=== PATIENT | female | born 1970 | race Caucasian/White ===

== ENCOUNTER → 2018-05-02 00:30 | Outpatient (CLI) | payer OTHER, SELFPAY ==
--- NOTE | 2018-05-02 | DI.RAD.S_ITS ---
PROCEDURE: XR CHEST 2V INDICATIONS: COUGH TECHNIQUE: 2 views of the chest were acquired. COMPARISON: [facility], CHEST 2 VIEW, 12/25/2017, 0:49. [facility], CHEST 2 VIEW, 12/11/2017, 12:39. [facility], CHEST 2 VIEW, 03/24/2014, 1:40. FINDINGS: Surgical changes and devices: None. Lungs and pleura: No pleural effusions or pneumothorax. Lungs are clear. Mediastinum: Mediastinal contours are normal. Heart size is normal. Bones and chest wall: No suspicious bony abnormalities. Soft tissues appear unremarkable. IMPRESSION: No source of cough identified. Dictated by: Robbi Billings M.D. on 05/02/2018 at 8:54 Approved by: Robbi Billings M.D. on 05/02/2018 at 8:54
== END ==
PROVIDERS: Family Provider Internal Medicine; PCP Internal Medicine; Visit Provider Student in an Organized Health Care Education/Training Program
DX: R05 Cough (principal)
CPT/HCPCS: 71046

== ENCOUNTER → 2018-06-11 23:03 | Outpatient (CLI) | payer OTHER, SELFPAY ==
[2018-06-12 03:26] LABS: Hemoglobin A1C% w Est Avg Glu 8.2 % (4.0-6.0)
== END ==
PROVIDERS: Family Provider Internal Medicine; PCP Internal Medicine; Visit Provider Internal Medicine
DX: E11.21 Type 2 diabetes mellitus with diabetic nephropathy (principal)
CPT/HCPCS: 36415; 83036

== ENCOUNTER 2018-06-20 11:48 | Emergency (ER) | payer OTHER, SELFPAY ==
[2018-06-20 12:28] VITALS: BP 163/100; PULSE 78; RESP 16; TEMP 36.3; O2SAT 100
--- NOTE | 2018-06-20 12:34 | DI.RAD.S_ITS ---
PROCEDURE: XR FOOT RT MIN 3V INDICATIONS: injured right foot kayaking TECHNIQUE: 3 views of the foot were acquired. COMPARISON: None. FINDINGS: Bones: No foot bone fractures or dislocations. No suspicious bony lesions. On AP view, there is bony irregularity over the distal fibula, possibly old fracture. Soft tissues: No tibiotalar joint effusion. Achilles tendon appears normal. IMPRESSION: No acute fracture or malalignment. Dictated by: Jon Yoo M.D. on 06/20/2018 at 12:52 Approved by: Jon Yoo M.D. on 06/20/2018 at 12:55
--- NOTE | 2018-06-20 13:20 | ED_ITS ---
HPI - Extremity Injury (Lower) General Chief Complaint: Extremity Injury, Lower Stated Complaint: KAYAK ACCIDENT, LT LEG AND FOOT INJURY Time Seen by Provider: 06/20/18 13:16 Source: patient Mode of arrival: ambulatory Limitations: no limitations History of Present Illness HPI Narrative: 47-year-old female here for evaluation of right ankle injury. Patient states that it occurred yesterday while she was tie aching. She states that she tipped over the [facility] acting at some point during that have blue torres she injured her right ankle. Has had pain on the top of her foot since then. Related Data Home Medications Medication Instructions Recorded Confirmed metformin [Glucophage] 500 mg PO BID #0 05/19/13 Previous Rx's Medication Instructions Recorded diazepam [Valium] 10 mg PO TIDP PRN #10 tab 04/23/17 hydrocodone-acetaminophen [Register] 1 - 2 tab PO Q6HP PRN #15 tab 04/23/17 tramadol 1 - 2 tab PO Q6HP PRN #10 tab 05/16/17 Allergies Allergy/AdvReac Type Severity Reaction Status Date / Time hydrocodone Allergy Unknown ITCHING/VOM Unverified 03/05/18 11:51 ITING Review of Systems Musculoskeletal Comments: Right ankle pain Integumentary/Breasts Comments: Cuts and scrapes to the top of the foot from the diet consistent Neurologic Comments: Some tingling to the top of the foot [facility] Surgical History Status post laparoscopic cholecystectomy Status post laparoscopic supracervical hysterectomy Family History Brother Mental health disorder Grandfather Stroke Mother Diabetes mellitus Heart disease Kidney disease Sister Mental health disorder Social History Smoking Status: Current every day smoker Comment: Reviewed patient's past medical surgical and family history Exam Initial Vital Signs Initial Vital Signs: Vital Signs Temperature 97.4 F L 06/20/18 12:28 Pulse Rate 78 06/20/18 12:28 Respiratory Rate 16 06/20/18 12:28 Blood Pressure 163/100 H 06/20/18 12:28 Pulse Oximetry 100 06/20/18 12:28 HENCO Head: normal to inspection, normocephalic and atraumatic Skin Other: Multiple linear superficial abrasions to the dorsum of the right foot and on other parts of the right lower extremity. No surrounding erythema no bleeding Neuro Other: Sensation intact to light touch right lower extremity Extrem Other: No proximal fibular tenderness on the right Does have tenderness to palpation along the lateral malleolus and the dorsum of the foot on the right Course Orders Ordered: ED Orders 06/20/18 12:34 XR foot RT min 3V Stat Vital Signs - 8 hr 06/20/18 12:28 Temperature 97.4 F L Pulse Rate 78 Respiratory Rate 16 Blood Pressure 163/100 H Pulse Oximetry 100 MDM - Extremity Injury (Lower) Imaging Data X-ray right ankle: Radiologist's impression: PROCEDURE: XR FOOT RT MIN 3V INDICATIONS: injured right foot kayaking TECHNIQUE: 3 views of the foot were acquired. COMPARISON: None. FINDINGS: Bones: No foot bone fractures or dislocations. No suspicious bony lesions. On AP view, there is bony irregularity over the distal fibula, possibly old fracture. Soft tissues: No tibiotalar joint effusion. Achilles tendon appears normal. IMPRESSION: No acute fracture or malalignment. Dictated by: Jon Yoo M.D. on 06/20/2018 at 12:52 Approved by: Jon Yoo M.D. on 06/20/2018 at 12:5 MDM Narrative Medical decision making narrative: No fractures noted on the x-ray. Patient is neurovascularly intact. Will hold on further workup for now. Patient given return precautions. She expressed understanding and agreement with plan. Discharge Plan Departure Patient Disposition: Home, Self-Care Clinical Impression: Ankle sprain and strain Discharge Date/Time: 06/20/18 13:25 Interventions: ED Discharge Assessment Last Done: 06/20/18 13:43 Instructions: How To Perform RICE (Rest, Ice, Compress, Elevate) Activity Restrictions/Additional Instructions: Keep your foot elevated. Come to work on time. You can ice it here at work. Return to the ER for any new or worsening symptoms. Prescriptions: No Action metformin [Glucophage] 500 MG tablet 500 mg PO BID Qty: 0 RF: 0 hydrocodone-acetaminophen [Register] 5 MG/325 MG tablet 1 - 2 tab PO Q6HP PRNQty: 15 RF: 0 diazepam [Valium] 10 MG tablet 10 mg PO TIDP PRNQty: 10 RF: 0 tramadol 50 MG tablet 1 - 2 tab PO Q6HP PRNQty: 10 RF: 0
== END 2018-06-20 13:25 | disposition home or self-care (01) ==
PROVIDERS: Emergency Provider Emergency Medicine; Family Provider Physician Assistant; PCP Physician Assistant
DX: S93.401A Sprain of unspecified ligament of right ankle, initial encounter (principal); Y93.16 Activity, rowing, canoeing, kayaking, rafting and tubing
CPT/HCPCS: 73630; 99282; 99283

== ENCOUNTER → 2018-08-15 10:54 | Outpatient (CLI) | payer OTHER, SELFPAY | PROVIDERS: Family Provider Physician Assistant; PCP Physician Assistant | DX: Z23 Encounter for immunization (principal) | CPT/HCPCS: 90471; 90686 ==

== ENCOUNTER → 2018-10-23 12:48 | Outpatient (CLI) | payer OTHER, SELFPAY ==
--- NOTE | 2018-10-23 | DI.MG.S_ITS ---
BILATERAL DIGITAL DIAGNOSTIC MAMMOGRAM 3D/2D: 10/23/2018 CLINICAL: Baseline exam. Bilateral Breast pain. No prior exams were available for comparison. There are scattered fibroglandular elements in both breasts. No significant masses, calcifications, or other findings are seen in either breast. IMPRESSION: NEGATIVE There is no abnormality seen in either breast to correspond with the pain, however, clinical followup is recommended. There is no mammographic evidence of malignancy. A 1 year screening mammogram is recommended. This exam was interpreted at Station ID: [id number]. NOTE: For mammograms, a report in lay terms will be sent to the patient. Approximately 15% of breast malignancies will not be visualized mammographically. In the management of a palpable breast mass, a negative mammogram must not discourage biopsy of a clinically suspicious lesion. Electronically Signed By: Robert osorio/payton:10/23/2018 13:29:56 letter sent: Clinical Evaluation ACR BI-RADS Category 1: Negative [id number]
== END ==
PROVIDERS: Family Provider Physician Assistant; PCP Physician Assistant; Visit Provider Physician Assistant
DX: R92.2 Inconclusive mammogram (principal); N64.4 Mastodynia
CPT/HCPCS: 77066; G0279

== ENCOUNTER → 2018-10-24 12:04 | Outpatient (CLI) | payer OTHER, SELFPAY ==
--- NOTE | 2018-10-24 | DI.CT.S_ITS ---
PROCEDURE: CT SINUS SCREEN WO CON INDICATIONS: SINUSITIS TECHNIQUE: Noncontrast 3.0 mm axial images acquired from the frontal sinuses to the mid-sella, with coronal and sagittal reformats. For radiation dose reduction, the following was used: automated exposure control, adjustment of mA and/or kV according to patient size. COMPARISON: Located Within [facility], CT, HEAD WITH AND WITHOUT CONTRAST, 04/22/2012, 16:56. FINDINGS: Image quality: Excellent. Maxillary Sinuses: No bony remodeling or destruction. Sinuses are clear except for a small inferior right maxillary sinus mucus retention cyst. Ethmoid Air Cells: No bony remodeling or destruction. Sinuses are clear. Sphenoid Sinuses: No bony remodeling or destruction. Sinuses are clear. Frontal Sinuses: No bony remodeling or destruction. Sinuses are clear. Ostiomeatal Complexes: Ostiomeatal complexes are patent. No Zonia cells. Miscellaneous: Visualized intra-orbital contents are normal. No agapito bullosa or paradoxical turbinate curvature. No nasal septal deviation. Partially visualized cranial defect related to craniotomy left frontoparietal region. IMPRESSION: No active sinusitis found. Small mucous retention cyst incidentally noted at the inferior aspect of the right maxillary sinus. Partially visualized craniotomy defect noted on the left, at the frontoparietal junction and better visualized on the scanogram which included the entire calvarium for this patient. This has not appreciably changed from the comparison head CT dated 04/22/12. Dictated by: Robbi Billings M.D. on 10/24/2018 at 12:38 Approved by: Robbi Billings M.D. on 10/24/2018 at 12:41
== END ==
PROVIDERS: Family Provider Physician Assistant; PCP Physician Assistant; Visit Provider Otolaryngology
DX: J32.9 Chronic sinusitis, unspecified (principal); J34.1 Cyst and mucocele of nose and nasal sinus
CPT/HCPCS: 70486

== ENCOUNTER 2018-12-03 14:52 | Emergency (ER) | payer OTHER, SELFPAY ==
--- NOTE | 2018-12-03 14:59 | DI.RAD.S_ITS ---
PROCEDURE: XR SHOULDER RT MIN 2V INDICATIONS: fall down stairs, rt shoulder/rt upper arm pain TECHNIQUE: 3 views of the shoulder were acquired. COMPARISON: None. FINDINGS: Bones: No fractures or dislocations. No suspicious bony lesions. Visualized ribs appear intact. Mild bilateral acromioclavicular joint osteoarthritis is seen. Soft tissues: No suspicious soft tissue calcifications. IMPRESSION: No gross acute right shoulder fracture or dislocation. Mild acromioclavicular joint osteoarthritis. Dictated by: Donaldo Andujar M.D. on 12/03/2018 at 15:45 Approved by: Donaldo Andujar M.D. on 12/03/2018 at 15:46
[2018-12-03 15:20] VITALS: BP 160/106; PULSE 93; RESP 20; TEMP 36.4; O2SAT 98
--- NOTE | 2018-12-03 15:40 | ED.UPPEXIN ---
HPI - Extremity Injury (Upper) <HEENA Faith - Last Filed: 12/03/18 22:10> General Chief Complaint: Extremity Injury, Upper Stated Complaint: RT SHOULDER, UPPER ARM INJURY Time Seen by Provider: 12/03/18 15:10 Source: patient Mode of arrival: ambulatory Limitations: no limitations History of Present Illness HPI narrative: 48-year-old female with history of diabetes and everyday smoker here for complaint of pain into her right upper arm and shoulder after fall this morning. She states that she stumbled down approximately 4 steps landing on her right shoulder. She denies any head injury. No neck injury. She is ambulatory into the emergency room. She denies any abdominal pain. She reports increased pain with motion of the right shoulder and upper arm. Related Data Home Medications Medication Instructions Recorded Confirmed esomeprazole magnesium 20 mg 20 mg PO DAILY 11/07/18 12/03/18 capsule,delayed release gabapentin 600 mg tablet 2,400 mg PO BID 11/07/18 12/03/18 gemfibrozil 600 mg tablet 600 mg PO BID 11/07/18 12/03/18 lisinopril 10 mg tablet 10 mg PO DAILY 11/07/18 12/03/18 metformin ER 750 mg 750 mg PO DAILY 11/07/18 12/03/18 tablet,extended release 24 hr fluconazole [Diflucan] 1 tab PO PRN PRN 12/03/18 12/03/18 insulin glargine [Basaglar KwikPen 20 units SUBCUT BID 12/03/18 12/03/18 U-100 Insulin] tramadol 1 - 2 tab PO Q6HP PRN 12/03/18 12/03/18 Previous Rx's Medication Instructions Recorded oxycodone-acetaminophen [Percocet] 1 tab PO Q4-6H PRN #10 tab 12/03/18 Allergies Allergy/AdvReac Type Severity Reaction Status Date / Time hydrocodone Allergy Unknown ITCHING/VOM Unverified 11/07/18 11:45 ITING Review of Systems <HEENA Faith - Last Filed: 12/03/18 22:10> Constitutional Denies chills, Denies fever(s), Denies lethargy and Denies weakness Eyes Denies change in vision, Denies eye discharge, Denies irritation and Denies loss of vision ENT Ears, Nose, Mouth, and Throat: Denies change in voice, Denies neck pain and Denies sore throat Cardiovascular Denies chest pain, Denies irregular heart rhythm, Denies lightheadedness, Denies palpitations, Denies dyspnea, Denies dyspnea on exertion and Denies orthopnea Respiratory Denies cough, Denies dyspnea, Denies dyspnea on exertion and Denies wheezing Gastrointestinal Gastrointestinal: Denies abdominal pain, Denies change in bowel habits, Denies diarrhea, Denies nausea and Denies vomiting Genitourinary Denies hematuria, Denies flank pain, Denies urinary incontinence and Denies urinary urgency Musculoskeletal Denies neck pain Comments: Right shoulder pain Integumentary/Breasts Denies pruritus, Denies erythema, Denies rash and Denies wounds Neurologic Denies confusion, Denies loss of vision and Denies weakness Psychiatric Denies anxiety, Denies confusion, Denies depression, Denies homicidal ideation and Denies suicidal ideation Endocrine Denies palpitations Hematologic/Lymphatic Denies easy bruising Allergic/Immunologic Denies wheezing Exam <HEENA Faith - Last Filed: 12/03/18 22:10> Initial Vital Signs Initial Vital Signs: Vital Signs Temperature 97.6 F 12/03/18 15:20 Pulse Rate 93 H 12/03/18 15:20 Respiratory Rate 20 12/03/18 15:20 Blood Pressure 160/106 H 12/03/18 15:20 Pulse Oximetry 98 12/03/18 15:20 Const General: cooperative and well developed Nutritional Appearance: well nourished Orientation: alert, awake, oriented x3 and not confused HENMT Nose: nasal discharge Mouth: oral mucosae normal and moist mucous membranes Eyes Conjunctivae: conjunctivae normal Sclera: sclerae normal Pupils: PERRL EOM: EOM intact bilaterally Resp Effort & Inspection: normal respiratory effort, able to speak in complete sentences, no respiratory distress and no use of accessory muscles Auscultation: clear to auscultation bilaterally, no rales, no rhonchi and no wheezes Cardio Rate: regular rate Rhythm: regular rhythm Heart Sounds: no click, no gallops, no murmurs and no rubs Pulses: normal peripheral pulses GI Inspection: normal to inspection Skin General: no rashes or lesions noted, No jaundice and No petechiae Neuro General: alert, oriented x3, gait normal and no focal motor deficits Speech: speech normal Extrem Right lower extremity: normal to inspection Left lower extremity: normal to inspection Other: Right shoulder with no signs of trauma. No ecchymosis. No deformities. No open lesions. Distal sensation is intact. Distal range of motion is intact. Distal pulses are intact. <Batsheva Donald DO - Last Filed: 12/04/18 19:45> Initial Vital Signs Initial Vital Signs: Vital Signs Temperature 97.6 F 12/03/18 15:20 Pulse Rate 93 H 12/03/18 15:20 Respiratory Rate 20 12/03/18 15:20 Blood Pressure 160/106 H 12/03/18 15:20 Pulse Oximetry 98 12/03/18 15:20 Course <HEENA Faith - Last Filed: 12/03/18 22:10> Orders Ordered: Discontinued Medications Ketorolac Tromethamine (Toradol) 60 mg IM NOW ONE Stop: 12/03/18 15:43 Last Admin: 12/03/18 16:01 Dose: 60 mg Tramadol HCl (Ultram) 50 mg PO NOW ONE Stop: 12/03/18 15:43 Last Admin: 12/03/18 16:01 Dose: 50 mg Vital Signs - 8 hr 12/03/18 15:20 12/03/18 17:00 Temperature 97.6 F Pulse Rate 93 H 75 Respiratory Rate 20 20 Blood Pressure 155/97 H Blood Pressure [Left Arm] 160/106 H Pulse Oximetry 98 97 <Batsheva Donald DO - Last Filed: 12/04/18 19:45> Orders Ordered: Discontinued Medications Ketorolac Tromethamine (Toradol) 60 mg IM NOW ONE Stop: 12/03/18 15:43 Last Admin: 12/03/18 16:01 Dose: 60 mg Tramadol HCl (Ultram) 50 mg PO NOW ONE Stop: 12/03/18 15:43 Last Admin: 12/03/18 16:01 Dose: 50 mg Vital Signs - 8 hr 12/03/18 15:20 12/03/18 17:00 Temperature 97.6 F Pulse Rate 93 H 75 Respiratory Rate 20 20 Blood Pressure 155/97 H Blood Pressure [Left Arm] 160/106 H Pulse Oximetry 98 97 MDM - Extremity Injury (Upper) <HEENA Faith - Last Filed: 12/03/18 22:10> Imaging Data R shoulder: Radiologist's impression: [address] [id number] XRay Report Signed Patient: Candis Vallecillo MR#: [id number] : 1970 Acct:[id number] Age/Sex: 48 / F Date of Service: 12/03/18 Loc: ED Accession Number: [id number] Procedure: XR shoulder RT min 2V Ordering Provider: Jero Lehman PROCEDURE: XR SHOULDER RT MIN 2V INDICATIONS: fall down stairs, rt shoulder/rt upper arm pain TECHNIQUE: 3 views of the shoulder were acquired. COMPARISON: None. FINDINGS: Bones: No fractures or dislocations. No suspicious bony lesions. Visualized ribs appear intact. Mild bilateral acromioclavicular joint osteoarthritis is seen. Soft tissues: No suspicious soft tissue calcifications. IMPRESSION: No gross acute right shoulder fracture or dislocation. Mild acromioclavicular joint osteoarthritis. Dictated by: Dnoaldo Andujar M.D. on 12/03/2018 at 15:45 Approved by: Donaldo Andujar M.D. on 12/03/2018 at 15:46 [facility] Narrative Medical decision making narrative: X-ray of the right shoulder was obtained was negative for any acute fractures of findings. Signs and symptoms presents as contusion to the right upper extremity. Patient request pain medication she is prescribed small amount of Percocet. She states she is allergic to [place] however she can tolerate Percocet. Follow up with primary care providerfor re-evaluation next week. For any worsening symptoms return to the emergency room Discharge Plan Departure Patient Disposition: Home Clinical Impression: Contusion of right shoulder Discharge Date/Time: 12/03/18 17:00 Interventions: ED Discharge Assessment Last Done: 12/03/18 17:00 Instructions: DI for Contusion Activity Restrictions/Additional Instructions: X-ray the right shoulder was obtained was negative for any acute fractures or dislocations. Signs and symptoms presents as contusion to the right upper extremity/shoulder area. Rest area. Use currently prescribed pain management regimen as needed for discomfort. May use Percocet as needed for discomfort do not use at the same time with your tramadol. The for any worsening symptoms return to the emergency room. Prescriptions: New oxycodone-acetaminophen [Percocet] 5-325 mg tablet 1 tab PO Q4-6H PRN (Reason: pain) Qty: 10 RF: 0 No Action metformin 750 mg tablet extended release 24 hr 750 mg PO DAILY RF: 0 gabapentin 600 mg tablet 2,400 mg PO BID RF: 0 lisinopril 10 mg tablet 10 mg PO DAILY RF: 0 esomeprazole magnesium [Nexium] 20 mg capsule,delayed release(DR/EC) 20 mg PO DAILY RF: 0 gemfibrozil 600 mg tablet 600 mg PO BID RF: 0 insulin glargine [Basaglar KwikPen U-100 Insulin] 100 unit/mL (3 mL) insulin pen 20 units subcut BID RF: 0 tramadol 50 MG tablet 1 - 2 tab PO Q6HP PRN (Reason: pain) RF: 0 fluconazole [Diflucan] 150 mg tablet 1 tab PO PRN PRN (Reason: unknown) RF: 0 Referrals: Rafaela Napoles PA-C [Primary Care Provider] - <Batsheva Donald DO - Last Filed: 12/04/18 19:45> Cosign ED Attending Cosignature Attestation: I was immediately available in the department for consultation. This documentation has been reviewed and I agree with assessment and plan. Supervised by Batsheva Donald DO
[2018-12-03] MEDS: KETOROLAC 60 MG/2 ML VIAL IM (16:01)
[2018-12-03] MEDS: TRAMADOL 50 MG TABLET PO (16:01)
[2018-12-03 17:00] VITALS: BP 155/97; PULSE 75; RESP 20; O2SAT 97
--- NOTE | 2018-12-03 18:12 | PC.NURSE ---
pt appears to have right swollen ankle from fall, abrasion to right ankle, and right knee. Provider aware. No new orders at this time.
== END 2018-12-03 17:00 | disposition home or self-care (01) ==
PROVIDERS: Emergency Provider Nurse Practitioner Family; Family Provider Physician Assistant; PCP Physician Assistant
DX: S40.011A Contusion of right shoulder, initial encounter (principal); W10.8XXA Fall (on) (from) other stairs and steps, initial encounter
CPT/HCPCS: 73030; 96372; 99282; 99283; J1885

== ENCOUNTER → 2018-12-10 15:48 | Outpatient (CLI) | payer OTHER, SELFPAY ==
--- NOTE | 2018-12-10 | DI.RAD.S_ITS ---
PROCEDURE: XR THORACIC SPINE 2V INDICATIONS: FALL TECHNIQUE: 3 views of the thoracic spine were acquired. COMPARISON: None. FINDINGS: Bones: No fractures or dislocations. No suspicious bony lesions. Diffuse endplate spurring and sclerosis. There is mild diffuse midthoracic spine disc space narrowing. Soft tissues: No paravertebral stripe thickening. IMPRESSION: No fracture. Chronic degenerative changes as above. Dictated by: Sekou Cruz M.D. on 12/10/2018 at 16:54 Approved by: Sekou Cruz M.D. on 12/10/2018 at 16:55
--- NOTE | 2018-12-10 | DI.RAD.S_ITS ---
PROCEDURE: XR LUMBAR SPINE 2-3V INDICATIONS: FALL TECHNIQUE: 3 views of the lumbar spine were acquired. COMPARISON: [facility], , L-SPINE 2-3 VIEWS, 05/16/2017, 3:36. FINDINGS: Bones: No fracture or focal destruction. There is anatomic alignment. Severe narrowing of L5-S1 disc space although this is probably unchanged. Diffuse facet arthropathy. Mild narrowing of the remaining lumbar disc spaces. Trace retrolisthesis of L2 on L3, as before. Soft tissues: Overlying bowel gas pattern is normal. No suspicious soft tissue calcifications. IMPRESSION: Overall, no interval change since 05/16/17. Severe L5-S1 disc degeneration as before. Dictated by: Sekou Cruz M.D. on 12/10/2018 at 16:55 Approved by: Sekou Cruz M.D. on 12/10/2018 at 16:56
== END ==
PROVIDERS: Family Provider Physician Assistant; PCP Physician Assistant; Visit Provider Student in an Organized Health Care Education/Training Program
DX: M47.814 Spondylosis without myelopathy or radiculopathy, thoracic region (principal); M51.37 Other intervertebral disc degeneration, lumbosacral region; M54.5 Low back pain
CPT/HCPCS: 72070; 72100

== ENCOUNTER → 2018-12-18 09:29 | Outpatient (CLI) | payer OTHER, SELFPAY ==
--- NOTE | 2018-12-18 | DI.MRI.S_ITS ---
PROCEDURE: MR SHOULDER RT WO CON INDICATIONS: FALL AND PAIN IN R SHOULDER TECHNIQUE: Noncontrast oblique coronal T2 fast spin echo with fat saturation, oblique sagittal T1 spin echo and T2 fast spin echo with fat saturation, axial T1 spin echo and T2 fast spin echo with fat saturation through the shoulder. COMPARISON: None. FINDINGS: Image quality: Diagnostic. Rotator cuff: Prominent thickening, edema, and extensive irregularity of the distal supraspinatus and infraspinatus tendons is present. There is a least a high grade bursal surface partial thickness tear evident involving the anterior distal supraspinatus tendon. A small full-thickness tear may be present. Moderate to high-grade irregular partial thickness tearing is also present involving the infraspinatus tendon. Mild thickening and increased signal involving the subscapularis tendon is present. The teres minor tendon is atrophic, including its corresponding muscle, which is felt to be related to a chronic process. No additional areas of significant muscle atrophy are present. However, there is edema identified involving the supraspinatus and infraspinatus muscles with edema extending along the infraspinatus myotendinous junction. Bones and bursae: There is no acute fracture, dislocation, or suspicious osseous lesion identified involving the osseous structures of the shoulder. Mild focal marrow edema involving the greater tuberosity of the humeral head is incidentally noted, which could potentially represent a bone contusion. There is a small glenohumeral joint effusion. Mild degenerative changes of the glenohumeral joint are present. Moderate degenerative changes of the acromioclavicular joint are present. There is a large amount of fluid contained within the subacromial subdeltoid bursa. Capsule and soft tissues: Evaluation of the glenoid labrum and the glenohumeral ligaments is difficult without intra-articular contrast. However, there is heterogeneity identified along the superior labrum, suggesting a small superior labral tear that extends from the 11 o'clock position (anterosuperior) disease to the 3 o'clock position (posterior). A ganglion cyst is identified along the superior aspect of the glenoid, which tracks posteriorly, probably originating from the superior labrum. This cyst measures at least 3.5 x 1.3 x 1.6 cm (image 12, series 8). This cyst does not extend into the spinoglenoid notch. The long head of biceps tendon is normally positioned within the bicipital groove. However, there is thickening and increased signal involving the intra-articular portion of this tendon. No acute injuries are suspected involving the glenohumeral ligaments. There is edema identified involving the anterolateral margin of the deltoid muscle. IMPRESSION: 1. Moderate to high-grade partial-thickness tearing of the supraspinatus and infraspinatus tendons with corresponding severe tendinopathy. An interstitial/delaminating partial-thickness component of the infraspinatus tendon is suspected. A small full-thickness tear of the distal supraspinatus tendon near the rotator interval is difficult to exclude. 2. Moderate subscapularis tendinopathy without significant tearing. 3. Small superior labral tear (SLAP tear) probably extends into the biceps anchor. 4. Moderate tendinopathy involving the intra-articular portion of the biceps tendon. 5. Possible contusion of the greater tuberosity of the humeral head. No fractures. 6. Deltoid muscle strain. 7. Mild to moderate degenerative changes of the glenohumeral and acromioclavicular joints. 8. Moderate fluid within the subacromial subdeltoid bursa is likely reactive. Please correlate clinically to exclude bursitis. Dictated by: Roverto Langley M.D. on 12/18/2018 at 9:18 Approved by: Roverto Langley M.D. on 12/18/2018 at 9:26
== END ==
PROVIDERS: Family Provider Physician Assistant; PCP Physician Assistant; Visit Provider Student in an Organized Health Care Education/Training Program
DX: M25.511 Pain in right shoulder (principal); S46.011A Strain of muscle(s) and tendon(s) of the rotator cuff of right shoulder, initial encounter; S43.491A Other sprain of right shoulder joint, initial encounter; S46.811A Strain of other muscles, fascia and tendons at shoulder and upper arm level, right arm, initial encounter; M19.011 Primary osteoarthritis, right shoulder; W19.XXXA Unspecified fall, initial encounter
CPT/HCPCS: 73221

== ENCOUNTER → 2019-07-19 06:46 | Outpatient (CLI) | payer OTHER, SELFPAY ==
[2019-07-19 06:59] LABS: Add Manual Diff / Slide Review NO; Basophils Absolute Auto 100 /uL (0-100); Basophils Percent Auto 0.9 % (0-2); Eosinophils Absolute Auto 300 /uL (0-450); Hematocrit 43.4 % (36-46); Hemoglobin 15.3 g/dL (12.0-16.0); Lymphocytes Absolute Auto 1700 /uL (1100-4500); Lymphocytes Percent Auto 27.7 % (25-40); Mean Corpuscular HGB Conc 35.3 % (30-36); Mean Corpuscular Hemoglobin 30.2 PG (26-34); Mean Corpuscular Volume 85.4 fL (80-100); Monocytes Absolute Auto 400 /uL (0-900); Monocytes Percent Auto 6.4 % (3-14); Neutrophils Absolute Auto 3700 /uL (1500-7000); Platelet Count 195 X10^3/uL (150-400); Red Blood Cell Count 5.08 X10^6/uL (4.0-5.2); Red Cell Distribution Width 12.6 % (11.6-14.8); White Blood Cell Count 6.2 X10^3/uL (4.5-11.0)
[2019-07-19 07:11] LABS: Alanine Aminotransferase 26 IU/L (9-52); Albumin 3.9 g/dL (3.5-5.0); Albumin Globulin Ratio 1.1 (1.0-2.8); Alkaline Phosphatase 61 U/L (38-126); Aspartate Aminotransferase 20 IU/L (14-36); BUN Creatinine Ratio 28.8 (6-22); Bilirubin Total 0.5 mg/dL (0.2-1.3); Blood Urea Nitrogen 23 mg/dL (7-17); Calcium 9.4 mg/dL (8.4-10.2); Carbon Dioxide 27 mmol/L (22-32); Chloride 102 mmol/L (98-107); Cholesterol 166 mg/dL (140-199); Estimated Glomerular Filt Rate > 60.0 mL/min (>60); Globulin 3.4 g/dL (1.7-4.1); Glucose 305 mg/dL (70-100); HDL Cholesterol 36 mg/dL (40-60); HEMOLYSIS < 15 (0-50); Potassium 4.3 mmol/L (3.4-5.1); Sodium 137 mmol/L (137-145); Total Protein 7.3 g/dL (6.3-8.2); Triglycerides 466 mg/dL (35-150)
[2019-07-19 07:12] LABS: Hemoglobin A1C% w Est Avg Glu 9.1 % (4.0-6.0)
[2019-07-19 07:55] LABS: TSH w/ Reflex to FT4 3.33 uIU/mL (0.47-4.68)
== END ==
PROVIDERS: Family Provider Family Medicine; Visit Provider Nurse Practitioner Family
DX: E11.42 Type 2 diabetes mellitus with diabetic polyneuropathy (principal); Z13.6 Encounter for screening for cardiovascular disorders; F41.9 Anxiety disorder, unspecified
CPT/HCPCS: 80053; 80061; 83036; 84443; 85025

== ENCOUNTER → 2019-07-20 13:52 | Outpatient (CLI) | payer OTHER, SELFPAY | PROVIDERS: Family Provider Family Medicine; Visit Provider Surgery | DX: L02.91 Cutaneous abscess, unspecified (principal) | CPT/HCPCS: 87070; 87077; 87186; 87205 ==

== ENCOUNTER 2019-07-28 08:06 | Day surgery (SDC) | payer OTHER, SELFPAY ==
[2019-07-21 10:40] VITALS: BMI 32.5
[2019-07-28] VITALS (10 sets, daily range): BP systolic 108–171; BP diastolic 66–106; PULSE 77–96; RESP 11–20; TEMP 36.2–36.4; O2SAT 91–97; BMI 32.3
--- NOTE | 2019-07-28 | PATH_ITS ---
[facility] Accession Number: [id number] . 01 Material submitted: . PART A: thigh - LEFT THIGH SOFT TISSUE MASS PART B: groin - RIGHT GROIN SOFT TISSUE MASS . 01 Clinical history: . LOCALIZED SWELLING, MASS AND LUMP, UNSPECIFIED LOW . 01 Diagnosis: A. Skin, Left Thigh Soft Tissue Mass, Excision: Skin with dermal abscess and associated chronic inflammation, consistent with ruptured epidermal inclusion cyst. . B. Skin, Right Groin Soft Tissue Mass, Excision: Skin with dermal scarring, evidence of old hemorrhage, and mild active inflammation, consistent with ruptured cyst; see comment. . COMMENT: B. Differential diagnosis includes, in the proper clinical setting, hidradenitis suppurativa. Clinical correlation is necessary. MRV/07/30/2019 . 01 Electronically signed: . Taina Reyes MD, Pathologist NPI- [id number] . 01 Gross description: . (A) Received in formalin, labeled left thigh soft tissue mass, is an unoriented piece of andrew-brown smooth shiny skin with underlying tissue (4.0 x 2.4 x 1.4 cm). The underlying tissue is fibrofatty and cystic. The cavity (1.2 x 0.7 x 0.5 cm) contains clear colorless fluid and perforates through the skin 0.5 cm from the peripheral resection margin. The resection margin is inked blue. Disc Recordist serial sections are submitted in cassettes A1-A2. (B) Received in formalin, labeled right groin soft tissue mass, is an unoriented piece of andrew-posada skin with underlying tissue (1.2 x 0.8 x 0.4 cm) containing a linear perforation (length-0.6 cm). The underlying tissue is firm and cystic containing andrew-white solid paste-like material. The resection margin is inked blue. Trisected and entirely submitted in cassette B1. ([id number]) /MRV . 01 Pathologist provided ICD-10: L72.0 . 01 CPT . 475091, [id number] Performed at: 01 [facility] [address] [place] [address] [address] [facility], [place], [place] [id number] MD Robert Ricardo MD Phone: [phone]
--- NOTE | 2019-07-28 08:34 | PM.PREOP ---
Pre-operative Note Interval Note History & Physical reviewed/Exam performed by Physician: Yes Changes to H&P: No
[2019-07-28] MEDS: LACTATED RINGERS 1,000 ML 100 ML IV (08:48)
[2019-07-28] MEDS: INSULIN REGULAR 100 UNIT/ML 3 ML VIAL 10 UNIT SUBCUT (09:05)
[2019-07-28] MEDS: CEFAZOLIN 2 GM/100 ML FROZ.PIGGY IV (09:20)
--- NOTE | 2019-07-28 09:38 | SUR.OPER ---
Supine on padded OR bed, head on pillow, arms secured on padded arm boards at <90 degrees abduction, legs uncrossed, safety belt at thigh, tape over blanket over lower legs.
--- NOTE | 2019-07-28 10:08 | PM.OP.1 ---
Operative Date/Time/Diagnoses Date of procedure: 07/28/19 Time of procedure: 10:08 Pre-op diagnosis: L thigh soft tissue mass <3 cm R groin sinus tract Post-op diagnosis: same Procedure & Clinicians Procedure: Excision left thigh soft tissue mass Excision right groin abscess Same procedure as scheduled: Yes Indications: 48-year-old female with a symptomatic slowly enlarging left thigh soft tissue mass. In addition she has a right groin abscess which is persistently draining. Following discussion of the risks benefits alternatives to surgical intervention she elected to proceed. Surgeon: Willian Murillo Click Yes if Unassisted: Yes Anesthesia Type: General Operative Notes Findings: Sinus tract right groin Soft tissue mass left thigh superficial Specimen(s): other (left thigh soft tissue mass. R groin soft tissue mass) Estimated Blood Loss (mL): 5 Procedure in detail: Patient was brought to the operating room placed supine on the table. Bilateral lower extremity compression devices were applied. She was intubated with a LMA. She was then prepped and draped in usual sterile fashion. Time-out was performed to ensure the correct patient procedure necessary equipment within the operating room. I began with the left thigh soft tissue mass which lay inferior to the inguinal ligament. A elliptical incision was made around the mass after infiltration of skin with 0.25% bupivacaine. The subcutaneous tissues were divided using electrocautery. The mass was elevated and removed from the underlying subcutaneous tissue in its entirety. Mass passed off the field labeled as left thigh soft tissue mass. The wound was irrigated with saline and hemostasis was ensured. The wound was reapproximated with 3 0 Vicryl suture followed by skin closure with 4 O Monocryl and Dermabond. Next moved to the right groin draining sinus. 0.25%% bupivacaine was infiltrated into the skin. A small elliptical incision was made around the abscess in its entirety and it was then excised off the subcutaneous tissues using electrocautery. Hemostasis was achieved and the wound was reapproximated with 4 0 Monocryl followed by application Dermabond. This mass was also passed off the table labeled specimen right groin soft tissue mass. Patient tolerated procedure well. Sponge instrument count at the end of the operation was correct. The emerged from anesthesia where extubated and transferred to the postoperative care unit in stable condition. Post-operative Condition: stable Disposition: same day surgery
[2019-07-28] MEDS: BUPIVACAINE 0.25% (PF) VIAL 30 ML INJ (10:09)
[2019-07-28] MEDS: fentaNYL 100 MCG/2 ML INJ 50 MCG IV ×2 (10:21→10:33)
--- NOTE | 2019-07-28 11:05 | SUR.PHASEI ---
Pt wanting pain med prior to d/c, none onm chart, Dr. Bae called, will order, pt tolerated applesauce. Stable pacu stay to opd under the care of PARTH Henson.
[2019-07-28] MEDS: OXYCODONE IR 5 MG TABLET PO (11:12)
--- NOTE | 2019-07-28 11:16 | SUR.PHASEII ---
Pt c/o itching but stated would take Benadryl at home
--- NOTE | 2019-07-28 12:16 | SUR.PREOP ---
Late note: The consent is for Candis Billy, but patient verifies this is her and that the signature is hers. Says that she is in the middle of a name change and now going by Elis for surname.
== END 2019-07-28 11:44 | disposition home or self-care (01) ==
PROVIDERS: Family Provider Family Medicine; Visit Provider Surgery
PROC: (CPT 27337; principal; 2019-07-28 09:15)
PROC: (CPT 27337; 2019-07-28 09:15)
DX: L72.0 Epidermal cyst (principal); L02.214 Cutaneous abscess of groin; E11.9 Type 2 diabetes mellitus without complications; Z79.4 Long term (current) use of insulin
CPT/HCPCS: 27337; 10060; J0690; J2250; J2405; J2704; J3010

== ENCOUNTER → 2019-08-20 13:02 | Outpatient (CLI) | payer OTHER, SELFPAY | PROVIDERS: PCP Family Medicine | DX: Z23 Encounter for immunization (principal) | CPT/HCPCS: 90471; 90686 ==

== ENCOUNTER 2019-09-26 01:43 | Emergency (ER) | payer OTHER, SELFPAY ==
--- NOTE | 2019-09-26 01:48 | ED.GENADULT ---
HPI - General Adult General Chief complaint: Back Pain/Injury Stated complaint: back pain Time Seen by Provider: 09/26/19 01:46 Source: patient Mode of arrival: Ambulatory Limitations: no limitations History of Present Illness HPI narrative: History of low back pain with left-sided sciatic here for same. Patient stated the symptoms worsened after she fell down some stairs approximately 1 week ago. She has been ambulatory since then. No urinary or bowel symptoms. Related Data Home Medications Medication Instructions Recorded Confirmed fluconazole 1 tab PO PRN PRN 12/03/18 09/10/19 tramadol 1 - 2 tab PO Q6HP PRN 12/03/18 09/10/19 omeprazole 10 mg PO DAILY 07/28/19 09/10/19 Previous Rx's Medication Instructions Recorded acetaminophen [Tylenol] 650 mg PO Q6H PRN #60 cap 07/28/19 atorvastatin 20 mg tablet 20 mg PO BEDTIME #90 tab 08/03/19 escitalopram oxalate 10 mg tablet 10 mg PO DAILY #60 tab 08/03/19 gabapentin 600 mg tablet See Rx Instructions PO BID #180 tab 08/03/19 glyburide 5 mg tablet 5 mg PO DAILY #90 tab 08/03/19 lisinopril 10 mg tablet 10 mg PO DAILY #90 tab 08/03/19 metformin 750 mg tablet,extended 750 mg PO DAILY #90 tab 08/03/19 release 24 hr Allergies Allergy/AdvReac Type Severity Reaction Status Date / Time hydrocodone Allergy Unknown ITCHING/VOM Verified 09/10/19 11:50 ITING/RASH Review of Systems Constitutional Constitutional: Denies fever(s) Genitourinary Genitourinary: Denies dysuria Musculoskeletal Musculoskeletal: Reports back pain and Denies arthralgias Integumentary/Breasts Skin/Breast: Denies rash Neurologic Neurologic: Reports radicular pain and Reports paresthesias Patient History Medical History Congenital absence of one kidney (Acute) Diabetes mellitus (Chronic ~2005) Fatty liver (Acute) HLD (hyperlipidemia) (Acute) HTN (hypertension) (Acute) Osteosarcoma (Resolved) Seizure (Acute ~1990) Tuberculosis (Acute ~1993) Vision disorder (Chronic) Surgical History (Updated 08/03/19 @ 19:47 by Magda Xie) Anesthesia (Resolved) Bone tumor (benign) (Resolved ~1990) History of carpal tunnel release (Resolved) Neoplasm of femur (Resolved) Status post laparoscopic cholecystectomy (~2016) Status post laparoscopic supracervical hysterectomy (~2010) Family History (Updated 08/03/19 @ 19:50 by Magda Xie) Brother Mental health disorder Mother Diabetes mellitus Heart disease Kidney disease Hyperlipidemia Hypertension Sister Mental health disorder Diabetes mellitus Grandfather Hypertension Stroke Grandmother Diabetes mellitus Hypertension Social History household members: spouse Smoking Status: Current every day smoker Tobacco: How many years used: 29 quit status: considering quitting second hand exposure: Yes (socially) alcohol intake: current substance use type: does not use alcohol intake frequency: holidays/special occasions only Substance Use Type: does not use Exam Const General: cooperative and comfortable Resp Effort & Inspection: normal respiratory effort Cardio Rate: regular rate Back/Spine/Pelvis Thoracic/Lumbar Spine: lumbar spinal tenderness Neuro General: alert and awake Cognition: normal cognition Speech: speech normal Gait: normal gait Psych Appearance: grossly normal and well kempt Course Orders Ordered: ED Orders 09/26/19 01:52 XR lumbar spine 2-3V Stat Discontinued Medications Ketorolac Tromethamine (Toradol) 30 mg IM NOW ONE Stop: 09/26/19 01:47 Medical Decision Making Imaging Data lumbar x- rays: Attestation: I personally reviewed and interpreted this imaging study as follows: My impression: No fractures or dislocations MDM Narrative Medical decision making narrative: Patient is neurovascularly intact. No red flag symptoms concerning for cauda equina. X-ray show no fractures. This is ordered because she did fall down the stairs earlier this week because symptoms hurt. Is given a Toradol shot. Given return precautions and follow-up instructions. She expressed understanding and agreement with plan. Discharge Plan Departure Patient Disposition: Home Clinical Impression: Low back pain Qualifiers: Chronicity: acute Back pain laterality: left Sciatica presence: with sciatica Sciatica laterality: sciatica of left side Qualified Code(s): M54.42 - Lumbago with sciatica, left side Instructions: DI for Low Back Pain Activity Restrictions/Additional Instructions: Take all your medications as directed. Prescriptions: No Action escitalopram oxalate [Lexapro] 10 mg tablet 10 mg PO DAILY Qty: 60 RF: 0 gabapentin 600 mg tablet See Rx Instructions PO BID Qty: 180 RF: 2 glyburide 5 mg tablet 5 mg PO DAILY Qty: 90 RF: 1 lisinopril 10 mg tablet 10 mg PO DAILY Qty: 90 RF: 0 metformin 750 mg tablet extended release 24 hr 750 mg PO DAILY Qty: 90 RF: 0 atorvastatin 20 mg tablet 20 mg PO BEDTIME Qty: 90 RF: 0 tramadol 50 MG tablet 1 - 2 tab PO Q6HP PRN (Reason: pain) RF: 0 fluconazole 150 mg tablet 1 tab PO PRN PRN (Reason: unknown) RF: 0 acetaminophen [Tylenol] 325 mg capsule 650 mg PO Q6H PRN (Reason: pain) Qty: 60 RF: 0 omeprazole 10 mg PO DAILY RF: 0 Referrals: Tracy Cespedes DO [Primary Care Provider] -
[2019-09-26 01:50] VITALS: BP 135/88; PULSE 92; RESP 16; TEMP 36.3; O2SAT 97; BMI 30.4
--- NOTE | 2019-09-26 01:52 | DI.RAD.S_ITS ---
PROCEDURE: XR LUMBAR SPINE 2-3V INDICATIONS: fall with lower back pain TECHNIQUE: 3 views of the lumbar spine were acquired. COMPARISON: [facility], CR, XR LUMBAR SPINE 2-3V, 12/10/2018, 15:56. FINDINGS: Bones: There are 5 lumbar-type vertebral bodies. The lowest intervertebral disk space is designated as L5-S1. The vertebral body heights are well-maintained without evidence to suggest an acute compression fracture. The bone mineralization is within normal limits. Moderate multilevel degenerative changes of the lumbar spine are similar to the previous examination and demonstrate areas of disc height loss, endplate sclerosis, disc osteophyte complexes, and facet arthropathy. These findings are more prominent involving the lower lumbar levels. Overall, the degree of degenerative changes are similar to the prior exam. Soft tissues: The soft tissues of the imaged abdomen and pelvis are within normal limits. IMPRESSION: Moderate degenerative changes of the lumbar spine without acute fracture evident. Note: The preliminary ED physician interpretation and the final report are concordant. Dictated by: Roverto Langley M.D. on 09/26/2019 at 6:45 Approved by: Roverto Langley M.D. on 09/26/2019 at 6:47
[2019-09-26] MEDS: predniSONE 20 MG PREPACK 1 BOTTLE MISC (02:16)
[2019-09-26] MEDS: KETOROLAC 60 MG/2 ML VIAL 30 MG IM (02:17)
== END 2019-09-26 02:22 | disposition home or self-care (01) ==
PROVIDERS: Emergency Provider Emergency Medicine; PCP Family Medicine
DX: M54.42 Lumbago with sciatica, left side (principal)
CPT/HCPCS: 72100; 96372; 99282; 99283; J1885

== ENCOUNTER 2019-10-04 16:00 | Emergency (ER) | payer OTHER, SELFPAY ==
[2019-10-04 16:14] VITALS: BP 178/98; PULSE 87; TEMP 36.1; O2SAT 99; BMI 31.3
--- NOTE | 2019-10-04 17:00 | ED.LOWEXIN ---
HPI - Extremity Injury (Lower) General Chief Complaint: Extremity Injury, Lower Stated Complaint: back and left leg pain Time Seen by Provider: 10/04/19 16:54 Source: patient Mode of arrival: Family Vehicle Limitations: no limitations History of Present Illness HPI Narrative: The patient is a 49-year-old female with history of diabetes presenting with left-sided back pain. She initially injured her back in November of 2018 a few weeks ago she fell down some stairs and since then she fell again when she was at work. Today her pain is quite bad radiating from her buttock down her left leg. She feels like her left leg is numb on tingling. She denies any loss of urine or stool no fevers or chills. She was seen evaluated here on 09/26/2019 where she was given prednisone which she said seemed to help however ibuprofen is not helping now. Related Data Home Medications Medication Instructions Recorded Confirmed fluconazole 1 tab PO PRN PRN 12/03/18 09/10/19 tramadol 1 - 2 tab PO Q6HP PRN 12/03/18 09/10/19 omeprazole 10 mg PO DAILY 07/28/19 09/10/19 Previous Rx's Medication Instructions Recorded acetaminophen [Tylenol] 650 mg PO Q6H PRN #60 cap 07/28/19 atorvastatin 20 mg tablet 20 mg PO BEDTIME #90 tab 08/03/19 escitalopram oxalate 10 mg tablet 10 mg PO DAILY #60 tab 08/03/19 gabapentin 600 mg tablet See Rx Instructions PO BID #180 tab 08/03/19 glyburide 5 mg tablet 5 mg PO DAILY #90 tab 08/03/19 lisinopril 10 mg tablet 10 mg PO DAILY #90 tab 08/03/19 metformin 750 mg tablet,extended 750 mg PO DAILY #90 tab 08/03/19 release 24 hr diazepam [Valium] 5 mg PO Q12HR PRN #10 tab 10/04/19 oxycodone-acetaminophen [Percocet] 1 tab PO Q4-6H PRN #10 tab 10/04/19 prednisone 20 mg PO DAILY #3 tab 10/04/19 Allergies Allergy/AdvReac Type Severity Reaction Status Date / Time hydrocodone Allergy Unknown ITCHING/VOM Verified 10/04/19 16:20 ITING/RASH Review of Systems Review of Systems Narrative: GENERAL: Denies chills,fever HEENT: Denies throat pain RESPIRATORY: Denies dyspnea, cough, wheezing CARDIOVASCULAR: Denies chest pain, palpitations GASTROINTESTINAL: Denies nausea, vomiting MUSCULOSKELETAL: See HPI SKIN: No rash, no laceration, no pruritus NEUROLOGIC: Denies weakness, dizziness, headache, numbness 8 point review of systems is negative except for those stated above and HPI Patient History Medical History Congenital absence of one kidney (Acute) Diabetes mellitus (Chronic ~2005) Fatty liver (Acute) HLD (hyperlipidemia) (Acute) HTN (hypertension) (Acute) Osteosarcoma (Resolved) Seizure (Acute ~1990) Tuberculosis (Acute ~1993) Vision disorder (Chronic) Surgical History Anesthesia (Resolved) Bone tumor (benign) (Resolved ~1990) History of carpal tunnel release (Resolved) Neoplasm of femur (Resolved) Status post laparoscopic cholecystectomy (~2016) Status post laparoscopic supracervical hysterectomy (~2010) Family History Brother Mental health disorder Mother Diabetes mellitus Heart disease Kidney disease Hyperlipidemia Hypertension Sister Mental health disorder Diabetes mellitus Grandfather Hypertension Stroke Grandmother Diabetes mellitus Hypertension Social History household members: spouse Smoking Status: Current every day smoker Tobacco: How many years used: 29 quit status: considering quitting second hand exposure: Yes (socially) alcohol intake: current substance use type: does not use alcohol intake frequency: holidays/special occasions only Substance Use Type: does not use Exam Initial Vital Signs Initial Vital Signs: Vital Signs Temperature 96.9 F L 10/04/19 16:14 Pulse Rate 87 10/04/19 16:14 Blood Pressure 178/98 H 10/04/19 16:14 Pulse Oximetry 99 10/04/19 16:14 GENERAL: On a gurney on all fours, trying to get comfortable CARDIOVASCULAR: peripheral pulses in tact, cap refill <2 sec RESPIRATORY: No respiratory distress, speaks in full sentences without difficulty BACK: No vertebral tenderness no step-offs left buttock pain is a decreased sensation in left leg no weakness EXTREMITIES: Normal range of motion, no clubbing or edema. Neurovascularly intact NEUROLOGICAL: Cranial nerves II through XII grossly intact. Normal gait and speech. SKIN: Warm, dry, no petechiae, no rashes or lesions. Course Orders Ordered: Hydromorphone HCl (Dilaudid) 1 mg SUBCUT Q4H PRN PRN Reason: Pain, Severe (7-10) Last Admin: 10/04/19 18:06 Dose: 1 mg Documented by: SABINA Discontinued Medications Diazepam (Valium) 5 mg PO NOW ONE Stop: 10/04/19 19:03 Ketorolac Tromethamine (Toradol) 30 mg IM NOW ONE Stop: 10/04/19 19:03 Vital Signs Vital signs: Vital Signs - 8 hr 10/04/19 16:14 Temperature 96.9 F L Pulse Rate 87 Blood Pressure 178/98 H Pulse Oximetry 99 MDM - Extremity Injury (Lower) MDM Narrative Medical decision making narrative: Patient has had no relief with Dilaudid. She is requesting Toradol and muscle relaxer. Discharge Plan Departure Patient Disposition: Home Clinical Impression: Back pain Qualifiers: Back pain location: low back pain Chronicity: acute Back pain laterality: left Sciatica presence: with sciatica Sciatica laterality: sciatica of left side Qualified Code(s): M54.42 - Lumbago with sciatica, left side Instructions: DI for Low Back Pain Activity Restrictions/Additional Instructions: *You have been diagnosed with acute on chronic back pain with sciatica left side *What to do: *Continue to take medications as directed Percocet 1-2 tablets every 6 hours if needed for severe pain Valium 5 mg 12 hours if needed for muscle spasm Prednisone 20 mg once a day for 3 days *Follow up with your primary care provider in 2-3 days *Return to ER if you should have Increasing pain loss of urine, weakness in legs or any new, worsening or concerning symptoms Prescriptions: New oxycodone-acetaminophen [Percocet] 5-325 mg tablet 1 tab PO Q4-6H PRN (Reason: pain) Qty: 10 RF: 0 diazepam [Valium] 5 mg tablet 5 mg PO Q12HR PRN (Reason: muscle spasm) Qty: 10 RF: 0 prednisone 20 mg tablet 20 mg PO DAILY Qty: 3 RF: 0 No Action escitalopram oxalate [Lexapro] 10 mg tablet 10 mg PO DAILY Qty: 60 RF: 0 gabapentin 600 mg tablet See Rx Instructions PO BID Qty: 180 RF: 2 glyburide 5 mg tablet 5 mg PO DAILY Qty: 90 RF: 1 lisinopril 10 mg tablet 10 mg PO DAILY Qty: 90 RF: 0 metformin 750 mg tablet extended release 24 hr 750 mg PO DAILY Qty: 90 RF: 0 atorvastatin 20 mg tablet 20 mg PO BEDTIME Qty: 90 RF: 0 tramadol 50 MG tablet 1 - 2 tab PO Q6HP PRN (Reason: pain) RF: 0 fluconazole 150 mg tablet 1 tab PO PRN PRN (Reason: unknown) RF: 0 acetaminophen [Tylenol] 325 mg capsule 650 mg PO Q6H PRN (Reason: pain) Qty: 60 RF: 0 omeprazole 10 mg PO DAILY RF: 0 Referrals: Tracy Cespedes DO [Primary Care Provider] -
[2019-10-04] MEDS: HYDROMORPHONE 2 MG INJ 1 MG SUBCUT (18:06)
[2019-10-04] MEDS: KETOROLAC 60 MG/2 ML VIAL 30 MG IM (19:17)
[2019-10-04] MEDS: diazePAM 5 MG TABLET PO (19:17)
[2019-10-04 19:30] VITALS: BP 165/90; PULSE 95; RESP 16; O2SAT 97
[2019-10-04] MEDS: OXYCODONE/APAP 5/325 PREPACK 1 BOTTLE MISC (19:48)
== END 2019-10-04 19:58 | disposition home or self-care (01) ==
PROVIDERS: Emergency Provider Emergency Medicine; PCP Family Medicine
DX: M54.42 Lumbago with sciatica, left side (principal)
CPT/HCPCS: 96372; 99282; 99283; J1170; J1885

== ENCOUNTER → 2019-12-02 15:47 | Outpatient (CLI) | payer OTHER, SELFPAY ==
--- NOTE | 2019-12-02 | DI.MRI.S_ITS ---
PROCEDURE: MR LUMBAR SPINE WO CON INDICATIONS: radiculopathy, lumbar region TECHNIQUE: Noncontrast sagittal T1 spin echo and T2 fast echo, sagittal STIR, axial T1 and T2 fast spin echo through the lumbar spine. In cases with scoliosis, additional coronal T2 fast spin echo may be performed. COMPARISON: [facility], CR, XR LUMBAR SPINE 2-3V, 12/10/2018, 15:56. [facility], CR, XR LUMBAR SPINE 2-3V, 09/26/2019, 1:49. [facility], CT, ABDOMEN/PELVIS WITH CONTRAST, 03/22/2015, 5:42. FINDINGS: Image quality: Excellent. Alignment and Curvature: There is mild retrolisthesis at the L5-S1 level. Bone Marrow: Marrow is of normal overall signal. No acute vertebral body compression fractures. Spinal Cord: Conus medullaris terminates at the T12-L1 level. Visualized cord demonstrates normal signal and size. Paraspinous Soft Tissues: No paravertebral masses. The left kidney is highly atrophic, as on series 6 image 9. T12-L1: Normal appearance. L1-L2: Normal appearance. L2-L3: No significant abnormality is seen. L3-L4: The disc height and disc signal are relatively well-preserved. Mild generalized disc bulge is seen. Mild facet joint hypertrophy is seen. No significant neural foraminal or central canal narrowing can be seen. L4-L5: The disc height is well-preserved. Loss of disc signal is seen at this level. Moderate disc bulge is seen, with a central disc extrusion. There is mild inferior migration of the disc material. Moderate facet joint hypertrophy is seen. Phho-on-qnxmbcfy bilateral neural foraminal narrowing is seen. Moderate central canal narrowing is seen, with mass effect upon the regional nerve roots, particularly upon the transiting bilateral L5 nerve roots. L5-S1: Moderate loss of disc height is seen. Loss of disc signal is seen. Moderate to prominent disc bulge is seen. There is a superimposed central/left disc extrusion, with superior migration of the disc material, as on series 4 image 33 and on series 2 image 10. Moderate facet joint hypertrophy is seen. There is moderate to severe bilateral neural foraminal narrowing seen. There is a degree of compression seen upon the exiting nerve roots. Moderate central canal narrowing is seen. Mass effect is seen upon the regional nerve roots from the left-sided disc extrusion, with the most prominent mass effect seen upon the transiting left S1 nerve root. IMPRESSION: Disc extrusions are seen at the L4-L5 and L5-S1 levels, with associated mass effect upon the regional nerve roots. At L5-S1, there is moderate to severe bilateral neural foraminal narrowing, with associated compression upon the exiting nerve roots. Incidental note is made of: Highly atrophic left kidney, as previously demonstrated. Dictated by: Cristobal Abdullahi M.D. on 12/02/2019 at 15:52 Approved by: Cristobal Abdullahi M.D. on 12/02/2019 at 15:57
== END ==
PROVIDERS: Family Provider Family Medicine; PCP Family Medicine; Visit Provider Physical Medicine & Rehabilitation
DX: M51.16 Intervertebral disc disorders with radiculopathy, lumbar region (principal); M51.17 Intervertebral disc disorders with radiculopathy, lumbosacral region; M48.07 Spinal stenosis, lumbosacral region; N26.1 Atrophy of kidney (terminal)
CPT/HCPCS: 72148

== ENCOUNTER → 2020-02-26 14:09 | Outpatient (CLI) | payer OTHER, MEDICAID, SELFPAY ==
[2020-02-26 14:56] LABS: Appearance Urine UA SL CLOUDY; Bilirubin Urine UA NEGATIVE (NEGATIVE); Color Urine UA ORANGE; Glucose Urine UA 2+ g/dL (Negative); Ketones Urine UA TRACE (NEGATIVE); Leukocyte Esterase Urine UA TRACE (NEGATIVE); Nitrite Urine UA POSITIVE (Negative); Occult Blood Urine UA 1+ (Negative); Protein Urine UA 3+ (Negative); Specific Gravity Urine UA 1.015 (1.000-1.035)
[2020-02-26 14:58] LABS: pH Urine UA 6.5 (4.5-8.0)
[2020-02-26 15:16] LABS: Amorphous Sediment Urine 1+; Bacteria Urine Moderate (10-30); Mucus Urine 1+ (Negative); RBC Urine 1-5/HPF (0-5/HPF); Squamous Epithelial Cell Urine 1-5 /HPF (0-5/HPF); WBC Urine 30-100/HPF (0-5/HPF)
[2020-02-26 15:17] LABS: Culture Indicated Urine Specimen Cultured
== END ==
PROVIDERS: Family Provider Family Medicine; PCP Nurse Practitioner Family; Referring Provider Nurse Practitioner Family; Visit Provider Nurse Practitioner Family
DX: R30.0 Dysuria (principal)
CPT/HCPCS: 81001; 87077; 87086; 87186

== ENCOUNTER → 2020-04-27 12:25 | Outpatient (CLI) | payer OTHER, MEDICAID, SELFPAY ==
[2020-04-27 15:34] LABS: Bacteria Urine None Seen
[2020-04-27 15:52] LABS: Bilirubin Urine UA NEGATIVE (NEGATIVE); Color Urine UA YELLOW; Glucose Urine UA 1+ g/dL (Negative); Ketones Urine UA NEGATIVE (NEGATIVE); Leukocyte Esterase Urine UA NEGATIVE (NEGATIVE); Nitrite Urine UA NEGATIVE (Negative); Occult Blood Urine UA 1+ (Negative); Protein Urine UA 3+ (Negative); Specific Gravity Urine UA 1.015 (1.000-1.035); Urobilinogen Urine UA 0.2 E.U./dL (0.2)
[2020-04-27 15:54] LABS: Appearance Urine UA CLOUDY; RBC Urine 0-1/HPF (0-5/HPF); Squamous Epithelial Cell Urine 1-5 /HPF (0-5/HPF); Transitional Epi Cells Urine 1-5/HPF (0-5/HPF); WBC Urine 30-100/HPF (0-5/HPF); pH Urine UA 6.5 (4.5-8.0)
[2020-04-27 15:55] LABS: Culture Indicated Urine Specimen Cultured
== END ==
PROVIDERS: Family Provider Family Medicine; PCP Nurse Practitioner Family; Visit Provider Nurse Practitioner Family
DX: R30.0 Dysuria (principal)
CPT/HCPCS: 81001; 87086

== ENCOUNTER → 2020-04-27 12:32 | Outpatient (CLI) | payer OTHER, MEDICAID, SELFPAY ==
[2020-04-27 16:11] LABS: Alanine Aminotransferase 35 IU/L (<35); Albumin 4.1 g/dL (3.5-5.0); Alkaline Phosphatase 76 U/L (38-126); Aspartate Aminotransferase 40 IU/L (14-36); BUN Creatinine Ratio 21.1 (6-22); Bilirubin Total 0.5 mg/dL (0.2-1.3); Blood Urea Nitrogen 16 mg/dL (7-17); Calcium 9.3 mg/dL (8.4-10.2); Carbon Dioxide 21 mmol/L (22-32); Chloride 105 mmol/L (98-107); Estimated Glomerular Filt Rate > 60.0 mL/min (>60); Globulin 4.1 g/dL (1.7-4.1); Glucose 276 mg/dL (70-100); HEMOLYSIS < 15 (0-50); Potassium 4.3 mmol/L (3.4-5.1); Sodium 135 mmol/L (137-145); Total Protein 8.2 g/dL (6.3-8.2)
== END ==
PROVIDERS: Family Provider Family Medicine; PCP Nurse Practitioner Family; Referring Provider Nurse Practitioner Family; Visit Provider Nurse Practitioner Family
DX: E11.9 Type 2 diabetes mellitus without complications (principal); R30.0 Dysuria
CPT/HCPCS: 36415; 80053; 81001; 83036; 87077; 87086; 87186

== ENCOUNTER → 2020-05-11 13:50 | Outpatient (CLI) | payer OTHER, SELFPAY ==
[2020-05-11 15:06] LABS: Add Manual Diff / Slide Review NO; Basophils Absolute Auto 0 /uL (0-100); Basophils Percent Auto 0.7 % (0-2); Eosinophils Absolute Auto 200 /uL (0-450); Eosinophils Percent Auto 3.6 % (2-4); Hematocrit 42.6 % (36-46); Hemoglobin 15.2 g/dL (12.0-16.0); Lymphocytes Absolute Auto 1700 /uL (1100-4500); Lymphocytes Percent Auto 24.4 % (25-40); Mean Corpuscular HGB Conc 35.7 % (30-36); Mean Corpuscular Hemoglobin 30.6 PG (26-34); Mean Corpuscular Volume 85.5 fL (80-100); Monocytes Absolute Auto 300 /uL (0-900); Monocytes Percent Auto 4.9 % (3-14); Neutrophils Absolute Auto 4600 /uL (1500-7000); Neutrophils Percent Auto 66.4 % (50-75); Platelet Count 217 X10^3/uL (150-400); Red Blood Cell Count 4.98 X10^6/uL (4.0-5.2); Red Cell Distribution Width 13.7 % (11.6-14.8); White Blood Cell Count 6.9 X10^3/uL (4.5-11.0)
[2020-05-11 15:42] LABS: BUN Creatinine Ratio 19.6 (6-22); Blood Urea Nitrogen 18 mg/dL (7-17); Calcium 9.5 mg/dL (8.4-10.2); Carbon Dioxide 21 mmol/L (22-32); Chloride 107 mmol/L (98-107); Estimated Glomerular Filt Rate > 60.0 mL/min (>60); Glucose 185 mg/dL (70-100); HEMOLYSIS < 15 (0-50); Potassium 4.7 mmol/L (3.4-5.1); Sodium 136 mmol/L (137-145)
== END ==
PROVIDERS: Family Provider Family Medicine; PCP Nurse Practitioner Family; Referring Provider Orthopaedic Surgery; Visit Provider Orthopaedic Surgery
DX: Z01.818 Encounter for other preprocedural examination (principal); Z01.812 Encounter for preprocedural laboratory examination
CPT/HCPCS: 36415; 80048; 85025; 93005

== ENCOUNTER → 2020-05-21 14:07 | Outpatient (CLI) | payer OTHER, SELFPAY ==
[2020-05-22 10:22] LABS: COVID19 Sendout Not Detected (Not Detect)
== END ==
PROVIDERS: Family Provider Family Medicine; PCP Nurse Practitioner Family; Visit Provider Physician Assistant
DX: Z11.59 Encounter for screening for other viral diseases (principal)
CPT/HCPCS: 87635

== ENCOUNTER 2020-05-24 06:20 | Day surgery (SDC) | payer OTHER, SELFPAY ==
[2020-05-19 09:41] VITALS: BMI 32.9
[2020-05-24] VITALS (8 sets, daily range): BP systolic 124–187; BP diastolic 77–103; PULSE 90–107; RESP 12–32; TEMP 36.1–36.4; O2SAT 89–99; BMI 33.9
[2020-05-24] MEDS: SCOPOLAMINE 1 PATCH TOP (07:02)
[2020-05-24] MEDS: ACETAMINOPHEN 325 MG TABLET 975 MG PO (07:02)
[2020-05-24] MEDS: LACTATED RINGERS 1,000 ML 42 ML IV ×2 (07:02→08:47)
[2020-05-24] MEDS: GABAPENTIN 300 MG CAPSULE PO (07:02)
--- NOTE | 2020-05-24 07:24 | PM.PREOP ---
Pre-operative Note COVID-19 COVID-19 status: Negative Result date/Date tested (Pos, Neg/Pending): 05/21/20 Interval Note History & Physical reviewed/Exam performed by Physician: Yes Changes to H&P: No
[2020-05-24] MEDS: CEFAZOLIN 2 GM/100 ML FROZ.PIGGY IV (07:49)
--- NOTE | 2020-05-24 08:00 | DI.RAD.S_ITS ---
PROCEDURE: XR LUMBAR SPINE 2-3V INDICATIONS: LAMINECTOMY TECHNIQUE: 2 views of the lumbar spine were acquired. COMPARISON: [facility], , XR LUMBAR SPINE 2-3V, 09/26/2019, 1:49. FINDINGS: Spot fluoroscopic intraoperative images demonstrating surgical instrument with the tip projecting at the L5-S1 level Dictated by: Sekou Cruz M.D. on 05/25/2020 at 15:52 Approved by: Sekou Cruz M.D. on 05/25/2020 at 15:52
[2020-05-24] MEDS: SODIUM CHLORIDE 0.9% 1,000 ML, GENTAMICIN 80 MG IRR (08:18)
[2020-05-24] MEDS: THROMBIN (RECOMBINANT) 5,000 UNIT VIAL 5000 UNIT TOP (08:19)
[2020-05-24] MEDS: BUPIVACAINE 0.25% (PF) 8 ML, fentaNYL 100 MCG INJ (08:20)
--- NOTE | 2020-05-24 08:22 | SUR.OPER ---
Prone on spine table, head in foam head support, padded chest and pelvic supports, gel pad at knees, lower legs supported by pillows; nipples, genitalia and toes free of pressure, arms secured on foam padded arm boards at <90 degrees abduction. Tape over blanket at thigh secured to table.
--- NOTE | 2020-05-24 09:57 | PM.OP.1 ---
Operative Date/Time/Diagnoses Date of procedure: 05/24/20 Time of procedure: 09:57 Pre-op diagnosis: Lumbar disc herniation with radiculopathy Post-op diagnosis: same Procedure & Clinicians Procedure: L4-5 left diskectomy L5-S1 left diskectomy Use of microscope Placement of epidural catheter Same procedure as scheduled: Yes Indications: [age] year old female with intractable pain from lumbar disc herniations. They had failed conservative management and requested operative intervention. Risks and benefits of surgery were discussed and appropriate consents were obtained. Surgeon: Rajesh Coats Standards Analyst: Sena Maloney Anesthesia Type: General Operative Notes Findings: None Closure Type: primary Specimen(s): none sent Estimated Blood Loss (mL): 20 Procedure in detail: Patient was brought to the operating room and intubated on the table. A time-out was performed. There were rolled over the well-padded prone position on the [place] table. The back was prepped and draped in standard sterile fashion. Preoperative antibiotics were given. Using fluoroscopy, a 3 cm incision was made to the well-marked left of the midline at the L5-S1 level. We used Bovie to come down to and split the fascia. We then used the [employer] Ma[employer] dilators with fluoroscopy and then opened our retractors. The soft tissue was cleared off with Bovie, a marker was placed, an x-ray was taken to confirm positioning. We then brought in the microscope. A combination of high-speed bur and Kerrison were used to perform a left-sided hemilaminotomy and hemifacetectomy. The disc was densely adherent to the dura and nerve roots and took a large amount of careful dissection with a ball probe and [place] to finally free it up or we could mobilize it and expose the disc. This was cleared with bipolar. There was a large extruded section on top of posterior bony osteophytes. A scalpel used to perform an annulotomy and a pituitary was used to perform the diskectomy. The posterior osteophytes were still there at the end but the spinal canal was greatly decompressed. The ball probe was swept underneath the dura along the disc to make sure there were no further loose fragments. This was also placed into the disc and moved around to make sure there were no further loose fragments. The wound was irrigated. We then moved our retractor up to the L4-5 level. Soft tissue was cleared off with Bovie. Position was confirmed as we could see our previous laminotomy at the L5-S1 level. We performed a left-sided hemilaminotomy and himifacetectomy. Again the dura was densely adherent to the disc herniation and we spent a large amount of time carefully freeing this up until we could find a mobilize it medially to the midline and expose the disc. This was cleared with bipolar. An annulotomy was performed. We used a pituitary to remove several large pieces. We swept around the ball probe and measured the were no further loose fragments and we could easily manipulate the dura and the nerve root back and forth without any pressure. The canal was greatly decompressed. Once everything was adequately decompressed, the wound was copiously irrigated. An epidural catheter was filled with 100 mcg of fentanyl and 8 mL of 0.25% Marcaine. The dura was carefully depressed under the laminotomy site and the catheter was advanced 6 cm cephalad. The retractor was removed and the fascia was closed. The epidural catheter was then injected without resistance and removed. Vancomycin powder was placed in the wound. Superficial and skin were closed. Sterile dressing was placed. The patient was then rolled over, transferred to the stretcher, and brought to recovery room without complications. Complications: none Post-operative Condition: stable Disposition: PACU Plan for aftercare: Outpatient. Limited activity for 2 weeks and then may start physical therapy after her 1st postoperative visit.
[2020-05-24] MEDS: OXYCODONE IR 5 MG TABLET PO (10:36)
--- NOTE | 2020-05-24 10:39 | SUR.PHASEI ---
Patient c/o numbness to the top of her feet and legs. strong movement to samanta feet. Dr. Coats notified. No new orders.
[2020-05-24] MEDS: diphenhydrAMINE 25 MG TABLET PO (11:11)
== END 2020-05-24 11:30 | disposition home or self-care (01) ==
PROVIDERS: Family Provider Family Medicine; PCP Nurse Practitioner Family; Referring Provider Orthopaedic Surgery; Visit Provider Orthopaedic Surgery
PROC: (CPT 63030; principal; 2020-05-24 07:45)
DX: M51.16 Intervertebral disc disorders with radiculopathy, lumbar region (principal); S39.012D Strain of muscle, fascia and tendon of lower back, subsequent encounter; E66.9 Obesity, unspecified; I10 Essential (primary) hypertension; E11.9 Type 2 diabetes mellitus without complications; Z79.84 Long term (current) use of oral hypoglycemic drugs; Z68.33 Body mass index [BMI] 33.0-33.9, adult
CPT/HCPCS: 63030; 63035; 72100; 76000; J0330; J0690; J2250; J2405; J2704; J3010

== ENCOUNTER → 2020-09-28 12:12 | Outpatient (CLI) | payer OTHER, SELFPAY ==
--- NOTE | 2020-09-28 12:14 | DI.MRI.S_ITS ---
PROCEDURE: MR LUMBAR SPINE WO/W CON INDICATIONS: LOW BACK PAIN TECHNIQUE: Noncontrast sagittal T1 spin echo and T2 fast spin echo, sagittal STIR, axial T1 and T2 fast spin echo through the lumbar spine. In cases with scoliosis, additional coronal T2 fast spin echo may be performed. After the administration of contrast, sagittal and axial T1 spin echo with fat saturation through the lumbar spine. COMPARISON: [facility], MR, MR LUMBAR SPINE WO CON, 12/02/2019, 16:00. [facility], MR, MR LUMBAR SPINE WITHOUT CONTRAST, 01/23/2019, 15:04. [facility], CR, XR LUMBAR SPINE 2-3V, 09/26/2019, 1:49. [facility], CR, XR LUMBAR SPINE WITH OLBIQUES PLUS FLEXION EXTENSION, 10/16/2019, 11:15. FINDINGS: Image quality: Excellent. Alignment and curvature: There is mild retrolisthesis seen at L5-S1. Marrow: Marrow is of normal overall signal. No acute vertebral body compression fractures. No suspicious marrow enhancement. Spinal cord: Conus medullaris terminates at the T12-L1 level. Visualized spinal cord demonstrates normal signal, without suspicious enhancement. Paraspinous soft tissues: No paravertebral masses or abnormal enhancement. And a trophic left kidney can be seen, as on series 6, image 6. Postoperative changes are seen posteriorly, with an expected amount soft tissue edema and enhancement. No focal fluid collections are seen to suggest abscess. T12-L1: Unremarkable. L1-L2: The disc height and disk signal are well-preserved. Mild disc bulge is seen, with a central/right disc protrusion. No significant neural foraminal or central canal narrowing can be seen. Mild central canal narrowing is seen. When comparison is made with the prior examination, these findings are similar. L2-L3: Normal appearance. L3-L4: The disc height and disc signal are relatively well preserved. Mild generalized disc bulge is seen. Moderate facet joint hypertrophy is seen. Associated hypertrophy of the ligamentum flavum can be seen. No significant neural foraminal or central canal narrowing can be seen. Stable from the prior study. L4-L5: The disc height is well-preserved. Loss of disc signal is seen at this level. Mild to moderate disc bulge is seen, with a mild central disc protrusion. Interval left hemilaminectomy change can be seen. Moderate facet joint hypertrophy is seen. Mild to moderate bilateral neural foraminal narrowing can be seen. There is mild central canal narrowing, which is clearly improved compared to the preoperative MRI. L5-S1: Interval left hemilaminectomy change can be seen at this level. Moderate loss of disc height is seen. Loss of disc signal is seen. Moderate generalized disc bulge is seen. There is a left-sided disc extrusion, with superior migration of the disc material. The amount of extruded disc material is overall greater in volume than on the preoperative MRI. Mass effect can be seen upon the regional nerve roots, although most prominently upon the left S1 nerve root. There is moderate to severe bilateral neural foraminal narrowing seen. There is a degree of compression seen upon the exiting nerve roots. At least moderate central canal narrowing is seen. IMPRESSION: Interval postoperative change at L4-5 and L5-S1, with left-sided hemilaminectomy. At L5-S1, the amount of extruded disc material has overall increased, which is worrisome for recurrent disc herniation. The L4-5 level is improved compared to the preoperative MRI. Incidental note is made of: Atrophic left kidney Dictated by: Cristobal Abdullahi M.D. on 09/28/2020 at 13:01 Approved by: Cristobal Abdullahi M.D. on 09/28/2020 at 13:08
== END ==
PROVIDERS: Family Provider Family Medicine; PCP Family Medicine; Referring Provider Orthopaedic Surgery; Visit Provider Orthopaedic Surgery
DX: M51.27 Other intervertebral disc displacement, lumbosacral region (principal); M51.26 Other intervertebral disc displacement, lumbar region; N26.1 Atrophy of kidney (terminal)
CPT/HCPCS: 72158

== ENCOUNTER → 2020-10-05 16:49 | Outpatient (CLI) | payer OTHER, MEDICAID, SELFPAY ==
--- NOTE | 2020-10-05 16:50 | DI.MG.S_ITS ---
BILATERAL DIGITAL SCREENING MAMMOGRAM 3D/2D WITH CAD: 10/05/2020 CLINICAL: Routine screening. Comparison is made to exam dated: 10/23/2018 [facility]. There are scattered fibroglandular elements in both breasts. Current study was also evaluated with a Computer Aided Detection (CAD) system. No significant masses, calcifications, or other findings are seen in either breast. There has been no significant interval change. IMPRESSION: NEGATIVE There is no mammographic evidence of malignancy. A 1 year screening mammogram is recommended. This exam was interpreted at Station ID: [id number]. NOTE: For mammograms, a report in lay terms will be sent to the patient. Approximately 15% of breast malignancies will not be visualized mammographically. In the management of a palpable breast mass, a negative mammogram must not discourage biopsy of a clinically suspicious lesion. Electronically Signed By: Antonio javed/payton:10/06/2020 07:40:42 letter sent: Normal Exam ACR BI-RADS Category 1: Negative [id number]
== END ==
PROVIDERS: Family Provider Family Medicine; PCP Family Medicine; Referring Provider Family Medicine; Visit Provider Family Medicine
DX: Z12.31 Encounter for screening mammogram for malignant neoplasm of breast (principal)
CPT/HCPCS: 77063; 77067

== ENCOUNTER → 2020-10-11 14:13 | Outpatient (CLI) | payer OTHER, MEDICAID, SELFPAY ==
--- NOTE | 2020-10-11 14:41 | DI.CT.S_ITS ---
PROCEDURE: CT ABDOMEN PELVIS W CON INDICATIONS: LLQ abd pain TECHNIQUE: After the administration of oral and intravenous contrast, 5 mm thick sections acquired from the diaphragms to the symphysis. 5 mm thick coronal and sagittal reformats were performed. For radiation dose reduction, the following was used: automated exposure control, adjustment of mA and/or kV according to patient size. COMPARISON: [facility], CT, ABDOMEN/PELVIS WITH CONTRAST, 03/22/2015, 5:42. FINDINGS: Image quality: Excellent. ABDOMEN: Lung bases: Lung bases are clear. Heart size is normal. Hypertrophy of the right kidney. Solid organs: Liver is normal in size and enhancement. Gallbladder has been previously resected . Biliary system is non-dilated. Pancreas enhances normally. Spleen is normal in size and enhancement. No adrenal nodules. Kidneys are asymmetric in size and enhancement, without hydronephrosis. The left kidney is diminutive, minute, likely congenital in origin. There is compensatory Peritoneum and bowel: Stomach, small bowel, and colon loops are normal in caliber and wall thickness. No free fluid or air. Nodes and vessels: No retroperitoneal or mesenteric adenopathy. Aorta and inferior vena cava are normal in caliber. Miscellaneous: No ventral hernias. PELVIS: Genitourinary: Bladder wall thickness is normal. Miscellaneous: No inguinal hernias or adenopathy. There is no sign of appendicitis or diverticulitis Bones: No suspicious bony lesions. No vertebral body compression fractures. . IMPRESSION: Diminutive left kidney, chronic in appearance, without evidence of active inflammation or obstruction. 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 A source of left lower quadrant pain is not found. Dictated by: Robbi Billings M.D. on 10/11/2020 at 17:01 Approved by: Robbi Billings M.D. on 10/11/2020 at 17:02
[2020-10-11 16:03] LABS: BUN Creatinine Ratio 24.7 (6-22); Blood Urea Nitrogen 20 mg/dL (7-17); Calcium 11.4 mg/dL (8.4-10.2); Carbon Dioxide 25 mmol/L (22-32); Chloride 102 mmol/L (98-107); Estimated Glomerular Filt Rate > 60.0 mL/min (>60); Glucose 89 mg/dL (70-100); HEMOLYSIS < 15 (0-50); Potassium 4.3 mmol/L (3.4-5.1); Sodium 133 mmol/L (137-145)
== END ==
PROVIDERS: Family Provider Family Medicine; PCP Family Medicine; Referring Provider Family Medicine; Visit Provider Family Medicine
DX: R10.32 Left lower quadrant pain (principal); Z01.812 Encounter for preprocedural laboratory examination
CPT/HCPCS: 36415; 74177; 80048; Q9967

== ENCOUNTER → 2020-12-17 14:20 | Outpatient (CLI) | payer OTHER, SELFPAY ==
[2020-12-17 15:03] LABS: COVID19 -Nasal RAPID Negative (Negative)
== END ==
PROVIDERS: Family Provider Family Medicine; PCP Family Medicine; Visit Provider Physician Assistant
DX: Z20.822 Contact with and (suspected) exposure to COVID-19 (principal)
CPT/HCPCS: 87635

== ENCOUNTER → 2020-12-17 14:23 | Outpatient (CLI) | payer OTHER, SELFPAY ==
[2020-12-17 15:01] LABS: Add Manual Diff / Slide Review NO; Basophils Absolute Auto 0 /uL (0-100); Basophils Percent Auto 0.8 % (0-2); Eosinophils Absolute Auto 300 /uL (0-450); Eosinophils Percent Auto 4.7 % (2-4); Hematocrit 41.1 % (36-46); Hemoglobin 14.1 g/dL (12.0-16.0); Lymphocytes Absolute Auto 1700 /uL (1100-4500); Lymphocytes Percent Auto 29.3 % (25-40); Mean Corpuscular HGB Conc 34.3 % (30-36); Mean Corpuscular Hemoglobin 30.1 PG (26-34); Mean Corpuscular Volume 87.8 fL (80-100); Monocytes Absolute Auto 400 /uL (0-900); Monocytes Percent Auto 7.1 % (3-14); Neutrophils Absolute Auto 3400 /uL (1500-7000); Neutrophils Percent Auto 58.1 % (50-75); Platelet Count 196 X10^3/uL (150-400); Red Blood Cell Count 4.68 X10^6/uL (4.0-5.2); Red Cell Distribution Width 12.5 % (11.6-14.8); White Blood Cell Count 5.9 X10^3/uL (4.5-11.0)
[2020-12-17 15:15] LABS: Hemoglobin A1C% w Est Avg Glu 8.3 % (4.0-6.0)
[2020-12-17 15:26] LABS: Alanine Aminotransferase 27 IU/L (<35); Albumin Globulin Ratio 1.2 (1.0-2.8); Alkaline Phosphatase 61 U/L (38-126); Aspartate Aminotransferase 33 IU/L (14-36); Bilirubin Total 0.5 mg/dL (0.2-1.3); Blood Urea Nitrogen 20 mg/dL (7-17); Calcium 9.8 mg/dL (8.4-10.2); Carbon Dioxide 24 mmol/L (22-32); Chloride 106 mmol/L (98-107); Estimated Glomerular Filt Rate > 60.0 mL/min (>60); Globulin 3.3 g/dL (1.7-4.1); Glucose 220 mg/dL (70-100); HEMOLYSIS < 15 (0-50); Potassium 4.7 mmol/L (3.4-5.1); Sodium 137 mmol/L (137-145); Total Protein 7.3 g/dL (6.3-8.2)
[2020-12-17 19:27] LABS: Creatinine Urine Random 93.2 mg/dL; Microalbumi Creatinin Ratio Ur 12081.5 ug/mg CR (<30)
== END ==
PROVIDERS: Family Provider Family Medicine; PCP Family Medicine; Referring Provider Orthopaedic Surgery; Visit Provider Orthopaedic Surgery
DX: Z01.812 Encounter for preprocedural laboratory examination (principal); E11.42 Type 2 diabetes mellitus with diabetic polyneuropathy; E11.65 Type 2 diabetes mellitus with hyperglycemia; Z20.822 Contact with and (suspected) exposure to COVID-19
CPT/HCPCS: 36415; 80053; 82043; 82570; 83036; 85025; 87635

== ENCOUNTER 2020-12-21 11:50 | Observation (INO) | payer OTHER, SELFPAY ==
[2020-12-20] VITALS (19 sets, daily range): BP systolic 102–161; BP diastolic 58–95; PULSE 69–102; RESP 12–20; TEMP 35.9–37.1; O2SAT 91–100; BMI 32.9
[2020-12-20] MEDS: LACTATED RINGERS 1,000 ML 42 ML IV ×2 (07:16→08:34)
--- NOTE | 2020-12-20 07:22 | PM.PREOP ---
Pre-operative Note COVID-19 COVID-19 status: Negative Result date/Date tested (Pos, Neg/Pending): 12/17/20 Interval Note History & Physical reviewed/Exam performed by Physician: Yes Changes to H&P: No
[2020-12-20] MEDS: CEFAZOLIN 2 GM/100 ML FROZ.PIGGY IV ×3 (08:05→23:35)
[2020-12-20] MEDS: THROMBIN (RECOMBINANT) 5,000 UNIT VIAL 5000 UNIT TOP (08:36)
[2020-12-20] MEDS: VANCOMYCIN 1,000 MG VIAL 1000 MG TOP (08:37)
[2020-12-20] MEDS: SODIUM CHLORIDE 0.9% 1,000 ML, GENTAMICIN 80 MG IRR (08:37)
[2020-12-20] MEDS: BUPIVACAINE LIPOSOME 266 MG/20 ML VIAL INJ (08:38)
--- NOTE | 2020-12-20 10:59 | PM.OP.1 ---
Operative Date/Time/Diagnoses Date of procedure: 12/20/20 Time of procedure: 10:59 Pre-op diagnosis: Recurrent lumbar disc herniation with radiculopathy History of lumbar diskectomy Post-op diagnosis: same Procedure & Clinicians Procedure: Revision left-sided laminotomy and diskectomy L5-S1 L5-S1 TLIF (posterior/posterior interbody fusion) with cage Iliac crest bone graft aspirate L5, S1 screws Use of microscope Same procedure as scheduled: Yes Indications: [age] year old female with intractable pain from recurrent lumbar disc herniation. They had failed conservative management and requested operative intervention. Risks and benefits of surgery were discussed and appropriate consents were obtained. Surgeon: Rajesh Caots Vision Teacher: Peyton Vegas Anesthesia Type: General Operative Notes Findings: None Closure Type: primary Specimen(s): none sent Prosthetic devices, grafts, tissues, transplants, or devices: NuVasive MAS Reline screws Globus Rise cage Applied: catheter Estimated Blood Loss (mL): 50 Procedure in detail: The patient was brought to the operating room and intubated on the table. A time-out was performed. They were then rolled over to the well-padded [place] table in the prone position. Preoperative antibiotics were given. The back was prepped and draped in the standard sterile fashion. Using fluoroscopy, a 4 cm longitudinal incision was made to the well marked left of the midline, excising her previous scar. We used Bovie to come down to and split the lumbodorsal fascia. Using fluoroscopy and monitoring, we then percutaneously placed Jamshidi needles down the pedicles of L5 and S1 on the left side. These were changed out to guidewires and then we tapped and then placed the Nu[employer] MAS Reline screw shanks. We then opened up the retractors and used Bovie to clear up the posterolateral gutter as well as medially along the lamina and exposed her previous laminotomy with great care to preserve over the scar tissue over the dura. A bur was used to decorticate the transverse process of L5 and the sacral ala We brought in the microscope. Using a combination of bur and Kerrison rongeurs, a revision left-sided laminotomy was performed. We used a curette to dissect away the scar tissue from her previous laminotomy away from the remaining bone. We used Kerrisons, burs, and osteotomes to revise the laminotomy. We also performed a facetectomy at this level. Once we were down to the spinal canal we could see a very large disc herniation which corresponded with her MRI. However, we had difficulty finding the neural foramen. As we traced out the disc herniation we realized that the disc had almost completely calcified in this region. We carefully dissected the dura and exiting S1 nerve root off the disc herniation with care to clear way around the scar. An annulotomy was performed and remove large amounts of scar tissue. We then had to remove the calcified annulus out laterally. Once we began working around this we were able to free up and find our neural foramen as well as our exiting L5 nerve root. At the end everything was freed up. This was separate and distinct from a TLIF approach as we had to work through scar tissue and completely free up the L5 and S1 nerve roots. We then began the TLIF prep. We carefully cleaned up the remainder of the foramen until we could easily retract the exiting root as well as clearing medially below the dura and expose the disc space. We performed a diskectomy using a combination of paddles, jorge, pituitaries, and curettes. We distracted the disc using a paddle and locked the retractor in an open position. We then filled the disc space with Osteocel bone graft. We then placed the globus rise cage under fluoroscopy and then filled this in with more bone graft. The distraction on the retractor was released to compress down. This completed the posterior interbody fusion portion of the TLIF at L5-S1. We then placed the screw heads, yajaira, and locked down the set screws. The wound was copiously irrigated. A small stab incision was made over the PSIS. We used a Jamshidi needle to aspirate several mL of bone marrow from the pelvis. This was mixed with the remaining Osteocel and combined with all of the locally harvested bone graft and placed in the posterolateral gutter for the posterior fusion of the TLIF at L5-S1. We then went to the opposite side. Again using fluoroscopy, a 3 cm incision was made and Bovie was used to come down to split the fascia. Using neural monitoring and fluoroscopy, Jamshidi needles were advanced down the pedicles of L5 and S1 on the right side. These were switched over guidewires, tapped, and screws placed. We then placed a yajaira and locked the set screws on this side. The wound was irrigated. The fascia was closed. Vancomycin powder was placed in the wounds. The superficial and skin were closed. A sterile dressing was placed. The patient was then rolled over extubated and brought to recovery room without complications. t Complications: none Post-operative Condition: stable Disposition: PACU Plan for aftercare: Inpatient. Up with PT.
--- NOTE | 2020-12-20 12:18 | PC.NURSE ---
Day shift: Pt not on AC unit at this time (1220).
--- NOTE | 2020-12-20 13:06 | PC.NURSE ---
Day shift: Pt on unit from PACU at approx 1305. She is A&Ox3. Reports back pain 07/04. Denies any nausea or chest pain. Refused foot SCD's at thist jayashree. Oriented to room and call light. Agrees to not get OOB w/o help from staff. VS WNL. RA 94%. Will medicate for pain per JAN. Bed alarm is on.
--- NOTE | 2020-12-20 13:11 | PC.NURSE ---
Day shift: Log rolled Pt to left side and her back dressing is CDI. Thompson patent and draining to gravity.
[2020-12-20] MEDS: LACTATED RINGERS 1,000 ML 125 ML IV (13:21)
[2020-12-20] MEDS: HYDROMORPHONE 0.5 MG INJ IV ×3 (13:25→23:48)
--- NOTE | 2020-12-20 14:09 | OT.IPNOTE ---
Per nurse pt not ready to be seen as just got up to the floor earlier, to check on pt tomorrow for OT eval.
[2020-12-20] MEDS: METFORMIN HCL 500 MG TABLET 1000 MG PO (16:56)
[2020-12-20] MEDS: OXYCODONE IR 10 MG TABLET PO (16:56)
--- NOTE | 2020-12-20 17:04 | PT.IIE ---
Current Diagnoses Type 2 diabetes mellitus with diabetic polyneuropathy (12/20/20) Surgery Performed Operation Date: 12/20/20 07:45 Actual Procedures p L5S1 revision left discectomy & instrumented fusion (TLIF) w/ bone graft - Rajesh Coats MD Surgical History (Last Updated 12/13/20 @ 13:58 by Elana Jimenez, RN) Anesthesia Bone tumor (benign) (~1990) History of carpal tunnel release History of lumbar discectomy Neoplasm of femur S/P laminectomy Status post laparoscopic cholecystectomy (~2016) Status post laparoscopic supracervical hysterectomy (~2010) Medical History (Last Updated 12/13/20 @ 14:36 by Elana Jimenez, RN) Congenital absence of one kidney Constipation due to slow transit Diabetes mellitus (~2005) Diabetic retinopathy associated with type 2 diabetes mellitus Dysuria Eosinophilic, granuloma bone Fatty liver HLD (hyperlipidemia) Hot flashes HTN (hypertension) Left lower quadrant abdominal pain Lumbar disc herniation with radiculopathy Obesity Osteosarcoma Pruritus Seizure (~1990) Strain of lumbar region Tuberculosis (~1993) Urinary tract infection Vaginal dryness Vision disorder Well woman exam with routine gynecological exam Physical Therapy Inpatient Evaluation/Re-Eval M1 PT/OT-IP Prior Functional Status Start: 12/20/20 16:13 Freq: NEEDED Status: Active Protocol: Document 12/20/20 16:44 AW (Rec: 12/20/20 17:04 AW [id number]) Medical Review Prior Functional Status Medical History Reviewed Yes Communication Pt is an effective verbal communicator. Mobility and Gait Pt is independent with all mobility tasks at baseline. She denies any meaningful limit. Activities of Daily Living and IADL's Independent with all I/ADL's. Prior Functional Level (Other details) Pt had L4-5 left discectomy . She had PT after surgery and was doing well but fell in August and reinjured herself. Pt denies any other falls in the past one year. Social History Household Members none Living Arrangements House Number of Floors (Floors) One Floor Number of Stairs To Enter/Railing? level entrance Home Environment High Toilet,Tub/Shower Home Equipment Grab Bars Near Toilet,Grab Bars In Shower Employment Status Unemployed Additional Social History Comment Pt lives alone in [place] but has arranged for friends Mary and Batsheva to stay with her at least one night at discharge and to check in on her frequently thereafter. Her niece and nephew will also check in as needed. M2 PT-IP Current Condition Start: 12/20/20 16:13 Freq: NEEDED Status: Active Protocol: Document 12/20/20 16:44 AW (Rec: 12/20/20 17:04 AW [id number]) Physical Therapy Current Condition Current Condition Evaluation Date 12/20/20 Treatment Diagnosis L5-s discectomy and TLIF; difficulty in walking Onset Date 12/20/20 Precautions Lumbar Precautions Log Roll,No Twisting,Limit Bending,Lifting Restriction of 10 lbs,Gait Belt above Incisional Area M3 PT-IP Subjective Start: 12/20/20 16:13 Freq: NEEDED Status: Active Protocol: Document 12/20/20 16:44 AW (Rec: 12/20/20 17:04 AW [id number]) Subjective Physical Therapy Visit Type Type Initial Evaluation Visit Start Time 16:21 Visit Stop Time 16:44 Total Visit Minutes 23 Physical Therapy Visit Comments Patient Comments Pt is willing to participate with PT Patient Goals Return home REJI Therapy Pain Assessment Pain When Pain Assessed During Mobility Pain Present Pain Present Pain Reported Location back Intensity 3 Scale Used Numeric (0 - 10) Pain Management Techniques Re-positioning,Timing of Activity with Medications M4 PT-IP Mobility and Gait Start: 12/20/20 16:13 Freq: NEEDED Status: Active Protocol: Document 12/20/20 16:44 AW (Rec: 12/20/20 17:04 AW [id number]) PT-Bed Mobility Assessment Rolling Type of Rolling Log Rolling,Roll to Left Level of Assist Standby Assistance Supine to Sit Supine to Sit Standby Assistance,Bedrails Sit to Supine Sit to Supine Standby Assistance Scooting Scooting to Edge of Bed Standby Assistance Scooting Up and Down in Bed Standby Assistance PT-Transfer Assessment Sit to and From Stand Sit to and from Stand Standby Assistance,Use of Upper Extremities Equipment Transfer Assistive Device None,Gait Belt Orthotic/Prosthetic Devices or Brace: No Transfers Transfer Destination Bed,Toilet Transfer Technique Stand Step Pivot Transfer Ability Level of Assist Standby Assistance Comments Mobility Comments Pt was reclined in the bed as PT arrived. After education/ reminders on lumbar precautions and log roll, pt completed LR to her left side and SL to sit SBA. She stood from the bed in lowest position SBA and pushed the IV pole into the bathroom. She transferred to and from the toilet with use of grab bars SBA and completed all toileting independently. She ambulated to the sink with IV pole support and washed her hands, reaching outside her LAURA for soap and towels with good balance. She donned her face mask and ambulated 220 feet around the [facility]. At first she pushed the IV pole but then ambulated the remaining 150 feet with no AD SBA. On return to the room, she completed reverse log roll to supine and repositioned herself in the bed SBA. Pt was left with call light and all needs in reach. Gait Assessment Gait Gait Assistance Required: Standby Assistance Distance (Feet) 220 Able to Maintain Weight Bearing Status Yes During Gait Assistive Devices Assistive Device None,Gait Belt Orthotic/Prosthetic Devices or Brace: No Gait Deviations General Gait Pattern Antalgic,Decreased Feet Clearance,Flexed Trunk Factors Limiting Gait Function Factors Limiting Gait Function Decreased Sensation,Decreased Strength,Limited Range of Motion,Pain,Poor Balance Comments Gait Comments See mobility comments for details. Stair Climbing Assessment Comments Stair Climbing Comments Not assessed. No stairs at home. PT-Balance Assessment Sitting Balance and Reactions Static Sitting Balance Ability Good Dynamic Sitting Balance Ability Good Standing Balance and Reactions Static Standing Balance Ability Good Dynamic Standing Balance Ability Good Device Used IV pole; no AD M5 PT-IP Objective Assessments Start: 12/20/20 16:13 Freq: NEEDED Status: Active Protocol: Document 12/20/20 16:44 AW (Rec: 12/20/20 17:04 AW [id number]) Orientation Orientation/Cognition Level of Alertness Alert Orientation Name,Age,Birthday,Month,Date, Year,Day of Week,Place, Situation Language Function Ability No Deficits Noted Safety Awareness Understands Safety Issues Memory Description No Deficits Noted Gross Range of Motion Lower Extremity ROM Assessment Within Functional Limits Strength Lower Extremity Strength Assessment Bilaterally Impaired Hip 4-/5 Knee 4+/5 Ankle 4/5 Sensation Assessment Sensation Gross Sensation Right LE Impaired,Left LE Impaired Light Touch Impaired Comments Sensation Comments Pt reports improved LLE symptoms compared with prior to surgery. Diabetic neuropathy affects sensation in bilateral feet at baseline. Muscle Tone Muscle Tone WNL Yes M6 PT-IP Treatment Start: 12/20/20 16:13 Freq: NEEDED Status: Active Protocol: Document 12/20/20 16:44 AW (Rec: 12/20/20 17:04 AW [id number]) Physical Therapy Treatment Education Education Provided Precautions,Weight Bearing Status,Post-Op Packet,Safety Other Treatments Other Treatment Performed Provided education on role of PT, plan of care, and post-op precautions. M7 PT-IP Assessment and Plan Start: 12/20/20 16:13 Freq: NEEDED Status: Active Protocol: Document 12/20/20 16:44 AW (Rec: 12/20/20 17:04 AW [id number]) PT Summary Assessment and Plan Potential Rehabilitation Potential Excellent Status of Condition at Evaluation Stable Summary Impairments Pain,ROM,Strength,Balance, Sensation,Bed Mobility, Transfers,Gait Assessment Summary Candis is a 50 yo woman seen for PT evaluation on POD0 following revision lumbar discectomy and TLIF. She is independent in all regards at baseline. On evaluation, she required SBA for all mobilities and expressed good pain control. Pt lives alone but will have friends and family stay with her at least one night and then check on her frequently following that time. Pt will be safe to discharge home with assist once medically cleared. Goals Bed Mobility Goal Independent Transfer Goal Independent Gait Goal Independent Gait Distance 300 Frequency of Treatment Frequency Of Treatment Twice a Day Treatment Plan Physical Therapy Treatment Plan Bed Mobility Training,Transfer Training,Gait Training, Therapeutic Exercise,Balance Retraining,Post Op Education, Discharge Planning,Hot or Cold Pack,Neuromuscular Re-ed Other Recommendations and Next Treatment review bed mobility and Focus practice without bed rail; progress gait distance and quality Recommendations To Nursing Amount of Assist Needed Standby Assistance Discharge Recommendations PT Discharge Recommendations Home with Assistance Transportation Needs at Discharge Private Vehicle
[2020-12-20] MEDS: NICOTINE 14 PATCH 14 MG TOP (18:30)
[2020-12-20] MEDS: GABAPENTIN 600 MG TABLET 1800 MG PO (21:13)
[2020-12-20] MEDS: CELECOXIB 200 MG CAPSULE PO (21:13)
[2020-12-20] MEDS: PANTOPRAZOLE 20 MG TABLET PO (21:13)
[2020-12-20] MEDS: ATORVASTATIN 20 MG TABLET PO (21:13)
[2020-12-20] MEDS: VENLAFAXINE 37.5 MG TABLET 75 MG PO (21:13)
[2020-12-20] MEDS: INSULIN GLARGINE 100 UNIT/ML 3ML PEN 20 UNIT SUBCUT (21:14)
[2020-12-20] MEDS: HYDROMORPHONE 2 MG TABLET 4 MG PO (21:21)
--- NOTE | 2020-12-20 23:59 | PC.NURSE ---
Addendum entered by Linda Borrego R.N. 12/21/20 04:40: Complaining of heartburn so medicated with Maalox. Also having 6-7/10 back pain so medicated with Dilaudid. Original Note: Patient is alert and oriented. Breath sounds CTA with RA sat of 98%. HRR. Denies nausea. BT present and already had BM since surgery. Indwelling catheter is patent; urine is light, clear, yellow. Able to move herself in bed w/assistance to place pillows. Reports she has been up walking in turner/room with SBA. Dressing to back 50% saturated with serosanguinous drainage but no leakage. Complains of 8/10 sharp back pain so medicated with IV Dilaudid, repositioned onto left side and ice applied. Chronic numbness in bilateral feet and left LE but states it has improved with the surgery. Foot SCD's applied. Fall risk score is moderate but patient calls appropriately so bed alarm is not activated.
[2020-12-21] MEDS: hydrOXYzine pamoate 25 MG CAPSULE PO ×2 (01:25→06:21)
[2020-12-21] MEDS: HYDROMORPHONE 2 MG TABLET 4 MG PO ×4 (01:25→14:03)
[2020-12-21] MEDS: MAG HYDROX/ALUM/SIMETH 30 ML UDC PO (04:37)
[2020-12-21 05:55] VITALS: BP 154/84; PULSE 99; RESP 16; TEMP 36.3; O2SAT 95
[2020-12-21 06:32] LABS: Hemoglobin 12.4 g/dL (12.0-16.0)
--- NOTE | 2020-12-21 07:17 | P.PN_ITS ---
Subjective Subjective Date Patient Seen: 12/21/20 Time Patient Seen: 07:18 Interval history: She is doing okay. Pain is about 8/10 when she is moving around. Leg feels much better. Exam Vital Signs (past 8 hours): - 12/20/20 23:52 12/21/20 05:55 Temperature 98.8 F 97.3 F L Pulse Rate 97 H 99 H Respiratory Rate 16 16 Blood Pressure 136/66 154/84 H Pulse Oximetry 98 95 Oxygen Delivery Method Room Air Oxygen Flow Rate 0 Const Orientation: alert and oriented x3 Back/Spine/Pelvis Other: Moderate drainage. 5/5 motor both lower extremities. Objective Labs Result Diagrams: 12/21/20 05:54 Labs: Laboratory Results - last 24 hr 12/21/20 05:54 Hgb 12.4 Hct 37.0 PFSH Medical History (Updated 12/13/20 @ 14:36 by Elana Jimenez RN) Congenital absence of one kidney Constipation due to slow transit Diabetes mellitus (~2005) Diabetic retinopathy associated with type 2 diabetes mellitus Dysuria Eosinophilic, granuloma bone Fatty liver HLD (hyperlipidemia) Hot flashes HTN (hypertension) Left lower quadrant abdominal pain Lumbar disc herniation with radiculopathy Obesity Osteosarcoma Pruritus Seizure (~1990) Strain of lumbar region Tuberculosis (~1993) Urinary tract infection Vaginal dryness Vision disorder Well woman exam with routine gynecological exam Surgical History (Updated 12/13/20 @ 13:58 by Elana Jimenez RN) Anesthesia Bone tumor (benign) (~1990) History of carpal tunnel release History of lumbar discectomy Neoplasm of femur S/P laminectomy Status post laparoscopic cholecystectomy (~2016) Status post laparoscopic supracervical hysterectomy (~2010) Family History Brother Mental health disorder Mother Diabetes mellitus Heart disease Kidney disease Hyperlipidemia Hypertension Sister Mental health disorder Diabetes mellitus Grandfather Hypertension Stroke Grandmother Diabetes mellitus Hypertension Father Heart disease Social History household members: none Smoking Status: Current every day smoker Tobacco: How many years used: 29 quit status: considering quitting second hand exposure: Yes (socially) alcohol intake: former substance use type: does not use Assessment & Plan Post-op Postoperative Procedures: Procedures Operation Date: 12/20/20 07:45 Actual Procedures Side Surgeon p L5S1 revision left discectomy & instrumented fusion (TLIF) w/ bone graft Oleksandr Coats MD Postoperative course is expected so far. Continue to mobilize with physical therapy. Continue to work on glucose control, but she has been doing well since surgery. Anticipate discharge home tomorrow.
[2020-12-21 07:20] VITALS: BP 147/84; PULSE 99; RESP 16; TEMP 37.1; O2SAT 93
[2020-12-21] MEDS: INSULIN ASPART 100 UNIT/ML INSULN PEN SUBCUT ×2 (08:06→12:12)
[2020-12-21] MEDS: INSULIN GLARGINE 100 UNIT/ML 3ML PEN 20 UNIT SUBCUT (08:06)
[2020-12-21] MEDS: METFORMIN HCL 500 MG TABLET 1000 MG PO (08:10)
[2020-12-21] MEDS: CELECOXIB 200 MG CAPSULE PO (08:10)
[2020-12-21] MEDS: glyBURIDE 5 MG TABLET PO (08:11)
[2020-12-21] MEDS: NICOTINE 14 PATCH 14 MG TOP (08:11)
[2020-12-21] MEDS: GABAPENTIN 600 MG TABLET 1800 MG PO (08:11)
[2020-12-21 08:12] VITALS: BP 147/86; PULSE 102
[2020-12-21] MEDS: lisinopriL 20 MG TABLET 40 MG PO (08:12)
[2020-12-21] MEDS: VENLAFAXINE 37.5 MG TABLET 75 MG PO (08:13)
[2020-12-21] MEDS: SODIUM CHLORIDE 0.9% FLUSH 10 ML IV (08:51)
--- NOTE | 2020-12-21 10:38 | PT.IPTN ---
Current Diagnoses Type 2 diabetes mellitus with diabetic polyneuropathy (12/20/20) Surgery Performed Operation Date: 12/20/20 07:45 Actual Procedures p L5S1 revision left discectomy & instrumented fusion (TLIF) w/ bone graft - Rajesh Coats MD Physical Therapy Treatment Note M2 PT-IP Current Condition Start: 12/20/20 16:13 Freq: NEEDED Status: Active Protocol: Document 12/20/20 16:44 AW (Rec: 12/20/20 17:04 AW [id number]) Physical Therapy Current Condition Current Condition Evaluation Date 12/20/20 Treatment Diagnosis L5-s discectomy and TLIF; difficulty in walking Onset Date 12/20/20 Precautions Lumbar Precautions Log Roll,No Twisting,Limit Bending,Lifting Restriction of 10 lbs,Gait Belt above Incisional Area M3 PT-IP Subjective Start: 12/20/20 16:13 Freq: NEEDED Status: Active Protocol: Document 12/21/20 10:26 HH (Rec: 12/21/20 10:38 [id number]) Subjective Physical Therapy Visit Type Type Treatment Note Visit Start Time 09:40 Visit Stop Time 09:55 Total Visit Minutes 15 Number of ZINC PLATE CUTTER Visits 0 Physical Therapy Visit Comments Patient Comments Pt is willing to participate with PT Patient Goals Return home REJI Therapy Pain Assessment Pain When Pain Assessed During Mobility Pain Present Pain Present Pain Reported Location back Intensity 10 Scale Used Numeric (0 - 10) Pain Management Techniques Re-positioning,Timing of Activity with Medications M4 PT-IP Mobility and Gait Start: 12/20/20 16:13 Freq: NEEDED Status: Active Protocol: Document 12/21/20 10:26 HH (Rec: 12/21/20 10:38 [id number]) PT-Bed Mobility Assessment Rolling Type of Rolling Log Rolling,Bilateral Level of Assist Standby Assistance Sit to Supine Sit to Supine Standby Assistance Scooting Scooting to Edge of Bed Standby Assistance Scooting Up and Down in Bed Standby Assistance PT-Transfer Assessment Sit to and From Stand Sit to and from Stand Standby Assistance,Use of Upper Extremities Equipment Transfer Assistive Device None,Gait Belt Orthotic/Prosthetic Devices or Brace: No Transfers Transfer Destination Bed Transfer Technique Stand Step Pivot Transfer Ability Level of Assist Standby Assistance Comments Mobility Comments pt was sitting at EOB after went to bathroom with [employer] DEVELOPER assistance upon PT arrival. She c/o pain 10/10 but no facial grimacing noted. Pt agreed to mobilize with PT and she was able to recall postop precautions. She stood up by pushing off from bed and FWW SBA. She then amb from her room to hallway and completed the entire AC unit with FWW SBA slowly. No other deviation noted. Pt was also well aware of her trunk movements during turns. She then returned to her room and c/o fatigue and increased pain. She sat down at EOB on L side and able to back to SL then to supine with use of bedrail. She log rolled twice to both sides for repositioning. Call luight placed within reach and bed alarm activated. handed pt off to PHP [employer] DEVELOPER. Gait Assessment Gait Gait Assistance Required: Standby Assistance Distance (Feet) 450 Able to Maintain Weight Bearing Status Yes During Gait Assistive Devices Assistive Device None,Gait Belt Orthotic/Prosthetic Devices or Brace: No Gait Deviations General Gait Pattern Antalgic,Decreased Feet Clearance,Flexed Trunk Factors Limiting Gait Function Factors Limiting Gait Function Decreased Sensation,Decreased Strength,Limited Range of Motion,Pain,Poor Balance Comments Gait Comments See mobility comments for details. Stair Climbing Assessment Comments Stair Climbing Comments Not assessed. No stairs at home. PT-Balance Assessment Sitting Balance and Reactions Static Sitting Balance Ability Good Dynamic Sitting Balance Ability Good Standing Balance and Reactions Static Standing Balance Ability Good Dynamic Standing Balance Ability Good Device Used FWW M5 PT-IP Objective Assessments Start: 12/20/20 16:13 Freq: NEEDED Status: Active Protocol: Document 12/20/20 16:44 AW (Rec: 12/20/20 17:04 AW [id number]) Orientation Orientation/Cognition Level of Alertness Alert Orientation Name,Age,Birthday,Month,Date, Year,Day of Week,Place, Situation Language Function Ability No Deficits Noted Safety Awareness Understands Safety Issues Memory Description No Deficits Noted Gross Range of Motion Lower Extremity ROM Assessment Within Functional Limits Strength Lower Extremity Strength Assessment Bilaterally Impaired Hip 4-/5 Knee 4+/5 Ankle 4/5 Sensation Assessment Sensation Gross Sensation Right LE Impaired,Left LE Impaired Light Touch Impaired Comments Sensation Comments Pt reports improved LLE symptoms compared with prior to surgery. Diabetic neuropathy affects sensation in bilateral feet at baseline. Muscle Tone Muscle Tone WNL Yes M6 PT-IP Treatment Start: 12/20/20 16:13 Freq: NEEDED Status: Active Protocol: Document 12/20/20 16:44 AW (Rec: 12/20/20 17:04 AW [id number]) Physical Therapy Treatment Education Education Provided Precautions,Weight Bearing Status,Post-Op Packet,Safety Other Treatments Other Treatment Performed Provided education on role of PT, plan of care, and post-op precautions. M7 PT-IP Assessment and Plan Start: 12/20/20 16:13 Freq: NEEDED Status: Active Protocol: Document 12/21/20 10:26 HH (Rec: 12/21/20 10:38 [id number]) PT Summary Assessment and Plan Potential Rehabilitation Potential Excellent Status of Condition at Evaluation Stable Summary Impairments Pain,ROM,Strength,Balance, Sensation,Bed Mobility, Transfers,Gait Progress Towards Goals Safe For Discharge Assessment Summary pt cont to improve with her mobility and she was able to amb the entire AC unit and showed good understanding of post op precautions. Marcequinjacob, pt still has 10/10 pain at this point but she is safe to d/c home with friends' assistance once her pain is stabilized. Goals Bed Mobility Goal Independent Transfer Goal Independent Gait Goal Independent Gait Distance 300 Frequency of Treatment Frequency Of Treatment Twice a Day Treatment Plan Physical Therapy Treatment Plan Bed Mobility Training,Transfer Training,Gait Training, Therapeutic Exercise,Balance Retraining,Post Op Education, Discharge Planning,Hot or Cold Pack,Neuromuscular Re-ed Other Recommendations and Next Treatment review bed mobility and Focus practice without bed rail; progress gait distance and quality Recommendations To Nursing Amount of Assist Needed Standby Assistance Discharge Recommendations PT Discharge Recommendations Home with Assistance Transportation Needs at Discharge Private Vehicle
--- NOTE | 2020-12-21 10:52 | CM.IDA ---
Initial DCP Assessment Note Pt is a 50 yo female, resident of [place], now POD#1 from p L5S1 revision left discectomy & instrumented fusion (TLIF) w/ bone graft w/ Dr Coats PCP: Massimo Grant Payer: L+I Reviewed chart, pt discussed in multidisciplinary rounds this morning. Therapy has cleared pt for return home w/friend to assist and pt has planned for home, DC anticipated tomorrow. Met w/patient to introduce role, patient does not anticipate any needs from this [employer]ER. No needs expected from DC planning team although will remain available in case this changes before DC. ARNALDO Ying Discharge Planning/Care Management CM Discharge Assessment Start: 12/21/20 10:48 Freq: Status: Active Protocol: Document 12/21/20 10:48 DEAN (Rec: 12/21/20 10:52 DEAN [id number]) Discharge Planning Assessment Assigned Transmission Line Engineer ARNALDO Rangel DPOA/Assigned Designee Name katie Munoz Contact Information [phone] Advance Directives? No History Provided By Patient,Medical Record Prior Living Arrangements House Household Members none Type of transporation used prior to Drives own vehicle admit Independent with ADL's Yes Is patient alert and oriented? Yes Barriers to Discharge No Discharge Plan Home Transportation Arrangement Friend Referrals Initiated None needed Additional Comment at this time
[2020-12-21 12:00] VITALS: BP 129/67; PULSE 103; RESP 18; TEMP 36.7; O2SAT 99
--- NOTE | 2020-12-21 13:00 | PT.IPTN ---
Current Diagnoses Type 2 diabetes mellitus with diabetic polyneuropathy (12/21/20) Surgery Performed Operation Date: 12/20/20 07:45 Actual Procedures p L5S1 revision left discectomy & instrumented fusion (TLIF) w/ bone graft - Rajesh Coats MD Physical Therapy Treatment Note M2 PT-IP Current Condition Start: 12/20/20 16:13 Freq: NEEDED Status: Active Protocol: Document 12/20/20 16:44 AW (Rec: 12/20/20 17:04 AW [id number]) Physical Therapy Current Condition Current Condition Evaluation Date 12/20/20 Treatment Diagnosis L5-s discectomy and TLIF; difficulty in walking Onset Date 12/20/20 Precautions Lumbar Precautions Log Roll,No Twisting,Limit Bending,Lifting Restriction of 10 lbs,Gait Belt above Incisional Area M3 PT-IP Subjective Start: 12/20/20 16:13 Freq: NEEDED Status: Active Protocol: Document 12/21/20 13:00 AB (Rec: 12/21/20 14:40 AB [id number]) Subjective Physical Therapy Visit Type Type Treatment Note Visit Start Time 13:00 Visit Stop Time 13:28 Total Visit Minutes 28 Number of CLIENT TECHNICAL PROFESSIONAL Visits 0 Physical Therapy Visit Comments Patient Comments pt is agreeable to do PT Therapy Pain Assessment Pain When Pain Assessed At Rest Pain Present Pain Present Pain Reported Location back Scale Used pain scale not stated M4 PT-IP Mobility and Gait Start: 12/20/20 16:13 Freq: NEEDED Status: Active Protocol: Document 12/21/20 13:00 AB (Rec: 12/21/20 14:40 AB [id number]) PT-Transfer Assessment Sit to and From Stand Sit to and from Stand Standby Assistance Equipment Transfer Assistive Device Gait Belt,Front Wheeled Walker Orthotic/Prosthetic Devices or Brace: No Gait Assessment Gait Gait Assistance Required: Standby Assistance Distance (Feet) 300 Able to Maintain Weight Bearing Status Yes During Gait Assistive Devices Assistive Device Gait Belt,Front Wheeled Walker Orthotic/Prosthetic Devices or Brace: No Gait Deviations General Gait Pattern Antalgic,Decreased Stride Length,Decreased Feet Clearance Factors Limiting Gait Function Factors Limiting Gait Function Decreased Activity Tolerance, Decreased Strength,Difficulty Following Directions,Limited Range of Motion,Pain,Poor Balance,Poor Safety Awareness Comments Gait Comments completed ambulation using FWW >300 ft SBA. presents with dragging gait but without LOB. dispensed FWW for home use and pt signed document. M5 PT-IP Objective Assessments Start: 12/20/20 16:13 Freq: NEEDED Status: Active Protocol: Document 12/20/20 16:44 AW (Rec: 12/20/20 17:04 AW [id number]) Orientation Orientation/Cognition Level of Alertness Alert Orientation Name,Age,Birthday,Month,Date, Year,Day of Week,Place, Situation Language Function Ability No Deficits Noted Safety Awareness Understands Safety Issues Memory Description No Deficits Noted Gross Range of Motion Lower Extremity ROM Assessment Within Functional Limits Strength Lower Extremity Strength Assessment Bilaterally Impaired Hip 4-/5 Knee 4+/5 Ankle 4/5 Sensation Assessment Sensation Gross Sensation Right LE Impaired,Left LE Impaired Light Touch Impaired Comments Sensation Comments Pt reports improved LLE symptoms compared with prior to surgery. Diabetic neuropathy affects sensation in bilateral feet at baseline. Muscle Tone Muscle Tone WNL Yes M6 PT-IP Treatment Start: 12/20/20 16:13 Freq: NEEDED Status: Active Protocol: Document 12/21/20 13:00 AB (Rec: 12/21/20 14:40 AB [id number]) Physical Therapy Treatment Education Education Provided Precautions,Safety M7 PT-IP Assessment and Plan Start: 12/20/20 16:13 Freq: NEEDED Status: Active Protocol: Document 12/21/20 13:00 AB (Rec: 12/21/20 14:40 AB [id number]) PT Summary Assessment and Plan Potential Rehabilitation Potential Good Summary Impairments Pain,ROM,Strength,Balance, Coordination,Bed Mobility, Transfers,Gait,Activity Tolerance Progress Towards Goals Progressing Toward Goals Assessment Summary pt requiring SBA for mobility and plans to go home with friends to assist her as needed. FWW dispensed to pt and signed document. pt may go home when stable. Goals Bed Mobility Goal Independent Transfer Goal Independent Gait Goal Independent Gait Distance 300 Days to Meet Goals 3 Frequency of Treatment Frequency Of Treatment Twice a Day Treatment Plan Physical Therapy Treatment Plan Bed Mobility Training,Transfer Training,Gait Training, Therapeutic Exercise,Balance Retraining,Post Op Education, Discharge Planning,Hot or Cold Pack,Neuromuscular Re-ed Recommendations To Nursing Amount of Assist Needed Standby Assistance Discharge Recommendations PT Discharge Recommendations Home with Assistance Transportation Needs at Discharge Private Vehicle
--- NOTE | 2020-12-21 13:07 | OT.IP.EVAL ---
Current Diagnoses Type 2 diabetes mellitus with diabetic polyneuropathy (12/20/20) Surgery Performed Operation Date: 12/20/20 07:45 Actual Procedures p L5S1 revision left discectomy & instrumented fusion (TLIF) w/ bone graft - Rajesh Coats MD Past Medical History (Last Updated 12/13/20 @ 14:36 by Elana Jimenez, RN) Congenital absence of one kidney Constipation due to slow transit Diabetes mellitus (~2005) Diabetic retinopathy associated with type 2 diabetes mellitus Dysuria Eosinophilic, granuloma bone Fatty liver HLD (hyperlipidemia) Hot flashes HTN (hypertension) Left lower quadrant abdominal pain Lumbar disc herniation with radiculopathy Obesity Osteosarcoma Pruritus Seizure (~1990) Strain of lumbar region Tuberculosis (~1993) Urinary tract infection Vaginal dryness Vision disorder Well woman exam with routine gynecological exam Surgical History (Last Updated 12/13/20 @ 13:58 by Elana Jimenez, RN) Anesthesia Bone tumor (benign) (~1990) History of carpal tunnel release History of lumbar discectomy Neoplasm of femur S/P laminectomy Status post laparoscopic cholecystectomy (~2016) Status post laparoscopic supracervical hysterectomy (~2010) Occupational Therapy Inpatient Evaluation/Re-Eval M1 PT/OT-IP Prior Functional Status Start: 12/21/20 13:32 Freq: NEEDED Status: Active Protocol: Document 12/21/20 09:18 [facility] (Rec: 12/21/20 13:49 [facility] [id number]) Medical Review Prior Functional Status Medical History Reviewed Yes Communication Pt is an effective verbal communicator. Mobility and Gait Pt is independent with all mobility tasks at baseline. She denies any meaningful limit. Activities of Daily Living and IADL's Independent with all I/ADL's. Prior Functional Level (Other details) Pt had L4-5 left discectomy . She had PT after surgery and was doing well but fell in August and re-injured herself. Pt denies any other falls in the past one year. Social History Household Members none Living Arrangements House Number of Floors (Floors) One Floor Number of Stairs To Enter/Railing? level entrance Home Environment High Toilet,Tub/Shower Home Equipment Grab Bars Near Toilet,Grab Bars In Shower Employment Status Unemployed Additional Social History Comment Pt lives alone in [place] but has arranged for friends Mary and Batsheva to stay with her at least one night at discharge and to check in on her frequently thereafter. Her niece and nephew will also check in as needed. M2 OT-IP Current Condition Start: 12/21/20 13:32 Freq: Status: Active Protocol: Document 12/21/20 09:18 [facility] (Rec: 12/21/20 13:49 [facility] [id number]) Occupational Therapy Current Condition Current Condition Evaluation Date 12/21/20 Treatment Diagnosis S/P L5-S1 revision TLIF Diagnosis Onset Date 12/20/20 Post Operative Precautions Lumbar Precautions Log Roll,No Twisting,Limit Bending,Lifting Restriction of 10 lbs,Gait Belt above Incisional Area M3 OT- IP Subjective and Pain Start: 12/21/20 13:32 Freq: Status: Active Protocol: Document 12/21/20 09:18 [facility] (Rec: 12/21/20 13:49 [facility] [id number]) OT- Subjective Occupational Therapy Visit Type Type Initial Evaluation Visit Start Time 09:18 Visit Stop Time 13:07 Total Visit Minutes 47 Notes Pt seen for split treatment as pt wanting to shower after lunch. Occupational Therapy Visit Comments Patient Comments Pt agreeable to do OT eval , but wanting to shower after lunch. Patient/Caregiver Goals TO go home. OT Pain Assessment Pain When Pain Assessed At Rest Pain Present Pain Present Pain Reported Location back Intensity 5 Scale Used Numeric (0 - 10) M4 OT- IP ADL's Start: 12/21/20 13:32 Freq: Status: Active Protocol: Document 12/21/20 09:18 [facility] (Rec: 12/21/20 13:49 [facility] [id number]) OT [id number] General Evaluation Self-Feeding Ability Independent OT ADL-Grooming General Evaluation Grooming Ability Standby Assistance Areas Needing Assistance Retrieving/Set-up of Grooming Items OT ADL-Oral Care Comments Oral Care Comments Educated to spit into a cup versus hinge at her hips to lean to spit into a cup to best follow her back precautions. OT ADL-Dressing General Eval Upper Body Dressing Ability Independent Lower Body Dressing Ability Standby Assistance Comments OT Dressing Comments Pt able to use parking garage manager to assist for brief and just able to slide her feet into her slippers. Educated pt to be sure that her slipper fit well . Pt states she is mostly barefooted at home. OT ADL-Toileting Comments OT Toileting Comments NOt performed, educated may be easier to stand to wipe. OT ADL-Bathing Bathing Type Bathing Type Shower General Evaluation Bathing Ability Moderate Assistance Areas Needing Assistance Wash/Dry Back,Wash/Dry Lower Extremities Devices Bathing Equipment Hand Held Shower Sprayer, Shower Chair with Arms,Grab Bars Comments OT Bathing Comments Pt states has a large high tub that she can sit down on the edge of the tub versus step over to in order to get in the tub. Pt states to have friends assist her. Pt states has a long handle brush at home. Suggested use of long thin towel to assist to pericare needs to wash between her legs . M5 OT- IP IADL's Start: 12/21/20 13:32 Freq: Status: Active Protocol: Document 12/21/20 09:18 [facility] (Rec: 12/21/20 13:49 [facility] [id number]) OT-Instrumental Activities of Daily Living Home Safety Awareness Awareness of Need for Assistance at Home Good Awareness Ability to Problem Solve Emergency Able to Problem Solve Situations Medication Management Medication Management No Deficits Identified Money Management Money Management No Deficits Identified Meal Preparation Meal Preparation Caregiver Provides Assist Sales Representative Cash Registers Sales Representative Cash Registers Caregiver Provides Assist M6 OT- IP Functional Cognition Start: 12/21/20 13:32 Freq: Status: Active Protocol: Document 12/21/20 09:18 [facility] (Rec: 12/21/20 13:49 [facility] [id number]) Cognitive Factors Limiting Selfcare Function Cognitive Ability Level of Alertness Alert Patient Orientation Name,Age,Birthday,Month,Date, Year,Day of Week,Place, Situation Attention Span Ability Capable of Focused Attention, Capable of Sustained Attention Ability to Follow Commands Able to Follow One Step Commands Safety Awareness Decreased Ability to Apply Precautions Cognitive Comments Cognitive Assessment Comments Pt having trouble to incorporate the precaution of no twisting during ADl needs. OT- Vision and Hearing OT- Hearing Assessment OT- Hearing Assessment WFL OT- Vision Assessment Visual Acuity Glasses All The Time M7 OT- IP Mobility and Balance Start: 12/21/20 13:32 Freq: Status: Active Protocol: Document 12/21/20 09:18 [facility] (Rec: 12/21/20 13:49 [facility] [id number]) OT-Transfer Assessment Sit to and From Stand Sit to and from Stand Contact Guard Assistance Transfers Transfer Ability Standby Assistance,Contact Guard Assistance Technique Transfer Destination Bed,Chair,Shower Stall Transfer Technique Stand Step Pivot Devices Transfer Assistive Devices Gait Belt,Front Wheeled Walker Comments Mobility Comments CGA for balance while stepping over the threshold with FWW. Pt needing heavy use of the arms to assist to come to stand. OT- Balance Assessment Sitting Balance and Reactions Static Sitting Balance Ability Normal Dynamic Sitting Balance Ability Normal Standing Balance and Reactions Static Standing Balance Ability Fair M8 OT- IP Objective Assessments Start: 12/21/20 13:32 Freq: Status: Active Protocol: Document 12/21/20 09:18 [facility] (Rec: 12/21/20 13:49 [facility] [id number]) OT Strength Comments Strength Comments WFl for ADL needs. OT-Muscle Tone Assessment Muscle Tone WNL Yes M9 OT- IP Assessment and Plan Start: 12/21/20 13:32 Freq: Status: Active Protocol: Document 12/21/20 09:18 [facility] (Rec: 12/21/20 13:49 [facility] [id number]) OT Summary Assessment and Plan Potential Rehabilitation Potential Good Analytic Complexity at Evaluation Low Summary OT Impairments Pain,Balance,Functional Cognition,Functional Mobility, Dressing,Toileting,Bathing Progress Towards Goals Progressing Toward Goals Assessment Summary Pt low complexity and doing well and able to shower today. Pt still needing vc to not twist during ADl needs. Pt to go home with friends to assist with her needs. Pt would benefit from a FWW , shower chair, and parking garage manager Goals Dressing Goal Independent Toileting Goal Independent Bathing Goal Standby Assistance Toilet Transfer Goal Independent Shower Transfer Goal Independent Patient/Caregiver Education Goal Demonstrate Post-Op Precautions Days to Meet Goals 4 Frequency of Treatment Frequency Of Treatment Once a Day Treatment Plan OT Treatment Plan ADL Training,Functional Cognition Training,Functional Mobility,Patient/Family Education,Discharge Planning Other Treatment Recommendations and Next LB dressing Treatment Focus Discharge Recommendations OT Discharge Recommendations Home with Assistance,Home Health Home Equipment Needs FWW, shower chair, parking garage manager Transportation Needs at Discharge Private Vehicle
--- NOTE | 2020-12-21 14:41 | PC.NURSE ---
Pt's IV was removed, intact, tolerated well. Pt dressed with assistance. All belongings packed into personal bags. Extra dressing supplies sent with pt. Pt education given, discussed- medication safety, post-op precautions, s/s of infection, reasons to seek medical attention. Pt left via w/c by COUTURIERE to friend's POV.
== END 2020-12-21 14:45 | disposition home or self-care (01) ==
LOC: OR 14:18 → AC 14:18
PROVIDERS: Admitting Provider Orthopaedic Surgery; Family Provider Family Medicine; PCP Family Medicine; Referring Provider Orthopaedic Surgery; Visit Provider Orthopaedic Surgery
PROC: (CPT 22633; principal; 2020-12-20 07:45)
DX: M51.16 Intervertebral disc disorders with radiculopathy, lumbar region (principal); Z98.890 Other specified postprocedural states; E11.42 Type 2 diabetes mellitus with diabetic polyneuropathy; W01.0XXA Fall on same level from slipping, tripping and stumbling without subsequent striking against object, initial encounter; Y93.E9 Activity, other interior property and clothing maintenance; K21.9 Gastro-esophageal reflux disease without esophagitis; F41.9 Anxiety disorder, unspecified; I10 Essential (primary) hypertension; E66.9 Obesity, unspecified; Z79.4 Long term (current) use of insulin; M51.86 Other intervertebral disc disorders, lumbar region
CPT/HCPCS: 22633; 63042; 22853; 22840; 20939; 36415; 82962; 85014; 85018; 97116; 97161; 97165; 97530; 97535; C1776; G0378; C9290; J0330; J0690; J1170; J2250; J2405; J2704; J3010

== ENCOUNTER → 2021-02-03 11:52 | Outpatient (CLI) | payer OTHER, MEDICAID, SELFPAY ==
[2020-12-20 15:55] VITALS: BMI 32.9
== END ==
PROVIDERS: Family Provider Family Medicine; PCP Family Medicine; Visit Provider Obstetrics & Gynecology
DX: N39.0 Urinary tract infection, site not specified (principal); R30.0 Dysuria; N76.4 Abscess of vulva
CPT/HCPCS: 87070; 87075; 87077; 87086; 87186; 87205

== ENCOUNTER → 2021-06-07 10:15 | Outpatient (CLI) | payer OTHER, MEDICAID, SELFPAY ==
[2020-12-20 15:55] VITALS: BMI 32.9
[2021-06-07 10:58] LABS: Add Manual Diff / Slide Review NO; Basophils Absolute Auto 0 /uL (0-100); Basophils Percent Auto 0.6 % (0-2); Eosinophils Absolute Auto 200 /uL (0-450); Eosinophils Percent Auto 4.3 % (2-4); Hematocrit 40.6 % (36-46); Hemoglobin 13.9 g/dL (12.0-16.0); Lymphocytes Absolute Auto 2100 /uL (1100-4500); Lymphocytes Percent Auto 36.6 % (25-40); Mean Corpuscular HGB Conc 34.3 % (30-36); Mean Corpuscular Hemoglobin 29.3 PG (26-34); Mean Corpuscular Volume 85.3 fL (80-100); Monocytes Absolute Auto 400 /uL (0-900); Monocytes Percent Auto 7.4 % (3-14); Neutrophils Absolute Auto 2900 /uL (1500-7000); Neutrophils Percent Auto 51.1 % (50-75); Platelet Count 165 X10^3/uL (150-400); Red Blood Cell Count 4.75 X10^6/uL (4.0-5.2); Red Cell Distribution Width 13.6 % (11.6-14.8); White Blood Cell Count 5.7 X10^3/uL (4.5-11.0)
[2021-06-07 11:21] LABS: Alanine Aminotransferase 18 IU/L (<35); Albumin 3.8 g/dL (3.5-5.0); Albumin Globulin Ratio 1.1 (1.0-2.8); Alkaline Phosphatase 54 U/L (38-126); Aspartate Aminotransferase 28 IU/L (14-36); BUN Creatinine Ratio 23.9 (6-22); Bilirubin Total 0.4 mg/dL (0.2-1.3); Blood Urea Nitrogen 27 mg/dL (7-17); Calcium 9.3 mg/dL (8.4-10.2); Carbon Dioxide 21 mmol/L (22-32); Chloride 113 mmol/L (98-107); Cholesterol 105 mg/dL (140-199); Estimated Glomerular Filt Rate 51.4 mL/min (>60); Globulin 3.5 g/dL (1.7-4.1); Glucose 92 mg/dL (70-100); HDL Cholesterol 34 mg/dL (40-60); Hemoglobin A1C% w Est Avg Glu 6.8 % (4.0-6.0); LDL Cholesterol Calculated 15 mg/dL (<100); Sodium 140 mmol/L (137-145); Total Protein 7.3 g/dL (6.3-8.2); Triglycerides 278 mg/dL (35-150)
[2021-06-07 11:43] LABS: Potassium 5.6 mmol/L (3.4-5.1)
[2021-06-07 11:44] LABS: HEMOLYSIS 54 (0-50)
== END ==
PROVIDERS: Family Provider Family Medicine; PCP Family Medicine; Referring Provider Family Medicine; Visit Provider Family Medicine
DX: E11.40 Type 2 diabetes mellitus with diabetic neuropathy, unspecified (principal); E11.42 Type 2 diabetes mellitus with diabetic polyneuropathy
CPT/HCPCS: 36415; 80053; 80061; 83036; 85025

== ENCOUNTER → 2021-06-09 15:31 | Outpatient (CLI) | payer OTHER, MEDICAID, SELFPAY ==
[2020-12-20 15:55] VITALS: BMI 32.9
--- NOTE | 2021-06-09 15:32 | DI.RAD.S_ITS ---
PROCEDURE: XR HIP W PEL IF DONE LT 2V INDICATIONS: left hip pain TECHNIQUE: AP pelvis with lateral view(s) of the left hip(s). COMPARISON: None. FINDINGS: Bones: AP view of the pelvis demonstrates postoperative changes of right hip fixation. The lumbar spine demonstrates postoperative changes of discectomy and pedicular screw and yajaira fixation at L5-S1. The pelvic ring is intact. The sacroiliac joints and symphysis pubis are normal. Soft tissues: The visualized bowel gas pattern is normal. No suspicious soft tissue calcifications. IMPRESSION: 1. No acute abnormality. 2. Postoperative changes in the lower lumbar spine and right hip. Dictated by: Roger South M.D. on 06/09/2021 at 17:01 Approved by: Roger South M.D. on 06/09/2021 at 17:05
--- NOTE | 2021-06-09 15:32 | DI.MRI.S_ITS ---
PROCEDURE: MR HEAD/BRAIN WO/W CON INDICATIONS: Epilepsy protocol TECHNIQUE: Noncontrast axial T1 spin echo, axial T2 fast spin echo, sagittal and axial FLAIR, coronal T2 fast spin echo, axial gradient echo, axial diffusion and ADC through the brain. After the administration of contrast, axial and coronal 3D VIBE or T1 spin echo with fat saturation through the brain. COMPARISON: [facility], CT, CT HEAD WITHOUT CONTRAST, 05/04/2021, 15:12. FINDINGS: Remote left temporoparietal craniotomy changes. Very minimal adjacent encephalomalacia. No abnormal extra-axial fluid collection. There are a few tiny FLAIR/signal abnormalities in the frontal lobe white matter, likely early chronic microvascular ischemic changes or potentially sequela of chronic migraine headache disorder. Otherwise normal brain parenchymal signal intensity. No abnormal brain parenchymal susceptibility. No restricted diffusion. The major intracranial vascular flow-related signal voids are maintained. Midline structures are normal in configuration. There is no evidence of mesial temporal sclerosis or other hippocampal abnormality. No findings of andrew matter heterotopia or other neural migration abnormality. No gross orbital abnormality. Right maxillary sinus mucous retention cyst. Remaining paranasal sinuses and mastoid air cells are predominantly clear. IMPRESSION: Remote left temporoparietal craniotomy changes. No acute finding. No signal or structural abnormality to explain seizure activity. Dictated by: Lg Ibrahim M.D. on 06/09/2021 at 16:26 Approved by: Lg Ibrahim M.D. on 06/09/2021 at 16:31
== END ==
PROVIDERS: Family Provider Family Medicine; PCP Family Medicine; Referring Provider Family Medicine; Visit Provider Family Medicine
DX: G40.909 Epilepsy, unspecified, not intractable, without status epilepticus (principal); M25.552 Pain in left hip; Z98.890 Other specified postprocedural states
CPT/HCPCS: 70553; 73502

== ENCOUNTER 2021-08-04 15:25 | Emergency (ER) | payer OTHER, MEDICAID, SELFPAY ==
[2020-12-20 15:55] VITALS: BMI 32.9
[2021-08-04 15:39] VITALS: BP 135/80; PULSE 96; RESP 16; TEMP 37; O2SAT 95; BMI 30.5
--- NOTE | 2021-08-04 15:40 | DI.RAD.S_ITS ---
PROCEDURE: XR RIBS LT MIN 3V W CXR1V INDICATIONS: fall . TECHNIQUE: 2 views of the left ribs were acquired, along with a single view chest. COMPARISON: None. FINDINGS: Surgical changes and devices: None. Bones and chest wall: No fractures or dislocations. No suspicious bony lesions. Overlying soft tissues appear unremarkable. Lungs and pleura: No pleural effusions or pneumothorax. Lungs appear clear. Mediastinum: Mediastinal contours appear normal. Heart size is normal. IMPRESSION: No gross displaced left rib fracture is seen. No acute cardiopulmonary pathology. Dictated by: Donaldo Adnujar M.D. on 08/04/2021 at 16:05 Approved by: Donaldo Andujar M.D. on 08/04/2021 at 16:06
--- NOTE | 2021-08-04 15:56 | ED.FALL ---
HPI - Fall General Chief Complaint: Fall Stated Complaint: FALL LEFT RIB PAIN Time Seen by Provider: 08/04/21 15:52 Source: patient Mode of arrival: Ambulatory History of Present Illness HPI Narrative: 50-year-old female who is here for evaluation of left-sided rib pain. Earlier this week she had a mechanical fall. She has had back issues in the past and it has had numbness and tingling weakness in her left leg. This causes her to lose her balance occasionally and this is what happened earlier this week. She tried to catch herself however she fell over injuring her left ribs. Has pain with palpation and also deep breathing and coughing. No other injuries from the event. Related Data Home Medications Medication Instructions Recorded Confirmed insulin glargine 100 unit/mL (3 20 unit SUBCUT BID 12/13/20 06/20/21 mL) subcutaneous pen (Lantus Solostar U-100 Insulin) glucometer Trumetrix 1 unit DAILY 12/20/20 06/20/21 test strips 1 strip TOPICAL ACHS 12/20/20 06/20/21 Previous Rx's Medication Instructions Recorded glyburide 5 mg tablet 5 mg PO DAILY #30 tab 06/21/20 celecoxib 200 mg capsule (Celebrex) 200 mg PO BID #60 cap 12/21/20 diclofenac sodium 1 % topical gel 2 g TOPICAL QID #100 g 03/14/21 omeprazole 20 mg capsule,delayed 20 mg PO DAILY #90 cap 03/14/21 release pregabalin 150 mg capsule 150 mg PO TID 90 Days #270 cap 03/28/21 hydrocortisone 2.5 % topical cream 1 applic TOPICAL BID PRN #28 g 06/20/21 atorvastatin 20 mg tablet 20 mg PO BEDTIME #30 tab 06/27/21 lisinopril 40 mg tablet 40 mg PO DAILY #90 tab 06/27/21 levetiracetam 250 mg tablet 250 mg PO BID #180 tab 06/29/21 (Keppra) tramadol 50 mg tablet 50 mg PO TID PRN #60 tab 07/08/21 metformin 500 mg tablet 500 mg PO BID #60 tab 07/28/21 venlafaxine 75 mg tablet See Rx Instructions PO .COMPLEX 07/28/21 #90 tab oxycodone-acetaminophen 5 mg-325 1 tab PO Q6H PRN #7 tab 08/04/21 mg tablet (Percocet) Allergies Allergy/AdvReac Type Severity Reaction Status Date / Time hydrocodone Allergy Intermediate ITCHING/VOM Verified 08/04/21 15:39 ITING/RASH suture Allergy Vicryl Verified 08/04/21 15:39 Review of Systems Constitutional Constitutional: Denies fever(s) Cardiovascular Cardiovascular: Reports system reviewed and no additional complaints, except as documented Respiratory Respiratory: Reports cough and Reports pain with cough Gastrointestinal Gastrointestinal: Reports system reviewed and no additional complaints, except as documented Musculoskeletal Comments: Left-sided rib pain Integumentary/Breasts Skin/Breast: Reports system reviewed and no additional complaints, except as documented Neurologic Neurologic: Reports system reviewed and no additional complaints, except as documented Hematologic/Lymphatic On Anticoagulants: No Patient History Medical History Acute neck pain Cervical somatic dysfunction Congenital absence of one kidney Constipation due to slow transit Diabetes mellitus (~2005) Diabetic retinopathy associated with type 2 diabetes mellitus Diarrhea due to drug Dysuria Eosinophilic, granuloma bone Fatty liver HLD (hyperlipidemia) Hot flashes HTN (hypertension) Hypoglycemia Left hip pain Left lower quadrant abdominal pain Lumbar disc herniation with radiculopathy Obesity Osteosarcoma Pruritus Rash and nonspecific skin eruption Seizure (~1990) Strain of lumbar region Subconjunctival hemorrhage of left eye Tuberculosis (~1993) Urinary tract infection Vaginal dryness Vision disorder Well woman exam with routine gynecological exam Surgical History Anesthesia Bone tumor (benign) (~1990) History of carpal tunnel release History of lumbar discectomy Neoplasm of femur S/P laminectomy Status post laparoscopic cholecystectomy (~2016) Status post laparoscopic supracervical hysterectomy (~2010) Family History Brother Mental health disorder Mother Diabetes mellitus Heart disease Kidney disease Hyperlipidemia Hypertension Sister Mental health disorder Diabetes mellitus Grandfather Hypertension Stroke Grandmother Diabetes mellitus Hypertension Father Heart disease Social History household members: none Smoking Status: Current every day smoker Tobacco: How many years used: 29 quit status: considering quitting second hand exposure: Yes (socially) alcohol intake: former substance use type: does not use Smoking Status: Current every day smoker alcohol intake frequency: other Substance Use Type: does not use Exam Initial Vital Signs Initial Vital Signs: Vital Signs Temperature 98.6 F 08/04/21 15:39 Pulse Rate 96 H 08/04/21 15:39 Respiratory Rate 16 08/04/21 15:39 Blood Pressure 135/80 08/04/21 15:39 Pulse Oximetry 95 08/04/21 15:39 Const General: cooperative and healthy appearing HENWV Head: normal to inspection and normocephalic Eyes General: appearance normal, both eyes and all related structures Chest Other: Left-sided lower rib discomfort Resp Effort & Inspection: normal respiratory effort Auscultation: clear to auscultation bilaterally Skin General: no rashes or lesions noted Neuro General: patient alert and patient awake Extrem General: normal to inspection Course Orders Ordered: ED Orders 08/04/21 15:40 XR ribs LT min 3V w CXR1V Stat Vital Signs Vital signs: Vital Signs - 8 hr 08/04/21 15:39 08/04/21 16:44 Temperature 98.6 F Pulse Rate 96 H 90 Respiratory Rate 16 20 Blood Pressure 135/80 107/76 Pulse Oximetry 95 97 MDM - Fall Imaging Data Rib x-ray: Radiologist's Impression: [address] [address] XRay Report Signed Patient: Candis Billy MR#: [id number] : 1970 Acct:[id number] Age/Sex: 50 / F Date of Service: 08/04/21 Loc: ED Accession Number: [id number] ?? Procedure: XR ribs LT min 3V w CXR1V Ordering Provider: Killian Pace D.O. PROCEDURE:? XR RIBS LT MIN 3V W CXR1V ? INDICATIONS:? fall . ? TECHNIQUE:? 2 views of the left ribs were acquired, along with a single view chest.? ? COMPARISON:? None. ? FINDINGS:? ? Surgical changes and devices:? None.? ? Bones and chest wall:? No fractures or dislocations.? No suspicious bony lesions.? Overlying soft tissues appear unremarkable.? ? Lungs and pleura:? No pleural effusions or pneumothorax.? Lungs appear clear.? ? Mediastinum:? Mediastinal contours appear normal.? Heart size is normal.? ? IMPRESSION:? No gross displaced left rib fracture is seen.? No acute cardiopulmonary pathology. ? ? Dictated by: Donaldo Andujar M.D. on 08/04/2021 at 16:05 ? ? Approved by: Donaldo Andujar M.D. on 08/04/2021 at 16:06? [facility] Narrative Medical decision making narrative: This did appear to be a mechanical fall. There were no fractures noted on the x-ray. She is not in any respiratory distress. I did discuss the x-ray findings with her. Will sent home with symptom control. She was given return precautions and follow-up instructions. She expressed understanding and agreement. Discharge Plan Departure Patient Disposition: Home Clinical Impression: Contusion of rib on left side Instructions: DI for Rib Contusion Activity Restrictions/Additional Instructions: There were no fractures noted on the x-rays. Use the pain medication as needed. Contact your primary doctor for follow-up. Return to the emergency department for any new or worsening symptoms Prescriptions: New oxycodone-acetaminophen [Percocet] 5-325 mg tablet 1 tab PO Q6H PRN (Reason: pain) Qty: 7 RF: 0 No Action atorvastatin 20 mg tablet 20 mg PO BEDTIME Qty: 30 RF: 5 lisinopril 40 mg tablet 40 mg PO DAILY Qty: 90 RF: 1 levetiracetam [Keppra] 250 mg tablet 250 mg PO BID Qty: 180 RF: 0 tramadol 50 mg tablet 50 mg PO TID PRN (Reason: Pain) Qty: 60 RF: 0 venlafaxine 75 mg tablet See Rx Instructions PO .COMPLEX Qty: 90 RF: 0 metformin 500 mg tablet 500 mg PO BID Qty: 60 RF: 5 omeprazole 20 mg capsule,delayed release(DR/EC) 20 mg PO DAILY Qty: 90 RF: 0 diclofenac sodium 1 % gel 2 g topical QID Qty: 100 RF: 0 pregabalin 150 mg capsule 150 mg PO TID 90 Days Qty: 270 RF: 3 hydrocortisone 2.5 % cream 1 applic topical BID PRN (Reason: rash) Qty: 28 RF: 3 glyburide 5 mg tablet 5 mg PO DAILY Qty: 30 RF: 5 Lantus Solostar U-100 Insulin 100 unit/mL (3 mL) insulin pen 20 unit SUBCUT BID RF: 0 glucometer Trumetrix bottle 1 unit DAILY RF: 0 test strips 1 strip topical ACHS RF: 0 celecoxib [Celebrex] 200 mg Capsule 200 mg PO BID Qty: 60 RF: 0 Referrals: Massimo Hong DO [Primary Care Provider] -
[2021-08-04 16:44] VITALS: BP 107/76; PULSE 90; RESP 20; O2SAT 97
== END 2021-08-04 16:35 | disposition home or self-care (01) ==
PROVIDERS: Emergency Provider Emergency Medicine; Family Provider Family Medicine; PCP Family Medicine
DX: S20.212A Contusion of left front wall of thorax, initial encounter (principal); W19.XXXA Unspecified fall, initial encounter
CPT/HCPCS: 71101; 99283

== ENCOUNTER → 2021-08-23 16:59 | Outpatient (CLI) | payer OTHER, MEDICAID, SELFPAY ==
[2020-12-20 15:55] VITALS: BMI 32.9
== END ==
PROVIDERS: Family Provider Family Medicine; PCP Family Medicine; Visit Provider Physician Assistant
DX: H66.90 Otitis media, unspecified, unspecified ear (principal)
CPT/HCPCS: 87070; 87075; 87205

== ENCOUNTER 2021-09-23 14:56 | Emergency (ER) | payer OTHER, MEDICAID, SELFPAY ==
[2020-12-20 15:55] VITALS: BMI 32.9
[2021-09-23 15:00] VITALS: BP 185/109; PULSE 97; RESP 14; TEMP 36.3; O2SAT 97; BMI 31.3
--- NOTE | 2021-09-23 15:37 | ED.SKABFB ---
HPI - Skin/Abscess/Foreign Bdy <Antonio Estrada PA-C - Last Filed: 09/23/21 15:45> General Chief complaint: Skin/Abscess/Foreign Body Stated complaint: Abcess in Rt Ear Time Seen by Provider: 09/23/21 15:03 Source: patient Mode of arrival: Ambulatory Limitations: no limitations History of Present Illness HPI narrative: Candis presents today for chief complaint of right ear abscess near where she had a piercing approximately 2 months ago. She reports that she was seen for swelling and pain in her ear 1 month ago and was prescribed a 5 day course of Keflex. This seemed to slightly decrease her symptoms but has not significantly helped. She reports that it is still painful but does not seem to be getting any worse. She denies any fever, headache, double vision, difficulty hearing, dizziness or any other acute concerns or complaints. She is an insulin-dependent diabetic and reports that her sugars are relatively well controlled. Related Data Home Medications Medication Instructions Recorded Confirmed insulin glargine 100 unit/mL (3 20 unit SUBCUT BID 12/13/20 09/01/21 mL) subcutaneous pen (Lantus Solostar U-100 Insulin) glucometer Trumetrix 1 unit DAILY 12/20/20 09/01/21 test strips 1 strip TOPICAL ACHS 12/20/20 09/01/21 levetiracetam 250 mg tablet 750 mg PO BID tab 09/01/21 (Keppra) Previous Rx's Medication Instructions Recorded glyburide 5 mg tablet 5 mg PO DAILY #30 tab 06/21/20 celecoxib 200 mg capsule (Celebrex) 200 mg PO BID #60 cap 12/21/20 omeprazole 20 mg capsule,delayed 20 mg PO DAILY #90 cap 03/14/21 release pregabalin 150 mg capsule 150 mg PO TID 90 Days #270 cap 03/28/21 hydrocortisone 2.5 % topical cream 1 applic TOPICAL BID PRN #28 g 06/20/21 atorvastatin 20 mg tablet 20 mg PO BEDTIME #30 tab 06/27/21 lisinopril 40 mg tablet 40 mg PO DAILY #90 tab 06/27/21 tramadol 50 mg tablet 50 mg PO TID PRN #60 tab 07/08/21 venlafaxine 75 mg tablet See Rx Instructions .ROUTE 08/29/21 .COMPLEX #90 tab insulin aspart U-100 100 unit/mL 10 unit SUBCUT TID #15 ml 09/01/21 (3 mL) subcutaneous pen (Novolog Flexpen U-100 Insulin aspart) oxycodone-acetaminophen 5 mg-325 1 tab PO .qhs PRN #30 tab 09/01/21 mg tablet (Percocet) propranolol 10 mg tablet 10 mg PO BID #60 tab 09/01/21 ciprofloxacin HCl 500 mg tablet 500 mg PO BID 10 Days #20 tab 09/23/21 ciprofloxacin HCl 500 mg tablet 500 mg PO BID 10 Days #20 tab 09/23/21 Allergies Allergy/AdvReac Type Severity Reaction Status Date / Time hydrocodone Allergy Intermediate ITCHING/VOM Verified 09/23/21 15:06 ITING/RASH suture Allergy Vicryl Verified 09/23/21 15:06 Review of Systems <Antonio Estrada PA-C - Last Filed: 09/23/21 15:45> Review of Systems Narrative: As per HPI Patient History <Antonio Estrada PA-C - Last Filed: 09/23/21 15:45> Medical History (Updated 09/23/21 @ 15:22 by Antonio Estrada PA-C) Acute neck pain Cervical somatic dysfunction Congenital absence of one kidney Constipation due to slow transit Diabetes mellitus (~2005) Diabetic nephropathy associated with type 2 diabetes mellitus Diabetic retinopathy associated with type 2 diabetes mellitus Diarrhea due to drug Dysuria Eosinophilic, granuloma bone Fatty liver HLD (hyperlipidemia) Hot flashes HTN (hypertension) Hypoglycemia Left hip pain Left lower quadrant abdominal pain Lumbar disc herniation with radiculopathy Obesity Osteosarcoma Pruritus Rash and nonspecific skin eruption Seizure (~1990) Strain of lumbar region Subconjunctival hemorrhage of left eye Tuberculosis (~1993) Urinary tract infection Vaginal dryness Vision disorder Well woman exam with routine gynecological exam Surgical History Anesthesia Bone tumor (benign) (~1990) History of carpal tunnel release History of lumbar discectomy Neoplasm of femur S/P laminectomy Status post laparoscopic cholecystectomy (~2016) Status post laparoscopic supracervical hysterectomy (~2010) Family History Brother Mental health disorder Mother Diabetes mellitus Heart disease Kidney disease Hyperlipidemia Hypertension Sister Mental health disorder Diabetes mellitus Grandfather Hypertension Stroke Grandmother Diabetes mellitus Hypertension Father Heart disease Social History household members: none Smoking Status: Current every day smoker Tobacco: How many years used: 29 quit status: considering quitting second hand exposure: Yes (socially) alcohol intake: former substance use type: does not use Smoking Status: Current every day smoker alcohol intake frequency: other Substance Use Type: does not use Exam <Antonio Estrada PA-C - Last Filed: 09/23/21 15:45> Narrative Exam Narrative: Const General: cooperative, healthy appearing, comfortable and no acute distress Nutritional Appearance: Elevated BMI Orientation: alert and oriented x3 HENMT Head: normal to inspection and normocephalic Ears: hearing grossly normal bilaterally, erythema, swelling and tenderness to the inferior antihelix of right ear, no fluctuance appreciated, TM's normal bilaterally, EAC's normal, mastoids normal and no periauricular adenopathy Nose: external nose normal, nares normal and no nasal discharge Face and sinus: normal facial exam, sinuses nontender and face symmetric Eyes periorbital findings normal, eyelids normal, conjunctivae normal Neck: normal visual inspection, full ROM, no lymphadenopathy, no meningeal signs and supple Resp normal respiratory effort, able to speak in complete sentences, not labored and no respiratory distress, clear to auscultation bilaterally, no crackles, no rales and no wheezes Cardio regular rate regular rhythm Heart Sounds: no gallops, no murmurs and no rubs Extrem normal to inspection, no pedal edema and no calf tenderness Neuro Alert and Oriented x3, normal gait, moves all extremities. Initial Vital Signs Initial Vital Signs: Vital Signs Temperature 97.3 F L 09/23/21 15:00 Pulse Rate 97 H 09/23/21 15:00 Respiratory Rate 14 09/23/21 15:00 Blood Pressure 185/109 H 09/23/21 15:00 Pulse Oximetry 97 09/23/21 15:00 <Enrike Schmidt MD - Last Filed: 09/23/21 18:00> Initial Vital Signs Initial Vital Signs: Vital Signs Temperature 97.3 F L 09/23/21 15:00 Pulse Rate 97 H 09/23/21 15:00 Respiratory Rate 14 09/23/21 15:00 Blood Pressure 185/109 H 09/23/21 15:00 Pulse Oximetry 97 09/23/21 15:00 Course <Antonio Estrada PA-C - Last Filed: 09/23/21 15:45> Vital Signs Vital signs: Vital Signs - 8 hr 09/23/21 15:00 Temperature 97.3 F L Pulse Rate 97 H Respiratory Rate 14 Blood Pressure 185/109 H Pulse Oximetry 97 <Enrike Schmidt MD - Last Filed: 09/23/21 18:00> Vital Signs Vital signs: Vital Signs - 8 hr 09/23/21 15:00 Temperature 97.3 F L Pulse Rate 97 H Respiratory Rate 14 Blood Pressure 185/109 H Pulse Oximetry 97 MDM - Skin/Abscess/Foreign Bdy <Antonio Estrada PA-C - Last Filed: 09/23/21 15:45> MDM Narrative Medical decision making narrative: Differential diagnosis includes mastoiditis, osteomyelitis, otitis externa, cellulitis, abscess. No obvious area of fluctuance appreciated. EAC and mastoids are normal. Evaluation is consistent with perichondritis. We will treat with appropriate antibiotics to cover for Pseudomonas at this time and have her follow up with PCP or return here if symptoms fail to improve as expected. ER return precautions were discussed with the patient. Patient verbalizes understanding and agrees to plan and has no further concerns at this time. Thank you A [id number] system was used with the dictation of this note. Please disregard any spelling or grammatical errors. Discharge Plan Departure Patient Disposition: Home Clinical Impression: Perichondritis of right ear Instructions: DI for Wound Infection Activity Restrictions/Additional Instructions: It was very nice to meet you this afternoon. Please take the antibiotics that I prescribed to treat your skin infection. If you develop fever, worsening headache, double vision, increased swelling or have any additional concerns or complaints please return immediately for re-evaluation. Otherwise, follow up with PCP as needed. Thank you Antonio Estrada PA-C Prescriptions: New ciprofloxacin HCl 500 mg tablet 500 mg PO BID 10 Days Qty: 20 RF: 0 ciprofloxacin HCl 500 mg tablet 500 mg PO BID 10 Days Qty: 20 RF: 0 No Action atorvastatin 20 mg tablet 20 mg PO BEDTIME Qty: 30 RF: 5 lisinopril 40 mg tablet 40 mg PO DAILY Qty: 90 RF: 1 tramadol 50 mg tablet 50 mg PO TID PRN (Reason: Pain) Qty: 60 RF: 0 venlafaxine 75 mg tablet See Rx Instructions .ROUTE .COMPLEX Qty: 90 RF: 0 omeprazole 20 mg capsule,delayed release(DR/EC) 20 mg PO DAILY Qty: 90 RF: 0 pregabalin 150 mg capsule 150 mg PO TID 90 Days Qty: 270 RF: 3 hydrocortisone 2.5 % cream 1 applic topical BID PRN (Reason: rash) Qty: 28 RF: 3 levetiracetam [Keppra] 250 mg tablet 750 mg PO BID RF: 0 insulin aspart U-100 [Novolog Flexpen U-100 Insulin] 100 unit/mL (3 mL) insulin pen 10 unit SUBCUT TID Qty: 15 RF: 11 propranolol 10 mg tablet 10 mg PO BID Qty: 60 RF: 0 oxycodone-acetaminophen [Percocet] 5-325 mg tablet 1 tab PO .qhs PRN (Reason: pain) Qty: 30 RF: 0 glyburide 5 mg tablet 5 mg PO DAILY Qty: 30 RF: 5 Lantus Solostar U-100 Insulin 100 unit/mL (3 mL) insulin pen 20 unit SUBCUT BID RF: 0 glucometer Trumetrix bottle 1 unit DAILY RF: 0 test strips 1 strip topical ACHS RF: 0 celecoxib [Celebrex] 200 mg Capsule 200 mg PO BID Qty: 60 RF: 0 Referrals: Massimo Hong DO [Primary Care Provider] -
== END 2021-09-23 15:42 | disposition home or self-care (01) ==
PROVIDERS: Emergency Provider Physician Assistant; Family Provider Family Medicine; PCP Family Medicine
DX: H61.001 Unspecified perichondritis of right external ear (principal)
CPT/HCPCS: 99281

== ENCOUNTER 2021-10-03 15:50 | Emergency (ER) | payer OTHER, MEDICAID, SELFPAY ==
[2020-12-20 15:55] VITALS: BMI 32.9
[2021-10-03 16:00] VITALS: BP 187/104; PULSE 82; RESP 22; TEMP 36.9; O2SAT 100
[2021-10-03 16:39] LABS: Appearance Urine UA CLEAR; Bilirubin Urine UA NEGATIVE (NEGATIVE); Color Urine UA YELLOW; Glucose Urine UA NEGATIVE (Negative); Ketones Urine UA NEGATIVE (NEGATIVE); Leukocyte Esterase Urine UA TRACE (NEGATIVE); Nitrite Urine UA NEGATIVE (Negative); Occult Blood Urine UA 2+ (Negative); Protein Urine UA 3+ (Negative); Specific Gravity Urine UA 1.025 (1.000-1.035); Urobilinogen Urine UA 0.2 E.U./dL (0.2)
[2021-10-03 16:40] LABS: pH Urine UA 5.5 (4.5-8.0)
[2021-10-03 16:48] LABS: RBC Urine 1-5/HPF (0-5/HPF); Squamous Epithelial Cell Urine 1-5 /HPF (0-5/HPF); WBC Urine 30-100/HPF (0-5/HPF)
[2021-10-03 16:49] LABS: Bacteria Urine Many (>30); Culture Indicated Urine Specimen Cultured
--- NOTE | 2021-10-03 17:34 | DI.CT.S_ITS ---
PROCEDURE: CT ABDOMEN PELVIS W CON INDICATIONS: R flank pain TECHNIQUE: After the administration of IV contrast, axial sections were acquired from the lung bases to the pubic symphysis. Coronal and sagittal reformats were performed. For radiation dose reduction, the following was used: automated exposure control, adjustment of mA and/or kV according to patient size. COMPARISON: [facility], CT, CT ABDOMEN PELVIS W CON, 10/11/2020, 16:18. FINDINGS: Image quality: Excellent. Lung bases: There is mild dependent atelectasis. Heart: No significant findings. ABDOMEN: Liver: Unremarkable. Gallbladder: Surgically absent. Biliary ducts: Unremarkable. Pancreas: Unremarkable. Spleen: The spleen is enlarged, measuring up to 16 cm. Adrenal Glands: There is mild nodular thickening of the right adrenal gland which appears unchanged from the prior study. Kidneys and Ureters: There is a small atrophic left kidney and an enlarged right kidney. No hydronephrosis. Stomach and Bowel: There is mild segmental wall thickening and enhancement within the distal small bowel likely representing an enteritis. No associated abnormal bowel dilatation to suggest obstruction. Colon demonstrates normal caliber and wall thickness. The appendix is normal in appearance. There is mild colonic diverticulosis without acute diverticulitis. Peritoneum: No abnormal intraperitoneal fluid. No free air. Ventral Wall: No hernia. Abdominal Nodes: No retroperitoneal or mesenteric adenopathy by size criteria. Vessels: Aorta and inferior vena cava are normal in size. PELVIS: Pelvic Organs: Unremarkable. Bladder: Unremarkable. Pelvic Nodes: No enlarged lymph nodes. Miscellaneous: No inguinal hernias are seen. Bones: There are postsurgical changes in the right hip status post prior fixation of a hip fracture. Postsurgical changes are also demonstrated within the lower lumbar spine status post posterior fixation and fusion at L5-S1 with an intervertebral spacer. IMPRESSION: 1. No evidence of appendicitis. 2. Mild short segment bowel wall thickening and enhancement in the distal small bowel consistent with a mild enteritis, likely infectious or inflammatory in etiology. No evidence of bowel obstruction. 3. Small atrophic left kidney with associated hypertrophy of the right kidney again noted. No hydronephrosis. Dictated by: Robert Camargo M.D. on 10/03/2021 at 20:51 Approved by: Robert Camargo M.D. on 10/03/2021 at 20:54
--- NOTE | 2021-10-03 17:48 | ED_ITS ---
HPI - Female Genitourinary <Scott Peterson PA-C - Last Filed: 10/03/21 21:13> General Chief complaint: Urogenital-Female Stated complaint: rt sided back pain, urinary issues Time Seen by Provider: 10/03/21 17:05 Source: patient Mode of arrival: Ambulatory History of Present Illness HPI Narrative: 51-year-old female with past medical history frequent UTIs, solitary kidney presents with right-sided flank pain that radiates to the right groin. Patient denies fever, chills, chest pain, shortness of breath, cough, vomiting, abdominal pain, lightheadedness, dizziness, syncope. Patient endorses dysuria, nausea, cloudy urine Patient states she gets frequent UTIs, at least once a month. Patient was born with solitary right kidney. Related Data Home Medications Medication Instructions Recorded Confirmed insulin glargine 100 unit/mL (3 20 unit SUBCUT BID 12/13/20 09/01/21 mL) subcutaneous pen (Lantus Solostar U-100 Insulin) glucometer Trumetrix 1 unit DAILY 12/20/20 09/01/21 test strips 1 strip TOPICAL ACHS 12/20/20 09/01/21 levetiracetam 250 mg tablet 750 mg PO BID tab 09/01/21 (Keppra) Previous Rx's Medication Instructions Recorded glyburide 5 mg tablet 5 mg PO DAILY #30 tab 06/21/20 celecoxib 200 mg capsule (Celebrex) 200 mg PO BID #60 cap 12/21/20 omeprazole 20 mg capsule,delayed 20 mg PO DAILY #90 cap 03/14/21 release pregabalin 150 mg capsule 150 mg PO TID 90 Days #270 cap 03/28/21 hydrocortisone 2.5 % topical cream 1 applic TOPICAL BID PRN #28 g 06/20/21 atorvastatin 20 mg tablet 20 mg PO BEDTIME #30 tab 06/27/21 lisinopril 40 mg tablet 40 mg PO DAILY #90 tab 06/27/21 tramadol 50 mg tablet 50 mg PO TID PRN #60 tab 07/08/21 venlafaxine 75 mg tablet See Rx Instructions .ROUTE 08/29/21 .COMPLEX #90 tab insulin aspart U-100 100 unit/mL 10 unit SUBCUT TID #15 ml 09/01/21 (3 mL) subcutaneous pen (Novolog Flexpen U-100 Insulin aspart) propranolol 10 mg tablet 10 mg PO BID #60 tab 09/01/21 oxycodone-acetaminophen 5 mg-325 1 tab PO .qhs PRN #30 tab 09/25/21 mg tablet (Percocet) ciprofloxacin HCl 500 mg tablet 500 mg PO BID 14 Days #28 tab 10/03/21 Allergies Allergy/AdvReac Type Severity Reaction Status Date / Time hydrocodone Allergy Intermediate ITCHING/VOM Verified 09/23/21 15:06 ITING/RASH suture Allergy Vicryl Verified 09/23/21 15:06 Review of Systems <Scott Peterson PA-C - Last Filed: 10/03/21 21:13> Constitutional Constitutional: Denies chills, Denies fatigue, Denies fever(s), Denies frequent falls, Denies lethargy and Denies weakness Eyes Eyes: Denies change in vision, Denies eye discharge, Denies irritation and De nies loss of vision ENT Ears, Nose, Mouth, and Throat: Denies change in voice, Denies dizziness, Denies neck pain, Denies sore throat and Denies throat swelling Cardiovascular Cardiovascular: Denies chest pain, Denies irregular heart rhythm, Denies lightheadedness, Denies palpitations, Denies dyspnea, Denies dyspnea on exertion and Denies orthopnea Respiratory Respiratory: Denies cough, Denies dyspnea, Denies dyspnea on exertion and Denies wheezing Gastrointestinal Gastrointestinal: Denies abdominal pain, Denies change in bowel habits, Denies diarrhea, Reports nausea and Denies vomiting Comments: Right-sided flank pain Genitourinary Genitourinary: Reports dysuria Musculoskeletal Musculoskeletal: Denies neck pain and Denies numbness Integumentary/Breasts Skin/Breast: Denies pruritus, Denies erythema, Denies rash and Denies wounds Neurologic Neurologic: Denies behavioral changes, Denies confusion, Denies dizziness, Denies frequent falls, Denies loss of vision, Denies numbness and Denies weakness Psychiatric Psychiatric: Denies anxiety, Denies behavioral changes, Denies confusion, Denies depression, Denies homicidal ideation and Denies suicidal ideation Endocrine Endocrine: Denies fatigue, Denies flushing and Denies palpitations Hematologic/Lymphatic Hematologic/Lymphatic: Denies easy bruising Allergic/Immunologic Allergic/Immunologic: Denies urticaria, Denies throat swelling and Denies wheezing Patient History <Scott Peterson PA-C - Last Filed: 10/03/21 21:13> Medical History Acute neck pain Cervical somatic dysfunction Congenital absence of one kidney Constipation due to slow transit Diabetes mellitus (~2005) Diabetic nephropathy associated with type 2 diabetes mellitus Diabetic retinopathy associated with type 2 diabetes mellitus Diarrhea due to drug Dysuria Eosinophilic, granuloma bone Fatty liver HLD (hyperlipidemia) Hot flashes HTN (hypertension) Hypoglycemia Left hip pain Left lower quadrant abdominal pain Lumbar disc herniation with radiculopathy Obesity Osteosarcoma Pruritus Rash and nonspecific skin eruption Seizure (~1990) Strain of lumbar region Subconjunctival hemorrhage of left eye Tuberculosis (~1993) Urinary tract infection Vaginal dryness Vision disorder Well woman exam with routine gynecological exam Surgical History Anesthesia Bone tumor (benign) (~1990) History of carpal tunnel release History of lumbar discectomy Neoplasm of femur S/P laminectomy Status post laparoscopic cholecystectomy (~2016) Status post laparoscopic supracervical hysterectomy (~2010) Family History Brother Mental health disorder Mother Diabetes mellitus Heart disease Kidney disease Hyperlipidemia Hypertension Sister Mental health disorder Diabetes mellitus Grandfather Hypertension Stroke Grandmother Diabetes mellitus Hypertension Father Heart disease alcohol intake frequency: other Substance Use Type: does not use Exam <Scott Peterson PA-C - Last Filed: 10/03/21 21:13> Initial Vital Signs Initial Vital Signs: Vital Signs Temperature 98.4 F 10/03/21 16:00 Pulse Rate 82 10/03/21 16:00 Respiratory Rate 22 10/03/21 16:00 Blood Pressure 187/104 H 10/03/21 16:00 Pulse Oximetry 100 10/03/21 16:00 Const General: cooperative HENMT Head: normocephalic and atraumatic Ears: external ears normal and TM's normal bilaterally Nose: external nose normal and No nasal discharge Face and sinus: sinuses nontender, face symmetric, no sinus tenderness and No dry mucous membranes Mouth: oral mucosae normal and moist mucous membranes Teeth and gingiva: dentition normal Throat: tonsils normal and uvula midline Eyes General: appearance normal, both eyes and all related structures Eyelids: eyelids normal Conjunctivae: conjunctivae normal Sclera: sclerae normal Pupils: PERRL EOM: EOM intact bilaterally Neck Neck: normal visual inspection, trachea midline, No lymphadenopathy, No midline deformity and No JVD Lymphatic: No lymphedema Chest Chest: normal inspection of the chest Resp Effort & Inspection: normal respiratory effort, able to speak in complete sentences, no respiratory distress and no use of accessory muscles Auscultation: clear to auscultation bilaterally, no rales, no rhonchi and no wheezes Cardio Rate: regular rate Rhythm: regular rhythm Heart Sounds: no click, no gallops, no murmurs and no rubs Pulses: normal peripheral pulses GI Inspection: non-distended Palpation: soft, no hepatosplenomegaly, No guarding, No pulsatile mass and No tender Auscultation: normal bowel sounds Other: Abdomen is soft, nondistended, nontender to palpation. General: CVA tenderness (right) Back/Spine/Pelvis Back: No CVA tenderness Cervical Spine: cervical ROM normal and No pain with cervical ROM Thoracic/Lumbar Spine: thoracic and lumbar spine normal to inspection Skin General: no rashes or lesions noted, No jaundice and No petechiae Neuro General: patient alert, patient oriented x3, gait normal and no focal motor deficits Speech: speech normal Extrem General: full ROM, no clubbing, cyanosis or edema, no pedal edema and no calf tenderness Psych Appearance: well kempt Mental Status: mental status grossly normal Attitude: cooperative Thought Content: normal and suicidality Judgment: judgment good <Enrike Schmidt MD - Last Filed: 10/06/21 06:59> Initial Vital Signs Initial Vital Signs: Vital Signs Temperature 98.4 F 10/03/21 16:00 Pulse Rate 82 10/03/21 16:00 Respiratory Rate 22 10/03/21 16:00 Blood Pressure 187/104 H 10/03/21 16:00 Pulse Oximetry 100 10/03/21 16:00 Course <Scott Peterson PA-C - Last Filed: 10/03/21 21:13> Course Course Narrative: CT abdomen pelvis negative for kidney stones, hydronephrosis. Patient's symptoms improved with ketorolac, Zofran, morphine. Patient's symptoms likely due to a UTI or pyelonephritis. Patient has been started on ciprofloxacin in the ED prescription given for a 14 day course. Patient counseled on ED return precautions, patient verbalized understanding. Discharged home. Orders Ordered: Discontinued Medications Ciprofloxacin (Ciprofloxacin 250 Mg Tablet) 500 mg PO NOW ONE Stop: 10/03/21 21:00 Last Admin: 10/03/21 21:05 Dose: 500 mg Documented by: SHANA Sodium Chloride (Normal Saline 0.9%) 1,000 mls @ 1,000 mls/hr IV BOLUS ONE Stop: 10/03/21 18:34 Last Infusion: 10/03/21 20:38 Dose: 0 mls/hr Documented by: Admin: 10/03/21 18:41 Dose: 1,000 mls/hr Documented by: RYLEE Ketorolac Tromethamine (Ketorolac 30 Mg/Ml Vial) 15 mg IV NOW ONE Stop: 10/03/21 17:36 Last Admin: 10/03/21 18:41 Dose: 15 mg Documented by: RYLEE Morphine Sulfate (Morphine 4 Mg/Ml Inj) 4 mg IV NOW ONE Stop: 10/03/21 20:17 Last Admin: 10/03/21 20:36 Dose: 4 mg Documented by: SHANA Ondansetron HCl (Ondansetron 4 Mg/2 Ml Inj) 4 mg IV NOW ONE Stop: 10/03/21 17:36 Last Admin: 10/03/21 18:41 Dose: 4 mg Documented by: RYLEE Vital Signs Vital signs: Vital Signs - 8 hr 10/03/21 16:00 Temperature 98.4 F Pulse Rate 82 Respiratory Rate 22 Blood Pressure 187/104 H Pulse Oximetry 100 <Enrike Schmidt MD - Last Filed: 10/06/21 06:59> Orders Ordered: Discontinued Medications Ciprofloxacin (Ciprofloxacin 250 Mg Tablet) 500 mg PO NOW ONE Stop: 10/03/21 21:00 Last Admin: 10/03/21 21:05 Dose: 500 mg Documented by: SHANA Sodium Chloride (Normal Saline 0.9%) 1,000 mls @ 1,000 mls/hr IV BOLUS ONE Stop: 10/03/21 18:34 Last Infusion: 10/03/21 20:38 Dose: 0 mls/hr Documented by: Admin: 10/03/21 18:41 Dose: 1,000 mls/hr Documented by: RYLEE Ketorolac Tromethamine (Ketorolac 30 Mg/Ml Vial) 15 mg IV NOW ONE Stop: 10/03/21 17:36 Last Admin: 10/03/21 18:41 Dose: 15 mg Documented by: RYLEE Morphine Sulfate (Morphine 4 Mg/Ml Inj) 4 mg IV NOW ONE Stop: 10/03/21 20:17 Last Admin: 10/03/21 20:36 Dose: 4 mg Documented by: SHANA Ondansetron HCl (Ondansetron 4 Mg/2 Ml Inj) 4 mg IV NOW ONE Stop: 10/03/21 17:36 Last Admin: 10/03/21 18:41 Dose: 4 mg Documented by: RYLEE Vital Signs Vital signs: Vital Signs - 8 hr 10/03/21 16:00 Temperature 98.4 F Pulse Rate 82 Respiratory Rate 22 Blood Pressure 187/104 H Pulse Oximetry 100 MDM - Female Genitourinary <Hyma PRASHANT Peterson - Last Filed: 10/03/21 21:13> Lab Data Lab results narrative: Labs within normal limits. UA positive for UTI. Result diagrams: 10/03/21 18:30 10/03/21 18:30 Labs: Lab Results 10/03/21 10/03/21 10/03/21 Range/Units 16:26 18:30 18:30 WBC 6.9 (4.5-11.0) X10^3/uL RBC 4.70 (4.0-5.2) X10^6/uL Hgb 13.8 (12.0-16.0) g/dL Hct 39.2 (36-46) % MCV 83.4 (80-100) fL MCH 29.4 (26-34) PG MCHC 35.2 (30-36) % RDW 13.0 (11.6-14.8) % Plt Count 180 (150-400) X10^3/uL Neut % (Auto) 55.9 (50-75) % Lymph % (Auto) 35.9 (25-40) % [place] % (Auto) 7.4 (3-14) % Eos % (Auto) 0.3 L (2-4) % Baso % (Auto) 0.5 (0-2) % Neut # (Auto) 3800 (8837-6713) /uL Lymph # (Auto) 2500 (9799-4395) /uL [place] # (Auto) 500 (0-900) /uL Eos # (Auto) 0 (0-450) /uL Baso # (Auto) 0 (0-100) /uL Sodium 136 L (137-145) mmol/L Potassium 4.4 (3.4-5.1) mmol/L Chloride 106 (98-107) mmol/L Carbon Dioxide 25 (22-32) mmol/L BUN 16 (7-17) mg/dL Creatinine 1.04 (0.52-1.04) mg/dL Estimated GFR 56.3 L (>60) mL/min BUN/Creatinine Ratio 15.4 (6-22) Glucose 77 (70-100) mg/dL Lactate (0.7-2.1) mmol/L Calcium 9.1 (8.4-10.2) mg/dL Total Bilirubin 0.4 (0.2-1.3) mg/dL AST 25 (14-36) IU/L ALT 16 (<35) IU/L Alkaline Phosphatase 56 (38-126) U/L Total Protein 7.3 (6.3-8.2) g/dL Albumin 3.8 (3.5-5.0) g/dL Globulin 3.5 (1.7-4.1) g/dL Albumin/Globulin Ratio 1.1 (1.0-2.8) Lipase 79 (23-300) U/L Urine Color Yellow Urine Appearance Clear Urine pH 5.5 (4.5-8.0) Ur Specific [place] 1.025 (1.000-1.035) Urine Protein 3+ H (Negative) Urine Glucose (UA) Negative (Negative) g/dL Urine Ketones Negative (NEGATIVE) Urine Occult Blood 2+ H (Negative) Urine Nitrate Negative (Negative) Urine Bilirubin Negative (NEGATIVE) Urine Urobilinogen 0.2 (0.2) E.U./dL Ur Leukocyte Esterase Trace H (NEGATIVE) Urine RBC 1-5/hpf (0-5/HPF) Urine WBC 30-100/hpf H (0-5/HPF) Ur Squamous Epith Cells 1-5 /hpf (0-5/HPF) Urine Bacteria Many (>30) H (None) Ur Culture Indicated? Specimen cultured 10/03/21 Range/Units 18:30 WBC (4.5-11.0) X10^3/uL RBC (4.0-5.2) X10^6/uL Hgb (12.0-16.0) g/dL Hct (36-46) % MCV (80-100) fL MCH (26-34) PG MCHC (30-36) % RDW (11.6-14.8) % Plt Count (150-400) X10^3/uL Neut % (Auto) (50-75) % Lymph % (Auto) (25-40) % [place] % (Auto) (3-14) % Eos % (Auto) (2-4) % Baso % (Auto) (0-2) % Neut # (Auto) (5262-7729) /uL Lymph # (Auto) (2512-4447) /uL [place] # (Auto) (0-900) /uL Eos # (Auto) (0-450) /uL Baso # (Auto) (0-100) /uL Sodium (137-145) mmol/L Potassium (3.4-5.1) mmol/L Chloride (98-107) mmol/L Carbon Dioxide (22-32) mmol/L BUN (7-17) mg/dL Creatinine (0.52-1.04) mg/dL Estimated GFR (>60) mL/min BUN/Creatinine Ratio (6-22) Glucose (70-100) mg/dL Lactate 1.4 (0.7-2.1) mmol/L Calcium (8.4-10.2) mg/dL Total Bilirubin (0.2-1.3) mg/dL AST (14-36) IU/L ALT (<35) IU/L Alkaline Phosphatase (38-126) U/L Total Protein (6.3-8.2) g/dL Albumin (3.5-5.0) g/dL Globulin (1.7-4.1) g/dL Albumin/Globulin Ratio (1.0-2.8) Lipase (23-300) U/L Urine Color Urine Appearance Urine pH (4.5-8.0) Ur Specific [place] (1.000-1.035) Urine Protein (Negative) Urine Glucose (UA) (Negative) g/dL Urine Ketones (NEGATIVE) Urine Occult Blood (Negative) Urine Nitrate (Negative) Urine Bilirubin (NEGATIVE) Urine Urobilinogen (0.2) E.U./dL Ur Leukocyte Esterase (NEGATIVE) Urine RBC (0-5/HPF) Urine WBC (0-5/HPF) Ur Squamous Epith Cells (0-5/HPF) Urine Bacteria (None) Ur Culture Indicated? Imaging Data CT scan - abdomen/pelvis: Radiologist's Impression: PROCEDURE:? CT ABDOMEN PELVIS W CON ? INDICATIONS:? R flank pain ? TECHNIQUE:? After the administration of IV contrast, axial sections were acquired from the lung bases to the pubic symphysis.? Coronal and sagittal reformats were performed.? For radiation dose reduction, the following was used:? automated exposure control, adjustment of mA and/or kV according to patient size. ? COMPARISON:? [facility], CT, CT ABDOMEN PELVIS W CON, 10/11/2020, 16:18. ? FINDINGS:? Image quality:? Excellent.? ? Lung bases:? There is mild dependent atelectasis.? ? Heart:? No significant findings. ? ? ABDOMEN: Liver:? Unremarkable.? ? Gallbladder:? Surgically absent.? ? Biliary ducts:? Unremarkable.? ? Pancreas:? Unremarkable.? ? Spleen:? The spleen is enlarged, measuring up to 16 cm. Adrenal Glands:? There is mild nodular thickening of the right adrenal gland which appears unchanged from the prior study. Kidneys and Ureters:? There is a small atrophic left kidney and an enlarged right kidney. ?No hydronephrosis. ? Stomach and Bowel:? There is mild segmental wall thickening and enhancement within the distal small bowel likely representing an enteritis.? No associated abnormal bowel dilatation to suggest obstruction.? Colon demonstrates normal caliber and wall thickness. ?The appendix is normal in appearance.? There is mild colonic diverticulosis without acute diverticulitis. Peritoneum:? No abnormal intraperitoneal fluid.? No free air.? ? Ventral Wall: ? No hernia.? Abdominal Nodes:? No retroperitoneal or mesenteric adenopathy by size criteria.? Vessels:? Aorta and inferior vena cava are normal in size.? ? PELVIS: Pelvic Organs:? Unremarkable.? ? Bladder:? Unremarkable.? ? Pelvic Nodes: No enlarged lymph nodes.? Miscellaneous: No inguinal hernias are seen. ? ? ? Bones:? There are postsurgical changes in the right hip status post prior fixation of a hip fracture.? Postsurgical changes are also demonstrated within the lower lumbar spine status post posterior fixation and fusion at L5-S1 with an intervertebral spacer. ? ? IMPRESSION:? ? 1. No evidence of appendicitis. ? 2. Mild short segment bowel wall thickening and enhancement in the distal small bowel consistent with a mild enteritis, likely infectious or inflammatory in etiology.? No evidence of bowel obstruction. ? 3. Small atrophic left kidney with associated hypertrophy of the right kidney ag ain noted.? No hydronephrosis.? ? ? Dictated by: Robert Camargo M.D. on 10/03/2021 at 20:51 ? ? Approved by: Robert Camargo M.D. on 10/03/2021 at 20:54 ? MDM Narrative Medical decision making narrative: 51-year-old female with past medical history frequent UTIs, solitary kidney presents with right-sided flank pain that radi ates to the right groin. Concern for UTI versus pyelonephritis versus kidney stones versus musculoskeletal pain. Will order labs, lactate, UA, CT abdomen pelvis. Will give Zofran, Toradol, IV fluids. Will reassess. <Enrike Schmidt MD - Last Filed: 10/06/21 06:59> Lab Data Labs: Lab Results 10/03/21 10/03/21 10/03/21 Range/Units 16:26 18:30 18:30 WBC 6.9 (4.5-11.0) X10^3/uL RBC 4.70 (4.0-5.2) X10^6/uL Hgb 13.8 (12.0-16.0) g/dL Hct 39.2 (36-46) % MCV 83.4 (80-100) fL MCH 29.4 (26-34) PG MCHC 35.2 (30-36) % RDW 13.0 (11.6-14.8) % Plt Count 180 (150-400) X10^3/uL Neut % (Auto) 55.9 (50-75) % Lymph % (Auto) 35.9 (25-40) % [place] % (Auto) 7.4 (3-14) % Eos % (Auto) 0.3 L (2-4) % Baso % (Auto) 0.5 (0-2) % Neut # (Auto) 3800 (2655-5228) /uL Lymph # (Auto) 2500 (8829-0888) /uL [place] # (Auto) 500 (0-900) /uL Eos # (Auto) 0 (0-450) /uL Baso # (Auto) 0 (0-100) /uL Sodium 136 L (137-145) mmol/L Potassium 4.4 (3.4-5.1) mmol/L Chloride 106 (98-107) mmol/L Carbon Dioxide 25 (22-32) mmol/L BUN 16 (7-17) mg/dL Creatinine 1.04 (0.52-1.04) mg/dL Estimated GFR 56.3 L (>60) mL/min BUN/Creatinine Ratio 15.4 (6-22) Glucose 77 (70-100) mg/dL Lactate (0.7-2.1) mmol/L Calcium 9.1 (8.4-10.2) mg/dL Total Bilirubin 0.4 (0.2-1.3) mg/dL AST 25 (14-36) IU/L ALT 16 (<35) IU/L Alkaline Phosphatase 56 (38-126) U/L Total Protein 7.3 (6.3-8.2) g/dL Albumin 3.8 (3.5-5.0) g/dL Globulin 3.5 (1.7-4.1) g/dL Albumin/Globulin Ratio 1.1 (1.0-2.8) Lipase 79 (23-300) U/L Urine Color Yellow Urine Appearance Clear Urine pH 5.5 (4.5-8.0) Ur Specific [place] 1.025 (1.000-1.035) Urine Protein 3+ H (Negative) Urine Glucose (UA) Negative (Negative) g/dL Urine Ketones Negative (NEGATIVE) Urine Occult Blood 2+ H (Negative) Urine Nitrate Negative (Negative) Urine Bilirubin Negative (NEGATIVE) Urine Urobilinogen 0.2 (0.2) E.U./dL Ur Leukocyte Esterase Trace H (NEGATIVE) Urine RBC 1-5/hpf (0-5/HPF) Urine WBC 30-100/hpf H (0-5/HPF) Ur Squamous Epith Cells 1-5 /hpf (0-5/HPF) Urine Bacteria Many (>30) H (None) Ur Culture Indicated? Specimen cultured 10/03/21 Range/Units 18:30 WBC (4.5-11.0) X10^3/uL RBC (4.0-5.2) X10^6/uL Hgb (12.0-16.0) g/dL Hct (36-46) % MCV (80-100) fL MCH (26-34) PG MCHC (30-36) % RDW (11.6-14.8) % Plt Count (150-400) X10^3/uL Neut % (Auto) (50-75) % Lymph % (Auto) (25-40) % [place] % (Auto) (3-14) % Eos % (Auto) (2-4) % Baso % (Auto) (0-2) % Neut # (Auto) (0765-2692) /uL Lymph # (Auto) (9830-8971) /uL [place] # (Auto) (0-900) /uL Eos # (Auto) (0-450) /uL Baso # (Auto) (0-100) /uL Sodium (137-145) mmol/L Potassium (3.4-5.1) mmol/L Chloride (98-107) mmol/L Carbon Dioxide (22-32) mmol/L BUN (7-17) mg/dL Creatinine (0.52-1.04) mg/dL Estimated GFR (>60) mL/min BUN/Creatinine Ratio (6-22) Glucose (70-100) mg/dL Lactate 1.4 (0.7-2.1) mmol/L Calcium (8.4-10.2) mg/dL Total Bilirubin (0.2-1.3) mg/dL AST (14-36) IU/L ALT (<35) IU/L Alkaline Phosphatase (38-126) U/L Total Protein (6.3-8.2) g/dL Albumin (3.5-5.0) g/dL Globulin (1.7-4.1) g/dL Albumin/Globulin Ratio (1.0-2.8) Lipase (23-300) U/L Urine Color Urine Appearance Urine pH (4.5-8.0) Ur Specific [place] (1.000-1.035) Urine Protein (Negative) Urine Glucose (UA) (Negative) g/dL Urine Ketones (NEGATIVE) Urine Occult Blood (Negative) Urine Nitrate (Negative) Urine Bilirubin (NEGATIVE) Urine Urobilinogen (0.2) E.U./dL Ur Leukocyte Esterase (NEGATIVE) Urine RBC (0-5/HPF) Urine WBC (0-5/HPF) Ur Squamous Epith Cells (0-5/HPF) Urine Bacteria (None) Ur Culture Indicated? Discharge Plan Departure Patient Disposition: Home Clinical Impression: UTI (urinary tract infection) Qualifiers: Urinary tract infection type: site unspecified Hematuria presence: with hematuria Qualified Code(s): N39.0 - Urinary tract infection, site not specified Instructions: DI for Urinary Tract Infection (UTI) Activity Restrictions/Additional Instructions: You were evaluated in the ED today for right-sided flank pain and discomfort urinating. Your urine was positive for a urinary tract infection. Your CT abdomen pelvis did not show any evidence of kidney stones, appendicitis. Your symptoms are likely due to the urinary tract infection. You have been started on the antibiotic ciprofloxacin. Please complete the full course of the antibiotic. Please follow-up with your PCP. Return to the ED if your symptoms worsen, you experience nausea, vomiting, fever, chills, worsening pain. Prescriptions: New ciprofloxacin HCl 500 mg tablet 500 mg PO BID 14 Days Qty: 28 RF: 0 No Action atorvastatin 20 mg tablet 20 mg PO BEDTIME Qty: 30 RF: 5 lisinopril 40 mg tablet 40 mg PO DAILY Qty: 90 RF: 1 tramadol 50 mg tablet 50 mg PO TID PRN (Reason: Pain) Qty: 60 RF: 0 venlafaxine 75 mg tablet See Rx Instructions .ROUTE .COMPLEX Qty: 90 RF: 0 oxycodone-acetaminophen [Percocet] 5-325 mg tablet 1 tab PO .qhs PRN (Reason: pain) Qty: 30 RF: 0 omeprazole 20 mg capsule,delayed release(DR/EC) 20 mg PO DAILY Qty: 90 RF: 0 pregabalin 150 mg capsule 150 mg PO TID 90 Days Qty: 270 RF: 3 hydrocortisone 2.5 % cream 1 applic topical BID PRN (Reason: rash) Qty: 28 RF: 3 levetiracetam [Keppra] 250 mg tablet 750 mg PO BID RF: 0 insulin aspart U-100 [Novolog Flexpen U-100 Insulin] 100 unit/mL (3 mL) insulin pen 10 unit SUBCUT TID Qty: 15 RF: 11 propranolol 10 mg tablet 10 mg PO BID Qty: 60 RF: 0 glyburide 5 mg tablet 5 mg PO DAILY Qty: 30 RF: 5 Lantus Solostar U-100 Insulin 100 unit/mL (3 mL) insulin pen 20 unit SUBCUT BID RF: 0 glucometer Trumetrix bottle 1 unit DAILY RF: 0 test strips 1 strip topical ACHS RF: 0 celecoxib [Celebrex] 200 mg Capsule 200 mg PO BID Qty: 60 RF: 0 Referrals: Massimo Hong DO [Primary Care Provider] -
[2021-10-03] MEDS: SODIUM CHLORIDE 0.9% 1,000 ML 1000 ML IV (18:41)
[2021-10-03] MEDS: KETOROLAC 30 MG/ML VIAL 15 MG IV (18:41)
[2021-10-03] MEDS: ONDANSETRON 4 MG/2 ML INJ IV (18:41)
[2021-10-03 18:48] LABS: Add Manual Diff / Slide Review NO; Basophils Absolute Auto 0 /uL (0-100); Basophils Percent Auto 0.5 % (0-2); Eosinophils Absolute Auto 0 /uL (0-450); Eosinophils Percent Auto 0.3 % (2-4); Hematocrit 39.2 % (36-46); Hemoglobin 13.8 g/dL (12.0-16.0); Lymphocytes Absolute Auto 2500 /uL (1100-4500); Lymphocytes Percent Auto 35.9 % (25-40); Mean Corpuscular HGB Conc 35.2 % (30-36); Mean Corpuscular Hemoglobin 29.4 PG (26-34); Mean Corpuscular Volume 83.4 fL (80-100); Monocytes Absolute Auto 500 /uL (0-900); Monocytes Percent Auto 7.4 % (3-14); Neutrophils Absolute Auto 3800 /uL (1500-7000); Neutrophils Percent Auto 55.9 % (50-75); Platelet Count 180 X10^3/uL (150-400); White Blood Cell Count 6.9 X10^3/uL (4.5-11.0)
[2021-10-03 19:00] LABS: Alanine Aminotransferase 16 IU/L (<35); Albumin 3.8 g/dL (3.5-5.0); Albumin Globulin Ratio 1.1 (1.0-2.8); Alkaline Phosphatase 56 U/L (38-126); Aspartate Aminotransferase 25 IU/L (14-36); BUN Creatinine Ratio 15.4 (6-22); Bilirubin Total 0.4 mg/dL (0.2-1.3); Blood Urea Nitrogen 16 mg/dL (7-17); Calcium 9.1 mg/dL (8.4-10.2); Carbon Dioxide 25 mmol/L (22-32); Chloride 106 mmol/L (98-107); Estimated Glomerular Filt Rate 56.3 mL/min (>60); Globulin 3.5 g/dL (1.7-4.1); Glucose 77 mg/dL (70-100); HEMOLYSIS < 15 (0-50); Lipase 79 U/L (23-300); Potassium 4.4 mmol/L (3.4-5.1); Sodium 136 mmol/L (137-145); Total Protein 7.3 g/dL (6.3-8.2)
[2021-10-03 19:01] LABS: Lactate (Lactic Acid) 1.4 mmol/L (0.7-2.1)
[2021-10-03] MEDS: MORPHINE 4 MG/ML INJ IV (20:36)
[2021-10-03] MEDS: CIPROFLOXACIN 250 MG TABLET 500 MG PO (21:05)
[2021-10-03 21:18] VITALS: BP 192/93; PULSE 81; RESP 20; O2SAT 97
== END 2021-10-03 21:19 | disposition home or self-care (01) ==
PROVIDERS: Emergency Medicine; Emergency Provider Student in an Organized Health Care Education/Training Program; Family Provider Family Medicine; PCP Family Medicine
DX: N39.0 Urinary tract infection, site not specified (principal); Z90.5 Acquired absence of kidney
CPT/HCPCS: 36415; 74177; 80053; 81001; 83605; 83690; 85025; 87077; 87086; 87186; 96361; 96374; 96375; 99284; J1885; J2270; J2405; Q9967

== ENCOUNTER 2021-10-17 14:09 | Emergency (ER) | payer OTHER, MEDICAID, SELFPAY ==
[2020-12-20 15:55] VITALS: BMI 32.9
[2021-10-17 14:56] VITALS: BP 185/102; PULSE 78; RESP 17; TEMP 37; O2SAT 98; BMI 31.3
--- NOTE | 2021-10-17 18:48 | PC.NURSE ---
pt states she does not want the i and d
--- NOTE | 2021-10-17 18:57 | PC.NURSE ---
pt decided she did want the I and D. pa aware
--- NOTE | 2021-10-17 18:59 | ED_ITS ---
HPI - Skin/Abscess/Foreign Bdy <Scott Peterson PA-C - Last Filed: 10/23/21 09:07> General Chief complaint: Skin/Abscess/Foreign Body Stated complaint: abcess in right ear Time Seen by Provider: 10/17/21 17:05 Source: patient Mode of arrival: Ambulatory History of Present Illness HPI narrative: 51-year-old female with past medical history diabetes, hypertriglyceridemia, hypertension, IBS, anxiety presents to the ED with a left-sided ear abscess. Patient was seen in the ED for the same several weeks ago, was treated with antibiotics, however patient never picked up her medications. Patient states that have your abscess has worsened since, she sees pus oozing from it, is extremely painful to touch. Patient has removed her hearing from the infected piercing with no relief. Patient has been taking ciprofloxacin for a UTI for the last 2 weeks, which has not improved her your abscess, but her UTI is resolved. Patient denies fever, chills, chest pain, shortness of breath, chest pain, nausea, vomiting, abdominal pain, lightheadedness, syncope. Related Data Home Medications Medication Instructions Recorded Confirmed insulin glargine 100 unit/mL (3 20 unit SUBCUT BID 12/13/20 10/18/21 mL) subcutaneous pen (Lantus Solostar U-100 Insulin) glucometer Trumetrix 1 unit DAILY 12/20/20 10/18/21 test strips 1 strip TOPICAL ACHS 12/20/20 10/18/21 levetiracetam 250 mg tablet 750 mg PO BID tab 09/01/21 10/18/21 (Kemarlyra) Previous Rx's Medication Instructions Recorded celecoxib 200 mg capsule (Celebrex) 200 mg PO BID #60 cap 12/21/20 omeprazole 20 mg capsule,delayed 20 mg PO DAILY #90 cap 03/14/21 release hydrocortisone 2.5 % topical cream 1 applic TOPICAL BID PRN #28 g 06/20/21 atorvastatin 20 mg tablet 20 mg PO BEDTIME #30 tab 06/27/21 lisinopril 40 mg tablet 40 mg PO DAILY #90 tab 06/27/21 tramadol 50 mg tablet 50 mg PO TID PRN #60 tab 07/08/21 venlafaxine 75 mg tablet See Rx Instructions .ROUTE 08/29/21 .COMPLEX #90 tab insulin aspart U-100 100 unit/mL 10 unit (0.1 mL) SUBCUT TID #15 ml 09/01/21 (3 mL) subcutaneous pen (Novolog Flexpen U-100 Insulin aspart) propranolol 10 mg tablet 10 mg PO BID #60 tab 09/01/21 oxycodone-acetaminophen 5 mg-325 1 tab PO .qhs PRN #30 tab 09/25/21 mg tablet (Percocet) cephalexin 500 mg capsule 500 mg PO QID 14 Days #56 cap 10/17/21 sulfamethoxazole 800 1 tab PO BID 14 Days #28 tab 10/17/21 mg-trimethoprim 160 mg tablet (Bactrim DS) fluconazole 150 mg tablet 150 mg PO Q3D #2 tab 10/18/21 glyburide 5 mg tablet 5 mg PO DAILY #30 tab 10/25/21 pneumoc 13-ferny conj-dip cr(PF) 0.5 0.5 ml IM ONCE #0.5 ml 10/25/21 mL IM syringe pregabalin 150 mg capsule See Rx Instructions .ROUTE 10/25/21 .COMPLEX #90 cap Allergies Allergy/AdvReac Type Severity Reaction Status Date / Time hydrocodone Allergy Intermediate ITCHING/VOM Verified 10/18/21 16:20 ITING/RASH suture Allergy Vicryl Verified 10/18/21 16:20 Review of Systems <Scott Peterson PA-C - Last Filed: 10/23/21 09:07> Review of Systems ROS Unobtainable: All systems reviewed & are unremarkable except as noted in HPI and below Constitutional Constitutional: Denies chills, Denies fatigue, Denies fever(s), Denies frequent falls, Denies lethargy and Denies weakness Eyes Eyes: Denies change in vision, Denies eye discharge, Denies irritation and Denies loss of vision ENT Ears, Nose, Mouth, and Throat: Denies change in voice, Denies dizziness, Reports ear discharge, Reports otalgia, Denies neck pain, Denies sore throat and Denies throat swelling Comments: Abscess to left external ear, pus, swelling, pain Cardiovascular Cardiovascular: Denies chest pain, Denies irregular heart rhythm, Denies lightheadedness, Denies palpitations, Denies dyspnea, Denies dyspnea on exertion and Denies orthopnea Respiratory Respiratory: Denies cough, Denies dyspnea, Denies dyspnea on exertion and Denies wheezing Gastrointestinal Gastrointestinal: Denies abdominal pain, Denies change in bowel habits, Denies diarrhea, Denies nausea and Denies vomiting Genitourinary Genitourinary: Denies hematuria, Denies flank pain, Denies urinary incontinence and Denies urinary urgency Musculoskeletal Musculoskeletal: Denies back pain, Denies muscle weakness, Denies neck pain, Denies numbness and Denies tingling Integumentary/Breasts Skin/Breast: Denies pruritus, Denies erythema, Denies rash and Denies wounds Neurologic Neurologic: Denies behavioral changes, Denies confusion, Denies dizziness, Denies frequent falls, Denies loss of vision, Denies numbness, Denies tingling and Denies weakness Psychiatric Psychiatric: Denies anxiety, Denies behavioral changes, Denies confusion, Denies depression, Denies homicidal ideation and Denies suicidal ideation Endocrine Endocrine: Denies fatigue, Denies flushing and Denies palpitations Hematologic/Lymphatic Hematologic/Lymphatic: Denies easy bruising Allergic/Immunologic Allergic/Immunologic: Denies urticaria, Denies throat swelling and Denies wheezing Patient History <Scott Peterson PA-C - Last Filed: 10/23/21 09:07> Medical History Acute neck pain Cervical somatic dysfunction Congenital absence of one kidney Constipation due to slow transit Diabetes mellitus (~2005) Diabetic nephropathy associated with type 2 diabetes mellitus Diabetic retinopathy associated with type 2 diabetes mellitus Diarrhea due to drug Dysuria Eosinophilic, granuloma bone Fatty liver HLD (hyperlipidemia) Hot flashes HTN (hypertension) Hypoglycemia Left hip pain Left lower quadrant abdominal pain Lumbar disc herniation with radiculopathy Obesity Osteosarcoma Pain of right thumb Pruritus Rash and nonspecific skin eruption Right elbow pain Seizure (~1990) Strain of lumbar region Subconjunctival hemorrhage of left eye Tuberculosis (~1993) Upper extremity somatic dysfunction Urinary tract infection Vaginal dryness Vision disorder Well woman exam with routine gynecological exam Surgical History Anesthesia Bone tumor (benign) (~1990) History of carpal tunnel release History of lumbar discectomy Neoplasm of femur S/P laminectomy Status post laparoscopic cholecystectomy (~2016) Status post laparoscopic supracervical hysterectomy (~2010) Family History Brother Mental health disorder Mother Diabetes mellitus Heart disease Kidney disease Hyperlipidemia Hypertension Sister Mental health disorder Diabetes mellitus Grandfather Hypertension Stroke Grandmother Diabetes mellitus Hypertension Father Heart disease Social History household members: none Smoking Status: Current every day smoker Tobacco: How many years used: 29 quit status: considering quitting second hand exposure: Yes (socially) alcohol intake: former substance use type: does not use Smoking Status: Current every day smoker alcohol intake frequency: other Substance Use Type: does not use Exam <Scott Peterson PA-C - Last Filed: 10/23/21 09:07> Initial Vital Signs Initial Vital Signs: Vital Signs Temperature 98.6 F 10/17/21 14:56 Pulse Rate 78 10/17/21 14:56 Respiratory Rate 17 10/17/21 14:56 Blood Pressure 185/102 H 10/17/21 14:56 Pulse Oximetry 98 10/17/21 14:56 Const General: cooperative and healthy appearing [facility] Head: normal to inspection Ears: hearing grossly normal bilaterally and external ear abnormal ( abscess with fluctuance injury events to left year, pus visualized, TTP) Face and sinus: normal facial exam Eyes General: appearance normal, both eyes and all related structures Neck Neck: normal visual inspection Chest Chest: normal inspection of the chest Resp Effort & Inspection: normal respiratory effort Auscultation: clear to auscultation bilaterally Cardio Rate: regular rate Rhythm: regular rhythm GI Palpation: soft and No tender General: No CVA tenderness Neuro General: patient alert, patient awake and patient oriented x3 <Killian Pace DO - Last Filed: 10/26/21 00:04> Initial Vital Signs Initial Vital Signs: Vital Signs Temperature 98.6 F 10/17/21 14:56 Pulse Rate 78 10/17/21 14:56 Respiratory Rate 17 10/17/21 14:56 Blood Pressure 185/102 H 10/17/21 14:56 Pulse Oximetry 98 10/17/21 14:56 Procedures <Scott Peterson PA-C - Last Filed: 10/23/21 09:07> Abscess I/D I&D #1: Site: face (L ear) Side (if applicable): left Sedation/analgesia: none Technique: other (18 gauge needle to puncture skin) Irrigation: Yes Packing used?: none Course <Scott Peterson PA-C - Last Filed: 10/23/21 09:07> Orders Ordered: Discontinued Medications Lidocaine HCl (Lidocaine 1% (Pf)) 2 ml INJ NOW ONE Stop: 10/17/21 17:59 Last Admin: 10/17/21 18:52 Dose: Not Given Documented by: RSTONE Vital Signs Vital signs: Vital Signs - 8 hr 10/17/21 14:56 Temperature 98.6 F Pulse Rate 78 Respiratory Rate 17 Blood Pressure 185/102 H Pulse Oximetry 98 <Killian Pace DO - Last Filed: 10/26/21 00:04> Orders Ordered: Discontinued Medications Lidocaine HCl (Lidocaine 1% (Pf)) 2 ml INJ NOW ONE Stop: 10/17/21 17:59 Last Admin: 10/17/21 18:52 Dose: Not Given Documented by: RSTONE Vital Signs Vital signs: Vital Signs - 8 hr 10/17/21 14:56 Temperature 98.6 F Pulse Rate 78 Respiratory Rate 17 Blood Pressure 185/102 H Pulse Oximetry 98 MDM - Skin/Abscess/Foreign Bdy <Scott Peterson PA-C - Last Filed: 10/23/21 09:07> Differential Diagnosis Differential diagnosis: Likely abscess of skin or subcutaneous tissue Medical Records Attestation: I reviewed the patient's medical records. MDM Narrative Medical decision making narrative: 51-year-old female past medical history diabetes, hypertension, hyper tri glyceridemia, IBS, anxiety presents to the ED with a left ear abscess. Given that the abscess is oozing pus, is fluctuant, indurated, will drain abscess, start patient on cephalexin and Bactrim. ED return precautions discussed. Discharged home. Discharge Plan Departure Patient Disposition: Home Clinical Impression: Abscess Instructions: DI for Skin Abscess Activity Restrictions/Additional Instructions: You were evaluated in the ED for a year abscess today. You have been started on cephalexin and Bactrim. Please complete your course of antibiotics. Return to the ED if you develop worsening symptoms, fever, chills. Follow-up with your PCP. Prescriptions: New sulfamethoxazole-trimethoprim [Bactrim DS] 800-160 mg tablet 1 tab PO BID 14 Days Qty: 28 0RF cephalexin 500 mg capsule 500 mg PO QID 14 Days Qty: 56 0RF No Action atorvastatin 20 mg tablet 20 mg PO BEDTIME Qty: 30 5RF lisinopril 40 mg tablet 40 mg PO DAILY Qty: 90 1RF tramadol 50 mg tablet 50 mg PO TID PRN (Reason: Pain) Qty: 60 0RF venlafaxine 75 mg tablet See Rx Instructions .ROUTE .COMPLEX Qty: 90 0RF Dose Instruction: TAKE 2 TABLETS BY MOUTH IN THE MORNING AND TAKE 1 TABLET IN THE LATE AFTER NOON Rx Instructions: TAKE 2 TABLETS BY MOUTH IN THE MORNING AND TAKE 1 TABLET IN THE LATE AFTERNOON oxycodone-acetaminophen [Percocet] 5-325 mg tablet 1 tab PO .qhs PRN (Reason: pain) Qty: 30 0RF glyburide 5 mg tablet 5 mg PO DAILY Qty: 30 5RF pneumoc 13-ferny conj-dip cr(PF) 0.5 mL syringe 0.5 ml IM ONCE Qty: 0.5 0RF Rx Instructions: as a single dose pregabalin 150 mg capsule See Rx Instructions .ROUTE .COMPLEX Qty: 90 0RF Rx Instructions: Take 1 capsule by mouth 3 times daily for diabetic neuropathy omeprazole 20 mg capsule,delayed release(DR/EC) 20 mg PO DAILY Qty: 90 0RF hydrocortisone 2.5 % cream 1 applic topical BID PRN (Reason: rash) Qty: 28 3RF levetiracetam [Keppra] 250 mg tablet 750 mg PO BID 0RF insulin aspart U-100 [Novolog Flexpen U-100 Insulin] 100 unit/mL (3 mL) insulin pen 10 unit SUBCUT TID Qty: 15 11RF propranolol 10 mg tablet 10 mg PO BID Qty: 60 0RF fluconazole 150 mg tablet 150 mg PO Q3D Qty: 2 0RF Lantus Solostar U-100 Insulin 100 unit/mL (3 mL) insulin pen 20 unit SUBCUT BID 0RF Label Comments: 10 units this am which is 1/2 her normal am dose glucometer Trumetrix bottle 1 unit DAILY 0RF Rx Instructions: Use to test blood sugar once in the morning test strips 1 strip topical ACHS 0RF Rx Instructions: Use to test blood sugars twice daily celecoxib [Celebrex] 200 mg Capsule 200 mg PO BID Qty: 60 0RF Referrals: Massimo Hong DO [Primary Care Provider] - <Killian Pace DO - Last Filed: 10/26/21 00:04> Cosign ED Attending Cosignature Attestation: Dr Pace Co-Sign Statement: I was available for consultation during this patient's emergency department visit. This chart is signed by myself for administrative purposes only. I did not have direct contact with this patient during this visit. They were seen independently by the APC.
== END 2021-10-17 19:30 | disposition home or self-care (01) ==
PROVIDERS: Emergency Provider Student in an Organized Health Care Education/Training Program; Family Provider Family Medicine; PCP Family Medicine
DX: H60.02 Abscess of left external ear (principal)
CPT/HCPCS: 69000; 87070; 87075; 87077; 87186; 87205; 99281; 99282

== ENCOUNTER → 2021-10-18 17:07 | Outpatient (CLI) | payer OTHER, MEDICAID, SELFPAY ==
[2020-12-20 15:55] VITALS: BMI 32.9
--- NOTE | 2021-10-18 17:11 | DI.RAD.S_ITS ---
PROCEDURE: XR ELBOW RT MIN 3V INDICATIONS: pain TECHNIQUE: 3 views of the elbow were acquired. COMPARISON: None. FINDINGS: Bones: No fractures or dislocations. No suspicious bony lesions. Soft tissues: No elbow joint effusion. No suspicious soft tissue calcifications. IMPRESSION: No evidence acute bony abnormality of the right elbow. If clinical suspicion and/or symptoms persist, further assessment with repeat plain films, or advanced imaging (e.g., CT, MRI, or bone scan) may be helpful for further assessment. Dictated by: Mikey Christy M.D. on 10/19/2021 at 1:03 Approved by: Mikey Christy M.D. on 10/19/2021 at 1:04
== END ==
PROVIDERS: Family Provider Family Medicine; PCP Family Medicine; Referring Provider Family Medicine; Visit Provider Family Medicine
DX: M25.521 Pain in right elbow (principal)
CPT/HCPCS: 73080

== ENCOUNTER → 2021-11-02 11:46 | Outpatient (CLI) | payer OTHER, MEDICAID, SELFPAY ==
[2020-12-20 15:55] VITALS: BMI 32.9
--- NOTE | 2021-11-02 11:49 | DI.MRI.S_ITS ---
PROCEDURE: MR LUMBAR SPINE WO CON INDICATIONS: Lumbago with sciatica, left side TECHNIQUE: Noncontrast sagittal T1 spin echo and T2 fast echo, sagittal STIR, axial T1 and T2 fast spin echo through the lumbar spine. In cases with scoliosis, additional coronal T2 fast spin echo may be performed. COMPARISON: [facility], CT, CT ABDOMEN PELVIS W CON, 10/03/2021, 19:33. [facility], CR, XR LUMBAR SPINE 2 OR 3 VIEWS, 07/05/2021, 14:12. [facility], MR, MR LUMBAR SPINE WO CON, 12/02/2019, 16:00. [facility], MR, MR LUMBAR SPINE WO/W CON, 09/28/2020, 12:17. [facility], CR, XR LUMBAR SPINE 2 OR 3 VIEWS, 03/23/2021, 12:49. FINDINGS: Image quality: There is artifact associated with the metallic hardware. Alignment and Curvature: There is normal bony alignment. Bone Marrow: Marrow is of normal overall signal. Within the anterior aspect of the T11 vertebral body, there is a focus that demonstrates decreased T1 weighted signal and increased STIR signal, as on series 4, image 7. No additional suspicious bone marrow foci can be seen. No acute vertebral body compression fractures. Spinal Cord: Conus medullaris terminates at the L1 level. Visualized cord demonstrates normal signal and size. Paraspinous Soft Tissues: No paravertebral masses. T12-L1: The disc height and disc signal are relatively well preserved. There is a mild central/right disc protrusion, as on series 5, image 4. No significant neural foraminal narrowing can be seen. Minimal central canal narrowing is seen. When comparison is made with the prior images, these findings are similar. L1-L2: The disc height and disk signal are well-preserved. Mild disc bulge is seen, with a central/right disc protrusion, as on series 5, image 9. No neural foraminal narrowing is seen. Mild central canal narrowing is seen. No significant change from the prior. L2-L3: No significant abnormality is seen. L3-L4: The disc height and disk signal are well-preserved. Mild generalized disc bulge is seen. Mild to moderate facet hypertrophy is seen. No significant neural foraminal or central canal narrowing can be seen. No significant change from the prior. L4-L5: The disc height is well-preserved. Loss of disc signal is seen at this level. Moderate generalized disc bulge is seen. There is a central/right disc protrusion seen, as on series 5, image 25. There is a focal annular fissure seen posteriorly, as on series 4, image 8. Moderate facet joint hypertrophy is seen. There is [id number] right-sided and moderate left-sided neural foraminal narrowing seen. Portions of the posterior elements have been removed at this level, with left hemilaminectomy. No significant central canal narrowing is seen. Stable from the prior study. L5-S1: Postoperative changes are seen at this level, with bilateral pedicle screws and vertical fixation rods. A disc spacer is seen. Removal of the posterior elements can be seen, with left hemilaminectomy. Moderate disc bulge is seen, with a mild central disc protrusion. Mild to moderate facet hypertrophy is seen. Moderate bilateral neural foraminal narrowing is seen. Mild central canal narrowing is seen. This level is improved compared to the 09/28/2020 MRI examination. IMPRESSION: Interval postoperative change, with postoperative hardware placed posteriorly at L5-S1. There is interval improvement at this level compared to the prior MRI. Abnormal bone marrow edema can be seen involving the anterior aspect of T11. This cannot be seen on the prior MRI examination, even in retrospect. Please correlate with history for potential interval trauma with contusion. Metastatic disease is possible, yet relatively unlikely in a patient of this age. Please consider short-term follow-up lumbar MRI, performed without and with contrast. Dictated by: Cristobal Abdullahi M.D. on 11/02/2021 at 11:41 Approved by: Cristobal Abdullahi M.D. on 11/02/2021 at 11:48
== END ==
PROVIDERS: Family Provider Family Medicine; PCP Family Medicine; Referring Provider Orthopaedic Surgery; Visit Provider Orthopaedic Surgery
DX: M54.42 Lumbago with sciatica, left side (principal); Z98.1 Arthrodesis status
CPT/HCPCS: 72148

== ENCOUNTER → 2022-01-25 15:13 | Outpatient (CLI) | payer OTHER, MEDICAID, SELFPAY ==
[2020-12-20 15:55] VITALS: BMI 32.9
[2022-01-25 15:42] LABS: Appearance Urine UA SL CLOUDY; Bilirubin Urine UA NEGATIVE (NEGATIVE); Color Urine UA YELLOW; Glucose Urine UA NEGATIVE (Negative); Ketones Urine UA NEGATIVE (NEGATIVE); Leukocyte Esterase Urine UA 1+ (NEGATIVE); Nitrite Urine UA NEGATIVE (Negative); Occult Blood Urine UA TRACE-LYSED (Negative); Protein Urine UA 3+ (Negative); Specific Gravity Urine UA 1.015 (1.000-1.035); Urobilinogen Urine UA 0.2 E.U./dL (0.2)
[2022-01-25 15:49] LABS: Amorphous Sediment Urine 2+; RBC Urine 0-1/HPF (0-5/HPF); Squamous Epithelial Cell Urine 1-5 /HPF (0-5/HPF); WBC Urine 30-100/HPF (0-5/HPF)
[2022-01-25 15:50] LABS: Bacteria Urine Moderate (10-30); Culture Indicated Urine Specimen Cultured; Mucus Urine 1+ (Negative)
[2022-01-25 16:21] LABS: Alanine Aminotransferase 24 IU/L (<35); Albumin 4.1 g/dL (3.5-5.0); Albumin Globulin Ratio 1.1 (1.0-2.8); Alkaline Phosphatase 55 U/L (38-126); Aspartate Aminotransferase 32 IU/L (14-36); BUN Creatinine Ratio 23.4 (6-22); Bilirubin Total 0.5 mg/dL (0.2-1.3); Blood Urea Nitrogen 26 mg/dL (7-17); Calcium 8.8 mg/dL (8.4-10.2); Carbon Dioxide 24 mmol/L (22-32); Chloride 109 mmol/L (98-107); Estimated Glomerular Filt Rate 52.2 mL/min (>60); Globulin 3.9 g/dL (1.7-4.1); Glucose 104 mg/dL (70-100); HEMOLYSIS < 15 (0-50); Potassium 4.4 mmol/L (3.4-5.1); Sodium 139 mmol/L (137-145)
[2022-01-25 16:23] LABS: Hemoglobin A1C% w Est Avg Glu 7.1 % (4.0-6.0)
[2022-01-25 16:37] LABS: Free T3, Triiodothyronine Free 3.68 pg/mL (2.77-5.27); Free T4, Direct Thyroxine 0.85 ng/dL (0.78-2.19)
[2022-01-25 16:51] LABS: Thyroid Stimulating Hormone 1.86 uIU/mL (0.47-4.68)
== END ==
PROVIDERS: Family Provider Family Medicine; PCP Family Medicine; Referring Provider Obstetrics & Gynecology; Visit Provider Obstetrics & Gynecology
DX: N28.9 Disorder of kidney and ureter, unspecified (principal); R30.0 Dysuria; E11.42 Type 2 diabetes mellitus with diabetic polyneuropathy; E78.1 Pure hyperglyceridemia; I10 Essential (primary) hypertension; E11.40 Type 2 diabetes mellitus with diabetic neuropathy, unspecified; E16.2 Hypoglycemia, unspecified
CPT/HCPCS: 36415; 80053; 81001; 83036; 84439; 84443; 84481; 87077; 87086; 87186

== ENCOUNTER → 2022-01-30 15:52 | Outpatient (CLI) | payer OTHER, MEDICAID, SELFPAY ==
[2020-12-20 15:55] VITALS: BMI 32.9
[2022-01-30 22:03] LABS: Hepatitis B Surface Antigen NEGATIVE s/c (NEGATIVE)
[2022-01-30 22:25] LABS: HIV 1 & 2 Ab/Ag 4th Gen Combo NEGATIVE (NEGATIVE); Hep C Virus Ab w/Reflex Quant NEGATIVE s/c (NEGATIVE)
[2022-01-31 06:15] LABS: RPR Screen Non Reactive (Non Reactive)
[2022-02-01 06:11] LABS: Candida species Negative (Negative); Gardnerella vaginalis Positive (Negative); Trichomoas vaginalis Negative (Negative)
== END ==
PROVIDERS: Family Provider Family Medicine; PCP Family Medicine; Referring Provider Obstetrics & Gynecology; Visit Provider Obstetrics & Gynecology
DX: Z11.3 Encounter for screening for infections with a predominantly sexual mode of transmission (principal); Z00.00 Encounter for general adult medical examination without abnormal findings
CPT/HCPCS: 36415; 86592; 86803; 87340; 87389; 87480; 87510; 87660

== ENCOUNTER → 2022-02-07 15:40 | Outpatient (CLI) | payer OTHER, MEDICAID, SELFPAY ==
[2020-12-20 15:55] VITALS: BMI 32.9
[2022-02-07 17:22] LABS: Appearance Urine UA CLOUDY; Bilirubin Urine UA NEGATIVE (NEGATIVE); Color Urine UA YELLOW; Glucose Urine UA 1+ g/dL (Negative); Ketones Urine UA NEGATIVE (NEGATIVE); Leukocyte Esterase Urine UA NEGATIVE (NEGATIVE); Nitrite Urine UA NEGATIVE (Negative); Occult Blood Urine UA 2+ (Negative); Protein Urine UA 3+ (Negative); Urobilinogen Urine UA 0.2 E.U./dL (0.2)
[2022-02-07 17:25] LABS: pH Urine UA 5.5 (4.5-8.0)
[2022-02-07 17:33] LABS: RBC Urine None Seen (0-5/HPF)
[2022-02-07 17:34] LABS: Bacteria Urine Many (>30); Culture Indicated Urine Specimen Cultured; Squamous Epithelial Cell Urine 0-1 /HPF (0-5/HPF); WBC Urine >100/HPF (0-5/HPF)
== END ==
PROVIDERS: Family Provider Family Medicine; PCP Family Medicine; Referring Provider Family Medicine; Visit Provider Family Medicine
DX: R30.0 Dysuria (principal)
CPT/HCPCS: 81001; 87077; 87086; 87186

== ENCOUNTER → 2022-06-08 11:23 | Outpatient (CLI) | payer OTHER, MEDICAID, SELFPAY ==
[2022-03-05 14:37] VITALS: BMI 32.9
== END ==
PROVIDERS: Family Provider Family Medicine; PCP Family Medicine; Visit Provider Family Medicine
DX: N39.0 Urinary tract infection, site not specified (principal)
CPT/HCPCS: 81002; 87077; 87086; 87186

== ENCOUNTER → 2022-06-15 12:36 | Outpatient (CLI) | payer OTHER, MEDICAID, SELFPAY ==
[2022-03-05 14:37] VITALS: BMI 32.9
--- NOTE | 2022-06-15 12:39 | DI.RAD.S_ITS ---
PROCEDURE: XR SHOULDER RT MIN 2V INDICATIONS: pain TECHNIQUE: 3 views of the shoulder were acquired. COMPARISON: [facility], CR, XR SHOULDER RT MIN 2V, 12/03/2018, 15:07. FINDINGS: Bones: No acute fracture or dislocation. No suspicious osseous lesions. Mild right acromioclavicular osteoarthrosis which demonstrates mild progression. Coracoclavicular and acromioclavicular intervals are maintained. Visualized portion of the ribs are intact. Soft tissues: No suspicious soft tissue calcifications. Visualized portions of the lungs are clear. IMPRESSION: Right shoulder without acute fracture or malalignment. Mild progression of right acromioclavicular osteoarthrosis. Dictated by: Antonio Santos M.D. on 06/15/2022 at 14:24 Approved by: Antonio Santos M.D. on 06/15/2022 at 14:26
== END ==
PROVIDERS: Family Provider Family Medicine; PCP Family Medicine; Referring Provider Family Medicine; Visit Provider Family Medicine
DX: M25.511 Pain in right shoulder (principal); G89.29 Other chronic pain; M19.011 Primary osteoarthritis, right shoulder
CPT/HCPCS: 73030

== ENCOUNTER → 2022-07-09 11:22 | Outpatient (CLI) | payer OTHER, MEDICAID, SELFPAY ==
[2022-03-05 14:37] VITALS: BMI 32.9
[2022-07-09 14:05] LABS: COVID19 -Nasal RAPID Negative (Negative)
== END ==
PROVIDERS: Family Provider Family Medicine; PCP Family Medicine; Visit Provider Surgery
DX: Z20.822 Contact with and (suspected) exposure to COVID-19 (principal); Z01.812 Encounter for preprocedural laboratory examination
CPT/HCPCS: 87635; C9803

== ENCOUNTER 2022-07-10 09:02 | Day surgery (SDC) | payer OTHER, MEDICAID, SELFPAY ==
[2022-03-05 14:37] VITALS: BMI 32.9
[2022-07-10 09:25] VITALS: BP 140/90; PULSE 95; RESP 20; TEMP 37.1; O2SAT 95; BMI 35.2
--- NOTE | 2022-07-10 09:48 | PM.HP.1 ---
History of Present Illness History of Present Illness Date Patient Seen: 07/10/22 Time Patient Seen: 09:48 Chief complaint: SDC Narrative: The patient presents for colorectal screening. They have never had any previous examination for such. No personal or family history of colon cancer. On further history denies any recent gastrointestinal symptoms. No nausea, vomiting, abdominal pain, loss of appetite, unexplained weight loss, change in bowel habits, diarrhea, constipation, melena, hematochezia, or bright red blood per rectum. Patient History Medical History Abscess of right external ear Acute neck pain Asthma Asymptomatic hypertensive urgency Cervical somatic dysfunction Chronic back pain Chronic GERD Chronic left shoulder pain Chronic pain of right thumb Chronic right shoulder pain Congenital absence of one kidney Constipation due to slow transit Depression with anxiety Diabetes mellitus (~2005) Diabetic nephropathy associated with type 2 diabetes mellitus Diabetic retinopathy associated with type 2 diabetes mellitus Diarrhea due to drug DM type 2 causing CKD stage 3 Dysuria Eosinophilic, granuloma bone Fatigue Fatty liver HLD (hyperlipidemia) Hot flashes HTN (hypertension) Hypoglycemia Left hip pain Left lower quadrant abdominal pain Lower extremity edema Lumbar disc herniation with radiculopathy Obesity Osteosarcoma Pain of right thumb Pruritus Rash and nonspecific skin eruption Recurrent UTI Right elbow pain Seizure (~1990) Seizure disorder Situational anxiety Sleep apnea Strain of lumbar region Subconjunctival hemorrhage of left eye Trigger finger, left middle finger Trigger finger, right middle finger Tuberculosis (~1993) Upper extremity somatic dysfunction Urinary tract infection Vaginal dryness Vision disorder Wheezing Surgical History Anesthesia Bone tumor (benign) (~1990) History of carpal tunnel release History of lumbar discectomy Neoplasm of femur S/P laminectomy Status post laparoscopic cholecystectomy (~2016) Status post laparoscopic supracervical hysterectomy (~2010) Family & Social History Family History Brother Mental health disorder Mother Diabetes mellitus Heart disease Kidney disease Hyperlipidemia Hypertension Sister Mental health disorder Diabetes mellitus Grandfather Hypertension Stroke Grandmother Diabetes mellitus Hypertension Father Heart disease Social History: household members none Tobacco & Substance use: Tobacco type cigarettes Smoking Status Former smoker alcohol intake former alcohol intake frequency other Substance Use Type does not use Meds Home Medications and Allergies Home Medications Medication Instructions Recorded Confirmed Type insulin glargine 100 unit/mL (3 20 unit SUBCUT BID 12/13/20 07/10/22 History mL) subcutaneous pen (Lantus Solostar U-100 Insulin) glucometer Trumetrix 1 unit DAILY glucose check 12/20/20 06/12/22 History insulin aspart U-100 100 unit/mL 10 unit (0.1 mL) SUBCUT TID #15 mL 09/01/21 07/10/22 Rx (3 mL) subcutaneous pen (Novolog Flexpen U-100 Insulin aspart) omeprazole 20 mg capsule,delayed 20 mg PO BID #180 caps 02/22/22 07/10/22 Rx release atorvastatin 20 mg tablet 20 mg PO BEDTIME #90 tabs 03/21/22 07/10/22 Rx hydroxyzine HCl 25 mg tablet 25 mg PO BID PRN anxiety #90 tabs 03/22/22 07/10/22 Rx furosemide 20 mg tablet 20 mg PO DAILY #90 tabs 03/23/22 07/10/22 Rx pregabalin 150 mg capsule 300 mg PO BID #120 caps 04/18/22 07/10/22 Rx glyburide 5 mg tablet 5 mg PO DAILY #90 tabs 04/25/22 07/10/22 Rx levetiracetam 750 mg tablet 750 mg PO BID #180 tabs 04/25/22 07/10/22 Rx (Keppra) lisinopril 40 mg tablet See Rx Instructions .Route 04/25/22 07/10/22 Rx .COMPLEX #90 tabs sertraline 50 mg tablet 150 mg PO DAILY #90 tabs 04/25/22 07/10/22 Rx budesonide-formoterol HFA 80 2 puff inhalation BID #10.2 grams 05/22/22 07/10/22 Rx mcg-4.5 mcg/actuation aerosol inhaler (Symbicort) lorazepam 1 mg tablet 1 mg PO BEDTIME PRN sleep study #1 05/22/22 07/10/22 Rx tab tramadol 50 mg tablet 50 mg PO TID PRN Chronic right 05/22/22 07/10/22 Rx shoulder pain, chronic back pain #90 tabs albuterol sulfate 90 mcg/actuation 2 puff inhalation Q6H PRN 05/23/22 07/10/22 Rx aerosol inhaler (ProAir HFA) shortness of breath or wheezing #17 grams cephalexin 250 mg tablet 250 mg PO BID #90 tabs 06/12/22 07/10/22 Rx terbinafine HCl 250 mg tablet 250 mg PO .COMPLEX #36 tabs 06/12/22 07/10/22 Rx Allergies Allergy/AdvReac Type Severity Reaction Status Date / Time hydrocodone Allergy Intermediate ITCHING/VOM Verified 07/10/22 09:13 ITING/RASH suture Allergy Vicryl Verified 07/10/22 09:13 Exam Vital Signs (past 8 hours): - 07/10/22 09:25 Temperature 98.8 F Pulse Rate 95 H Respiratory Rate 20 Blood Pressure 140/90 Pulse Oximetry 95 Oxygen Delivery Method Room Air Oxygen Delivery Method Room Air Narrative Exam Narrative: General adult woman alert oriented no acute distress Abdomen soft nontender nondistended Assessment & Plan Assessment & Plan narrative: The patient requires colorectal screening and colonoscopy is recommended. Technical details were discussed. Risks, benefits, alternatives explained. Risks including but not limited to myocardial infarction, aspiration, bleeding, pain, missed lesion, incomplete examination, need for further radiographic studies, colonic perforation, and need for major abdominal surgery were discussed. All questions were answered to their satisfaction, and they are in agreement with this plan. Time Spent With Patient Critical Care time: I spent a total of [] minutes of critical care time on this patient's care today; this time is exclusive of procedural time.
[2022-07-10] MEDS: MIDAZOLAM 5 MG/5 ML VIAL IV (10:09)
[2022-07-10] MEDS: fentaNYL 100 MCG/2 ML INJ 150 MCG IV (10:09)
--- NOTE | 2022-07-10 10:28 | P.OP.COLON_ITS ---
Operative Date/Time/Diagnoses Date of procedure: 07/10/22 Time of procedure: 10:28 Pre-op diagnosis: Screening Post-op diagnosis: same Procedure & Clinicians Study performed: Colonoscopy Same procedure as scheduled: Yes Indications: Screening Surgeon: Willian Murillo Procedure Notes Procedure in detail: Medications: Conscious sedation using 5mg IV midazolam and 150mcg IV of fentanyl The history and physical was performed/updated and the patient is ASA class is *2. The procedure was discussed in detail with the patient. Potential risks complications including infection, bleeding, missed diagnosis, perforation, need for surgery, and were explained. Their questions were answered and informed consent was obtained. Patient was brought to the procedure room and placed standard monitoring equipment. The patient's vital signs were monitored continuously throughout the entire procedure. Prior to starting time-out was performed. The patient was placed in the left lateral recumbent position. Procedural sedation was adminis tered. Examination began with a thorough inspection of the perianal area there was no evidence of fissures, fistulae, external hemorrhoids or cutaneous malignancy. The colonoscopy scope was then placed into the anal canal and was advanced to the cecum, which was identified by the ileocecal valve, the appendiceal orifice and the confluence of the taenia. The scope was then slowly withdrawn examining colon thoroughly in all directions, irrigating it of any residual stool. FINDINGS 1. No masses or polyps 2. Normal healthy colon tissue The patient tolerated the procedure well. They will be discharged once criteria are met. The prep was of good/excellent quality. The withdrawl time was 8 minutes. The sedation time was 16 minutes. Specimen(s): none sent Complications: none Impression: Normal colonoscopy Post-procedure Recommendations: Colonoscopy in 10 years Disposition: same day surgery
[2022-07-10 10:30] VITALS: BP 110/73; PULSE 78; RESP 14; TEMP 36.2; O2SAT 95
[2022-07-10 10:35] VITALS: BP 109/69; PULSE 88; RESP 19; O2SAT 94
[2022-07-10 10:46] VITALS: BP 97/64; PULSE 83; RESP 14; O2SAT 94
== END 2022-07-10 11:14 | disposition home or self-care (01) ==
PROVIDERS: Family Provider Family Medicine; PCP Family Medicine; Referring Provider Surgery; Visit Provider Surgery
PROC: 0DJD8ZZ Inspection of Lower Intestinal Tract, Via Natural or Artificial Opening Endoscopic (ICD-10-PCS; CPT 45378; principal; 2022-07-10 10:00)
DX: Z12.11 Encounter for screening for malignant neoplasm of colon (principal)
CPT/HCPCS: 45378; 99152; J2250; J3010

== ENCOUNTER → 2022-07-27 12:39 | Outpatient (CLI) | payer OTHER, MEDICAID, SELFPAY ==
[2022-03-05 14:37] VITALS: BMI 32.9
[2022-07-31 11:38] LABS: Fecal Immunochemical Test Negative (Negative)
== END ==
PROVIDERS: Family Provider Family Medicine; PCP Family Medicine; Referring Provider Family Medicine; Visit Provider Family Medicine
DX: K52.9 Noninfective gastroenteritis and colitis, unspecified (principal); Z12.11 Encounter for screening for malignant neoplasm of colon
CPT/HCPCS: 82274; 87045; 87177; 87899

== ENCOUNTER → 2022-08-23 15:03 | Outpatient (CLI) | payer OTHER, MEDICAID, SELFPAY ==
[2022-03-05 14:37] VITALS: BMI 32.9
[2022-08-23 19:33] LABS: Follicle Stimulating Hormone 32.6 mIU/mL; Luteinizing Hormone 48.4 mIU/mL
[2022-08-23 19:48] LABS: Estradiol, Total 15.9 pg/mL
== END ==
PROVIDERS: Family Provider Family Medicine; PCP Family Medicine; Referring Provider Family Medicine; Visit Provider Family Medicine
DX: N95.1 Menopausal and female climacteric states (principal); R45.86 Emotional lability
CPT/HCPCS: 36415; 82670; 83001; 83002

== ENCOUNTER → 2023-01-10 08:23 | Outpatient (CLI) | payer OTHER, MEDICAID, SELFPAY ==
[2022-03-05 14:37] VITALS: BMI 32.9
[2023-01-10 09:17] LABS: Add Manual Diff / Slide Review NO; Basophils Absolute Auto 0 /uL (0-100); Basophils Percent Auto 0.6 % (0-2); Eosinophils Absolute Auto 100 /uL (0-450); Eosinophils Percent Auto 1.4 % (2-4); Hematocrit 37.5 % (36-46); Lymphocytes Absolute Auto 1100 /uL (1100-4500); Lymphocytes Percent Auto 21.2 % (25-40); Mean Corpuscular HGB Conc 34.7 % (30-36); Mean Corpuscular Hemoglobin 29.2 PG (26-34); Mean Corpuscular Volume 84.4 fL (80-100); Monocytes Absolute Auto 300 /uL (0-900); Monocytes Percent Auto 6.2 % (3-14); Neutrophils Absolute Auto 3600 /uL (1500-7000); Neutrophils Percent Auto 70.6 % (50-75); Platelet Count 106 X10^3/uL (150-400); Red Blood Cell Count 4.44 X10^6/uL (4.0-5.2); Red Cell Distribution Width 14.3 % (11.6-14.8)
[2023-01-10 09:45] LABS: Alanine Aminotransferase 35 IU/L (<35); Albumin 3.6 g/dL (3.5-5.0); Albumin Globulin Ratio 1.1 (1.0-2.8); Alkaline Phosphatase 116 U/L (38-126); Aspartate Aminotransferase 43 IU/L (14-36); BUN Creatinine Ratio 24.9 (6-22); Bilirubin Total 0.4 mg/dL (0.2-1.3); Blood Urea Nitrogen 43 mg/dL (7-17); Carbon Dioxide 22 mmol/L (22-32); Chloride 100 mmol/L (98-107); Cholesterol 148 mg/dL (140-199); Estimated Glomerular Filt Rate 36 mL/min (>60); Globulin 3.4 g/dL (1.7-4.1); Glucose 316 mg/dL (70-100); HDL Cholesterol 36 mg/dL (40-60); HEMOLYSIS < 15 (0-50); Potassium 5.4 mmol/L (3.4-5.1); Sodium 133 mmol/L (137-145); Triglycerides 490 mg/dL (35-150)
[2023-01-10 10:17] LABS: TSH w/ Reflex to FT4 2.72 uIU/mL (0.47-4.68)
== END ==
PROVIDERS: Family Provider Family Medicine; PCP Family Medicine; Referring Provider Family Medicine; Visit Provider Family Medicine
DX: E11.42 Type 2 diabetes mellitus with diabetic polyneuropathy (principal); E78.1 Pure hyperglyceridemia; N28.9 Disorder of kidney and ureter, unspecified; N95.1 Menopausal and female climacteric states; R53.83 Other fatigue; R68.82 Decreased libido
CPT/HCPCS: 36415; 80053; 80061; 82533; 84443; 85025

== ENCOUNTER → 2023-03-07 13:12 | Outpatient (CLI) | payer OTHER, MEDICAID, SELFPAY ==
[2022-03-05 14:37] VITALS: BMI 32.9
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
== END ==
PROVIDERS: Absent Provider Family Medicine; Family Provider Family Medicine; PCP Family Medicine; Referring Provider Family Medicine; Visit Provider Family Medicine
DX: N18.30 Chronic kidney disease, stage 3 unspecified (principal); Z79.4 Long term (current) use of insulin; Z71.3 Dietary counseling and surveillance; Z79.84 Long term (current) use of oral hypoglycemic drugs
CPT/HCPCS: G0108

== ENCOUNTER → 2023-03-14 09:23 | Outpatient (CLI) | payer OTHER, MEDICAID, SELFPAY ==
[2022-03-05 14:37] VITALS: BMI 32.9
[2023-03-18 04:31] LABS: Chlamydia trachomatis Negative (Negative); Mycoplasma genitalium Negative (Negative); Neisseria gonorrhoeae Negative (Negative)
== END ==
PROVIDERS: Family Provider Family Medicine; PCP Family Medicine; Visit Provider Obstetrics & Gynecology
DX: N89.8 Other specified noninflammatory disorders of vagina (principal); R10.2 Pelvic and perineal pain; Z11.3 Encounter for screening for infections with a predominantly sexual mode of transmission
CPT/HCPCS: 87210; 87491; 87563; 87591

== ENCOUNTER → 2023-03-28 12:00 | Outpatient (CLI) | payer OTHER, MEDICAID, SELFPAY ==
[2022-03-05 14:37] VITALS: BMI 32.9
--- NOTE | 2023-03-28 16:27 | DIAB.FU ---
Follow-up Diabetes Education Assessment Name: Candis Billy Date: 03/28/23 Time: 1210-115p Dx: Type II Diabetes Candis presents for diabetes follow-up. Tried CGM and will now move forward with personal CGM. RIANA/LANIE has coordinated paperwork with provider for this rx. Continues with hyperglycemia. Not taking mealtime insulin TID or with meals. Taking in the morning and evening. States she feels a lot of guilt/shame about weight and diabetes. FH of DM with sister and mother. Mother from diabetes complications per report. States her mother did not want to change her diet or take any steps to manage DM. This has motivated her to commit to making change. Falling asleep frequently during the day, hyperglycemia likely will exacerbate this. Endorses a lot of stress with managing her health conditions and feeling guilt. Has a new therapist here at and will see them on 04/16. Diet recall indicates 1 meal and 1 snack per day. Meal seems high in CHO intake. Having sugared beverage in evening/afternoon. Diet recall: 3pm: MWF eats at friend's house, 2-3c pasta, meat, bread by 8pm: pork rinds with 1 12oz soda Beverages; soda x 1, water x 100-130oz per day States provider has suggested reduced fluid intake. Current water intake is excessive, likely exacerbated by hyperglycemia, reports dry mouth. Anthropometrics: Ht: 67 Wt: 224.5# 02/26/23 Physical Activity: Reports physical/injury barriers to activity. No program currently. Self-Monitoring Blood Glucose: Checking BG regularly since CGM trial. FBG consistently >180mg/dl with many in the mid 200. After meal readings also consistently in the 200s, often mid to high 200s. Not taking Novolog with 3p meal. 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 Constipation due to slow transit Depression with anxiety Diabetes mellitus (~2005) Diabetic retinopathy Diabetic retinopathy associated with type 2 diabetes mellitus Diarrhea due to drug Dizziness DM type 2 causing CKD stage 3 Dorsal cervical fat pad Eosinophilic, granuloma bone Fatigue Fatty liver HLD (hyperlipidemia) Labs 07/19/19: Trig 466, TC 166, HDL 36, LDL-test not performed, trig>400 Hot flashes Hot flashes due to menopause HTN (hypertension) Left hip pain Left lower quadrant abdominal pain Lower extremity edema Lumbar disc herniation with radiculopathy Mixed stress and urge urinary incontinence Mood swings Muscle twitching Obesity Osteosarcoma Pain of left great toe Pain of right thumb Perimenopausal symptoms Postmenopausal Pruritus Rash and nonspecific skin eruption Recurrent UTI Right elbow pain Seizure (~1990) Seizure disorder Situational anxiety Sleep apnea Strain of lumbar region Subconjunctival hemorrhage of left eye Trigger finger of both hands Trigger finger, left middle finger Trigger finger, right middle finger 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 Provided appropriate educational handouts. Discussed the following topics: Recent blood sugar results and trends Medication management: when to take mealtime insulin, dosing, when to titrate long-acting insulin based on FBG Review of general nutrition recommendations and current intake DM and lifestyle + genetic risk factor Avoiding sugar beverages Eating frequency and portions. Created SMART goals for patient self-care and success. Goals: Trial FSL2 CGM- met Follow plate method for meals- in progress Get meter supplies- met Avoid sugar beverages- new Take Novolog with 3pm meal- new Add half PB granola bar + PB on top for breakfast/morning snack- new Follow-up: CASEY DELA CRUZ follow-up in 2-3 weeks. Will see PCP on Saturday. Amira Ramos RDN, LANIE Certified Diabetes Care and Insurance Verification Clerk P: [phone] Thank you for this referral
== END ==
PROVIDERS: Family Provider Family Medicine; PCP Family Medicine; Referring Provider Family Medicine; Visit Provider Family Medicine
DX: E11.9 Type 2 diabetes mellitus without complications (principal); Z71.3 Dietary counseling and surveillance; Z79.84 Long term (current) use of oral hypoglycemic drugs; Z79.4 Long term (current) use of insulin
CPT/HCPCS: G0108

== ENCOUNTER → 2023-04-02 10:54 | Outpatient (CLI) | payer OTHER, MEDICAID, SELFPAY ==
[2022-03-05 14:37] VITALS: BMI 32.9
[2023-04-02 13:36] LABS: Alanine Aminotransferase 37 IU/L (<35); Albumin 3.7 g/dL (3.5-5.0); Alkaline Phosphatase 87 U/L (38-126); Aspartate Aminotransferase 39 IU/L (14-36); Bilirubin Total 0.5 mg/dL (0.2-1.3); Blood Urea Nitrogen 31 mg/dL (7-17); Calcium 9.3 mg/dL (8.4-10.2); Carbon Dioxide 14 mmol/L (22-32); Chloride 108 mmol/L (98-107); Cholesterol 137 mg/dL (140-199); Estimated Glomerular Filt Rate 36 mL/min (>60); Globulin 3.7 g/dL (1.7-4.1); Glucose 251 mg/dL (70-100); HDL Cholesterol 28 mg/dL (40-60); HEMOLYSIS < 15 (0-50); Potassium 4.5 mmol/L (3.4-5.1); Sodium 135 mmol/L (137-145); Total Protein 7.4 g/dL (6.3-8.2); Triglycerides 445 mg/dL (35-150)
[2023-04-03 05:19] LABS: x Labcorp Estim. Avg Glu (eAG) 272 mg/dL (.); x Labcorp Hemoglobin A1c 11.1 % (4.8-5.6)
== END ==
PROVIDERS: Family Provider Family Medicine; PCP Family Medicine; Referring Provider Family Medicine; Visit Provider Family Medicine
DX: E11.42 Type 2 diabetes mellitus with diabetic polyneuropathy (principal); E11.9 Type 2 diabetes mellitus without complications; E78.1 Pure hyperglyceridemia; I10 Essential (primary) hypertension; N28.9 Disorder of kidney and ureter, unspecified
CPT/HCPCS: 36415; 80053; 80061; 83036

== ENCOUNTER → 2023-04-12 14:47 | Outpatient (CLI) | payer OTHER, MEDICAID, SELFPAY ==
[2022-03-05 14:37] VITALS: BMI 32.9
--- NOTE | 2023-04-30 10:19 | DIAB.FU ---
Addendum entered by Amira Ramos 05/03/23 17:01: Called for phone check-in and insulin titration. No answer. LVM. Will try again Saturday. Original Note: Follow-up Diabetes Education Assessment Name: Candis Billy Date: 04/12/23 Time: 305-350p Dx: Type II Diabetes Provider: Hal Candis presents today for DM follow-up. Reports increased dizziness, weakness, and exhaustion, which she has discussed with provider yesterday. Unknown etiology of dizziness, but states it impacts her ability to walk. Would like to see [facility] neurologist per report. Does not have a referral. Dizziness does not seem r/t blood sugars. States she was unaware that she can take her insulin with her, thought it must always be refrigerated. As a result, often unable to take mid-day meal time insulin. Also, has not been implementing morning snack/breakfast yet. Sometimes also forgets HS insulin due to keeping in refrigerator. Switched to SF beverages only. No longer drinking soda daily. Self-Monitoring Blood Glucose: No log book or meter today. Due to feeling dizzy, she checked her BG using clinic meter with one time use supplies. 177mg/dl 30 min after burrito then 215mg/dl 1 hour after meal. 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 Constipation due to slow transit Depression with anxiety Diabetes mellitus (~2005) Diabetic retinopathy Diabetic retinopathy associated with type 2 diabetes mellitus Diarrhea due to drug Dizziness DM type 2 causing CKD stage 3 Dorsal cervical fat pad Eosinophilic, granuloma bone Fatigue Fatty liver HLD (hyperlipidemia) Labs 07/19/19: Trig 466, TC 166, HDL 36, LDL-test not performed, trig>400 Hot flashes Hot flashes due to menopause HTN (hypertension) Left hip pain Left lower quadrant abdominal pain Lower extremity edema Lumbar disc herniation with radiculopathy Mixed stress and urge urinary incontinence Moderate left ankle sprain Mood swings Muscle twitching Obesity Osteosarcoma Pain of left great toe Pain of right thumb Perimenopausal symptoms Postmenopausal Pruritus Rash and nonspecific skin eruption Recurrent UTI Right elbow pain Seizure (~1990) Seizure disorder Situational anxiety Sleep apnea Strain of lumbar region Subconjunctival hemorrhage of left eye Trigger finger of both hands Trigger finger, left middle finger Trigger finger, right middle finger 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 Provided appropriate educational handouts. Discussed the following topics: Hyperglycemia s/s Medication management: insulin storage and keeping current meal time insulin pen with her. Keeping HS insulin with other meds at night. Insulin action and when to take for best results. Review of general nutrition recommendations and current intake Encouraged discussion with provider regarding neurology referral Created SMART goals for patient self-care and success. Goals: Avoid sugar beverages- met Take Novolog with 3pm meal- in progress Add half PB granola bar + PB on top for breakfast/morning snack- in progress Take insulin with you-new Take Novolog before eating meals- new Put Lantus in med box with other HS meds- new Chat with Dr. Hong regarding [facility] neuro referral prn- new Follow-up: CASEY DELA CRUZ follow-up in 2-3 weeks Amira Ramos RDN, LANIE Certified Diabetes Care and Armature Straightener P: [phone] Thank you for this referral
== END ==
PROVIDERS: Family Provider Family Medicine; PCP Family Medicine; Referring Provider Family Medicine; Visit Provider Family Medicine
DX: E11.9 Type 2 diabetes mellitus without complications (principal); Z79.84 Long term (current) use of oral hypoglycemic drugs; Z79.4 Long term (current) use of insulin; Z71.3 Dietary counseling and surveillance
CPT/HCPCS: G0108

== ENCOUNTER → 2023-04-16 15:02 | Outpatient (CLI) | payer OTHER, MEDICAID, SELFPAY ==
[2022-03-05 14:37] VITALS: BMI 32.9
--- NOTE | 2023-04-16 15:05 | DI.RAD.S_ITS ---
PROCEDURE: XR ANKLE LT MIN 3V INDICATIONS: ankle pain TECHNIQUE: 3 views of the ankle were acquired. COMPARISON: None. FINDINGS: Bones: No acute fractures or dislocations. Ankle mortise is normally aligned. No suspicious bony lesions. Well corticated ossification along the inferior margin of the lateral tibial plateau. Plantar and posterior calcaneus enthesophytes. Soft tissues: No tibiotalar joint effusion. Achilles tendon appears normal. Dystrophic calcification along the superior margin of the calcaneus, likely sequela of prior trauma. IMPRESSION: No acute bony abnormality. Remote lateral malleolus fracture. Calcaneal enthesophytes. Dictated by: Jero Keys M.D. on 04/16/2023 at 16:41 Approved by: Jero Keys M.D. on 04/16/2023 at 16:42
== END ==
PROVIDERS: Family Provider Family Medicine; PCP Family Medicine; Referring Provider Family Medicine; Visit Provider Family Medicine
DX: S82.62XA Displaced fracture of lateral malleolus of left fibula, initial encounter for closed fracture (principal); F43.12 Post-traumatic stress disorder, chronic; F51.04 Psychophysiologic insomnia
CPT/HCPCS: 73610; 99215

== ENCOUNTER → 2023-04-30 14:48 | Outpatient (CLI) | payer OTHER, MEDICAID, SELFPAY ==
[2022-03-05 14:37] VITALS: BMI 32.9
--- NOTE | 2023-05-16 09:34 | DIAB.FU ---
Follow-up Diabetes Education Assessment Name: Candis Billy Date: 04/30/23 Time: 1105-12 Dx: Type II Diabetes Candis presents for virtual Dm follow-up using Quietly platform. Eating once per day. Cheese and apples with yogurt Cut out even SF beverages. Just drinking water and unsweet tea. Quit baking, avoiding bakeries. Taking mealtime insulin more consistently. Taking novolog before meals now. Taking 30u of novolog. Taking 40u BID Lantus Pharmacy out of Invokana. Waiting on pharmacy. 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 Questions about pump therapy and CGM. R eye diabetic retinopathy. Two laser sx. Multiple appts. Going to have a cataract sx. Diet recall: -11a: Incorporating a breakfast/morning snack: [place] bar x 1 bar with Nosa yogurt with 20u Novolog 4-5p: Dinner: Tilapia and rice x 1.5-2c ; taco salad 30u novolog Choosing brown rice q other time. Questions about protein shake options Self-Monitoring Blood Glucose: Continues to have elevations. No CGM yet. Waking in the 300s. Provider has discuss titration of evening insulin in the past. Reports h/o seizure with BG <50 2 years ago. Hypoglycemia unawareness. Did not have any symptoms prior. 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 Constipation due to slow transit Depression with anxiety Diabetes mellitus (~2005) Diabetic retinopathy Diabetic retinopathy associated with type 2 diabetes mellitus Diarrhea due to drug Dizziness DM type 2 causing CKD stage 3 Dorsal cervical fat pad Eosinophilic, granuloma bone Fatigue Fatty liver HLD (hyperlipidemia) Labs 07/19/19: Trig 466, TC 166, HDL 36, LDL-test not performed, trig>400 Hot flashes Hot flashes due to menopause HTN (hypertension) Left hip pain Left lower quadrant abdominal pain Lower extremity edema Lumbar disc herniation with radiculopathy Mixed stress and urge urinary incontinence Moderate left ankle sprain Mood swings Muscle twitching Obesity Osteosarcoma Pain of left great toe Pain of right thumb Perimenopausal symptoms Postmenopausal Pruritus Rash and nonspecific skin eruption Recurrent UTI Right elbow pain Seizure (~1990) Seizure disorder Situational anxiety Sleep apnea Strain of lumbar region Subconjunctival hemorrhage of left eye Trigger finger of both hands Trigger finger, left middle finger Trigger finger, right middle finger 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 Provided appropriate educational handouts. Discussed the following topics: Recent blood sugar results and trends Medication management: titrating insulin Review of general nutrition recommendations and current intake Protein shake options Process for CGM Potential for insulin pump Created SMART goals for patient self-care and success. Goals: Take insulin with you-met Take Novolog before eating meals- met Put Lantus in med box with other HS meds- met Chat with Dr. Hong regarding [facility] neuro referral prn- in progress electrical tests supervisor Invokana- new Keep rice to 1c- new Call Wu regarding CGM PA - new Check FBG daily min- new Follow-up: CASEY DELA CRUZ follow-up recommended. RD on leave by end of April until Sep. Will call pt weekly next three weeks to evaluate BG and insulin titration. Amira Ramos RDN, LANIE Certified Diabetes Care and Bakeshop Cleaner P: [phone] Thank you for this referral
== END ==
PROVIDERS: Family Provider Family Medicine; PCP Family Medicine; Referring Provider Family Medicine; Visit Provider Family Medicine
DX: E11.9 Type 2 diabetes mellitus without complications (principal); Z79.84 Long term (current) use of oral hypoglycemic drugs; Z79.4 Long term (current) use of insulin; Z71.3 Dietary counseling and surveillance
CPT/HCPCS: G0108

== ENCOUNTER → 2023-05-23 16:16 | Outpatient (CLI) | payer OTHER, MEDICAID, SELFPAY ==
[2022-03-05 14:37] VITALS: BMI 32.9
[2023-05-23 16:48] LABS: Hematocrit 36.9 % (36-46); Hemoglobin 12.9 g/dL (12.0-16.0); Mean Corpuscular HGB Conc 34.9 % (30-36); Mean Corpuscular Hemoglobin 28.6 PG (26-34); Mean Corpuscular Volume 81.8 fL (80-100); Platelet Count 152 X10^3/uL (150-400); Red Blood Cell Count 4.51 X10^6/uL (4.0-5.2); Red Cell Distribution Width 14.6 % (11.6-14.8); White Blood Cell Count 7.6 X10^3/uL (4.5-11.0)
[2023-05-23 17:11] LABS: HEMOLYSIS < 15 (0-50); Iron 75 ug/dL (37-170)
[2023-05-23 17:13] LABS: Alanine Aminotransferase 39 IU/L (<35); Albumin 4.3 g/dL (3.5-5.0); Albumin Globulin Ratio 1.1 (1.0-2.8); Alkaline Phosphatase 75 U/L (38-126); Aspartate Aminotransferase 41 IU/L (14-36); BUN Creatinine Ratio 31.8 (6-22); Bilirubin Total 0.6 mg/dL (0.2-1.3); Blood Urea Nitrogen 70 mg/dL (7-17); Calcium 9.8 mg/dL (8.4-10.2); Carbon Dioxide 17 mmol/L (22-32); Chloride 97 mmol/L (98-107); Estimated Glomerular Filt Rate 27 mL/min (>60); Globulin 3.9 g/dL (1.7-4.1); Glucose 362 mg/dL (70-100); HEMOLYSIS < 15 (0-50); Potassium 4.9 mmol/L (3.4-5.1); Sodium 131 mmol/L (137-145); Total Protein 8.2 g/dL (6.3-8.2)
[2023-05-23 17:22] LABS: Percent Iron Saturation 25 % (15-50); Total Iron Binding Capacity 301 ug/dL (265-497); Transferrin 218 mg/dL (206-381)
[2023-05-23 17:48] LABS: Microalbumi Creatinin Ratio Ur 1448.8 ug/mg CR (<30); Microalbumin Urine Random 62.3 mg/dL (0-1.6)
[2023-05-24 05:54] LABS: x Labcorp Estim. Avg Glu (eAG) 280 mg/dL (.); x Labcorp Hemoglobin A1c 11.4 % (4.8-5.6)
== END ==
PROVIDERS: Family Provider Family Medicine; PCP Family Medicine; Referring Provider Nurse Practitioner Family; Visit Provider Nurse Practitioner Family
DX: E11.42 Type 2 diabetes mellitus with diabetic polyneuropathy (principal); I21.4 Non-ST elevation (NSTEMI) myocardial infarction; N28.9 Disorder of kidney and ureter, unspecified; R25.3 Fasciculation; R42 Dizziness and giddiness; R53.1 Weakness; E11.22 Type 2 diabetes mellitus with diabetic chronic kidney disease; I10 Essential (primary) hypertension; N18.30 Chronic kidney disease, stage 3 unspecified; Z79.4 Long term (current) use of insulin; Q60.2 Renal agenesis, unspecified
CPT/HCPCS: 36415; 80053; 82043; 82570; 83036; 83540; 83550; 85027

== ENCOUNTER → 2023-07-11 13:02 | Outpatient (CLI) | payer OTHER, MEDICAID, SELFPAY ==
[2022-03-05 14:37] VITALS: BMI 32.9
[2023-07-11 14:30] LABS: Add Manual Diff / Slide Review NO; Basophils Absolute Auto 0 /uL (0-100); Basophils Percent Auto 0.9 % (0-2); Eosinophils Absolute Auto 200 /uL (0-450); Eosinophils Percent Auto 4.1 % (2-4); Hematocrit 32.6 % (36-46); Hemoglobin 11.4 g/dL (12.0-16.0); Lymphocytes Absolute Auto 1600 /uL (1100-4500); Lymphocytes Percent Auto 31.4 % (25-40); Mean Corpuscular Hemoglobin 29.5 PG (26-34); Mean Corpuscular Volume 84.3 fL (80-100); Monocytes Absolute Auto 400 /uL (0-900); Monocytes Percent Auto 8.3 % (3-14); Neutrophils Absolute Auto 2700 /uL (1500-7000); Neutrophils Percent Auto 55.3 % (50-75); Platelet Count 127 X10^3/uL (150-400); Red Blood Cell Count 3.87 X10^6/uL (4.0-5.2); Red Cell Distribution Width 14.8 % (11.6-14.8)
[2023-07-11 14:58] LABS: Alanine Aminotransferase 23 IU/L (<35); Albumin 3.8 g/dL (3.5-5.0); Albumin Globulin Ratio 1.1 (1.0-2.8); Alkaline Phosphatase 82 U/L (38-126); Aspartate Aminotransferase 34 IU/L (14-36); BUN Creatinine Ratio 32.8 (6-22); Bilirubin Total 0.4 mg/dL (0.2-1.3); Blood Urea Nitrogen 82 mg/dL (7-17); Carbon Dioxide 17 mmol/L (22-32); Chloride 109 mmol/L (98-107); Estimated Glomerular Filt Rate 23 mL/min (>60); Globulin 3.6 g/dL (1.7-4.1); Glucose 165 mg/dL (70-100); HEMOLYSIS < 15 (0-50); Potassium 5.2 mmol/L (3.4-5.1); Sodium 139 mmol/L (137-145); Total Protein 7.4 g/dL (6.3-8.2)
[2023-07-12 09:09] LABS: Valproic Acid (Depakene) Total < 4 ug/mL (50-100)
== END ==
PROVIDERS: Family Provider Family Medicine; PCP Family Medicine; Referring Provider Psychiatry & Neurology Psychiatry; Visit Provider Psychiatry & Neurology Psychiatry
DX: Z79.899 Other long term (current) drug therapy (principal); E11.42 Type 2 diabetes mellitus with diabetic polyneuropathy; R25.3 Fasciculation; R53.1 Weakness; R42 Dizziness and giddiness
CPT/HCPCS: 36415; 80053; 80164; 85025

== ENCOUNTER 2023-07-15 15:00 | Emergency (ER) | payer OTHER, MEDICAID, SELFPAY ==
[2022-03-05 14:37] VITALS: BMI 32.9
[2023-07-15 15:05] VITALS: BP 179/100; PULSE 89; RESP 16; TEMP 36.6; O2SAT 97; BMI 35.0
--- NOTE | 2023-07-15 15:23 | DI.RAD.S_ITS ---
PROCEDURE: XR CHEST 1V INDICATIONS: chest pain TECHNIQUE: One view of the chest was acquired. COMPARISON: [facility], CR, XR CHEST 2V, 05/01/2018, 23:27. FINDINGS: Surgical changes and devices: None. Lungs and pleura: Lungs are clear. No pleural effusions or pneumothorax. Mediastinum: Mediastinal contours appear normal. Heart size is normal. Bones and chest wall: No suspicious bony lesions. Overlying soft tissues appear unremarkable. IMPRESSION: No acute cardiopulmonary process. Dictated by: Nubia Lopez M.D. on 07/15/2023 at 16:43 Approved by: Nubia Lopez M.D. on 07/15/2023 at 16:43
--- NOTE | 2023-07-15 15:43 | ED.GENADULT ---
HPI - General Adult General Chief complaint: Diabetic Problem Stated complaint: Blood sugar 460 Time Seen by Provider: 07/15/23 15:19 Source: patient Mode of arrival: Wheelchair History of Present Illness HPI narrative: Patient is a 52-year-old female history of not controlled insulin-dependent diabetes coronary artery disease with stent in April at [facility], depression presenting today with hyperglycemia. She reports that she intermittently has some chest pain but not having chest pain now. She reports having some shortness breath denies any orthopnea or significant shortness of breath with exertion. She reports that she was quite short of breath after running from the parking lot to cardiac rehab. Cardiac rehab people were concern for her dyspnea and her elevated glucose. She overall has no complaints. Denies any suicidal or homicidal ideations. She is tearful really does not want to be here. Related Data Home Medications Medication Instructions Recorded Confirmed aspirin 81 mg tablet,delayed 81 mg PO DAILY 05/09/23 07/10/23 release (Adult Aspirin Regimen) empagliflozin 25 mg tablet 25 mg PO DAILY 05/09/23 07/10/23 (Jardiance) ticagrelor 90 mg tablet (Brilinta) 90 mg PO BID 05/09/23 07/10/23 Previous Rx's Medication Instructions Recorded insulin aspart U-100 100 unit/mL 10 unit (0.1 mL) SUBCUT TID #15 mL 09/01/21 (3 mL) subcutaneous pen (Novolog FlexPen U-100 Insulin aspart) omeprazole 20 mg capsule,delayed 20 mg PO BID #180 caps 02/22/22 release glyburide 5 mg tablet 5 mg PO DAILY #90 tabs 04/25/22 lisinopril 40 mg tablet See Rx Instructions .Route 04/25/22 .COMPLEX #90 tabs pravastatin 80 mg tablet 80 mg PO BEDTIME #90 tabs 07/26/22 estradiol 0.05 mg/24 hr semiweekly 1 patch transdermal 2XW #8 ea 10/17/22 transdermal patch (Vivelle-Dot) progesterone micronized 100 mg 100 mg PO .qhs #30 caps 10/17/22 capsule alprazolam 0.5 mg tablet 0.5 mg PO BID PRN anxiety #60 tabs 01/29/23 blood sugar diagnostic (ReliOn #100 ea 01/29/23 Prime Test Strips) blood sugar diagnostic (ReliOn #100 ea 02/08/23 Prime Test Strips) lancets 30 gauge (Easy Touch #100 ea 02/08/23 Lancets) pen needle, diabetic 32 gauge x #100 ea 02/08/2332 (Easy Comfort Pen [place]) fesoterodine 4 mg tablet,extended 4 mg PO DAILY #90 tabs 02/14/23 release 24 hr (Toviaz) canagliflozin 300 mg tablet 300 mg PO DAILY #90 tabs 04/25/23 (Invokana) furosemide 20 mg tablet See Rx Instructions PO .COMPLEX 04/25/23 #270 tabs albuterol sulfate 90 mcg/actuation 2 puff inhalation Q6H PRN 05/17/23 aerosol inhaler (ProAir HFA) shortness of breath or wheezing #17 grams budesonide-formoterol HFA 160 2 puff inhalation BID #10.2 grams 05/23/23 mcg-4.5 mcg/actuation aerosol inhaler (Symbicort) freestyle nima CGM #1 ea 05/23/23 insulin glargine-yfgn 100 unit/mL See Rx Instructions .Route 05/23/23 (3 mL) subcutaneous pen (Semglee .COMPLEX #15 mL (insulin glargine-yfgn) Pen) mirtazapine 15 mg tablet 15 mg PO BEDTIME #30 tabs 06/05/23 pregabalin 300 mg capsule 300 mg PO BID #180 caps 06/05/23 liraglutide 0.6 mg/0.1 mL (18 mg/3 See Rx Instructions SUBCUT 06/07/23 mL) subcutaneous pen injector .COMPLEX #9 mL (Victoza 3-Brando) levetiracetam 750 mg tablet 750 mg PO BID #60 tabs 07/04/23 divalproex 250 mg tablet,extended 500 mg PO BEDTIME #60 tabs 07/10/23 release 24 hr Allergies Allergy/AdvReac Type Severity Reaction Status Date / Time hydrocodone Allergy Intermediate ITCHING/VOM Verified 07/15/23 15:15 ITING/RASH suture Allergy Vicryl Verified 07/15/23 15:15 Patient History Medical History (Updated 07/15/23 @ 17:34 by Yolie Dillard DO) Abscess of right external ear Acute neck pain Asthma Asymptomatic hypertensive urgency At risk for altered mental status Roberta infection Cervical somatic dysfunction Chronic back pain Chronic diarrhea Chronic GERD Chronic left shoulder pain Chronic pain of right thumb Chronic right shoulder pain 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 Constipation due to slow transit Depression with anxiety Diabetes mellitus (~2005) Diabetic retinopathy Diabetic retinopathy associated with type 2 diabetes mellitus Diarrhea due to drug Dizziness DM type 2 causing CKD stage 3 Dorsal cervical fat pad Eosinophilic, granuloma bone Fatigue Fatty liver HLD (hyperlipidemia) Hot flashes Hot flashes due to menopause HTN (hypertension) Left hip pain Left lower quadrant abdominal pain Lower extremity edema Lumbar disc herniation with radiculopathy Mixed stress and urge urinary incontinence Moderate left ankle sprain Mood swings Muscle twitching Obesity Osteosarcoma Pain of left great toe Pain of right thumb Perimenopausal symptoms Postmenopausal Pruritus Rash and nonspecific skin eruption Recurrent UTI Right elbow pain Seizure (~1990) Seizure disorder Situational anxiety Sleep apnea STEMI (ST elevation myocardial infarction) Strain of lumbar region Subconjunctival hemorrhage of left eye Trigger finger of both hands Trigger finger, left middle finger Trigger finger, right middle finger Tuberculosis (~1993) Uncontrolled type 2 diabetes mellitus Upper extremity somatic dysfunction Urge incontinence Urinary tract infection Vaginal dryness Vision disorder Weakness Weight loss counseling, encounter for Wheezing Surgical History (Updated 05/23/23 @ 16:06 by Moises Hong DO) Anesthesia Bone tumor (benign) (~1990) History of carpal tunnel release History of lumbar discectomy Neoplasm of femur S/P coronary artery stent placement S/P laminectomy Status post laparoscopic cholecystectomy (~2016) Status post laparoscopic supracervical hysterectomy (~2010) Family History Brother Mental health disorder Mother Diabetes mellitus Heart disease Kidney disease Hyperlipidemia Hypertension Sister Mental health disorder Diabetes mellitus Grandfather Hypertension Stroke Grandmother Diabetes mellitus Hypertension Father Heart disease Social History household members: none Smoking Status: Former smoker Tobacco: How many years used: 29 quit status: considering quitting second hand exposure: Yes (socially) alcohol intake: former substance use type: does not use Smoking Status: Former smoker alcohol intake frequency: other Substance Use Type: does not use Exam Initial Vital Signs Initial Vital Signs: Vital Signs Temperature 97.8 F 07/15/23 15:05 Pulse Rate 89 07/15/23 15:05 Respiratory Rate 16 07/15/23 15:05 Blood Pressure 179/100 H 08/21/23 15:05 Pulse Oximetry 97 07/15/23 15:05 Oxygen Delivery Method Room Air 07/15/23 15:05 Course Orders Ordered: Discontinued Medications Sodium Chloride (Normal Saline 0.9%) 1,000 mls @ 1,000 mls/hr IV BOLUS ONE Stop: 07/15/23 17:46 Last Admin: 07/15/23 17:22 Dose: Not Given Documented By: TC Vital Signs Vital signs: Vital Signs - 8 hr 07/15/23 15:05 Temperature 97.8 F Pulse Rate 89 Respiratory Rate 16 Blood Pressure 179/100 H Pulse Oximetry 97 Oxygen Delivery Method Room Air Medical Decision Making Lab Data 07/15/23 16:14 07/15/23 15:37 Labs: Lab Results 07/15/23 07/15/23 07/15/23 Range/Units 15:37 15:37 15:37 WBC (4.5-11.0) X10^3/uL RBC (4.0-5.2) X10^6/uL Hgb (12.0-16.0) g/dL Hct (36-46) % MCV (80-100) fL MCH (26-34) PG MCHC (30-36) % RDW (11.6-14.8) % Plt Count (150-400) X10^3/uL Neut % (Auto) (50-75) % Lymph % (Auto) (25-40) % [place]ruff % (Auto) (3-14) % Eos % (Auto) (2-4) % Baso % (Auto) (0-2) % Neut # (Auto) (5137-1706) /uL Lymph # (Auto) (4930-0697) /uL Woodruff # (Auto) (0-900) /uL Eos # (Auto) (0-450) /uL Baso # (Auto) (0-100) /uL Sodium 131 L (137-145) mmol/L Potassium 5.4 H (3.4-5.1) mmol/L Chloride 106 (98-107) mmol/L Carbon Dioxide 14 L (22-32) mmol/L BUN 36 H (7-17) mg/dL Creatinine 1.56 H (0.52-1.04) mg/dL Estimated GFR 40 L (>60) mL/min BUN/Creatinine Ratio 23.1 H (6-22) Glucose 492 H* D (70-100) mg/dL Calcium 8.6 (8.4-10.2) mg/dL Total Bilirubin 0.4 (0.2-1.3) mg/dL AST 28 (14-36) IU/L ALT 25 (<35) IU/L Alkaline Phosphatase 79 (38-126) U/L Total Creatine Kinase 72 (30-135) U/L Troponin I < 0.012 (0.01-0.034) ng/mL NT-Pro-B Natriuret Pep 1020 H (<125) pg/mL Total Protein 7.9 (6.3-8.2) g/dL Albumin 3.8 (3.5-5.0) g/dL Globulin 4.1 (1.7-4.1) g/dL Albumin/Globulin Ratio 0.9 L (1.0-2.8) Lipase 419 H (23-300) U/L Ketones 0.05 (<0.27) mmol/L 07/15/23 Range/Units 16:14 WBC 4.1 L (4.5-11.0) X10^3/uL RBC 3.58 L (4.0-5.2) X10^6/uL Hgb 10.5 L (12.0-16.0) g/dL Hct 30.1 L (36-46) % MCV 84.1 (80-100) fL MCH 29.3 (26-34) PG MCHC 34.9 (30-36) % RDW 14.7 (11.6-14.8) % Plt Count 100 L (150-400) X10^3/uL Neut % (Auto) 63.0 (50-75) % Lymph % (Auto) 26.1 (25-40) % Woodruff % (Auto) 6.1 (3-14) % Eos % (Auto) 3.9 (2-4) % Baso % (Auto) 0.9 (0-2) % Neut # (Auto) 2600 (8879-7558) /uL Lymph # (Auto) 1100 (0712-3047) /uL Woodruff # (Auto) 300 (0-900) /uL Eos # (Auto) 200 (0-450) /uL Baso # (Auto) 0 (0-100) /uL Sodium (137-145) mmol/L Potassium (3.4-5.1) mmol/L Chloride (98-107) mmol/L Carbon Dioxide (22-32) mmol/L BUN (7-17) mg/dL Creatinine (0.52-1.04) mg/dL Estimated GFR (>60) mL/min BUN/Creatinine Ratio (6-22) Glucose (70-100) mg/dL Calcium (8.4-10.2) mg/dL Total Bilirubin (0.2-1.3) mg/dL AST (14-36) IU/L ALT (<35) IU/L Alkaline Phosphatase (38-126) U/L Total Creatine Kinase (30-135) U/L Troponin I (0.01-0.034) ng/mL NT-Pro-B Natriuret Pep (<125) pg/mL Total Protein (6.3-8.2) g/dL Albumin (3.5-5.0) g/dL Globulin (1.7-4.1) g/dL Albumin/Globulin Ratio (1.0-2.8) Lipase (23-300) U/L Ketones (<0.27) mmol/L Urine Dip Bedside Urine Glucose 1000 mg/dl Bedside Urine Bilirubin - Negative Bedside Urine Ketone - Negative Urine Specific [place] 1.010 Bedside Urine Occult Blood +/- Bedside Urine pH 6.0 Bedside Urine Protein ++ 100 Bedside Urine Urobilinogen - Negative Bedside Urine Nitrite - Negative Bedside Urine Leukocytes - Negative Esterase Point of care testing: Urine Dip Bedside Urine Glucose 1000 mg/dl Bedside Urine Bilirubin - Negative Bedside Urine Ketone - Negative Urine Specific [place] 1.010 Bedside Urine Occult Blood +/- Bedside Urine pH 6.0 Bedside Urine Protein ++ 100 Bedside Urine Urobilinogen - Negative Bedside Urine Nitrite - Negative Bedside Urine Leukocytes - Negative Esterase Imaging Data Chest x-ray: Radiologist's Impression: PROCEDURE:? XR CHEST 1V ? INDICATIONS:? chest pain ? TECHNIQUE:? One view of the chest was acquired.? ? COMPARISON:? [facility], CR, XR CHEST 2V, 05/01/2018, 23:27. ? FINDINGS:? ? Surgical changes and devices:? None.? ? Lungs and pleura:? Lungs are clear.? No pleural effusions or pneumothorax.? ? Mediastinum:? Mediastinal contours appear normal.? Heart size is normal.? ? Bones and chest wall:? No suspicious bony lesions.? Overlying soft tissues appear unremarkable.? ? IMPRESSION:? No acute cardiopulmonary process. ? ? Dictated by: Nubia Lopez M.D. on 07/15/2023 at 16:43? ECG Data Interpretation: Sinus rhythm rate 85 IA interval 174 QRS [address] changes no T-wave inversions similar to previous EKG MDM Narrative Medical decision making narrative: Patient 52-year-old female history of type 2 diabetes CAD chronic pain recent stent placed [facility] presents today with hyperglycemia rehab hyperglycemia. Apparently she had some dizziness. Patient reports that she has absolutely no symptoms. She reports that she ran in from the car to cardiac rehab she was very short of breath felt dizzy they checked her sugar and it was elevated. She reports that she is had always compliant with her medications. She has no chest pain she is not short of breath now she denies any normal dyspnea with exertion denies any orthopnea. BNP is slightly elevated at 1000 he is taking 40 of Lasix in the morning and 20 at night she has no peripheral edema she is not complaining of significant shortness of breath or fever. She has no ketones no signs or symptoms of DKA. She is an anion gap of 20 bicarb today of 14 however her normal bicarb is 17. Has also previously been 14 in March. She is awake alert oriented has no complaints. She is quite depressed about the of her mom but no thoughts of suicide. This time she would just like to go home which I think is appropriate. Discharge Plan Departure Patient Disposition: Home Clinical Impression: Hyperglycemia due to diabetes mellitus Instructions: DI for Diabetes Type 2 Activity Restrictions/Additional Instructions: So nice to see you today. You better take care of yourself. If you feel like you are having shortness of breath or swelling increase her Lasix to 40 mg twice a day for 2-3 days. Take all of your medications as prescribed Follow-up with PCP as scheduled Return to ED if you should have any new or worsening symptoms. Prescriptions: No Action mirtazapine 15 mg tablet 15 mg PO BEDTIME Qty: 30 3RF divalproex 250 mg tablet extended release 24 hr 500 mg PO BEDTIME Qty: 60 2RF omeprazole 20 mg capsule,delayed release(DR/EC) 20 mg PO BID Qty: 180 3RF (DME) lancets [Easy Touch Lancets] 30 gauge misc See Rx Instructions .Route Qty: 100 12RF Rx Instructions: Check blood glucose 4 times daily (DME) ReliOn Prime Test Strips Strip See Rx Instructions .Route Qty: 100 12RF Rx Instructions: Test blood glucose 4 times daily (DME) pen needle, diabetic [Easy Comfort Pen [place]] 32 gauge x 5/32 needle See Rx Instructions .Route Qty: 100 12RF Rx Instructions: Inject insulin 4 times daily fesoterodine [Toviaz] 4 mg tablet extended release 24 hr 4 mg PO DAILY Qty: 90 3RF albuterol sulfate [ProAir HFA] 90 mcg/actuation HFA aerosol inhaler 2 puff inhalation Q6H PRN (Reason: shortness of breath or wheezing) Qty: 17 1RF Rx Instructions: Please dispense 2 inhalers pregabalin 300 mg capsule 300 mg PO BID Qty: 180 0RF Victoza 3-Brando 0.6 mg/0.1 mL (18 mg/3 mL) pen injector See Rx Instructions SUBCUT .COMPLEX Qty: 9 8RF Rx Instructions: inject 0.6mg subcutaneously once daily x 7 days; then 1.2mg daily, not to exceed 1.8mg/day SUBCUT levetiracetam 750 mg tablet 750 mg PO BID Qty: 60 11RF insulin aspart U-100 [Novolog FlexPen U-100 Insulin] 100 unit/mL (3 mL) insulin pen 10 unit SUBCUT TID Qty: 15 11RF pravastatin 80 mg tablet 80 mg PO BEDTIME Qty: 90 3RF alprazolam 0.5 mg tablet 0.5 mg PO BID PRN (Reason: anxiety) Qty: 60 5RF (DME) ReliOn Prime Test Strips Strip See Rx Instructions .Route Qty: 100 5RF Rx Instructions: As directed furosemide 20 mg tablet See Rx Instructions PO .COMPLEX Qty: 270 3RF Rx Instructions: 2tabs am and 1tab at noon, orally; Invokana 300 mg tablet 300 mg PO DAILY Qty: 90 3RF (DME) freestyle nima CGM See Rx Instructions .Route .MEDSUPPLY Qty: 1 0RF Rx Instructions: Check blood sugar at least 4 times daily budesonide-formoterol [Symbicort] 160-4.5 mcg/actuation HFA aerosol inhaler 2 puff inhalation BID Qty: 10.2 12RF insulin glargine-yfgn [Semglee(insulin glarg-yfgn)Pen] 100 unit/mL (3 mL) insulin pen See Rx Instructions .ROUTE .COMPLEX Qty: 15 11RF Dose Instruction: INJECT 10 UNITS SUBCUTANEOUSLY ONCE DAILY Rx Instructions: INJECT 30 UNITS SUBCUTANEOUSLY twice DAILY aspirin [Adult Aspirin Regimen] 81 mg tablet,delayed release (DR/EC) 81 mg PO DAILY Jardiance 25 mg tablet 25 mg PO DAILY Brilinta 90 mg tablet 90 mg PO BID lisinopril 40 mg tablet See Rx Instructions .ROUTE .COMPLEX Qty: 90 3RF Dose Instruction: Take 1 tablet by mouth once daily Rx Instructions: Take 1 tablet by mouth once daily glyburide 5 mg tablet 5 mg PO DAILY Qty: 90 3RF estradiol [Vivelle-Dot] 0.05 mg/24 hr patch semiweekly 1 patch transdermal 2XW Qty: 8 12RF Rx Instructions: Start using when oral estrogen tablets have been completed and apply 1 patch for 3 days alternating with 1 patch for 4 days each week. progesterone micronized 100 mg capsule 100 mg PO .qhs Qty: 30 12RF Referrals: Moises Hong DO [Primary Care Provider] - Stand Alone Forms: Patient Portal/API
[2023-07-15 15:56] LABS: Alanine Aminotransferase 25 IU/L (<35); Albumin 3.8 g/dL (3.5-5.0); Albumin Globulin Ratio 0.9 (1.0-2.8); Alkaline Phosphatase 79 U/L (38-126); Aspartate Aminotransferase 28 IU/L (14-36); BUN Creatinine Ratio 23.1 (6-22); Bilirubin Total 0.4 mg/dL (0.2-1.3); Blood Urea Nitrogen 36 mg/dL (7-17); Calcium 8.6 mg/dL (8.4-10.2); Carbon Dioxide 14 mmol/L (22-32); Chloride 106 mmol/L (98-107); Creatine Kinase 72 U/L (30-135); Estimated Glomerular Filt Rate 40 mL/min (>60); Globulin 4.1 g/dL (1.7-4.1); HEMOLYSIS 16 (0-50); Lipase 419 U/L (23-300); Sodium 131 mmol/L (137-145); Total Protein 7.9 g/dL (6.3-8.2)
[2023-07-15 16:07] LABS: Troponin I < 0.012 ng/mL (0.01-0.034)
[2023-07-15 16:08] LABS: Glucose 492 mg/dL (70-100); Potassium 5.4 mmol/L (3.4-5.1)
[2023-07-15 16:30] LABS: Add Manual Diff / Slide Review NO; Basophils Absolute Auto 0 /uL (0-100); Basophils Percent Auto 0.9 % (0-2); Eosinophils Absolute Auto 200 /uL (0-450); Eosinophils Percent Auto 3.9 % (2-4); Hematocrit 30.1 % (36-46); Hemoglobin 10.5 g/dL (12.0-16.0); Lymphocytes Absolute Auto 1100 /uL (1100-4500); Lymphocytes Percent Auto 26.1 % (25-40); Mean Corpuscular HGB Conc 34.9 % (30-36); Mean Corpuscular Hemoglobin 29.3 PG (26-34); Mean Corpuscular Volume 84.1 fL (80-100); Monocytes Absolute Auto 300 /uL (0-900); Monocytes Percent Auto 6.1 % (3-14); Neutrophils Absolute Auto 2600 /uL (1500-7000); Platelet Count 100 X10^3/uL (150-400); Red Blood Cell Count 3.58 X10^6/uL (4.0-5.2); Red Cell Distribution Width 14.7 % (11.6-14.8); White Blood Cell Count 4.1 X10^3/uL (4.5-11.0)
[2023-07-15 16:48] LABS: Ketones (Beta-Hydroxybutyrate) 0.05 mmol/L (<0.27)
[2023-07-15 17:12] LABS: NT-proBNP (BNP-Adult 18+) 1020 pg/mL (<125)
[2023-07-15 17:57] VITALS: BP 146/79; PULSE 79; RESP 16; O2SAT 98
== END 2023-07-15 17:48 | disposition home or self-care (01) ==
PROVIDERS: Emergency Provider Emergency Medicine; Family Provider Family Medicine; PCP Family Medicine
DX: E11.65 Type 2 diabetes mellitus with hyperglycemia (principal); R07.9 Chest pain, unspecified; R06.02 Shortness of breath
CPT/HCPCS: 36415; 71045; 80053; 81003; 82009; 82550; 82948; 83690; 83880; 84484; 85025; 93005; 99283; 99284

== ENCOUNTER 2023-07-24 14:15 | Outpatient (RCR) | payer OTHER, MEDICAID, SELFPAY ==
[2022-03-05 14:37] VITALS: BMI 32.9
== END 2023-07-24 16:15 ==
LOC: CAR 14:15
PROVIDERS: Family Provider Family Medicine; PCP Family Medicine; Referring Provider Nurse Practitioner Family; Visit Provider Nurse Practitioner Family
DX: I21.4 Non-ST elevation (NSTEMI) myocardial infarction (principal)
CPT/HCPCS: 93798

== ENCOUNTER → 2023-07-26 14:35 | Outpatient (CLI) | payer OTHER, MEDICAID, SELFPAY ==
[2022-03-05 14:37] VITALS: BMI 32.9
[2023-07-26 15:40] LABS: Add Manual Diff / Slide Review NO; Basophils Absolute Auto 100 /uL (0-100); Basophils Percent Auto 0.7 % (0-2); Eosinophils Absolute Auto 300 /uL (0-450); Eosinophils Percent Auto 3.2 % (2-4); Hematocrit 35.4 % (36-46); Hemoglobin 12.2 g/dL (12.0-16.0); Lymphocytes Absolute Auto 1800 /uL (1100-4500); Lymphocytes Percent Auto 22.6 % (25-40); Mean Corpuscular HGB Conc 34.5 % (30-36); Mean Corpuscular Hemoglobin 29.3 PG (26-34); Mean Corpuscular Volume 84.9 fL (80-100); Monocytes Absolute Auto 700 /uL (0-900); Monocytes Percent Auto 8.8 % (3-14); Neutrophils Absolute Auto 5200 /uL (1500-7000); Neutrophils Percent Auto 64.7 % (50-75); Platelet Count 131 X10^3/uL (150-400); Red Blood Cell Count 4.16 X10^6/uL (4.0-5.2); Red Cell Distribution Width 15.4 % (11.6-14.8)
[2023-07-26 16:03] LABS: Lactate (Lactic Acid) 2.1 mmol/L (0.7-2.1)
[2023-07-26 16:05] LABS: Alanine Aminotransferase 21 IU/L (<35); Albumin 4.2 g/dL (3.5-5.0); Alkaline Phosphatase 53 U/L (38-126); Aspartate Aminotransferase 29 IU/L (14-36); BUN Creatinine Ratio 30.6 (6-22); Bilirubin Total 0.5 mg/dL (0.2-1.3); Blood Urea Nitrogen 83 mg/dL (7-17); Calcium 8.6 mg/dL (8.4-10.2); Carbon Dioxide 19 mmol/L (22-32); Chloride 102 mmol/L (98-107); Estimated Glomerular Filt Rate 21 mL/min (>60); Globulin 4.2 g/dL (1.7-4.1); Glucose 147 mg/dL (70-100); HEMOLYSIS < 15 (0-50); Lipase 262 U/L (23-300); Potassium 4.9 mmol/L (3.4-5.1); Sodium 136 mmol/L (137-145); Total Protein 8.4 g/dL (6.3-8.2)
[2023-07-26 16:54] LABS: Reflexed Lactate in 2 Hours Y
[2023-07-26 17:19] LABS: Appearance Urine UA CLEAR; Bilirubin Urine UA NEGATIVE (NEGATIVE); Color Urine UA YELLOW; Glucose Urine UA 2+ g/dL (Negative); Ketones Urine UA NEGATIVE (NEGATIVE); Leukocyte Esterase Urine UA NEGATIVE (NEGATIVE); Nitrite Urine UA NEGATIVE (Negative); Occult Blood Urine UA NEGATIVE (Negative); Protein Urine UA 1+ (Negative); Urobilinogen Urine UA 0.2 E.U./dL (0.2)
[2023-07-26 17:50] LABS: Bacteria Urine None Seen; Culture Indicated Urine Cult Not Indicated; RBC Urine None Seen (0-5/HPF); Squamous Epithelial Cell Urine None Seen (0-5/HPF); WBC Urine 0-1/HPF (0-5/HPF)
== END ==
PROVIDERS: Family Provider Family Medicine; PCP Family Medicine; Referring Provider Pediatrics; Visit Provider Pediatrics
DX: E11.65 Type 2 diabetes mellitus with hyperglycemia (principal); G40.909 Epilepsy, unspecified, not intractable, without status epilepticus; N39.0 Urinary tract infection, site not specified; R25.3 Fasciculation; Z79.899 Other long term (current) drug therapy
CPT/HCPCS: 80053; 81001; 83605; 83690; 85025

== ENCOUNTER 2023-07-31 14:32 | Emergency (ER) | payer OTHER, MEDICAID, SELFPAY ==
[2022-03-05 14:37] VITALS: BMI 32.9
[2023-07-31] VITALS (8 sets, daily range): BP systolic 145–159; BP diastolic 75–113; PULSE 83–93; RESP 18; TEMP 36.5; O2SAT 92–99; BMI 39.0
--- NOTE | 2023-07-31 14:40 | ED.GENADULT ---
HPI - General Adult <Batsheva Brian MD - Last Filed: 07/31/23 16:03> General Chief complaint: Diabetic Problem Stated complaint: Low Blood sugar Time Seen by Provider: 07/31/23 14:36 History of Present Illness HPI narrative: Patient presents from the cardiac rehab center for lethargy and hypoglycemia. Patient states that she took her usual insulin doses morning but forgot to eat and went to cardiac rehab. At cardiac rehab she was noted to be sleepy and not herself. Accu-Chek showed that glucose was in the 40s. She was given oral glucose and sent to the emergency department for evaluation. Patient states that she took her usual insulin dose and forgot to eat. This morning she was otherwise in her usual state of health. Currently somnolent, rouses easily to voice and answers questions appropriately. Related Data Home Medications Medication Instructions Recorded Confirmed aspirin 81 mg tablet,delayed 81 mg PO DAILY 05/09/23 07/26/23 release (Adult Aspirin Regimen) empagliflozin 25 mg tablet 25 mg PO DAILY 05/09/23 07/26/23 (Jardiance) biotin 5,000 mcg PO DAILY 07/19/23 07/26/23 clopidogrel 75 mg tablet 75 mg PO DAILY 07/19/23 07/26/23 gentamicin 0.3 % eye drops 1 drp EYE-RIGHT 4XD 07/19/23 07/26/23 ketorolac 0.4 % eye drops 0 drp EYE-BOTH 07/19/23 07/26/23 neurop away PO 07/19/23 07/26/23 nitrofurantoin 1 cap PO DAILY 07/19/23 07/26/23 monohydrate/macrocrystals 100 mg capsule prednisolone acetate 1 % eye 1 drp EYE-RIGHT 3XD 07/19/23 07/26/23 drops,suspension Previous Rx's Medication Instructions Recorded insulin aspart U-100 100 unit/mL 10 unit (0.1 mL) SUBCUT TID #15 mL 09/01/21 (3 mL) subcutaneous pen (Novolog FlexPen U-100 Insulin aspart) omeprazole 20 mg capsule,delayed 20 mg PO BID #180 caps 02/22/22 release glyburide 5 mg tablet 5 mg PO DAILY #90 tabs 04/25/22 pravastatin 80 mg tablet 80 mg PO BEDTIME #90 tabs 07/26/22 estradiol 0.05 mg/24 hr semiweekly 1 patch transdermal 2XW #8 ea 10/17/22 transdermal patch (Vivelle-Dot) progesterone micronized 100 mg 100 mg PO .qhs #30 caps 10/17/22 capsule alprazolam 0.5 mg tablet 0.5 mg PO BID PRN anxiety #60 tabs 01/29/23 blood sugar diagnostic (ReliOn #100 ea 01/29/23 Prime Test Strips) blood sugar diagnostic (ReliOn #100 ea 02/08/23 Prime Test Strips) lancets 30 gauge (Easy Touch #100 ea 02/08/23 Lancets) canagliflozin 300 mg tablet 300 mg PO DAILY #90 tabs 04/25/23 (Invokana) furosemide 20 mg tablet See Rx Instructions PO .COMPLEX 04/25/23 #270 tabs budesonide-formoterol HFA 160 2 puff inhalation BID #10.2 grams 05/23/23 mcg-4.5 mcg/actuation aerosol inhaler (Symbicort) insulin glargine-yfgn 100 unit/mL See Rx Instructions .Route 05/23/23 (3 mL) subcutaneous pen (Semglee .COMPLEX #15 mL (insulin glargine-yfgn) Pen) mirtazapine 15 mg tablet 15 mg PO BEDTIME #30 tabs 06/05/23 pregabalin 300 mg capsule 300 mg PO BID #180 caps 06/05/23 liraglutide 0.6 mg/0.1 mL (18 mg/3 See Rx Instructions SUBCUT 06/07/23 mL) subcutaneous pen injector .COMPLEX #9 mL (Victoza 3-Brando) levetiracetam 750 mg tablet 750 mg PO BID #60 tabs 07/04/23 divalproex 250 mg tablet,extended 500 mg PO BEDTIME #60 tabs 07/10/23 release 24 hr albuterol sulfate 90 mcg/actuation 2 puff inhalation Q6H PRN 07/19/23 aerosol inhaler (ProAir HFA) shortness of breath or wheezing #17 grams lisinopril 40 mg tablet 40 mg PO DAILY #90 tabs 07/19/23 pen needle, diabetic 33 gauge x #100 ea 07/19/2304/09 (Comfort EZ Pen [place]) Allergies Allergy/AdvReac Type Severity Reaction Status Date / Time hydrocodone Allergy Intermediate ITCHING/VOM Verified 07/26/23 13:51 ITING/RASH suture Allergy Vicryl Verified 07/26/23 13:51 Review of Systems <Batsheva Brian MD - Last Filed: 07/31/23 16:03> Review of Systems Narrative: CONSTITUTIONAL-reports: Fatigue, lethargy Denies: fever, chills HEENT- Denies: sore throat, nosebleed, vision changes RESPIRATORY- Denies: shortness of breath, cough, wheezing CARDIAC- Denies: chest pain, edema, orthopnea GI- Denies: abdominal pain, nausea, vomiting, constipation, diarrhea - Denies: frequency, dysuria, hematuria, flank pain MSK- Denies: extremity pain, extremity swelling, joint pain, joint swelling SKIN- Denies: rash, itching, burn, swelling NEUROLOGICAL- Denies: headache, numbness, weakness, dizziness PSYCHIATRIC- Denies: anxiety, depression, suicidal ideation, homicidal ideation Patient History <Batsheva Brian MD - Last Filed: 07/31/23 16:03> Medical History (Updated 07/31/23 @ 15:30 by Batsheva Brian MD) Abscess of right external ear Acute neck pain Asthma Asymptomatic hypertensive urgency At risk for altered mental status Roberta infection Cervical somatic dysfunction Chronic back pain Chronic diarrhea Chronic GERD Chronic left shoulder pain Chronic pain of right thumb Chronic right shoulder pain 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 Constipation due to slow transit Depression with anxiety Diabetes mellitus (~2005) Diabetic retinopathy Diabetic retinopathy associated with type 2 diabetes mellitus Diarrhea due to drug Dizziness DM type 2 causing CKD stage 3 Dorsal cervical fat pad Eosinophilic, granuloma bone Fatigue Fatty liver HLD (hyperlipidemia) Hot flashes Hot flashes due to menopause HTN (hypertension) Left hip pain Left lower quadrant abdominal pain Lower extremity edema Lumbar disc herniation with radiculopathy Mixed stress and urge urinary incontinence Moderate left ankle sprain Mood swings Muscle twitching Obesity Osteosarcoma Pain of left great toe Pain of right thumb Perimenopausal symptoms Postmenopausal Pruritus Rash and nonspecific skin eruption Recurrent UTI Right elbow pain Seizure (~1990) Seizure disorder Situational anxiety Sleep apnea STEMI (ST elevation myocardial infarction) Strain of lumbar region Subconjunctival hemorrhage of left eye Trigger finger of both hands Trigger finger, left middle finger Trigger finger, right middle finger Tuberculosis (~1993) Uncontrolled type 2 diabetes mellitus Upper extremity somatic dysfunction Urge incontinence Urinary tract infection Vaginal dryness Vision disorder Weakness Weight loss counseling, encounter for Wheezing Surgical History (Updated 05/23/23 @ 16:06 by Moises Hong DO) Anesthesia Bone tumor (benign) (~1990) History of carpal tunnel release History of lumbar discectomy Neoplasm of femur S/P coronary artery stent placement S/P laminectomy Status post laparoscopic cholecystectomy (~2016) Status post laparoscopic supracervical hysterectomy (~2010) Family History Brother Mental health disorder Mother Diabetes mellitus Heart disease Kidney disease Hyperlipidemia Hypertension Sister Mental health disorder Diabetes mellitus Grandfather Hypertension Stroke Grandmother Diabetes mellitus Hypertension Father Heart disease Social History household members: none Smoking Status: Former smoker Tobacco: How many years used: 29 quit status: considering quitting second hand exposure: Yes (socially) alcohol intake: former substance use type: does not use Smoking Status: Former smoker alcohol intake frequency: other Substance Use Type: does not use Exam <Batsheva Brian MD - Last Filed: 07/31/23 16:03> Initial Vital Signs Initial Vital Signs: Vital Signs Pulse Oximetry 97 07/31/23 14:36 Const: Somnolent, arouses easily to voice, no acute distress Eyes: PERRL, EOMI, conjunctiva normal ENT: Atraumatic, dentition normal, mucous membranes moist Cardiac: regular rate, regular rhythm RESP: unlabored, clear bilaterally, no wheezing GI: Atraumatic, soft, nontender, nondistended, no rebound, no guarding MSK: Atraumatic, full range of motion, pulses equal Skin: Warm, Dry, intact, no rashes Neuro: AO x3, CN II-XII grossly intact, moves all extremities Psych: affect normal, mood normal, not suicidal, not homicidal <Enrike Schmidt MD - Last Filed: 07/31/23 17:44> Initial Vital Signs Initial Vital Signs: Vital Signs Pulse Oximetry 97 07/31/23 14:36 Course <Batsheva Brian MD - Last Filed: 07/31/23 16:03> Course Course Narrative: Hypoglycemia after taking normal insulin and not eating. Blood glucose 51, we will give oral glucose and we will reassess. Orders Ordered: ED Orders 07/31/23 16:25 CBC Auto Diff [Complete Blood Count AUTO DIFF] Stat CMP [Comprehensive Metabolic Panel] Stat Ethanol (ETOH) Stat Reevaluation(s) Reevaluation #1: Eating, more awake, feeling improved. Reevaluation #2: Nursing informed me that patient requires easily and hold conversations, however when patient is left alone for even a short time she immediately falls back asleep with her sandwich held in the air. 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 Will add labs. Vital Signs Vital signs: Vital Signs - 8 hr 07/31/23 14:38 07/31/23 14:36 07/31/23 14:37 Temperature 97.7 F Pulse Rate 93 H 88 Respiratory Rate 18 Blood Pressure 157/75 H Pulse Oximetry 98 97 92 Oxygen Delivery Method Room Air 07/31/23 14:37 07/31/23 15:00 07/31/23 15:00 Temperature Pulse Rate 85 Respiratory Rate Blood Pressure 157/75 H 159/84 H Pulse Oximetry 98 Oxygen Delivery Method 07/31/23 15:15 07/31/23 15:30 07/31/23 16:00 Temperature Pulse Rate 83 Respiratory Rate Blood Pressure 145/113 H 157/90 H Pulse Oximetry 99 Oxygen Delivery Method <Enrike Schmidt MD - Last Filed: 07/31/23 17:44> Course Course Narrative: Hypoglycemia after taking normal insulin and not eating. Blood glucose 51, we will give oral glucose and we will reassess. Care was assumed from Dr. Brian at the end of her shift. The patient has been treated for hypoglycemia. She is recovering. Her glucose is now 118, she is alert and oriented. She is eating. She is back at baseline. She feels like she is ready to go. 07/31/23@1740. Annalise BURCIAGA Orders Ordered: ED Orders 07/31/23 16:25 CBC Auto Diff [Complete Blood Count AUTO DIFF] Stat CMP [Comprehensive Metabolic Panel] Stat Ethanol (ETOH) Stat Vital Signs Vital signs: Vital Signs - 8 hr 07/31/23 14:38 07/31/23 14:36 07/31/23 14:37 Temperature 97.7 F Pulse Rate 93 H 88 Respiratory Rate 18 Blood Pressure 157/75 H Pulse Oximetry 98 97 92 Oxygen Delivery Method Room Air 07/31/23 14:37 07/31/23 15:00 07/31/23 15:00 Temperature Pulse Rate 85 Respiratory Rate Blood Pressure 157/75 H 159/84 H Pulse Oximetry 98 Oxygen Delivery Method 07/31/23 15:15 07/31/23 15:30 07/31/23 16:00 Temperature Pulse Rate 83 Respiratory Rate Blood Pressure 145/113 H 157/90 H Pulse Oximetry 99 Oxygen Delivery Method Medical Decision Making <Batsheva Brian MD - Last Filed: 07/31/23 16:03> Lab Data 07/31/23 16:25 07/31/23 16:25 Labs: Lab Results 07/31/23 07/31/23 Range/Units 16:25 16:25 WBC 5.8 (4.5-11.0) X10^3/uL RBC 3.94 L (4.0-5.2) X10^6/uL Hgb 11.5 L (12.0-16.0) g/dL Hct 33.5 L (36-46) % MCV 85.1 (80-100) fL MCH 29.2 (26-34) PG MCHC 34.3 (30-36) % RDW 15.0 H (11.6-14.8) % Plt Count 132 L (150-400) X10^3/uL Neut % (Auto) 63.7 (50-75) % Lymph % (Auto) 21.7 L (25-40) % Daniels % (Auto) 9.2 (3-14) % Eos % (Auto) 4.6 H (2-4) % Baso % (Auto) 0.8 (0-2) % Neut # (Auto) 3700 (6382-3061) /uL Lymph # (Auto) 1300 (3120-7018) /uL Daniels # (Auto) 500 (0-900) /uL Eos # (Auto) 300 (0-450) /uL Baso # (Auto) 0 (0-100) /uL Total Counted 100 Seg Neutrophils % 64.0 (38-70) % Band Neutrophils % 1.0 L (3-7) % Lymphocytes % (Manual) 15.0 L (25-45) % Monocytes % (Manual) 12.0 H (2-11) % Eosinophils % (Manual) 4.0 (2-4) % Metamyelocytes % 4.0 H (-0) % Neutrophils # (Manual) 3770 (3455-6756) /uL Smudge Cells 1+ H Toxic Granulation Present H RBC Morphology Normal morphology Sodium 137 (137-145) mmol/L Potassium 5.3 H (3.4-5.1) mmol/L Chloride 105 (98-107) mmol/L Carbon Dioxide 21 L (22-32) mmol/L BUN 58 H (7-17) mg/dL Creatinine 2.07 H (0.52-1.04) mg/dL Estimated GFR 29 L (>60) mL/min BUN/Creatinine Ratio 28.0 H (6-22) Glucose 116 H (70-100) mg/dL Calcium 9.6 (8.4-10.2) mg/dL Total Bilirubin 0.4 (0.2-1.3) mg/dL AST 28 (14-36) IU/L ALT 20 (<35) IU/L Alkaline Phosphatase 51 (38-126) U/L Total Protein 8.2 (6.3-8.2) g/dL Albumin 4.1 (3.5-5.0) g/dL Globulin 4.1 (1.7-4.1) g/dL Albumin/Globulin Ratio 1.0 (1.0-2.8) Ethyl Alcohol < 10 ( - 10) mg/dL Point of Care Testing Glucose POC 73 Point of care testing: Point of Care Testing Glucose POC 73 <Enrike Schmidt MD - Last Filed: 07/31/23 17:44> Lab Data Labs: Lab Results 07/31/23 07/31/23 Range/Units 16:25 16:25 WBC 5.8 (4.5-11.0) X10^3/uL RBC 3.94 L (4.0-5.2) X10^6/uL Hgb 11.5 L (12.0-16.0) g/dL Hct 33.5 L (36-46) % MCV 85.1 (80-100) fL MCH 29.2 (26-34) PG MCHC 34.3 (30-36) % RDW 15.0 H (11.6-14.8) % Plt Count 132 L (150-400) X10^3/uL Neut % (Auto) 63.7 (50-75) % Lymph % (Auto) 21.7 L (25-40) % Daniels % (Auto) 9.2 (3-14) % Eos % (Auto) 4.6 H (2-4) % Baso % (Auto) 0.8 (0-2) % Neut # (Auto) 3700 (9326-9554) /uL Lymph # (Auto) 1300 (6322-5090) /uL Daniels # (Auto) 500 (0-900) /uL Eos # (Auto) 300 (0-450) /uL Baso # (Auto) 0 (0-100) /uL Total Counted 100 Seg Neutrophils % 64.0 (38-70) % Band Neutrophils % 1.0 L (3-7) % Lymphocytes % (Manual) 15.0 L (25-45) % Monocytes % (Manual) 12.0 H (2-11) % Eosinophils % (Manual) 4.0 (2-4) % Metamyelocytes % 4.0 H (-0) % Neutrophils # (Manual) 3770 (4787-3858) /uL Smudge Cells 1+ H Toxic Granulation Present H RBC Morphology Normal morphology Sodium 137 (137-145) mmol/L Potassium 5.3 H (3.4-5.1) mmol/L Chloride 105 (98-107) mmol/L Carbon Dioxide 21 L (22-32) mmol/L BUN 58 H (7-17) mg/dL Creatinine 2.07 H (0.52-1.04) mg/dL Estimated GFR 29 L (>60) mL/min BUN/Creatinine Ratio 28.0 H (6-22) Glucose 116 H (70-100) mg/dL Calcium 9.6 (8.4-10.2) mg/dL Total Bilirubin 0.4 (0.2-1.3) mg/dL AST 28 (14-36) IU/L ALT 20 (<35) IU/L Alkaline Phosphatase 51 (38-126) U/L Total Protein 8.2 (6.3-8.2) g/dL Albumin 4.1 (3.5-5.0) g/dL Globulin 4.1 (1.7-4.1) g/dL Albumin/Globulin Ratio 1.0 (1.0-2.8) Ethyl Alcohol < 10 ( - 10) mg/dL Point of Care Testing Glucose POC 73 Point of care testing: Point of Care Testing Glucose POC 73 Discharge Plan Departure Patient Disposition: Home Clinical Impression: Hypoglycemia Instructions: DI for Diabetes Type 2, DI for Hypoglycemia Activity Restrictions/Additional Instructions: You apparently developed hypoglycemia after taking her medications, without matching appropriate nutrition prior to your appointment today. Adhere to your diabetic diet in conjunction with use of the diabetic med occasions. Follow-up with your doctor to review your diabetes management. Prescriptions: No Action mirtazapine 15 mg tablet 15 mg PO BEDTIME Qty: 30 3RF divalproex 250 mg tablet extended release 24 hr 500 mg PO BEDTIME Qty: 60 2RF omeprazole 20 mg capsule,delayed release(DR/EC) 20 mg PO BID Qty: 180 3RF (DME) lancets [Easy Touch Lancets] 30 gauge misc See Rx Instructions .Route Qty: 100 12RF Rx Instructions: Check blood glucose 4 times daily (DME) ReliOn Prime Test Strips Strip See Rx Instructions .Route Qty: 100 12RF Rx Instructions: Test blood glucose 4 times daily pregabalin 300 mg capsule 300 mg PO BID Qty: 180 0RF Victoza 3-Brando 0.6 mg/0.1 mL (18 mg/3 mL) pen injector See Rx Instructions SUBCUT .COMPLEX Qty: 9 8RF Rx Instructions: inject 0.6mg subcutaneously once daily x 7 days; then 1.2mg daily, not to exceed 1.8mg/day SUBCUT levetiracetam 750 mg tablet 750 mg PO BID Qty: 60 11RF albuterol sulfate [ProAir HFA] 90 mcg/actuation HFA aerosol inhaler 2 puff inhalation Q6H PRN (Reason: shortness of breath or wheezing) Qty: 17 1RF Rx Instructions: Please dispense 2 inhalers insulin aspart U-100 [Novolog FlexPen U-100 Insulin] 100 unit/mL (3 mL) insulin pen 10 unit SUBCUT TID Qty: 15 11RF pravastatin 80 mg tablet 80 mg PO BEDTIME Qty: 90 3RF alprazolam 0.5 mg tablet 0.5 mg PO BID PRN (Reason: anxiety) Qty: 60 5RF (DME) ReliOn Prime Test Strips Strip See Rx Instructions .Route Qty: 100 5RF Rx Instructions: As directed furosemide 20 mg tablet See Rx Instructions PO .COMPLEX Qty: 270 3RF Rx Instructions: 2tabs am and 1tab at noon, orally; Invokana 300 mg tablet 300 mg PO DAILY Qty: 90 3RF budesonide-formoterol [Symbicort] 160-4.5 mcg/actuation HFA aerosol inhaler 2 puff inhalation BID Qty: 10.2 12RF insulin glargine-yfgn [Semglee(insulin glarg-yfgn)Pen] 100 unit/mL (3 mL) insulin pen See Rx Instructions .ROUTE .COMPLEX Qty: 15 11RF Dose Instruction: INJECT 10 UNITS SUBCUTANEOUSLY ONCE DAILY Rx Instructions: INJECT 30 UNITS SUBCUTANEOUSLY twice DAILY aspirin [Adult Aspirin Regimen] 81 mg tablet,delayed release (DR/EC) 81 mg PO DAILY Jardiance 25 mg tablet 25 mg PO DAILY biotin 5,000 mcg PO DAILY prednisolone acetate 1 % drops,suspension 1 drp EYE-RIGHT 3XD nitrofurantoin monohyd/m-cryst 100 mg capsule 1 cap PO DAILY gentamicin 0.3 % drops 1 drp EYE-RIGHT 4XD ketorolac 0.4 % drops 0 drp EYE-BOTH neurop away PO clopidogrel 75 mg tablet 75 mg PO DAILY lisinopril 40 mg tablet 40 mg PO DAILY Qty: 90 0RF (DME) Comfort EZ Pen [place] 33 gauge x 5/16 needle See Rx Instructions .Route Qty: 100 12RF Rx Instructions: USE TO INJECT INSULIN 4 TIMES DAILY glyburide 5 mg tablet 5 mg PO DAILY Qty: 90 3RF estradiol [Vivelle-Dot] 0.05 mg/24 hr patch semiweekly 1 patch transdermal 2XW Qty: 8 12RF Rx Instructions: Start using when oral estrogen tablets have been completed and apply 1 patch for 3 days alternating with 1 patch for 4 days each week. progesterone micronized 100 mg capsule 100 mg PO .qhs Qty: 30 12RF Referrals: Moises Hong DO [Primary Care Provider] - Stand Alone Forms: Patient Portal/API
[2023-07-31 16:37] LABS: Add Manual Diff / Slide Review NO; Basophils Absolute Auto 0 /uL (0-100); Basophils Percent Auto 0.8 % (0-2); Eosinophils Absolute Auto 300 /uL (0-450); Eosinophils Percent Auto 4.6 % (2-4); Hematocrit 33.5 % (36-46); Hemoglobin 11.5 g/dL (12.0-16.0); Lymphocytes Absolute Auto 1300 /uL (1100-4500); Lymphocytes Percent Auto 21.7 % (25-40); Mean Corpuscular HGB Conc 34.3 % (30-36); Mean Corpuscular Hemoglobin 29.2 PG (26-34); Mean Corpuscular Volume 85.1 fL (80-100); Monocytes Absolute Auto 500 /uL (0-900); Monocytes Percent Auto 9.2 % (3-14); Neutrophils Absolute Auto 3700 /uL (1500-7000); Neutrophils Percent Auto 63.7 % (50-75); Platelet Count 132 X10^3/uL (150-400); Red Blood Cell Count 3.94 X10^6/uL (4.0-5.2); White Blood Cell Count 5.8 X10^3/uL (4.5-11.0)
[2023-07-31 16:47] LABS: Alanine Aminotransferase 20 IU/L (<35); Albumin 4.1 g/dL (3.5-5.0); Alkaline Phosphatase 51 U/L (38-126); Aspartate Aminotransferase 28 IU/L (14-36); Bilirubin Total 0.4 mg/dL (0.2-1.3); Blood Urea Nitrogen 58 mg/dL (7-17); Calcium 9.6 mg/dL (8.4-10.2); Carbon Dioxide 21 mmol/L (22-32); Chloride 105 mmol/L (98-107); Estimated Glomerular Filt Rate 29 mL/min (>60); Ethanol (ETOH) < 10 mg/dL; Globulin 4.1 g/dL (1.7-4.1); Glucose 116 mg/dL (70-100); HEMOLYSIS < 15 (0-50); Potassium 5.3 mmol/L (3.4-5.1); Sodium 137 mmol/L (137-145); Total Protein 8.2 g/dL (6.3-8.2)
[2023-07-31 17:10] LABS: Neutrophils Absolute Manual 3770 /uL (3000-5900); RBC Morphology Normal Morphology; Smudge Cells 1+; Total Cells Counted 100; Toxic Granulation Present
== END 2023-07-31 17:53 | disposition home or self-care (01) ==
PROVIDERS: Emergency Provider Emergency Medicine; Family Provider Family Medicine; PCP Family Medicine
DX: E11.649 Type 2 diabetes mellitus with hypoglycemia without coma (principal); Z79.4 Long term (current) use of insulin
CPT/HCPCS: 36415; 80053; 80320; 82962; 85007; 85025; 99282; 99283

== ENCOUNTER → 2023-08-19 10:59 | Outpatient (CLI) | payer OTHER, MEDICAID, SELFPAY ==
[2022-03-05 14:37] VITALS: BMI 32.9
--- NOTE | 2023-08-19 11:00 | DI.NM.S_ITS ---
PROCEDURE: NM TAHIR PERF SPECT R&S PHARM Rest and pharmacological stress myocardial perfusion SPECT with gated imaging and ejection fraction RADIOPHARMACEUTICAL: 25.6 mCi Tc-99m tetrafosmin IV at rest and 24.7 mCi Tc-99m tetrafosmin IV at peak effect of pharmacological stress. [id number] was performed. INDICATIONS: Chest pain, unspecified TECHNIQUE: Radiopharmaceutical was injected at peak stress test, and also at rest. SPECT images were obtained. SPECT myocardial perfusion images were displayed in short axis, horizontal long axis, and vertical long axis views. Gated images were reviewed using Life360 software. COMPARISON: None. CARDIAC STRESS: A pharmacologic stress test was performed under the supervision of an attending staff, using an infusion of regadenoson 0.4 mg IV. Hemodynamic data: There is normal blood pressure and heart rate response to pharmacologic stress. Symptoms: The patient denied anginal chest pain. EKG: No diagnostic changes of ischemia; no ectopy. FINDINGS: Raw data: There is good myocardial uptake of radiotracer. No significant motion artifacts. [id number]-[id number] ratio is 0.22 (normal is less than 0.38 for tetrafosmin tracer). Left ventricle function: Gated images demonstrate normal left ventricular wall thickening. No segmental wall motion abnormalities. No transient ischemic dilation; TID is 1.22 (normal less than 1.3). Left ventricle stress end diastolic volume is 90 mL. Left ventricle stress ejection fraction is 72%; normal range is above 45%. Myocardial perfusion: There is normal distribution of activity in the right and left ventricular myocardium. No fixed or reversible perfusion defects. IMPRESSION: Low risk study. No evidence of pharmacologic induced ischemia or scar. Normal LV function. Dictated by: Nany Olea D.O. on 08/20/2023 at 17:07 Approved by: Nany Olea D.O. on 08/20/2023 at 17:09
== END ==
PROVIDERS: Family Provider Family Medicine; PCP Family Medicine; Referring Provider Internal Medicine Cardiovascular Disease; Visit Provider Internal Medicine Cardiovascular Disease
DX: R07.9 Chest pain, unspecified (principal); R06.09 Other forms of dyspnea
CPT/HCPCS: 78452; 93017; A9502; J2785

== ENCOUNTER 2023-08-24 19:08 | Emergency (ER) | payer OTHER, MEDICAID, SELFPAY ==
[2022-03-05 14:37] VITALS: BMI 32.9
[2023-08-24 19:17] VITALS: BP 158/88; PULSE 97; RESP 20; TEMP 35.5; O2SAT 99; BMI 75.9
--- NOTE | 2023-08-24 19:27 | DI.RAD.S_ITS ---
PROCEDURE: XR CHEST 1V INDICATIONS: Shortness of breath, chest pain TECHNIQUE: One view of the chest was acquired. COMPARISON: [facility], CR, XR CHEST 1V, 07/15/2023, 15:53. [facility], CR, XR CHEST 2V, 05/01/2018, 23:27. FINDINGS: Surgical changes and devices: None. Lungs and pleura: Lungs are clear. No pleural effusions or pneumothorax. Mediastinum: Mediastinal contours appear normal. Heart size is normal. Bones and chest wall: No suspicious bony lesions. Overlying soft tissues appear unremarkable. IMPRESSION: Portable chest within normal limits for age. Dictated by: Robbi Billings M.D. on 08/24/2023 at 20:03 Approved by: Robbi Billings M.D. on 08/24/2023 at 20:03
--- NOTE | 2023-08-24 19:31 | PC.NURSE ---
pt states she has been sob since her mi in april, pt had a stress test done 2 days ago, pt also c/o cp that radiates up into her neck, pt in no acute distress at this time, resp even and unlabored SR on the monitor, pt BS 320 pt states she didn't take her insulin because she was coming to the hospital
[2023-08-24] MEDS: ASPIRIN 81 MG CHEW TAB 324 MG PO (19:40)
--- NOTE | 2023-08-24 20:02 | ED.SOB ---
HPI - SOB/Dyspnea General Chief Complaint: Shortness of Breath/Dyspnea Stated Complaint: Diff breathing, fatigue, light headed Time Seen by Provider: 08/24/23 19:33 Source: patient Mode of arrival: Wheelchair Limitations: no limitations History of Present Illness HPI Narrative: Patient is a 52-year-old female with recent [place] with stent in April, diabetes, anxiety depression tobacco abuse presents today with ongoing shortness of breath with exertion and chest pain. Sensory event in April she has had ongoing shortness of breath however over the last few days she feels like it has gotten worse. She has significant dyspnea with minimal exertion at times she has some chest discomfort as well. She actually had a stress test this week which was read as normal. She feels like she was sick last week but is not having fever chills or cough now. She does still feel sad and depressed about the loss of her mother but is not actively suicidal or homicidal. She also reports she quit smoking about a year ago but did smoke a pack a day for multiple decades. Related Data Home Medications Medication Instructions Recorded Confirmed aspirin 81 mg tablet,delayed 81 mg PO DAILY 05/09/23 08/09/23 release (Adult Aspirin Regimen) empagliflozin 25 mg tablet 25 mg PO DAILY 05/09/23 08/09/23 (Jardiance) biotin 5,000 mcg PO DAILY 07/19/23 08/09/23 clopidogrel 75 mg tablet 75 mg PO DAILY 07/19/23 08/09/23 gentamicin 0.3 % eye drops 1 drp EYE-RIGHT 4XD 07/19/23 08/09/23 ketorolac 0.4 % eye drops 0 drp EYE-BOTH 07/19/23 08/09/23 neurop away PO 07/19/23 08/09/23 nitrofurantoin 1 cap PO DAILY 07/19/23 08/09/23 monohydrate/macrocrystals 100 mg capsule prednisolone acetate 1 % eye 1 drp EYE-RIGHT 3XD 07/19/23 08/09/23 drops,suspension Previous Rx's Medication Instructions Recorded insulin aspart U-100 100 unit/mL 10 unit (0.1 mL) SUBCUT TID #15 mL 09/01/21 (3 mL) subcutaneous pen (Novolog FlexPen U-100 Insulin aspart) omeprazole 20 mg capsule,delayed 20 mg PO BID #180 caps 02/22/22 release glyburide 5 mg tablet 5 mg PO DAILY #90 tabs 04/25/22 pravastatin 80 mg tablet 80 mg PO BEDTIME #90 tabs 07/26/22 estradiol 0.05 mg/24 hr semiweekly 1 patch transdermal 2XW #8 ea 10/17/22 transdermal patch (Vivelle-Dot) progesterone micronized 100 mg 100 mg PO .qhs #30 caps 10/17/22 capsule alprazolam 0.5 mg tablet 0.5 mg PO BID PRN anxiety #60 tabs 01/29/23 blood sugar diagnostic (ReliOn #100 ea 01/29/23 Prime Test Strips) blood sugar diagnostic (ReliOn #100 ea 02/08/23 Prime Test Strips) lancets 30 gauge (Easy Touch #100 ea 02/08/23 Lancets) canagliflozin 300 mg tablet 300 mg PO DAILY #90 tabs 04/25/23 (Invokana) furosemide 20 mg tablet See Rx Instructions PO .COMPLEX 04/25/23 #270 tabs budesonide-formoterol HFA 160 2 puff inhalation BID #10.2 grams 05/23/23 mcg-4.5 mcg/actuation aerosol inhaler (Symbicort) insulin glargine-yfgn 100 unit/mL See Rx Instructions .Route 05/23/23 (3 mL) subcutaneous pen (Semglee .COMPLEX #15 mL (insulin glargine-yfgn) Pen) mirtazapine 15 mg tablet 15 mg PO BEDTIME #30 tabs 06/05/23 pregabalin 300 mg capsule 300 mg PO BID #180 caps 06/05/23 liraglutide 0.6 mg/0.1 mL (18 mg/3 See Rx Instructions SUBCUT 06/07/23 mL) subcutaneous pen injector .COMPLEX #9 mL (Victoza 3-Brando) levetiracetam 750 mg tablet 750 mg PO BID #60 tabs 07/04/23 divalproex 250 mg tablet,extended 500 mg PO BEDTIME #60 tabs 07/10/23 release 24 hr albuterol sulfate 90 mcg/actuation 2 puff inhalation Q6H PRN 07/19/23 aerosol inhaler (ProAir HFA) shortness of breath or wheezing #17 grams lisinopril 40 mg tablet 40 mg PO DAILY #90 tabs 07/19/23 pen needle, diabetic 33 gauge x #100 ea 07/19/23 5/16 (Comfort EZ Pen [place]) prednisone 20 mg tablet 40 mg PO DAILY #10 tabs 08/24/23 Allergies Allergy/AdvReac Type Severity Reaction Status Date / Time hydrocodone Allergy Intermediate ITCHING/VOM Verified 08/09/23 11:00 ITING/RASH suture Allergy Vicryl Verified 08/09/23 11:00 Review of Systems Review of Systems ROS Unobtainable: All systems reviewed & are unremarkable except as noted in HPI and below Patient History Medical History Abscess of right external ear Acute neck pain Asthma Asymptomatic hypertensive urgency At risk for altered mental status Roberta infection Cervical somatic dysfunction Chronic back pain Chronic diarrhea Chronic GERD Chronic left shoulder pain Chronic pain of right thumb Chronic right shoulder pain 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 Constipation due to slow transit Depression with anxiety Diabetes mellitus (~2005) Diabetic retinopathy Diabetic retinopathy associated with type 2 diabetes mellitus Diarrhea due to drug Dizziness DM type 2 causing CKD stage 3 Dorsal cervical fat pad Eosinophilic, granuloma bone Fatigue Fatty liver HLD (hyperlipidemia) Hot flashes Hot flashes due to menopause HTN (hypertension) Left hip pain Left lower quadrant abdominal pain Lower extremity edema Lumbar disc herniation with radiculopathy Mixed stress and urge urinary incontinence Moderate left ankle sprain Mood swings Muscle twitching Obesity Osteosarcoma Pain of left great toe Pain of right thumb Perimenopausal symptoms Postmenopausal Pruritus Rash and nonspecific skin eruption Recurrent UTI Right elbow pain Seizure (~1990) Seizure disorder Situational anxiety Sleep apnea STEMI (ST elevation myocardial infarction) Strain of lumbar region Subconjunctival hemorrhage of left eye Trigger finger of both hands Trigger finger, left middle finger Trigger finger, right middle finger Tuberculosis (~1993) Uncontrolled type 2 diabetes mellitus Upper extremity somatic dysfunction Urge incontinence Urinary tract infection Vaginal dryness Vision disorder Weakness Weight loss counseling, encounter for Wheezing Surgical History Anesthesia Bone tumor (benign) (~1990) History of carpal tunnel release History of lumbar discectomy Neoplasm of femur S/P coronary artery stent placement S/P laminectomy Status post laparoscopic cholecystectomy (~2016) Status post laparoscopic supracervical hysterectomy (~2010) Family History Brother Mental health disorder Mother Diabetes mellitus Heart disease Kidney disease Hyperlipidemia Hypertension Sister Mental health disorder Diabetes mellitus Grandfather Hypertension Stroke Grandmother Diabetes mellitus Hypertension Father Heart disease Social History household members: none Smoking Status: Former smoker Tobacco: How many years used: 29 quit status: considering quitting second hand exposure: Yes (socially) alcohol intake: former substance use type: does not use Smoking Status: Former smoker alcohol intake frequency: other Substance Use Type: does not use Exam Initial Vital Signs Initial Vital Signs: Vital Signs Temperature 96 F L 08/24/23 19:17 Pulse Rate 97 H 08/24/23 19:17 Respiratory Rate 20 08/24/23 19:17 Blood Pressure 158/88 H 08/24/23 19:17 Pulse Oximetry 99 08/24/23 19:17 Oxygen Delivery Method Room Air 08/24/23 19:17 GENERAL: Alert pleasant well-appearing 52-year-old female HEENT: Head atraumatic,EOMI, pupils reactive, face symmetric, moist mucous membranes CARDIOVASCULAR: Regular rate and rhythm without murmurs, rubs or gallops. RESPIRATORY: Breath sounds equal bilaterally, no wheezes rales or rhonchi. ABDOMEN: Soft, nontender. Normoactive bowel sounds all 4 quadrants. No guarding or rebound. EXTREMITIES: Normal range of motion, no clubbing or edema. Neurovascularly intact NEUROLOGICAL: Alert and oriented x4.Normal gait and speech. SKIN: Warm, dry, no laceration, no petechiae, no rashes or lesions. Course Orders Ordered: ED Orders 08/24/23 19:20 Complete Blood Count AUTO DIFF Stat Comprehensive Metabolic Panel Stat D Dimer Stat Lactate (Lactic Acid) Stat Lipase Stat Magnesium Stat NT-proBNP (BNP-Adult 18+) Stat Prothrombin Time INR Stat Troponin I Stat 08/24/23 19:25 Consult to DANCE ARTIST - Fruit Preserver Stat 08/24/23 19:27 XR chest 1V Stat EKG-12 Lead Stat Measure peak expiratory flow ONCE RT Consult Eval and Treat NOW 08/24/23 20:25 COVID19 -Nasal RAPID Stat 08/24/23 21:20 Troponin & CK Cardiac Panel Stat Discontinued Medications Albuterol (Albuterol Hfa Prepack) 1 box MIS SEEINSTR ONE Stop: 08/24/23 22:43 Last Admin: 08/24/23 22:49 Dose: 1 box Documented By: Albuterol/Ipratropium (Albuterol/Ipratropium 3 Ml Ampul) 3 ml INH NOW ONE Stop: 08/24/23 20:17 Last Admin: 08/24/23 20:33 Dose: 3 ml Documented By: Aspirin (Aspirin 81 Mg Chew Tab) 324 mg PO NOW ONE Stop: 08/24/23 19:36 Last Admin: 08/24/23 19:40 Dose: 324 mg Documented By: LUIS Methylprednisolone (Methylprednisolone 125 Mg/2 Ml Vial) 125 mg IV NOW ONE Stop: 08/24/23 22:42 Last Admin: 08/24/23 23:04 Dose: 125 mg Documented By: LUIS Vital Signs Vital signs: Vital Signs - 8 hr 08/24/23 20:30 08/24/23 21:30 08/24/23 23:08 Pulse Rate 87 86 83 Respiratory Rate 23 22 20 Blood Pressure 104/68 107/69 Pulse Oximetry 97 95 96 MDM - SOB/Dyspnea Lab Data 08/24/23 19:20 08/24/23 19:20 Labs: Lab Results 08/24/23 08/24/23 08/24/23 Range/Units 19:20 19:20 19:20 WBC 3.9 L (4.5-11.0) X10^3/uL RBC 3.88 L (4.0-5.2) X10^6/uL Hgb 11.1 L (12.0-16.0) g/dL Hct 32.3 L (36-46) % MCV 83.3 (80-100) fL MCH 28.5 (26-34) PG MCHC 34.3 (30-36) % RDW 15.6 H (11.6-14.8) % Plt Count 216 (150-400) X10^3/uL Neut % (Auto) 60.9 (50-75) % Lymph % (Auto) 26.3 (25-40) % [place] % (Auto) 11.0 (3-14) % Eos % (Auto) 1.0 L (2-4) % Baso % (Auto) 0.8 (0-2) % Neut # (Auto) 2400 (5392-8124) /uL Lymph # (Auto) 1000 L (6714-0410) /uL Webster # (Auto) 400 (0-900) /uL Eos # (Auto) 0 (0-450) /uL Baso # (Auto) 0 (0-100) /uL PT 13.0 H (10.1-12.7) SECONDS INR 1.1 (0.9-1.3) D-Dimer (<500) ng/ml Sodium 134 L (137-145) mmol/L Potassium 4.5 (3.4-5.1) mmol/L Chloride 107 (98-107) mmol/L Carbon Dioxide 13 L (22-32) mmol/L BUN 64 H (7-17) mg/dL Creatinine 2.36 H (0.52-1.04) mg/dL Estimated GFR 24 L (>60) mL/min BUN/Creatinine Ratio 27.1 H (6-22) Glucose 299 H (70-100) mg/dL Lactate (0.7-2.1) mmol/L Calcium 9.5 (8.4-10.2) mg/dL Magnesium (1.6-2.3) mg/dL Total Bilirubin 0.7 (0.2-1.3) mg/dL AST 37 H (14-36) IU/L ALT 32 (<35) IU/L Alkaline Phosphatase 57 (38-126) U/L Total Creatine Kinase (30-135) U/L Troponin I < 0.012 (0.01-0.034) ng/mL NT-Pro-B Natriuret Pep 249 H (<125) pg/mL Total Protein 8.6 H (6.3-8.2) g/dL Albumin 4.2 (3.5-5.0) g/dL Globulin 4.4 H (1.7-4.1) g/dL Albumin/Globulin Ratio 1.0 (1.0-2.8) Lipase (23-300) U/L SARS-CoV-2 (PCR) (Negative) 08/24/23 08/24/23 08/24/23 Range/Units 19:20 19:20 19:20 WBC (4.5-11.0) X10^3/uL RBC (4.0-5.2) X10^6/uL Hgb (12.0-16.0) g/dL Hct (36-46) % MCV (80-100) fL MCH (26-34) PG MCHC (30-36) % RDW (11.6-14.8) % Plt Count (150-400) X10^3/uL Neut % (Auto) (50-75) % Lymph % (Auto) (25-40) % [place] % (Auto) (3-14) % Eos % (Auto) (2-4) % Baso % (Auto) (0-2) % Neut # (Auto) (4106-7341) /uL Lymph # (Auto) (8345-1590) /uL Webster # (Auto) (0-900) /uL Eos # (Auto) (0-450) /uL Baso # (Auto) (0-100) /uL PT (10.1-12.7) SECONDS INR (0.9-1.3) D-Dimer < 215 (<500) ng/ml Sodium (137-145) mmol/L Potassium (3.4-5.1) mmol/L Chloride (98-107) mmol/L Carbon Dioxide (22-32) mmol/L BUN (7-17) mg/dL Creatinine (0.52-1.04) mg/dL Estimated GFR (>60) mL/min BUN/Creatinine Ratio (6-22) Glucose (70-100) mg/dL Lactate 3.0 H (0.7-2.1) mmol/L Calcium (8.4-10.2) mg/dL Magnesium 2.4 H (1.6-2.3) mg/dL Total Bilirubin (0.2-1.3) mg/dL AST (14-36) IU/L ALT (<35) IU/L Alkaline Phosphatase (38-126) U/L Total Creatine Kinase (30-135) U/L Troponin I (0.01-0.034) ng/mL NT-Pro-B Natriuret Pep (<125) pg/mL Total Protein (6.3-8.2) g/dL Albumin (3.5-5.0) g/dL Globulin (1.7-4.1) g/dL Albumin/Globulin Ratio (1.0-2.8) Lipase 460 H (23-300) U/L SARS-CoV-2 (PCR) (Negative) 08/24/23 08/24/23 08/24/23 Range/Units 20:25 21:20 21:20 WBC (4.5-11.0) X10^3/uL RBC (4.0-5.2) X10^6/uL Hgb (12.0-16.0) g/dL Hct (36-46) % MCV (80-100) fL MCH (26-34) PG MCHC (30-36) % RDW (11.6-14.8) % Plt Count (150-400) X10^3/uL Neut % (Auto) (50-75) % Lymph % (Auto) (25-40) % [place] % (Auto) (3-14) % Eos % (Auto) (2-4) % Baso % (Auto) (0-2) % Neut # (Auto) (5792-4233) /uL Lymph # (Auto) (1046-7421) /uL Webster # (Auto) (0-900) /uL Eos # (Auto) (0-450) /uL Baso # (Auto) (0-100) /uL PT (10.1-12.7) SECONDS INR (0.9-1.3) D-Dimer (<500) ng/ml Sodium (137-145) mmol/L Potassium (3.4-5.1) mmol/L Chloride (98-107) mmol/L Carbon Dioxide (22-32) mmol/L BUN (7-17) mg/dL Creatinine (0.52-1.04) mg/dL Estimated GFR (>60) mL/min BUN/Creatinine Ratio (6-22) Glucose (70-100) mg/dL Lactate 2.2 H (0.7-2.1) mmol/L Calcium (8.4-10.2) mg/dL Magnesium (1.6-2.3) mg/dL Total Bilirubin (0.2-1.3) mg/dL AST (14-36) IU/L ALT (<35) IU/L Alkaline Phosphatase (38-126) U/L Total Creatine Kinase 38 (30-135) U/L Troponin I 0.014 (0.01-0.034) ng/mL NT-Pro-B Natriuret Pep (<125) pg/mL Total Protein (6.3-8.2) g/dL Albumin (3.5-5.0) g/dL Globulin (1.7-4.1) g/dL Albumin/Globulin Ratio (1.0-2.8) Lipase (23-300) U/L SARS-CoV-2 (PCR) Positive H (Negative) Point of Care Testing Glucose POC 320 Imaging Data Chest x-ray: Radiologist's Impression: PROCEDURE:? XR CHEST 1V ? INDICATIONS:? Shortness of breath, chest pain ? TECHNIQUE:? One view of the chest was acquired.? ? COMPARISON:? [facility], CR, XR CHEST 1V, 07/15/2023, 15:53.? [facility], CR, XR CHEST 2V, 05/01/2018, 23:27. ? FINDINGS:? ? Surgical changes and devices:? None.? ? Lungs and pleura:? Lungs are clear.? No pleural effusions or pneumothorax.? ? Mediastinum:? Mediastinal contours appear normal.? Heart size is normal.? ? Bones and chest wall:? No suspicious bony lesions.? Overlying soft tissues appear unremarkable.? ? ? IMPRESSION:? Portable chest within normal limits for age. ? ? Dictated by: Robbi Billings M.D. on 08/24/2023 at 20:03 ? ? ECG Data Interpretation: Normal sinus rhythm rate 92 VA interval 164 QRS [address] changes similar to previous EKGs MDM Narrative Medical decision making narrative: Patient 52-year-old female history of diabetes, smoking, kidney disease presents today with ongoing shortness of breath. Reports some infectious like symptoms last week fentanyl were feeling infectious. Having dyspnea with exertion. She is not hypoxic or having any evidence of conversational dyspnea lungs are clear. She is given a DuoNeb treatment which does seem to help some. Recently had stent in April. She actually had a stress 08/19/2023 which showed a normal LV function and no evidence of pharmacologic induced ischemia or scar. I think this is unlikely to be acute coronary syndrome. She is 2 negative troponins. She has a negative D-dimer her and YEARS of 0. She is positive for COVID which is likely her infectious symptoms. She is given DuoNeb and Solu-Medrol here in the ER feeling better. I think ultimately combination of recent COVID illness and COPD. BNP today is negative no evidence of congestive heart failure pneumonia on x-ray. She ultimately fell asleep and was resting comfortably. She is not hypoxic or rate meeting admission criteria at this time. Multiple etiologies for patient's symptoms considered including, but not limited to: Acute coronary syndrome, pulmonary embolism, pneumonia, pneumothorax, COPD exacerbation, anemia Prior Charts reviewed: Labs reviewed and interpreted by myself: Lactate elevated at 3.0 improved to 2.2 with out any IV fluids. No concern for sepsis. Bicarb is 13 BUN 64 creatinine 2.36. Bicarb is slightly lower than it has previously it has been as low as 14. Anion gap 14, no DKA Imaging reviewed: Chest x-ray Consultations: None Patient's symptoms improved over duration of stay with above-stated therapies. Findings and discharge diagnosis discussed with patient/family followed by verbalization of understanding Return precautions discussed with patient/family whom verbalize understanding of diagnosis and plan YEARS Algorithm for Pulmonary Embolism (PE) from [employer] on 08/25/2023 All calculations should be rechecked by clinician prior to use RESULT SUMMARY: PE excluded YEARS algorithm rules out PE (0.43% with symptomatic VTE during 3-month follow-up) INPUTS: patient ?> 0 = No Clinical signs of DVT ?> 0 = No Hemoptysis ?> 0 = No PE most likely diagnosis ?> 0 = No D-dimer >=,000 ng/mL ?> 0 = No Discharge Plan Departure Patient Disposition: Home Clinical Impression: COVID-19, COPD (chronic obstructive pulmonary disease) Instructions: Chronic Obstructive Pulmonary Disease, COVID-19 Activity Restrictions/Additional Instructions: *You have been diagnosed with COVID-19 and COPD *What to do: At this time you have a positive COVID-19 test you likely had the worst of the symptoms last week but may still be feeling ill. Wear a mask out in public rest as needed. Your kidney function is noted to be a little bit up it does seem to fluctuate at times please have your primary care provider rechecked this is week *Continue to take medications as directed Prednisone 40 mg once daily for 5 days--> [facility] [place] Albuterol 1-2 puffs every 4 hours if needed for difficulty breathing or coughing *Follow up with your primary care provider in 2-3 days or call [phone] *Return to ER if you should have increasing shortness of breath chest pain or any new, worsening or concerning symptoms Prescriptions: New prednisone 20 mg tablet 40 mg PO DAILY Qty: 10 0RF No Action mirtazapine 15 mg tablet 15 mg PO BEDTIME Qty: 30 3RF divalproex 250 mg tablet extended release 24 hr 500 mg PO BEDTIME Qty: 60 2RF omeprazole 20 mg capsule,delayed release(DR/EC) 20 mg PO BID Qty: 180 3RF (DME) lancets [Easy Touch Lancets] 30 gauge misc See Rx Instructions .Route Qty: 100 12RF Rx Instructions: Check blood glucose 4 times daily (DME) ReliOn Prime Test Strips Strip See Rx Instructions .Route Qty: 100 12RF Rx Instructions: Test blood glucose 4 times daily pregabalin 300 mg capsule 300 mg PO BID Qty: 180 0RF Victoza 3-Brando 0.6 mg/0.1 mL (18 mg/3 mL) pen injector See Rx Instructions SUBCUT .COMPLEX Qty: 9 8RF Rx Instructions: inject 0.6mg subcutaneously once daily x 7 days; then 1.2mg daily, not to exceed 1.8mg/day SUBCUT levetiracetam 750 mg tablet 750 mg PO BID Qty: 60 11RF albuterol sulfate [ProAir HFA] 90 mcg/actuation HFA aerosol inhaler 2 puff inhalation Q6H PRN (Reason: shortness of breath or wheezing) Qty: 17 1RF Rx Instructions: Please dispense 2 inhalers insulin aspart U-100 [Novolog FlexPen U-100 Insulin] 100 unit/mL (3 mL) insulin pen 10 unit SUBCUT TID Qty: 15 11RF pravastatin 80 mg tablet 80 mg PO BEDTIME Qty: 90 3RF alprazolam 0.5 mg tablet 0.5 mg PO BID PRN (Reason: anxiety) Qty: 60 5RF (DME) ReliOn Prime Test Strips Strip See Rx Instructions .Route Qty: 100 5RF Rx Instructions: As directed furosemide 20 mg tablet See Rx Instructions PO .COMPLEX Qty: 270 3RF Rx Instructions: 2tabs am and 1tab at noon, orally; Invokana 300 mg tablet 300 mg PO DAILY Qty: 90 3RF budesonide-formoterol [Symbicort] 160-4.5 mcg/actuation HFA aerosol inhaler 2 puff inhalation BID Qty: 10.2 12RF insulin glargine-yfgn [Semglee(insulin glarg-yfgn)Pen] 100 unit/mL (3 mL) insulin pen See Rx Instructions .ROUTE .COMPLEX Qty: 15 11RF Dose Instruction: INJECT 10 UNITS SUBCUTANEOUSLY ONCE DAILY Rx Instructions: INJECT 30 UNITS SUBCUTANEOUSLY twice DAILY aspirin [Adult Aspirin Regimen] 81 mg tablet,delayed release (DR/EC) 81 mg PO DAILY Jardiance 25 mg tablet 25 mg PO DAILY biotin 5,000 mcg PO DAILY prednisolone acetate 1 % drops,suspension 1 drp EYE-RIGHT 3XD nitrofurantoin monohyd/m-cryst 100 mg capsule 1 cap PO DAILY gentamicin 0.3 % drops 1 drp EYE-RIGHT 4XD ketorolac 0.4 % drops 0 drp EYE-BOTH neurop away PO clopidogrel 75 mg tablet 75 mg PO DAILY lisinopril 40 mg tablet 40 mg PO DAILY Qty: 90 0RF (DME) Comfort EZ Pen [place] 33 gauge x 5/16 needle See Rx Instructions .Route Qty: 100 12RF Rx Instructions: USE TO INJECT INSULIN 4 TIMES DAILY glyburide 5 mg tablet 5 mg PO DAILY Qty: 90 3RF estradiol [Vivelle-Dot] 0.05 mg/24 hr patch semiweekly 1 patch transdermal 2XW Qty: 8 12RF Rx Instructions: Start using when oral estrogen tablets have been completed and apply 1 patch for 3 days alternating with 1 patch for 4 days each week. progesterone micronized 100 mg capsule 100 mg PO .qhs Qty: 30 12RF Referrals: Martinez Crawford DO [Primary Care Provider] - Stand Alone Forms: Patient Portal/API
[2023-08-24 20:09] LABS: Add Manual Diff / Slide Review NO; Basophils Absolute Auto 0 /uL (0-100); Basophils Percent Auto 0.8 % (0-2); Eosinophils Absolute Auto 0 /uL (0-450); Hematocrit 32.3 % (36-46); Hemoglobin 11.1 g/dL (12.0-16.0); Lymphocytes Absolute Auto 1000 /uL (1100-4500); Lymphocytes Percent Auto 26.3 % (25-40); Mean Corpuscular HGB Conc 34.3 % (30-36); Mean Corpuscular Hemoglobin 28.5 PG (26-34); Mean Corpuscular Volume 83.3 fL (80-100); Monocytes Absolute Auto 400 /uL (0-900); Neutrophils Absolute Auto 2400 /uL (1500-7000); Neutrophils Percent Auto 60.9 % (50-75); Platelet Count 216 X10^3/uL (150-400); Red Blood Cell Count 3.88 X10^6/uL (4.0-5.2); Red Cell Distribution Width 15.6 % (11.6-14.8); White Blood Cell Count 3.9 X10^3/uL (4.5-11.0)
[2023-08-24 20:10] LABS: INR 1.1 (0.9-1.3)
[2023-08-24 20:15] LABS: Alanine Aminotransferase 32 IU/L (<35); Albumin 4.2 g/dL (3.5-5.0); Alkaline Phosphatase 57 U/L (38-126); Aspartate Aminotransferase 37 IU/L (14-36); BUN Creatinine Ratio 27.1 (6-22); Bilirubin Total 0.7 mg/dL (0.2-1.3); Blood Urea Nitrogen 64 mg/dL (7-17); Calcium 9.5 mg/dL (8.4-10.2); Carbon Dioxide 13 mmol/L (22-32); Chloride 107 mmol/L (98-107); Estimated Glomerular Filt Rate 24 mL/min (>60); Globulin 4.4 g/dL (1.7-4.1); Glucose 299 mg/dL (70-100); HEMOLYSIS < 15 (0-50); Potassium 4.5 mmol/L (3.4-5.1); Sodium 134 mmol/L (137-145); Total Protein 8.6 g/dL (6.3-8.2)
[2023-08-24 20:22] LABS: D Dimer < 215 ng/ml (<500); Lipase 460 U/L (23-300); Magnesium 2.4 mg/dL (1.6-2.3)
[2023-08-24 20:26] LABS: NT-proBNP (BNP-Adult 18+) 249 pg/mL (<125); Troponin I < 0.012 ng/mL (0.01-0.034)
[2023-08-24 20:30] VITALS: PULSE 87; RESP 23; O2SAT 97
[2023-08-24] MEDS: ALBUTEROL/IPRATROPIUM 3 ML AMPUL INH (20:33)
[2023-08-24 20:47] LABS: COVID19 -Nasal RAPID POSITIVE (Negative)
[2023-08-24 21:30] VITALS: BP 104/68; PULSE 86; RESP 22; O2SAT 95
[2023-08-24 22:02] LABS: Reflexed Lactate in 2 Hours Y
[2023-08-24 22:07] LABS: Creatine Kinase 38 U/L (30-135)
[2023-08-24 22:10] LABS: Lactate 2HR (Lactic Acid Rflx) 2.2 mmol/L (0.7-2.1)
[2023-08-24 22:20] LABS: Troponin I 0.014 ng/mL (0.01-0.034)
[2023-08-24] MEDS: ALBUTEROL HFA PREPACK 1 BOX MISC (22:49)
[2023-08-24] MEDS: methylPREDNISolone 125 MG/2 ML VIAL IV (23:04)
[2023-08-24 23:08] VITALS: BP 107/69; PULSE 83; RESP 20; O2SAT 96
== END 2023-08-24 23:09 | disposition home or self-care (01) ==
PROVIDERS: Emergency Provider Emergency Medicine; Family Provider Family Medicine; PCP Family Medicine
DX: U07.1 COVID-19 (principal); J44.9 Chronic obstructive pulmonary disease, unspecified
CPT/HCPCS: 36415; 71045; 80053; 82550; 83605; 83690; 83735; 83880; 84484; 85025; 85379; 85610; 87635; 93005; 94640; 96374; 99284; C9803; J2930

== ENCOUNTER → 2023-09-18 16:02 | Outpatient (CLI) | payer OTHER, MEDICAID, SELFPAY ==
[2023-09-06 14:36] VITALS: BMI 32.9
== END ==
PROVIDERS: Family Provider Family Medicine; PCP Family Medicine; Referring Provider Family Medicine; Visit Provider Family Medicine
DX: R06.02 Shortness of breath (principal); R05.9 Cough, unspecified; Z87.891 Personal history of nicotine dependence
CPT/HCPCS: 94060; 94726; 94729

== ENCOUNTER → 2023-09-24 13:41 | Outpatient (CLI) | payer OTHER, MEDICAID, SELFPAY ==
[2023-09-06 14:36] VITALS: BMI 32.9
[2023-09-24 14:27] LABS: Influenza A - CEPHEID Flu A NEGATIVE (NEGATIVE); Influenza B - CEPHEID Flu B NEGATIVE (NEGATIVE); Respiratory Syncytial Virus Negative (Negative)
[2023-09-24 14:28] LABS: COVID-19 CEPHEID 4-PLEX PCR Negative (Negative)
== END ==
PROVIDERS: Family Provider Family Medicine; PCP Family Medicine; Visit Provider Family Medicine
DX: R53.83 Other fatigue (principal)
CPT/HCPCS: 0241U

== ENCOUNTER → 2023-09-24 14:26 | Outpatient (CLI) | payer OTHER, MEDICAID, SELFPAY ==
[2023-09-06 14:36] VITALS: BMI 32.9
[2023-09-25 04:09] LABS: Valproic Acid (Depakene) Total 50 ug/mL (50-100)
== END ==
PROVIDERS: Family Provider Family Medicine; PCP Family Medicine; Referring Provider Psychiatry & Neurology Psychiatry; Visit Provider Psychiatry & Neurology Psychiatry
DX: R53.83 Other fatigue (principal); Z79.899 Other long term (current) drug therapy
CPT/HCPCS: 0241U; 36415; 80164

== ENCOUNTER → 2023-11-05 12:51 | Outpatient (CLI) | payer OTHER, MEDICAID, SELFPAY ==
[2023-09-06 14:36] VITALS: BMI 32.9
[2023-11-05 13:39] LABS: Add Manual Diff / Slide Review NO; Basophils Absolute Auto 0 /uL (0-100); Basophils Percent Auto 1.1 % (0-2); Eosinophils Absolute Auto 200 /uL (0-450); Eosinophils Percent Auto 5.5 % (2-4); Hematocrit 38.4 % (36-46); Hemoglobin 13.4 g/dL (12.0-16.0); Lymphocytes Absolute Auto 1200 /uL (1100-4500); Lymphocytes Percent Auto 32.6 % (25-40); Mean Corpuscular HGB Conc 34.9 % (30-36); Mean Corpuscular Hemoglobin 29.4 PG (26-34); Mean Corpuscular Volume 84.3 fL (80-100); Monocytes Absolute Auto 300 /uL (0-900); Monocytes Percent Auto 8.1 % (3-14); Neutrophils Absolute Auto 2000 /uL (1500-7000); Neutrophils Percent Auto 52.7 % (50-75); Platelet Count 167 X10^3/uL (150-400); Red Blood Cell Count 4.55 X10^6/uL (4.0-5.2); Red Cell Distribution Width 15.1 % (11.6-14.8); White Blood Cell Count 3.7 X10^3/uL (4.5-11.0)
[2023-11-05 13:55] LABS: Hemoglobin A1C% w Est Avg Glu 9.9 % (4.0-6.0)
[2023-11-05 14:31] LABS: Alanine Aminotransferase 27 IU/L (<35); Albumin 3.8 g/dL (3.5-5.0); Albumin Globulin Ratio 1.1 (1.0-2.8); Alkaline Phosphatase 81 U/L (38-126); Aspartate Aminotransferase 32 IU/L (14-36); BUN Creatinine Ratio 18.4 (6-22); Bilirubin Total 0.7 mg/dL (0.2-1.3); Blood Urea Nitrogen 28 mg/dL (7-17); Calcium 9.7 mg/dL (8.4-10.2); Carbon Dioxide 21 mmol/L (22-32); Chloride 98 mmol/L (98-107); Estimated Glomerular Filt Rate 41 mL/min (>60); Globulin 3.6 g/dL (1.7-4.1); Glucose 407 mg/dL (70-100); HEMOLYSIS < 15 (0-50); Potassium 4.5 mmol/L (3.4-5.1); Sodium 129 mmol/L (137-145); Total Protein 7.4 g/dL (6.3-8.2)
[2023-11-06 09:32] LABS: Valproic Acid (Depakene) Total 35 ug/mL (50-100)
== END ==
PROVIDERS: Pediatrics; Family Provider Family Medicine; PCP Family Medicine; Referring Provider Psychiatry & Neurology Psychiatry; Visit Provider Psychiatry & Neurology Psychiatry
DX: E11.65 Type 2 diabetes mellitus with hyperglycemia (principal); E11.22 Type 2 diabetes mellitus with diabetic chronic kidney disease; N18.30 Chronic kidney disease, stage 3 unspecified; E11.42 Type 2 diabetes mellitus with diabetic polyneuropathy; E78.1 Pure hyperglyceridemia; N28.9 Disorder of kidney and ureter, unspecified; R53.1 Weakness; Q60.2 Renal agenesis, unspecified; Z79.899 Other long term (current) drug therapy; Z79.4 Long term (current) use of insulin
CPT/HCPCS: 36415; 80053; 80164; 83036; 85025

== ENCOUNTER → 2023-11-13 08:35 | Outpatient (CLI) | payer OTHER, MEDICAID, SELFPAY ==
[2023-09-06 14:36] VITALS: BMI 32.9
[2023-11-13 14:23] LABS: COVID19 -Nasal RAPID Negative (Negative)
== END ==
PROVIDERS: Family Provider Family Medicine; PCP Family Medicine; Visit Provider Family Medicine
DX: Z20.822 Contact with and (suspected) exposure to COVID-19 (principal); F33.2 Major depressive disorder, recurrent severe without psychotic features; F43.12 Post-traumatic stress disorder, chronic; Z79.899 Other long term (current) drug therapy
CPT/HCPCS: 87635; 99215

== ENCOUNTER 2023-11-18 12:52 | Inpatient (IN) | payer OTHER, MEDICAID, SELFPAY ==
[2023-09-06 14:36] VITALS: BMI 32.9
[2023-11-18] VITALS (18 sets, daily range): BP systolic 92–131; BP diastolic 57–84; PULSE 78–112; RESP 13–25; TEMP 35.7–36.5; O2SAT 90–98; BMI 35.6
--- NOTE | 2023-11-18 14:15 | DI.RAD.S_ITS ---
PROCEDURE: XR CHEST 1V INDICATIONS: suspected sepsis TECHNIQUE: One view of the chest was acquired. COMPARISON: [facility], CR, XR CHEST 1V, 08/24/2023, 19:35. [facility], CR, XR CHEST 1V, 07/15/2023, 15:53. FINDINGS: Surgical changes and devices: None. Lungs and pleura: Lungs are clear. No pleural effusions or pneumothorax. Mediastinum: Mediastinal contours appear normal. Heart size is normal. Bones and chest wall: No suspicious bony lesions. Overlying soft tissues appear unremarkable. IMPRESSION: No acute cardiopulmonary abnormality is seen. Dictated by: Jero Keys M.D. on 11/18/2023 at 15:26 Approved by: Jero Keys M.D. on 11/18/2023 at 15:26
[2023-11-18] MEDS: SODIUM CHLORIDE 0.9% 970.69 ML IV (14:26)
[2023-11-18 14:33] LABS: HEMOLYSIS < 15 (0-50)
[2023-11-18 14:35] LABS: Prothrombin Time 11.2 SECONDS (9.4-12.5)
--- NOTE | 2023-11-18 14:37 | ED.SKABFB ---
HPI - Skin/Abscess/Foreign Bdy General Chief complaint: Skin/Abscess/Foreign Body Stated complaint: abcess on upper L/leg Time Seen by Provider: 11/18/23 14:21 Source: patient Mode of arrival: Ambulatory History of Present Illness HPI narrative: Patient 53-year-old female history of insulin-dependent diabetes, coronary artery disease presents today with abscess on left inner thigh. She was actually seen evaluated on November 13 for the same. It has been ongoing for a week. She was started on Bactrim on the she is been on it but it has progressively gotten worse. She feels a little dizzy and lightheaded at times her blood pressure is quite low concerning for sepsis. She is afebrile. She is awake alert has no other symptoms Related Data Home Medications Medication Instructions Recorded Confirmed aspirin 81 mg tablet,delayed 81 mg PO DAILY 05/09/23 11/13/23 release (Adult Aspirin Regimen) biotin 5,000 mcg PO DAILY 07/19/23 11/13/23 clopidogrel 75 mg tablet 75 mg PO DAILY 07/19/23 11/13/23 gentamicin 0.3 % eye drops 1 drp EYE-RIGHT 4XD 07/19/23 09/24/23 ketorolac 0.4 % eye drops 0 drp EYE-BOTH 07/19/23 09/24/23 prednisolone acetate 1 % eye 1 drp EYE-RIGHT 3XD 07/19/23 09/24/23 drops,suspension fesoterodine 4 mg tablet,extended 4 mg PO DAILY 09/06/23 11/13/23 release 24 hr pen needle, diabetic 31 gauge x #100 ea 09/06/23 11/13/2311/28 (TRUEplus Pen Needle) nitrofurantoin macrocrystal 100 mg 100 mg PO DAILY 11/13/23 11/13/23 capsule nitroglycerin 0.4 mg sublingual mg sublingual 11/13/23 11/13/23 tablet Previous Rx's Medication Instructions Recorded insulin aspart U-100 100 unit/mL 10 unit (0.1 mL) SUBCUT TID #15 mL 09/01/21 (3 mL) subcutaneous pen (Novolog FlexPen U-100 Insulin aspart) omeprazole 20 mg capsule,delayed 20 mg PO BID #180 caps 02/22/22 release pravastatin 80 mg tablet 80 mg PO BEDTIME #90 tabs 07/26/22 estradiol 0.05 mg/24 hr semiweekly 1 patch transdermal 2XW #8 ea 10/17/22 transdermal patch (Vivelle-Dot) blood sugar diagnostic (ReliOn #100 ea 01/29/23 Prime Test Strips) blood sugar diagnostic (ReliOn #100 ea 02/08/23 Prime Test Strips) lancets 30 gauge (Easy Touch #100 ea 02/08/23 Lancets) canagliflozin 300 mg tablet 300 mg PO DAILY #90 tabs 04/25/23 (Invokana) furosemide 20 mg tablet See Rx Instructions PO .COMPLEX 04/25/23 #270 tabs budesonide-formoterol HFA 160 2 puff inhalation BID #10.2 grams 05/23/23 mcg-4.5 mcg/actuation aerosol inhaler (Symbicort) insulin glargine-yfgn 100 unit/mL See Rx Instructions .Route 05/23/23 (3 mL) subcutaneous pen (Semglee .COMPLEX #15 mL (insulin glargine-yfgn) Pen) liraglutide 0.6 mg/0.1 mL (18 mg/3 See Rx Instructions SUBCUT 06/07/23 mL) subcutaneous pen injector .COMPLEX #9 mL (Victoza 3-Brando) levetiracetam 750 mg tablet 750 mg PO BID #60 tabs 07/04/23 albuterol sulfate 90 mcg/actuation 2 puff inhalation Q6H PRN 07/19/23 aerosol inhaler (ProAir HFA) shortness of breath or wheezing #17 grams pen needle, diabetic 33 gauge x #100 ea 07/19/23 5/ (Comfort EZ Pen [place]) glyburide 5 mg tablet 5 mg PO DAILY #90 tabs 08/29/23 mirtazapine 15 mg tablet 15 mg PO BEDTIME #30 tabs 09/16/23 gabapentin 300 mg capsule 300 mg PO BID #120 caps 09/24/23 zolpidem 5 mg tablet 5 mg PO BEDTIME PRN sleep #14 tabs 09/24/23 lisinopril 40 mg tablet 40 mg PO DAILY #90 tabs 10/10/23 quetiapine 25 mg tablet 25 mg PO BEDTIME #30 tabs 11/04/23 divalproex 250 mg tablet,extended 1,000 mg (4 x 250 mg) PO BEDTIME 11/06/23 release 24 hr #120 tabs progesterone micronized 100 mg 100 mg PO ONCE PM #30 caps 11/12/23 capsule alprazolam 0.5 mg tablet 0.5 mg PO BID PRN anxiety #60 tabs 11/13/23 Allergies Allergy/AdvReac Type Severity Reaction Status Date / Time hydrocodone Allergy Intermediate ITCHING/VOM Verified 11/13/23 08:19 ITING/RASH suture Allergy Vicryl Verified 11/13/23 08:19 Patient History Medical History Insomnia secondary to depression with anxiety Trigger finger of left hand At risk for altered mental status STEMI (ST elevation myocardial infarction) Moderate left ankle sprain Uncontrolled type 2 diabetes mellitus Muscle twitching Dizziness Weakness Mixed stress and urge urinary incontinence Dorsal cervical fat pad Trigger finger of both hands Roberta infection Diabetic retinopathy Congenital absence of kidney Postmenopausal Pain of left great toe Urge incontinence Mood swings Hot flashes due to menopause Perimenopausal symptoms Chronic diarrhea Weight loss counseling, encounter for Recurrent UTI Chronic pain of right thumb Trigger finger, left middle finger Asthma Seizure disorder Chronic left shoulder pain Asymptomatic hypertensive urgency Situational anxiety Lower extremity edema Chronic GERD Wheezing Chronic back pain Chronic right shoulder pain Trigger finger, right middle finger DM type 2 causing CKD stage 3 Fatigue Sleep apnea Depression with anxiety Abscess of right external ear Upper extremity somatic dysfunction Pain of right thumb Right elbow pain Diarrhea due to drug Rash and nonspecific skin eruption Cervical somatic dysfunction Acute neck pain Subconjunctival hemorrhage of left eye Left hip pain Obesity Strain of lumbar region Lumbar disc herniation with radiculopathy Diabetic retinopathy associated with type 2 diabetes mellitus Pruritus Urinary tract infection Constipation due to slow transit Hot flashes Left lower quadrant abdominal pain Vaginal dryness Eosinophilic, granuloma bone Seizure (~1990) HLD (hyperlipidemia) HTN (hypertension) Fatty liver Congenital absence of one kidney Tuberculosis (~1993) Osteosarcoma Vision disorder Diabetes mellitus (~2005) Surgical History S/P coronary artery stent placement History of lumbar discectomy S/P laminectomy Anesthesia History of carpal tunnel release Neoplasm of femur Bone tumor (benign) (~1990) Status post laparoscopic cholecystectomy (~2016) Status post laparoscopic supracervical hysterectomy (~2010) Family History Brother Mental health disorder Mother Diabetes mellitus Heart disease Kidney disease Hyperlipidemia Hypertension Sister Mental health disorder Diabetes mellitus Grandfather Hypertension Stroke Grandmother Diabetes mellitus Hypertension Father Heart disease Social History household members: none Smoking Status: Former smoker Tobacco: How many years used: 29 quit status: considering quitting second hand exposure: Yes (socially) alcohol intake: former substance use type: does not use Smoking Status: Former smoker alcohol intake frequency: other Substance Use Type: does not use Exam Initial Vital Signs Initial Vital Signs: Vital Signs Temperature 97.5 F L 11/18/23 12:55 Pulse Rate 112 H 11/18/23 12:55 Respiratory Rate 16 11/18/23 12:55 Blood Pressure 117/76 11/18/23 12:55 Pulse Oximetry 98 11/18/23 12:55 Oxygen Delivery Method Room Air 11/18/23 12:55 GENERAL: Alert well-appearing 53-year-old female and in no acute distress. HEENT: Head atraumatic,EOMI, pupils reactive, face symmetric, moist mucous membranes CARDIOVASCULAR: Regular rate and rhythm without murmurs, rubs or gallops. RESPIRATORY: Breath sounds equal bilaterally, no wheezes rales or rhonchi. ABDOMEN: Soft, nontender. Normoactive bowel sounds all 4 quadrants. No guarding or rebound. EXTREMITIES: Normal range of motion, no clubbing or edema. Neurovascularly intact NEUROLOGICAL: Alert and oriented x4.Normal gait and speech. SKIN: Left inner thigh 10 x 5 cm fluctuant abscess with black middle, erythematous painful to touch, does not involve genital area or the labia Procedures Abscess I/D I&D #1: Site: lower extremity Side (if applicable): left Local Anesthetic: lidocaine 1% Amount of anesthesia used (mL): 3 Technique: incised with #11 blade Amount of fluid expressed (mL): 3 Course Orders Ordered: ED Orders 11/18/23 11:30 Ketones (Beta-Hydroxybutyrate) Stat 11/18/23 14:10 Complete Blood Count AUTO DIFF Stat Comprehensive Metabolic Panel Stat Lactate (Lactic Acid) Stat Lipase Stat PTT Partial Thromboplastin Panchito Stat Procalcitonin Stat Prothrombin Time INR Stat 11/18/23 14:15 XR chest 1V Stat EKG-12 Lead Stat RT Consult Eval and Treat NOW 11/18/23 14:17 Urinalysis and Microscopic Stat 11/18/23 14:40 Blood Culture Stat 11/18/23 14:58 CT LE LT wo con Stat 11/18/23 15:09 Venous Blood Gas Stat 11/18/23 16:12 Consult to General Surgery Stat 11/19/23 05:00 Complete Blood Count AUTO DIFF DAILY Comprehensive Metabolic Panel DAILY Hemoglobin A1C% w Est Avg Glu Routine Magnesium DAILY 11/20/23 05:00 Complete Blood Count AUTO DIFF DAILY Comprehensive Metabolic Panel DAILY Magnesium DAILY 11/21/23 05:00 Complete Blood Count AUTO DIFF DAILY Comprehensive Metabolic Panel DAILY Magnesium DAILY Acetaminophen (Acetaminophen 325 Mg Tablet) 975 mg PO Q6H PRN PRN Reason: Fever/Mild Pain (1-3) Last Admin: 11/18/23 16:53 Dose: 975 mg Hydromorphone HCl (Hydromorphone 0.5 Mg Inj) 0.5 mg IV Q2H PRN PRN Reason: Pain, Severe (7-10) Sodium Chloride (Normal Saline 0.9%) 2,912.07 mls @ 970.69 mls/hr 30 ml/kg infuse over 3 hr (2912.07 ml) IV NOW ONE Stop: 11/18/23 17:16 Last Infusion: 11/18/23 16:38 Dose: 970.69 mls/hr Documented By: Admin: 11/18/23 14:26 Dose: 970.69 mls/hr Documented By: AZAM Sodium Chloride (Normal Saline 0.9%) 1,000 mls @ 100 mls/hr IV CONT NERI Last Admin: 11/18/23 16:52 Dose: 100 mls/hr Dextrose (D10w) 100 mls @ 1,200 mls/hr IV PRN PRN PRN Reason: Hypoglycemia Insulin Glargine (Insulin Glargine 100 Unit/Ml 3ml Pen) 30 unit SUBCUT BID NERI Insulin Human Lispro (Insulin Lispro 100 Unit/Ml 3ml Vial) 5 unit SUBCUT AC NERI Insulin Human Lispro (Insulin Lispro 100 Unit/Ml 3ml Vial) 0 unit SUBCUT ACHS NERI; Protocol Naloxone HCl (Naloxone 0.4 Mg/Ml Vial) 0.2 mg IV Q2MIN PRN PRN Reason: Opiate Reversal Ondansetron HCl (Ondansetron 4 Mg/2 Ml Inj) 4 mg IV Q8HR PRN PRN Reason: Nausea And Vomiting Oxycodone HCl (Oxycodone Ir 5 Mg Tablet) 5 mg PO Q3H PRN PRN Reason: Pain, Moderate (4-6) Discontinued Medications Cefepime HCl 2 gm/ Sodium (Chloride) 100 mls @ 200 mls/hr IV NOW ONE Stop: 11/18/23 14:59 Last Infusion: 11/18/23 16:01 Dose: Infused Documented By: Admin: 11/18/23 15:17 Dose: 200 mls/hr Documented By: AZAM Vancomycin HCl (Vancomycin) 1,000 mg in 200 mls @ 200 mls/hr IV NOW ONE Stop: 11/18/23 16:00 Last Infusion: 11/18/23 16:39 Dose: 200 mls/hr Documented By: Admin: 11/18/23 16:02 Dose: 200 mls/hr Documented By: AZAM Ceftriaxone Sodium 2,000 mg/ (Sodium Chloride) 100 mls @ 200 mls/hr IV Q24H NERI Morphine Sulfate (Morphine 4 Mg/Ml Inj) 4 mg IV NOW ONE Stop: 11/18/23 15:12 Last Admin: 11/18/23 15:16 Dose: 4 mg Documented By: AZAM Ondansetron HCl (Ondansetron 4 Mg/2 Ml Inj) 4 mg IV NOW PRN PRN Reason: Nausea And Vomiting Ondansetron HCl (Ondansetron 4 Mg Odt) 4 mg SL NOW PRN PRN Reason: Nausea And Vomiting Vancomycin HCl (Vancomycin Per Pharmacy) 1 request MISC NOW PRN PRN Reason: Allergic Reaction Vital Signs Vital signs: Vital Signs - 8 hr 11/18/23 12:55 11/18/23 13:38 11/18/23 13:38 Temperature 97.5 F L Pulse Rate 112 H 94 H Respiratory Rate 16 Blood Pressure 117/76 93/61 Pulse Oximetry 98 96 Oxygen Delivery Method Room Air 11/18/23 14:00 11/18/23 14:00 11/18/23 14:12 Temperature Pulse Rate 91 H 97 H Respiratory Rate Blood Pressure 92/73 Pulse Oximetry 92 95 Oxygen Delivery Method 11/18/23 14:12 11/18/23 14:30 11/18/23 14:30 Temperature Pulse Rate 95 H Respiratory Rate Blood Pressure 115/64 100/65 Pulse Oximetry 95 Oxygen Delivery Method 11/18/23 14:45 11/18/23 15:00 11/18/23 15:00 Temperature Pulse Rate 86 87 Respiratory Rate 23 25 H Blood Pressure 110/76 Pulse Oximetry 93 Oxygen Delivery Method 11/18/23 15:20 11/18/23 15:21 11/18/23 15:21 Temperature Pulse Rate 88 83 Respiratory Rate 24 Blood Pressure 129/73 Pulse Oximetry 98 98 Oxygen Delivery Method 11/18/23 15:30 11/18/23 15:30 11/18/23 15:45 Temperature Pulse Rate 81 82 Respiratory Rate 15 14 Blood Pressure 97/61 Pulse Oximetry 94 90 L Oxygen Delivery Method 11/18/23 16:00 11/18/23 16:01 11/18/23 16:01 Temperature Pulse Rate 80 81 Respiratory Rate 18 13 Blood Pressure 118/57 L Pulse Oximetry 93 90 L Oxygen Delivery Method 11/18/23 16:15 Temperature Pulse Rate 82 Respiratory Rate 19 Blood Pressure Pulse Oximetry 94 Oxygen Delivery Method Room Air MDM - Skin/Abscess/Foreign Bdy Lab Data 11/18/23 14:10 11/18/23 14:10 Labs: Lab Results 11/18/23 11/18/23 11/18/23 Range/Units 11:30 14:10 15:09 WBC 5.3 (4.5-11.0) X10^3/uL RBC 4.30 (4.0-5.2) X10^6/uL Hgb 12.6 (12.0-16.0) g/dL Hct 36.2 (36-46) % MCV 84.3 (80-100) fL MCH 29.4 (26-34) PG MCHC 34.9 (30-36) % RDW 14.4 (11.6-14.8) % Plt Count 150 (150-400) X10^3/uL Neut % (Auto) 63.7 (50-75) % Lymph % (Auto) 22.9 L (25-40) % Eddy % (Auto) 6.9 (3-14) % Eos % (Auto) 4.8 H (2-4) % Baso % (Auto) 1.7 (0-2) % Neut # (Auto) 3400 (1303-1147) /uL Lymph # (Auto) 1200 (9474-0689) /uL Eddy # (Auto) 400 (0-900) /uL Eos # (Auto) 300 (0-450) /uL Baso # (Auto) 100 (0-100) /uL PT 11.2 (9.4-12.5) SECONDS INR 1.0 (0.9-1.3) APTT 35 (25.1-36.5) SECONDS VBG pH 7.31 L (7.33-7.43) VBG pCO2 36.1 L (45-50) mmHg VBG pO2 40 (35-45) mmHg VBG HCO3 18 L (24-28) mmol/L VBG Total CO2 19 L (24-29) mmol/L VBG O2 Saturation 71 (70-75) % VBG Base Excess -8.0 L (0-4) mmol/L FiO2 21 Sodium 131 L (137-145) mmol/L Potassium 4.6 (3.4-5.1) mmol/L Chloride 102 (98-107) mmol/L Carbon Dioxide 15 L (22-32) mmol/L BUN 39 H (7-17) mg/dL Creatinine 2.42 H (0.52-1.04) mg/dL Estimated GFR 24 L (>60) mL/min BUN/Creatinine Ratio 16.1 (6-22) Glucose 308 H (70-100) mg/dL Lactate 3.4 H (0.7-2.1) mmol/L Calcium 9.5 (8.4-10.2) mg/dL Total Bilirubin 0.5 (0.2-1.3) mg/dL AST 25 (14-36) IU/L ALT 18 (<35) IU/L Alkaline Phosphatase 69 (38-126) U/L Total Protein 7.8 (6.3-8.2) g/dL Albumin 3.9 (3.5-5.0) g/dL Globulin 3.9 (1.7-4.1) g/dL Albumin/Globulin Ratio 1.0 (1.0-2.8) Lipase 130 (23-300) U/L Procalcitonin 0.14 (<0.5) ng/mL Ketones 0.16 (<0.27) mmol/L 12/25/ Range/Units 16:10 WBC (4.5-11.0) X10^3/uL RBC (4.0-5.2) X10^6/uL Hgb (12.0-16.0) g/dL Hct (36-46) % MCV (80-100) fL MCH (26-34) PG MCHC (30-36) % RDW (11.6-14.8) % Plt Count (150-400) X10^3/uL Neut % (Auto) (50-75) % Lymph % (Auto) (25-40) % Eddy % (Auto) (3-14) % Eos % (Auto) (2-4) % Baso % (Auto) (0-2) % Neut # (Auto) (2533-8447) /uL Lymph # (Auto) (5904-9370) /uL Eddy # (Auto) (0-900) /uL Eos # (Auto) (0-450) /uL Baso # (Auto) (0-100) /uL PT (9.4-12.5) SECONDS INR (0.9-1.3) APTT (25.1-36.5) SECONDS VBG pH (7.33-7.43) VBG pCO2 (45-50) mmHg VBG pO2 (35-45) mmHg VBG HCO3 (24-28) mmol/L VBG Total CO2 (24-29) mmol/L VBG O2 Saturation (70-75) % VBG Base Excess (0-4) mmol/L FiO2 Sodium (137-145) mmol/L Potassium (3.4-5.1) mmol/L Chloride (98-107) mmol/L Carbon Dioxide (22-32) mmol/L BUN (7-17) mg/dL Creatinine (0.52-1.04) mg/dL Estimated GFR (>60) mL/min BUN/Creatinine Ratio (6-22) Glucose (70-100) mg/dL Lactate 2.3 H (0.7-2.1) mmol/L Calcium (8.4-10.2) mg/dL Total Bilirubin (0.2-1.3) mg/dL AST (14-36) IU/L ALT (<35) IU/L Alkaline Phosphatase (38-126) U/L Total Protein (6.3-8.2) g/dL Albumin (3.5-5.0) g/dL Globulin (1.7-4.1) g/dL Albumin/Globulin Ratio (1.0-2.8) Lipase (23-300) U/L Procalcitonin (<0.5) ng/mL Ketones (<0.27) mmol/L Imaging Data ct LE: Radiologist's Impression: PROCEDURE: CT LE LT W CON INDICATIONS: abcess sepsis TECHNIQUE: Noncontrast 3 mm axial sections acquired of the proximal left lower extremity , with coronal and sagittal reformats. COMPARISON: None. FINDINGS: Image quality: Excellent. Bones: Minimal left hip osteoarthritis. Tricompartmental osteoarthritis of the knee, [id number] in extent. Soft tissues: Skin thickening of the medial left thigh. Trace gas within the subcutaneous tissues. No drainable abscess. Visualized bowel, bladder and uterus are unremarkable. Reactive left inguinal chain lymph nodes. IMPRESSION: Skin thickening of the medial left thigh, with trace subcutaneous gas but no drainable fluid collection. Dictated by: Jero Keys M.D. on 11/18/2023 at 15:32 Approved by: Jero Keys M.D. on 11/18/2023 at 15:33 Chest x-ray: Radiologist's Impression: PROCEDURE: XR CHEST 1V INDICATIONS: suspected sepsis TECHNIQUE: One view of the chest was acquired. COMPARISON: [facility], CR, XR CHEST 1V, 08/24/2023, 19:35. [facility], CR, XR CHEST 1V, 07/15/2023, 15:53. FINDINGS: Surgical changes and devices: None. Lungs and pleura: Lungs are clear. No pleural effusions or pneumothorax. Mediastinum: Mediastinal contours appear normal. Heart size is normal. Bones and chest wall: No suspicious bony lesions. Overlying soft tissues appear unremarkable. IMPRESSION: No acute cardiopulmonary abnormality is seen. Dictated by: Jero Keys M.D. on 11/18/2023 at 15:2 ECG Data Interpretation: Normal sinus rhythm rate 90 [place] interval 164 QRS [address] changes no T-wave inversions similar to previous MDM Narrative Medical decision making narrative: Patient is a 53-year-old female history of insulin-dependent diabetes coronary artery disease with stents on Bactrim for left inner thigh abscess presenting today with worsening abscess. She is afebrile not tachycardic however blood pressure is low 93/61 with repeat 92/70 3 with infection source identified. Attempted incision and drainage but overall was not very successful. Hematoma removed somewhat but no significant drainage. Patient overall appears very well. Blood work reviewed WBC 5.3, lactate 3.4-->2.3, sodium 131, potassium 4.7, bicarb 15, creatinine 2.42 previously 1.52 glucose 308, Venous pH 7.3, anion gap, anion gap 14, ketones 0.16, not concern for DKA at this time. CT done without IV contrast secondary to worsening renal function. I suspect that worsening renal function is due to Bactrim in chronic kidney disease. CT does show some trace amount subcutaneous air. I suspect this is from lidocaine injection and I and D attempt prior to CT. The pain is not out of control do not suspect necrotizing fasciitis at this time. Patient has previously required OR drainage of abscess. She is given cefepime vancomycin and sepsis fluids. She is responding to sepsis fluids at this time does not need vasopressors. She has no evidence of altered mental status. Dr. Kearns updated patient's symptoms test results agrees with consult possible OR but unlikely today. Dr. Malhotra accepts patient. qSOFA (Quick SOFA) Score for Sepsis from [email or web address] on 11/18/2023 All calculations should be rechecked by clinician prior to use RESULT SUMMARY: 2 points qSOFA Score High risk qSOFA Scores 2-3 are associated with a 3- to 14-fold increase in in-hospital mortality. Assess for evidence of organ dysfunction with blood testing including serum lactate and calculation of the full SOFA Score. Patients meeting these qSOFA criteria should have infection considered even if it was previously not. INPUTS: Altered mental status ?> 0 = No Respiratory rate >=2 ?> 1 = Yes Systolic BP <=00 ?> 1 = Yes Septic Shock Criteria [ ] lactic > 4 at any time [ ] SBP ,90 or MAP , 65 [ ] documentation of septic shock Time Septic Shock diagnosed: [ ] Septic Shock Determination. the patient has been screened and [ ] DOES meet criteria for septic shock [ x ] DOES NOT meet criteria for septic shock Goal directed therapy within 3 hours of septic shock or initial hypotension [ x] 30ml/kg fluid [x ] ABW used [ ] IBW (33.6) used due to BMI > 30 [ ] patient or advocate declining fluid administration after shared decision making conversation Clinical reason for NOT initiating fluid bolus: [ reason CHF, not hypotensive renal failure etc] Within 6 hours (if continued hypotension after fluids or initial lactate >4) [ ] repeat volume status and tissue perfusion assessment documented after fluid bolus was completed at [Date/Time] Must include vital signs, cardiopulmonary exam, capillary refill, peripheral pulse evaluation, skin exam [ ] Initiate vasopressor therapy if persistent hypotension after adequate fluid bolus Discharge Plan Departure Patient Disposition: Admitted As Inpatient Clinical Impression: Abscess, Sepsis Admit Date/Time: 11/18/23 16:19 Admit Provider: Roger Malhotra
[2023-11-18 14:38] LABS: PTT Partial Thromboplastin Tim 35 SECONDS (25.1-36.5)
[2023-11-18 14:39] LABS: Lactate (Lactic Acid) 3.4 mmol/L (0.7-2.1)
[2023-11-18 14:40] LABS: Alanine Aminotransferase 18 IU/L (<35); Albumin 3.9 g/dL (3.5-5.0); Alkaline Phosphatase 69 U/L (38-126); Aspartate Aminotransferase 25 IU/L (14-36); BUN Creatinine Ratio 16.1 (6-22); Bilirubin Total 0.5 mg/dL (0.2-1.3); Blood Urea Nitrogen 39 mg/dL (7-17); Calcium 9.5 mg/dL (8.4-10.2); Carbon Dioxide 15 mmol/L (22-32); Chloride 102 mmol/L (98-107); Estimated Glomerular Filt Rate 24 mL/min (>60); Globulin 3.9 g/dL (1.7-4.1); Glucose 308 mg/dL (70-100); Lipase 130 U/L (23-300); Potassium 4.6 mmol/L (3.4-5.1); Sodium 131 mmol/L (137-145); Total Protein 7.8 g/dL (6.3-8.2)
[2023-11-18 14:51] LABS: Add Manual Diff / Slide Review NO; Basophils Absolute Auto 100 /uL (0-100); Basophils Percent Auto 1.7 % (0-2); Eosinophils Absolute Auto 300 /uL (0-450); Eosinophils Percent Auto 4.8 % (2-4); Hematocrit 36.2 % (36-46); Hemoglobin 12.6 g/dL (12.0-16.0); Lymphocytes Absolute Auto 1200 /uL (1100-4500); Lymphocytes Percent Auto 22.9 % (25-40); Mean Corpuscular HGB Conc 34.9 % (30-36); Mean Corpuscular Hemoglobin 29.4 PG (26-34); Mean Corpuscular Volume 84.3 fL (80-100); Monocytes Absolute Auto 400 /uL (0-900); Monocytes Percent Auto 6.9 % (3-14); Neutrophils Absolute Auto 3400 /uL (1500-7000); Neutrophils Percent Auto 63.7 % (50-75); Platelet Count 150 X10^3/uL (150-400); Red Cell Distribution Width 14.4 % (11.6-14.8); White Blood Cell Count 5.3 X10^3/uL (4.5-11.0)
--- NOTE | 2023-11-18 14:58 | DI.CT.S_ITS ---
PROCEDURE: CT LE LT W CON INDICATIONS: abcess sepsis TECHNIQUE: Noncontrast 3 mm axial sections acquired of the proximal left lower extremity , with coronal and sagittal reformats. COMPARISON: None. FINDINGS: Image quality: Excellent. Bones: Minimal left hip osteoarthritis. Tricompartmental osteoarthritis of the knee, [id number] in extent. Soft tissues: Skin thickening of the medial left thigh. Trace gas within the subcutaneous tissues. No drainable abscess. Visualized bowel, bladder and uterus are unremarkable. Reactive left inguinal chain lymph nodes. IMPRESSION: Skin thickening of the medial left thigh, with trace subcutaneous gas but no drainable fluid collection. Dictated by: Jero Keys M.D. on 11/18/2023 at 15:32 Approved by: Jero Keys M.D. on 11/18/2023 at 15:33
[2023-11-18] MEDS: MORPHINE 4 MG/ML INJ IV (15:16)
[2023-11-18] MEDS: CEFEPIME 2 GM in SODIUM CHLORIDE 0.9% 100 ML IV (15:17)
[2023-11-18 15:21] LABS: Ketones (Beta-Hydroxybutyrate) 0.16 mmol/L (<0.27)
[2023-11-18 15:30] LABS: HCO3 VBG 18 mmol/L (24-28); Oxygen Saturation VBG 71 % (70-75); PCO2 VBG 36.1 mmHg (45-50); PO2 VBG 40 mmHg (35-45); Total CO2 VBG 19 mmol/L (24-29); pH VBG 7.31 (7.33-7.43)
[2023-11-18 15:31] LABS: Fractionated Inspired Oxygen 21
[2023-11-18 15:43] LABS: Procalcitonin 0.14 ng/mL (<0.5)
[2023-11-18 16:00] LABS: Reflexed Lactate in 2 Hours Y
[2023-11-18] MEDS: VANCOMYCIN 1,000 MG/200 ML PIGGYBACK 200 MG IV (16:02)
--- NOTE | 2023-11-18 16:23 | P.HP_ITS ---
History of Present Illness History of Present Illness Date Patient Seen: 11/18/23 Time Patient Seen: 17:30 Chief complaint: abcess on upper L/leg Narrative: 53-year-old woman with history of cranial tumor excision at age 20, anxiety, depression, Biopolar disorder, asthma, chronic pain, type 2 diabetes with peripheral neuropathy and CKD3, CAD s/p STEMI, congenital single kidney, hypertriglyceridemia, hypertension, IBS, frequent UTIs, headaches, seizure disorders who presents with worsening leg pain and worsening cyst on her left thigh. Presented 11/13 to urgent care, was given bactrim but lesion has progressed since. Patient had attempted drainage in the emergency room with no obvious purulence removed, CT showed no drainable collection in the ER. Patient states that the size of the lesion has gone up 4 fold in the last 5 days since urgent care. Surgery was consulted, pending formal consultation. She was given cefepime and vancomycin and admitted for further management. Patient had a MAP of 73 in the ER, improved with fluids. She has a mild acidosis, with borderline anion gap and borderline bicarb. In reading her PCP notes, there is some concern for missing some of her chronic medications. Glucose was 308, creatinine was 2.42, up from baseline of around 1.5. FORMERLY [facility] Medical History Insomnia secondary to depression with anxiety Trigger finger of left hand At risk for altered mental status STEMI (ST elevation myocardial infarction) Moderate left ankle sprain Uncontrolled type 2 diabetes mellitus Muscle twitching Dizziness Weakness Mixed stress and urge urinary incontinence Dorsal cervical fat pad Trigger finger of both hands Roberta infection Diabetic retinopathy Congenital absence of kidney Postmenopausal Pain of left great toe Urge incontinence Mood swings Hot flashes due to menopause Perimenopausal symptoms Chronic diarrhea Weight loss counseling, encounter for Recurrent UTI Chronic pain of right thumb Trigger finger, left middle finger Asthma Seizure disorder Chronic left shoulder pain Asymptomatic hypertensive urgency Situational anxiety Lower extremity edema Chronic GERD Wheezing Chronic back pain Chronic right shoulder pain Trigger finger, right middle finger DM type 2 causing CKD stage 3 Fatigue Sleep apnea Depression with anxiety Abscess of right external ear Upper extremity somatic dysfunction Pain of right thumb Right elbow pain Diarrhea due to drug Rash and nonspecific skin eruption Cervical somatic dysfunction Acute neck pain Subconjunctival hemorrhage of left eye Left hip pain Obesity Strain of lumbar region Lumbar disc herniation with radiculopathy Diabetic retinopathy associated with type 2 diabetes mellitus Pruritus Urinary tract infection Constipation due to slow transit Hot flashes Left lower quadrant abdominal pain Vaginal dryness Eosinophilic, granuloma bone Seizure (~1990) HLD (hyperlipidemia) HTN (hypertension) Fatty liver Congenital absence of one kidney Tuberculosis (~1993) Osteosarcoma Vision disorder Diabetes mellitus (~2005) Surgical History S/P coronary artery stent placement History of lumbar discectomy S/P laminectomy Anesthesia History of carpal tunnel release Neoplasm of femur Bone tumor (benign) (~1990) Status post laparoscopic cholecystectomy (~2016) Status post laparoscopic supracervical hysterectomy (~2010) Family History Brother Mental health disorder Mother Diabetes mellitus Heart disease Kidney disease Hyperlipidemia Hypertension Sister Mental health disorder Diabetes mellitus Grandfather Hypertension Stroke Grandmother Diabetes mellitus Hypertension Father Heart disease Social History household members: none Smoking Status: Former smoker Tobacco: How many years used: 29 quit status: considering quitting second hand exposure: Yes (socially) alcohol intake: former substance use type: does not use Meds Home Medications and Allergies Home Medications Medication Instructions Recorded Confirmed Type omeprazole 20 mg capsule,delayed 20 mg PO BID #180 caps 02/22/22 11/18/23 Rx release pravastatin 80 mg tablet 80 mg PO BEDTIME #90 tabs 07/26/22 11/18/23 Rx estradiol 0.05 mg/24 hr semiweekly 1 patch transdermal 2XW #8 ea 10/17/22 11/18/23 Rx transdermal patch (Vivelle-Dot) blood sugar diagnostic (ReliOn #100 ea 01/29/23 11/13/23 Rx Prime Test Strips) blood sugar diagnostic (ReliOn #100 ea 02/08/23 11/13/23 Rx Prime Test Strips) lancets 30 gauge (Easy Touch #100 ea 02/08/23 11/13/23 Rx Lancets) canagliflozin 300 mg tablet 300 mg PO DAILY #90 tabs 04/25/23 11/18/23 Rx (Invokana) furosemide 20 mg tablet See Rx Instructions PO .COMPLEX 04/25/23 11/18/23 Rx #270 tabs aspirin 81 mg tablet,delayed 81 mg PO DAILY 05/09/23 11/18/23 History release (Adult Aspirin Regimen) budesonide-formoterol HFA 160 2 puff inhalation BID #10.2 grams 05/23/23 11/18/23 Rx mcg-4.5 mcg/actuation aerosol inhaler (Symbicort) insulin glargine-yfgn 100 unit/mL See Rx Instructions .Route 05/23/23 11/18/23 Rx (3 mL) subcutaneous pen (Semglee .COMPLEX #15 mL (insulin glargine-yfgn) Pen) levetiracetam 750 mg tablet 750 mg PO BID #60 tabs 07/04/23 11/18/23 Rx albuterol sulfate 90 mcg/actuation 2 puff inhalation Q6H PRN 07/19/23 11/18/23 Rx aerosol inhaler (ProAir HFA) shortness of breath or wheezing #17 grams biotin 5,000 mcg PO DAILY 07/19/23 11/18/23 History clopidogrel 75 mg tablet 75 mg PO DAILY 07/19/23 11/18/23 History pen needle, diabetic 33 gauge x #100 ea 07/19/23 11/13/23 Rx 5/16 (Comfort EZ Pen [place]) glyburide 5 mg tablet 5 mg PO DAILY #90 tabs 08/29/23 11/18/23 Rx fesoterodine 4 mg tablet,extended 4 mg PO DAILY 09/06/23 11/18/23 History release 24 hr pen needle, diabetic 31 gauge x #100 ea 09/06/23 11/13/23 History 1/4 (TRUEplus Pen Needle) mirtazapine 15 mg tablet 15 mg PO BEDTIME #30 tabs 09/16/23 11/18/23 Rx gabapentin 300 mg capsule 300 mg PO BID #120 caps 09/24/23 11/18/23 Rx zolpidem 5 mg tablet 5 mg PO BEDTIME PRN sleep #14 tabs 09/24/23 11/18/23 Rx lisinopril 40 mg tablet 40 mg PO DAILY #90 tabs 10/10/23 11/18/23 Rx quetiapine 25 mg tablet 25 mg PO BEDTIME #30 tabs 11/04/23 11/18/23 Rx divalproex 250 mg tablet,extended 1,000 mg (4 x 250 mg) PO BEDTIME 11/06/23 11/18/23 Rx release 24 hr #120 tabs progesterone micronized 100 mg 100 mg PO ONCE PM #30 caps 11/12/23 11/18/23 Rx capsule alprazolam 0.5 mg tablet 0.5 mg PO BID PRN anxiety #60 tabs 11/13/23 11/18/23 Rx nitrofurantoin macrocrystal 100 mg 100 mg PO DAILY 11/13/23 11/18/23 History capsule nitroglycerin 0.4 mg sublingual 0.4 mg sublingual DAILY 11/13/23 11/18/23 History tablet insulin aspart U-100 100 unit/mL 30 unit SUBCUT BID 11/18/23 11/18/23 History (3 mL) subcutaneous pen (Novolog FlexPen U-100 Insulin aspart) liraglutide 0.6 mg/0.1 mL (18 mg/3 1.8 mg SUBCUT DAILY 11/18/23 11/18/23 History mL) subcutaneous pen injector (Victoza 3-Brando) Allergies Allergy/AdvReac Type Severity Reaction Status Date / Time hydrocodone Allergy Intermediate ITCHING/VOM Verified 11/13/23 08:19 ITING/RASH suture Allergy Vicryl Verified 11/13/23 08:19 Review of Systems Review of Systems Narrative: All other systems reviewed with the patient and are negative unless otherwise stated. Exam Vital Signs (past 8 hours): - 11/18/23 12:55 11/18/23 13:38 11/18/23 13:38 Temperature 97.5 F L Pulse Rate 112 H 94 H Respiratory Rate 16 Blood Pressure 117/76 93/61 Pulse Oximetry 98 96 Oxygen Delivery Method Room Air 11/18/23 14:00 11/18/23 14:00 11/18/23 14:12 Temperature Pulse Rate 91 H 97 H Respiratory Rate Blood Pressure 92/73 Pulse Oximetry 92 95 Oxygen Delivery Method 11/18/23 14:12 11/18/23 14:30 11/18/23 14:30 Temperature Pulse Rate 95 H Respiratory Rate Blood Pressure 115/64 100/65 Pulse Oximetry 95 Oxygen Delivery Method 11/18/23 14:45 11/18/23 15:00 11/18/23 15:00 Temperature Pulse Rate 86 87 Respiratory Rate 23 25 H Blood Pressure 110/76 Pulse Oximetry 93 Oxygen Delivery Method 11/18/23 15:20 11/18/23 15:21 11/18/23 15:21 Temperature Pulse Rate 88 83 Respiratory Rate 24 Blood Pressure 129/73 Pulse Oximetry 98 98 Oxygen Delivery Method 11/18/23 15:30 11/18/23 15:30 11/18/23 15:45 Temperature Pulse Rate 81 82 Respiratory Rate 15 14 Blood Pressure 97/61 Pulse Oximetry 94 90 L Oxygen Delivery Method 11/18/23 16:00 11/18/23 16:01 11/18/23 16:01 Temperature Pulse Rate 80 81 Respiratory Rate 18 13 Blood Pressure 118/57 L Pulse Oximetry 93 90 L Oxygen Delivery Method 11/18/23 16:15 Temperature Pulse Rate 82 Respiratory Rate 19 Blood Pressure Pulse Oximetry 94 Oxygen Delivery Method Room Air Oxygen Delivery Method Room Air Narrative Exam Narrative: General:? Patient is well developed and well nourished, in no distress at this time. HEENT:? Normocephalic, atraumatic, extraocular muscles intact, oral pharynx is clear and mucous membranes are moist. Neck: supple and symmetric, trachea is midline, no cervical adenopathy. Chest:? Normal AP diameter and contour without kyphoscoliosis, no tachypnea, equal chest rise bilaterally. Lungs:? CTA b/l no wheezing rhonchi or rales. Cardio:?RRR no m/r/g. Abdomen: S NT ND. No CVA tenderness. Musculoskeletal:? Muscle strength and tone are equal within normal limits, no deformity. Extremities: No edema or joint effusions. No cyanosis or clubbing. On her inner left thigh is an approx 2x3x4 cm enlarged cyst, with overlying skin necrosis with minimal surrounding erythema. No crepitus. Minimal tenderness. Skin:? Pale,? Warm to touch,dry and intact without rashes, ulcerations or petechiae.? Neuro:? Alert and orientated x3,? sensation to touch intact in all extremities, no gross deficits noted of cranial nerves. Psych:? Patient has a well-kept appearance, appropriate affect, mental status attitude thought context and judgment are appropriate for age. Objective ECG Impression: NSR with no acute ischemia as interpreted by me. Labs 11/18/23 14:10 11/18/23 14:10 Labs: Laboratory Results - last 24 hr 11/18/23 11/18/23 11/18/23 11:30 14:10 15:09 WBC 5.3 RBC 4.30 Hgb 12.6 Hct 36.2 MCV 84.3 MCH 29.4 MCHC 34.9 RDW 14.4 Plt Count 150 Neut % (Auto) 63.7 Lymph % (Auto) 22.9 L [place] % (Auto) 6.9 Eos % (Auto) 4.8 H Baso % (Auto) 1.7 Neut # (Auto) 3400 Lymph # (Auto) 1200 [place] # (Auto) 400 Eos # (Auto) 300 Baso # (Auto) 100 PT 11.2 INR 1.0 APTT 35 VBG pH 7.31 L VBG pCO2 36.1 L VBG pO2 40 VBG HCO3 18 L VBG Total CO2 19 L VBG O2 Saturation 71 VBG Base Excess -8.0 L FiO2 21 Sodium 131 L Potassium 4.6 Chloride 102 Carbon Dioxide 15 L BUN 39 H Creatinine 2.42 H Estimated GFR 24 L BUN/Creatinine Ratio 16.1 Glucose 308 H Lactate 3.4 H Calcium 9.5 Total Bilirubin 0.5 AST 25 ALT 18 Alkaline Phosphatase 69 Total Protein 7.8 Albumin 3.9 Globulin 3.9 Albumin/Globulin Ratio 1.0 Lipase 130 Procalcitonin 0.14 Ketones 0.16 Assessment & Plan Assessment & Plan narrative: 1. Possible sepsis secondary to L leg cellulitis with possible abscess and GUSTAVO - failed outpatient therapy with bactrim, likely also explains elevated creatinine to some extent. Borderline hypotension in ER but MAP >73 and responded to fluids. - continue ceftriaxone (given cefepime in ER) and vancomycin per pharamcy - general surgery consulted by the emergency room, s/p attempted I&D in the ER likely explains subcutaneous gas on LE CT. There is some overlying necrosis on the top, but no significant extension and low concern for necrotizing infection at this time. Will make NPO presuming I&D tomorrow. - SOFA score is 2 based on creatinine, but unclear if true GUSTAVO with bactrim use. 2. GUSTAVO on CKD stage III - some component of GUSTAVO likely due to elevation in creatinine due to bactrim, also with solitary kidney. - continue IV fluids. 3. HTN - will hold home medications temporarily in setting of possible sepsis. Restart home medications if SBP consistently greater than 160. resart lisinopril last given GUSTAVO. 4. Insulin dependent diabetes with chronic insulin use - hold home oral medications for now, continue home glargine, meal time reduce to 5 TID, and add sliding scale - borderline DKA labs but suspect more due to dehydration and renal disease, patient has not taken long acting insulin since yesterday evening - continue to follow bmp, if worsening can consider insulin infusion but glucose already improved with fluids only. - concern from PCP notes that she is missing doses of insulin, reports 40 U BID of glargine currently, will change to 30 U BID for now, 5 U TID AC with meals, and sliding scale for now. 5. Anxiety / depression / bipolar disorder - continue home medications 6. History of seizures with prior craniotomy - continue home seizure medications 7. CAD - continue asa and plavix Code: Full, surrogate is patient's friend Mary DVT: SCD pending possible surgical intervention Dispo: Admitted inpatient as her stay is expected to exceed two midnights. Discussed with ER provider, bedside RN to formulate the above assessment and plan and inform above history. I have extensively reviewed patient's outpatient records, including primary care notes given her chronic underlying conditions. Reviewed recent labs, imaging imaging personally. I have utilized all available immediate resources to obtain, update, or review the patient's current medications. Scores SOFA PaO2/FIO2: >=400 mmHg Platelets: >= 150 Bilirubin: < 1.2 mg/dL Hypotension: MAP >= 70 mmHg [place] Coma Scale: 15 Renal: Creatinine 2.0-3.4 mg/dL SOFA Score: 2
[2023-11-18 16:32] LABS: Lactate 2HR (Lactic Acid Rflx) 2.3 mmol/L (0.7-2.1)
[2023-11-18] MEDS: SODIUM CHLORIDE 0.9% 1,000 ML 100 ML IV ×2 (16:52→20:34)
[2023-11-18] MEDS: ACETAMINOPHEN 325 MG TABLET 975 MG PO (16:53)
[2023-11-18] MEDS: HYDROMORPHONE 0.5 MG INJ IV (17:41)
--- NOTE | 2023-11-18 18:03 | PC.NURSE ---
Patient arrived to room 215 at approximately 1700. VSS, afebrile on RA. She reports pain to L inner thigh 8/10, asking to eat she is very hungry. BG check is 200 prior to dinner. She is receiving last liter of 3L sepsis protocol. She is able to complete admission assessment. Call light in reach, belongings in reach, bed alarm on, frequent rounding.
[2023-11-18] MEDS: diphenhydrAMINE 25 MG TABLET PO (19:53)
[2023-11-18] MEDS: MIRTAZAPINE 15 MG TABLET PO (20:27)
[2023-11-18] MEDS: DIVALPROEX ER 250 MG TAB 1000 MG PO (20:27)
[2023-11-18] MEDS: GABAPENTIN 300 MG CAPSULE PO (20:27)
[2023-11-18] MEDS: QUETIAPINE 25 MG TABLET PO (20:27)
[2023-11-18] MEDS: FAMOTIDINE 20 MG TABLET PO (20:27)
[2023-11-18] MEDS: levETIRAcetam 250 MG TABLET 750 MG PO (20:27)
[2023-11-18] MEDS: INSULIN GLARGINE 100 UNIT/ML 3ML PEN 30 UNIT SUBCUT (20:28)
[2023-11-18] MEDS: INSULIN LISPRO 100 UNIT/ML 3ML VIAL SUBCUT (20:39)
[2023-11-19] VITALS (11 sets, daily range): BP systolic 95–134; BP diastolic 61–84; PULSE 16–88; RESP 13–88; TEMP 36.1–37.2; O2SAT 94–98; BMI 37.2
[2023-11-19] MEDS: HYDROMORPHONE 0.5 MG INJ IV (00:23)
[2023-11-19 06:10] LABS: Alanine Aminotransferase 13 IU/L (<35); Albumin 3.1 g/dL (3.5-5.0); Albumin Globulin Ratio 0.9 (1.0-2.8); Alkaline Phosphatase 55 U/L (38-126); Aspartate Aminotransferase 24 IU/L (14-36); BUN Creatinine Ratio 17.4 (6-22); Bilirubin Total 0.4 mg/dL (0.2-1.3); Blood Urea Nitrogen 34 mg/dL (7-17); Calcium 8.6 mg/dL (8.4-10.2); Carbon Dioxide 21 mmol/L (22-32); Chloride 111 mmol/L (98-107); Estimated Glomerular Filt Rate 31 mL/min (>60); Globulin 3.6 g/dL (1.7-4.1); Glucose 101 mg/dL (70-100); HEMOLYSIS < 15 (0-50); Magnesium 2.2 mg/dL (1.6-2.3); Potassium 5.4 mmol/L (3.4-5.1); Sodium 137 mmol/L (137-145); Total Protein 6.7 g/dL (6.3-8.2)
[2023-11-19 06:25] LABS: Hemoglobin A1C% w Est Avg Glu 10.4 % (4.0-6.0)
[2023-11-19] MEDS: SODIUM CHLORIDE 0.9% 1,000 ML 100 ML IV (06:28)
[2023-11-19 06:30] LABS: Add Manual Diff / Slide Review NO; Basophils Absolute Auto 0 /uL (0-100); Eosinophils Absolute Auto 200 /uL (0-450); Hematocrit 33.3 % (36-46); Hemoglobin 11.3 g/dL (12.0-16.0); Lymphocytes Absolute Auto 1400 /uL (1100-4500); Lymphocytes Percent Auto 37.2 % (25-40); Mean Corpuscular Hemoglobin 28.9 PG (26-34); Monocytes Absolute Auto 300 /uL (0-900); Monocytes Percent Auto 7.6 % (3-14); Neutrophils Absolute Auto 1800 /uL (1500-7000); Neutrophils Percent Auto 48.2 % (50-75); Platelet Count 127 X10^3/uL (150-400); Red Blood Cell Count 3.91 X10^6/uL (4.0-5.2); Red Cell Distribution Width 14.1 % (11.6-14.8); White Blood Cell Count 3.8 X10^3/uL (4.5-11.0)
--- NOTE | 2023-11-19 08:27 | PC.NURSE ---
Patient is alert and oriented x4, she denies pain at this time. She has a large abcess to the l.interior groin that is red and draining bloody drainage. Patient is npo for possible I&D later today. Her blood sugar is 101, she states that she does not want any insulin while she is npo or it will drop her sugar. Will ask hospitalist if she can take her medication. Abd pad given to patient to place on abcess site. She is resting now.
[2023-11-19] MEDS: GABAPENTIN 300 MG CAPSULE PO (09:17)
[2023-11-19] MEDS: levETIRAcetam 250 MG TABLET 750 MG PO (09:17)
--- NOTE | 2023-11-19 10:00 | P.CONS_ITS ---
History of Present Illness Consult details Date Patient Seen: 11/19/23 Time Patient Seen: 10:00 Chief complaint: abcess on upper L/leg Reason for consult: Abscess upper left thigh Requesting provider: Ginny Kearns Narrative: Of the liver weeks time of an angry area in the left upper thigh, medial aspect. Attempted aspiration in the ED without success. Patient has previous abscess on same leg different area. Presumed follicular in origin. Pain is sharp and throbbing. Patient is also diabetic Meds Home Medications and Allergies Home Medications Medication Instructions Recorded Confirmed Type omeprazole 20 mg capsule,delayed 20 mg PO BID #180 caps 02/22/22 11/18/23 Rx release pravastatin 80 mg tablet 80 mg PO BEDTIME #90 tabs 07/26/22 11/18/23 Rx estradiol 0.05 mg/24 hr semiweekly 1 patch transdermal 2XW #8 ea 10/17/22 11/18/23 Rx transdermal patch (Vivelle-Dot) blood sugar diagnostic (ReliOn #100 ea 01/29/23 11/19/23 Rx Prime Test Strips) blood sugar diagnostic (ReliOn #100 ea 02/08/23 11/19/23 Rx Prime Test Strips) lancets 30 gauge (Easy Touch #100 ea 02/08/23 11/19/23 Rx Lancets) canagliflozin 300 mg tablet 300 mg PO DAILY #90 tabs 04/25/23 11/18/23 Rx (Invokana) furosemide 20 mg tablet See Rx Instructions PO .COMPLEX 04/25/23 11/18/23 Rx #270 tabs aspirin 81 mg tablet,delayed 81 mg PO DAILY 05/09/23 11/18/23 History release (Adult Aspirin Regimen) budesonide-formoterol HFA 160 2 puff inhalation BID #10.2 grams 05/23/23 11/18/23 Rx mcg-4.5 mcg/actuation aerosol inhaler (Symbicort) insulin glargine-yfgn 100 unit/mL See Rx Instructions .Route 05/23/23 11/18/23 Rx (3 mL) subcutaneous pen (Semglee .COMPLEX #15 mL (insulin glargine-yfgn) Pen) levetiracetam 750 mg tablet 750 mg PO BID #60 tabs 07/04/23 11/18/23 Rx albuterol sulfate 90 mcg/actuation 2 puff inhalation Q6H PRN 07/19/23 11/18/23 Rx aerosol inhaler (ProAir HFA) shortness of breath or wheezing #17 grams biotin 5,000 mcg PO DAILY 07/19/23 11/18/23 History clopidogrel 75 mg tablet 75 mg PO DAILY 07/19/23 11/18/23 History pen needle, diabetic 33 gauge x #100 ea 07/19/23 11/19/23 Rx 5/16 (Comfort EZ Pen [place]) glyburide 5 mg tablet 5 mg PO DAILY #90 tabs 08/29/23 11/18/23 Rx fesoterodine 4 mg tablet,extended 4 mg PO DAILY 09/06/23 11/18/23 History release 24 hr pen needle, diabetic 31 gauge x #100 ea 09/06/23 11/19/23 History 1/4 (TRUEplus Pen Needle) mirtazapine 15 mg tablet 15 mg PO BEDTIME #30 tabs 09/16/23 11/18/23 Rx gabapentin 300 mg capsule 300 mg PO BID #120 caps 09/24/23 11/18/23 Rx zolpidem 5 mg tablet 5 mg PO BEDTIME PRN sleep #14 tabs 09/24/23 11/18/23 Rx lisinopril 40 mg tablet 40 mg PO DAILY #90 tabs 10/10/23 11/18/23 Rx quetiapine 25 mg tablet 25 mg PO BEDTIME #30 tabs 11/04/23 11/18/23 Rx divalproex 250 mg tablet,extended 1,000 mg (4 x 250 mg) PO BEDTIME 11/06/23 11/18/23 Rx release 24 hr #120 tabs progesterone micronized 100 mg 100 mg PO ONCE PM #30 caps 11/12/23 11/18/23 Rx capsule alprazolam 0.5 mg tablet 0.5 mg PO BID PRN anxiety #60 tabs 11/13/23 11/18/23 Rx nitrofurantoin macrocrystal 100 mg 100 mg PO DAILY 11/13/23 11/18/23 History capsule nitroglycerin 0.4 mg sublingual 0.4 mg sublingual DAILY 11/13/23 11/18/23 History tablet insulin aspart U-100 100 unit/mL 30 unit SUBCUT BID 11/18/23 11/18/23 History (3 mL) subcutaneous pen (Novolog FlexPen U-100 Insulin aspart) liraglutide 0.6 mg/0.1 mL (18 mg/3 1.8 mg SUBCUT DAILY 11/18/23 11/18/23 History mL) subcutaneous pen injector (Victoza 3-Brando) Allergies Allergy/AdvReac Type Severity Reaction Status Date / Time hydrocodone Allergy Intermediate ITCHING/VOM Verified 11/13/23 08:19 ITING/RASH suture Allergy Vicryl Verified 11/13/23 08:19 Review of Systems Review of Systems ROS: Yes All systems reviewed with the patient and are negative except as otherwise documented Exam Vital Signs (past 8 hours): - 11/19/23 04:15 11/19/23 04:15 11/19/23 08:33 Temperature 97.1 F L 97 F L Pulse Rate 86 80 Respiratory Rate 18 19 Blood Pressure 122/73 119/64 Pulse Oximetry 96 96 97 Oxygen Flow Rate 0 0 Oxygen Delivery Method Room Air Oxygen Flow Rate 0 Const General: cooperative and comfortable Nutritional Appearance: overweight HENMT Head: normal to inspection, normocephalic and atraumatic Ears: hearing grossly normal bilaterally Eyes General: appearance normal, both eyes and all related structures Sclera: sclerae normal Neck Neck: normal visual inspection and trachea midline Resp Effort & Inspection: normal respiratory effort and able to speak in complete sentences Cardio Rate: regular rate Rhythm: regular rhythm GI Palpation: soft and No tender Skin General: turgor normal and No atrophy Wounds: wounds noted (upper left thigh) Neuro General: patient alert, patient awake and patient oriented x3 Cognition: normal cognition Psych Mental Status: mental status grossly normal Affect: normal affect Judgment: judgment good Objective Labs 11/19/23 05:30 11/19/23 05:30 Labs: Laboratory Results - last 24 hr 11/18/23 11/18/23 11/18/23 11:30 14:10 15:09 WBC 5.3 RBC 4.30 Hgb 12.6 Hct 36.2 MCV 84.3 MCH 29.4 MCHC 34.9 RDW 14.4 Plt Count 150 Neut % (Auto) 63.7 Lymph % (Auto) 22.9 L [place] % (Auto) 6.9 Eos % (Auto) 4.8 H Baso % (Auto) 1.7 Neut # (Auto) 3400 Lymph # (Auto) 1200 [place] # (Auto) 400 Eos # (Auto) 300 Baso # (Auto) 100 PT 11.2 INR 1.0 APTT 35 VBG pH 7.31 L VBG pCO2 36.1 L VBG pO2 40 VBG HCO3 18 L VBG Total CO2 19 L VBG O2 Saturation 71 VBG Base Excess -8.0 L FiO2 21 Sodium 131 L Potassium 4.6 Chloride 102 Carbon Dioxide 15 L BUN 39 H Creatinine 2.42 H Estimated GFR 24 L BUN/Creatinine Ratio 16.1 Glucose 308 H Hemoglobin A1c Lactate 3.4 H Calcium 9.5 Magnesium Total Bilirubin 0.5 AST 25 ALT 18 Alkaline Phosphatase 69 Total Protein 7.8 Albumin 3.9 Globulin 3.9 Albumin/Globulin Ratio 1.0 Lipase 130 Procalcitonin 0.14 Ketones 0.16 11/18/23 11/19/23 16:10 05:30 WBC 3.8 L RBC 3.91 L Hgb 11.3 L Hct 33.3 L MCV 85.0 MCH 28.9 MCHC 34.0 RDW 14.1 Plt Count 127 L Neut % (Auto) 48.2 L Lymph % (Auto) 37.2 [place] % (Auto) 7.6 Eos % (Auto) 6.0 H Baso % (Auto) 1.0 Neut # (Auto) 1800 Lymph # (Auto) 1400 [place] # (Auto) 300 Eos # (Auto) 200 Baso # (Auto) 0 PT INR APTT VBG pH VBG pCO2 VBG pO2 VBG HCO3 VBG Total CO2 VBG O2 Saturation VBG Base Excess FiO2 Sodium 137 Potassium 5.4 H Chloride 111 H Carbon Dioxide 21 L BUN 34 H Creatinine 1.95 H Estimated GFR 31 L BUN/Creatinine Ratio 17.4 Glucose 101 H D Hemoglobin A1c 10.4 H Lactate 2.3 H Calcium 8.6 Magnesium 2.2 Total Bilirubin 0.4 AST 24 ALT 13 Alkaline Phosphatase 55 Total Protein 6.7 Albumin 3.1 L Globulin 3.6 Albumin/Globulin Ratio 0.9 L Lipase Procalcitonin Ketones PFSH Medical History Insomnia secondary to depression with anxiety Trigger finger of left hand At risk for altered mental status STEMI (ST elevation myocardial infarction) Moderate left ankle sprain Uncontrolled type 2 diabetes mellitus Muscle twitching Dizziness Weakness Mixed stress and urge urinary incontinence Dorsal cervical fat pad Trigger finger of both hands Roberta infection Diabetic retinopathy Congenital absence of kidney Postmenopausal Pain of left great toe Urge incontinence Mood swings Hot flashes due to menopause Perimenopausal symptoms Chronic diarrhea Weight loss counseling, encounter for Recurrent UTI Chronic pain of right thumb Trigger finger, left middle finger Asthma Seizure disorder Chronic left shoulder pain Asymptomatic hypertensive urgency Situational anxiety Lower extremity edema Chronic GERD Wheezing Chronic back pain Chronic right shoulder pain Trigger finger, right middle finger DM type 2 causing CKD stage 3 Fatigue Sleep apnea Depression with anxiety Abscess of right external ear Upper extremity somatic dysfunction Pain of right thumb Right elbow pain Diarrhea due to drug Rash and nonspecific skin eruption Cervical somatic dysfunction Acute neck pain Subconjunctival hemorrhage of left eye Left hip pain Obesity Strain of lumbar region Lumbar disc herniation with radiculopathy Diabetic retinopathy associated with type 2 diabetes mellitus Pruritus Urinary tract infection Constipation due to slow transit Hot flashes Left lower quadrant abdominal pain Vaginal dryness Eosinophilic, granuloma bone Seizure (~1990) HLD (hyperlipidemia) HTN (hypertension) Fatty liver Congenital absence of one kidney Tuberculosis (~1993) Osteosarcoma Vision disorder Diabetes mellitus (~2005) Surgical History S/P coronary artery stent placement History of lumbar discectomy S/P laminectomy Anesthesia History of carpal tunnel release Neoplasm of femur Bone tumor (benign) (~1990) Status post laparoscopic cholecystectomy (~2016) Status post laparoscopic supracervical hysterectomy (~2010) Family History Brother Mental health disorder Mother Diabetes mellitus Heart disease Kidney disease Hyperlipidemia Hypertension Sister Mental health disorder Diabetes mellitus Grandfather Hypertension Stroke Grandmother Diabetes mellitus Hypertension Father Heart disease Social History household members: friend(s) Tobacco & Substance Use Smoking Status: Former smoker Tobacco: How many years used: 29 quit status: considering quitting second hand exposure: Yes (socially) alcohol intake: never substance use type: does not use Assessment & Plan Assessment & Plan narrative: Left thigh abscess Incision and drainage of left thigh abscess Time Spent With Patient Time with patient: less than 30 minutes
[2023-11-19] MEDS: LACTATED RINGERS 1,000 ML 42 ML IV (10:02)
--- NOTE | 2023-11-19 10:29 | SUR.OPER ---
Supine on padded OR bed, head on pillow, arms secured on padded arm boards at <90 degrees abduction, left leg uncorssed, right leg in a frog like position.
[2023-11-19] MEDS: BUPIVACAINE 0.25% W/ EPI 30 ML VIAL INJ (10:46)
[2023-11-19] MEDS: OXYBUTYNIN 5 MG ER TAB PO (13:39)
[2023-11-19] MEDS: ASPIRIN EC 81 MG TABLET PO (13:39)
[2023-11-19] MEDS: CLOPIDOGREL 75 MG TABLET PO (13:39)
--- NOTE | 2023-11-19 13:59 | PM.DS.1 ---
History of Present Illness History of Present Illness Date Patient Seen: 11/19/23 Time Patient Seen: 13:59 Chief complaint: abcess on upper L/leg Narrative: 53-year-old woman with history of cranial tumor excision at age 20, anxiety, depression, Biopolar disorder, asthma, chronic pain, type 2 diabetes with peripheral neuropathy and CKD3, CAD s/p STEMI, congenital single kidney, hypertriglyceridemia, hypertension, IBS, frequent UTIs, headaches, seizure disorders who presents with worsening leg pain and worsening cyst on her left thigh. Presented 11/13 to urgent care, was given bactrim but lesion has progressed since. Patient had attempted drainage in the emergency room with no obvious purulence removed, CT showed no drainable collection in the ER. Patient states that the size of the lesion has gone up 4 fold in the last 5 days since urgent care. Surgery was consulted, pending formal consultation. She was given cefepime and vancomycin and admitted for further management. Patient had a MAP of 73 in the ER, improved with fluids. She has a mild acidosis, with borderline anion gap and borderline bicarb. In reading her PCP notes, there is some concern for missing some of her chronic medications. Glucose was 308, creatinine was 2.42, up from baseline of around 1.5. Discharge Providers Provider Date of admission: 11/18/23 16:19 Discharge Date: 11/19/23 Primary care physician: Moises Hong DO Consults: 11/18/23 16:12 Consult to General Surgery Stat Comment: Consulting Provider: Ginny Kearns Reason for consultation: abcess Has provider been notified: Yes 11/18/23 17:04 Consult to Dietitian, Adult Routine Comment: Reason For Exam: uncontrolled DM Discharge provider: Roger Malhotra DO Summary Hospital Course Discharge Diagnosis: 1. Sepsis ruled out, left thigh abscess and cellulitis. 2. GUSTAVO on CKD stage III 3. HTN 4. Insulin dependent diabetes with chronic insulin use 5. Anxiety / depression / bipolar disorder 6. History of seizures with prior craniotomy 7. CAD Hospital Course: This is a 53 year old female with multiple chronic comorbidities including uncontrolled DM who presented with a left thigh abscess. She was admitted overnight, with surgery consultation the following morning where I&D was performed. She had an GUSTAVO likely from dehydration and bactrim prescribed as an outpatient which improved with IV fluids given. Sepsis is likely ruled out despite SOFA score of 2, as only organ dysfunction was GUSTAVO and given bactrim administration degree of GUSTAVO vs creatinine elevation is not entirely clear. Shortly after I&D, patient was feeling well and wished to discharge home. She was able to go home much more quickly than expected with improved renal function and surgical management of her abscess. Surgery recommended continued wet to dry dressing changes and outpatient follow up for wound checks. Her home lisinopril was held here initially, but with improvement in creatinine patient can resume all of her home medications on discharge. She was given another 4 days of antibotics with doxycycline and cefdinir, as culutres are currently negative. I would not recommend this patient receive bactrim in the future given her CKD at baseline and solitary kidney. Recommend PCP follow up as soon as possible after discharge for continued diabetes management and wound evaluation moving forward. Time Spent with Patient Time spent: Greater than 30 minutes Exam Vital Signs (past 8 hours): - 11/19/23 08:33 11/19/23 09:00 11/19/23 09:57 Temperature 97 F L 98.1 F Pulse Rate 80 80 Respiratory Rate 19 16 Blood Pressure 119/64 129/74 Pulse Oximetry 97 97 Oxygen Delivery Method Room Air Room Air Oxygen Flow Rate 0 11/19/23 10:38 11/19/23 10:43 11/19/23 10:48 Temperature 98.9 F Pulse Rate 88 16 L 82 Respiratory Rate 16 88 H 17 Blood Pressure 95/61 102/67 114/74 Pulse Oximetry 98 97 96 Oxygen Delivery Method Room Air Room Air Room Air Oxygen Flow Rate 11/19/23 10:53 11/19/23 10:58 11/19/23 11:03 Temperature 97.9 F Pulse Rate 83 78 81 Respiratory Rate 13 13 17 Blood Pressure 119/82 124/79 134/84 Pulse Oximetry 95 95 94 Oxygen Delivery Method Room Air Room Air Room Air Oxygen Flow Rate 11/19/23 11:39 Temperature 97.1 F L Pulse Rate 77 Respiratory Rate 14 Blood Pressure 127/77 Pulse Oximetry 97 Oxygen Delivery Method Room Air Oxygen Flow Rate Oxygen Delivery Method Room Air Oxygen Flow Rate 0 Narrative Exam Narrative: General:? Patient is well developed and well nourished, in no distress at this time. HEENT:? Normocephalic, atraumatic, extraocular muscles intact, oral pharynx is clear and mucous membranes are moist. Neck: supple and symmetric, trachea is midline, no cervical adenopathy. Chest:? Normal AP diameter and contour without kyphoscoliosis, no tachypnea, equal chest rise bilaterally. Lungs:? CTA b/l no wheezing rhonchi or rales. Cardio:?RRR no m/r/g. Abdomen: S NT ND. No CVA tenderness. Musculoskeletal:? Muscle strength and tone are equal within normal limits, no deformity. Extremities: No edema or joint effusions. No cyanosis or clubbing. On her inner left thigh is now a dressing, area is non-tender, and no surrounding erythema. Skin:? Pale,? Warm to touch,dry and intact without rashes, ulcerations or petechiae.? Neuro:? Alert and orientated x3,? sensation to touch intact in all extremities, no gross deficits noted of cranial nerves. Psych:? Patient has a well-kept appearance, appropriate affect, mental status attitude thought context and judgment are appropriate for age. Objective Labs 11/19/23 05:30 11/19/23 05:30 Labs: Laboratory Results - last 24 hr 11/18/23 11/18/23 11/18/23 11:30 14:10 15:09 WBC 5.3 RBC 4.30 Hgb 12.6 Hct 36.2 MCV 84.3 MCH 29.4 MCHC 34.9 RDW 14.4 Plt Count 150 Neut % (Auto) 63.7 Lymph % (Auto) 22.9 L [place] % (Auto) 6.9 Eos % (Auto) 4.8 H Baso % (Auto) 1.7 Neut # (Auto) 3400 Lymph # (Auto) 1200 [place] # (Auto) 400 Eos # (Auto) 300 Baso # (Auto) 100 PT 11.2 INR 1.0 APTT 35 VBG pH 7.31 L VBG pCO2 36.1 L VBG pO2 40 VBG HCO3 18 L VBG Total CO2 19 L VBG O2 Saturation 71 VBG Base Excess -8.0 L FiO2 21 Sodium 131 L Potassium 4.6 Chloride 102 Carbon Dioxide 15 L BUN 39 H Creatinine 2.42 H Estimated GFR 24 L BUN/Creatinine Ratio 16.1 Glucose 308 H Hemoglobin A1c Lactate 3.4 H Calcium 9.5 Magnesium Total Bilirubin 0.5 AST 25 ALT 18 Alkaline Phosphatase 69 Total Protein 7.8 Albumin 3.9 Globulin 3.9 Albumin/Globulin Ratio 1.0 Lipase 130 Procalcitonin 0.14 Ketones 0.16 11/18/23 11/19/23 16:10 05:30 WBC 3.8 L RBC 3.91 L Hgb 11.3 L Hct 33.3 L MCV 85.0 MCH 28.9 MCHC 34.0 RDW 14.1 Plt Count 127 L Neut % (Auto) 48.2 L Lymph % (Auto) 37.2 [place] % (Auto) 7.6 Eos % (Auto) 6.0 H Baso % (Auto) 1.0 Neut # (Auto) 1800 Lymph # (Auto) 1400 [place] # (Auto) 300 Eos # (Auto) 200 Baso # (Auto) 0 PT INR APTT VBG pH VBG pCO2 VBG pO2 VBG HCO3 VBG Total CO2 VBG O2 Saturation VBG Base Excess FiO2 Sodium 137 Potassium 5.4 H Chloride 111 H Carbon Dioxide 21 L BUN 34 H Creatinine 1.95 H Estimated GFR 31 L BUN/Creatinine Ratio 17.4 Glucose 101 H D Hemoglobin A1c 10.4 H Lactate 2.3 H Calcium 8.6 Magnesium 2.2 Total Bilirubin 0.4 AST 24 ALT 13 Alkaline Phosphatase 55 Total Protein 6.7 Albumin 3.1 L Globulin 3.6 Albumin/Globulin Ratio 0.9 L Lipase Procalcitonin Ketones PFSH Medical History Insomnia secondary to depression with anxiety Trigger finger of left hand At risk for altered mental status STEMI (ST elevation myocardial infarction) Moderate left ankle sprain Uncontrolled type 2 diabetes mellitus Muscle twitching Dizziness Weakness Mixed stress and urge urinary incontinence Dorsal cervical fat pad Trigger finger of both hands Roberta infection Diabetic retinopathy Congenital absence of kidney Postmenopausal Pain of left great toe Urge incontinence Mood swings Hot flashes due to menopause Perimenopausal symptoms Chronic diarrhea Weight loss counseling, encounter for Recurrent UTI Chronic pain of right thumb Trigger finger, left middle finger Asthma Seizure disorder Chronic left shoulder pain Asymptomatic hypertensive urgency Situational anxiety Lower extremity edema Chronic GERD Wheezing Chronic back pain Chronic right shoulder pain Trigger finger, right middle finger DM type 2 causing CKD stage 3 Fatigue Sleep apnea Depression with anxiety Abscess of right external ear Upper extremity somatic dysfunction Pain of right thumb Right elbow pain Diarrhea due to drug Rash and nonspecific skin eruption Cervical somatic dysfunction Acute neck pain Subconjunctival hemorrhage of left eye Left hip pain Obesity Strain of lumbar region Lumbar disc herniation with radiculopathy Diabetic retinopathy associated with type 2 diabetes mellitus Pruritus Urinary tract infection Constipation due to slow transit Hot flashes Left lower quadrant abdominal pain Vaginal dryness Eosinophilic, granuloma bone Seizure (~1990) HLD (hyperlipidemia) HTN (hypertension) Fatty liver Congenital absence of one kidney Tuberculosis (~1993) Osteosarcoma Vision disorder Diabetes mellitus (~2005) Surgical History S/P coronary artery stent placement History of lumbar discectomy S/P laminectomy Anesthesia History of carpal tunnel release Neoplasm of femur Bone tumor (benign) (~1990) Status post laparoscopic cholecystectomy (~2016) Status post laparoscopic supracervical hysterectomy (~2010) Family History Brother Mental health disorder Mother Diabetes mellitus Heart disease Kidney disease Hyperlipidemia Hypertension Sister Mental health disorder Diabetes mellitus Grandfather Hypertension Stroke Grandmother Diabetes mellitus Hypertension Father Heart disease Social History household members: friend(s) Smoking Status: Former smoker Tobacco: How many years used: 29 quit status: considering quitting second hand exposure: Yes (socially) alcohol intake: never substance use type: does not use Discharge Plan Discharge Plan Patient Disposition: Home Provider Discharge Comment: You were admitted to the hospital with a left thigh abscess which was drained. Continue wet to dry dressing changes daily, complete antibiotics at home for another 4 days. Discharge orders & Medications Prescriptions: New cefdinir 300 mg capsule 300 mg PO BID 4 Days Qty: 8 0RF doxycycline hyclate 100 mg tablet 100 mg PO BID 4 Days Qty: 8 0RF Continued quetiapine 25 mg tablet 25 mg PO BEDTIME Qty: 30 3RF omeprazole 20 mg capsule,delayed release(DR/EC) 20 mg PO BID Qty: 180 3RF (DME) lancets [Easy Touch Lancets] 30 gauge misc See Rx Instructions .Route Qty: 100 12RF Rx Instructions: Check blood glucose 4 times daily (DME) ReliOn Prime Test Strips Strip See Rx Instructions .Route Qty: 100 12RF Rx Instructions: Test blood glucose 4 times daily levetiracetam 750 mg tablet 750 mg PO BID Qty: 60 11RF albuterol sulfate [ProAir HFA] 90 mcg/actuation HFA aerosol inhaler 2 puff inhalation Q6H PRN (Reason: shortness of breath or wheezing) Qty: 17 1RF Rx Instructions: Please dispense 2 inhalers glyburide 5 mg tablet 5 mg PO DAILY Qty: 90 0RF mirtazapine 15 mg tablet 15 mg PO BEDTIME Qty: 30 2RF lisinopril 40 mg tablet 40 mg PO DAILY Qty: 90 0RF divalproex 250 mg tablet extended release 24 hr 1,000 mg PO BEDTIME Qty: 120 2RF progesterone micronized 100 mg capsule 100 mg PO ONCE PM Qty: 30 3RF alprazolam 0.5 mg tablet 0.5 mg PO BID PRN (Reason: anxiety) Qty: 60 0RF pravastatin 80 mg tablet 80 mg PO BEDTIME Qty: 90 3RF (DME) ReliOn Prime Test Strips Strip See Rx Instructions .Route Qty: 100 5RF Rx Instructions: As directed furosemide 20 mg tablet See Rx Instructions PO .COMPLEX Qty: 270 3RF Rx Instructions: 2tabs am and 1tab at noon, orally; Invokana 300 mg tablet 300 mg PO DAILY Qty: 90 3RF budesonide-formoterol [Symbicort] 160-4.5 mcg/actuation HFA aerosol inhaler 2 puff inhalation BID Qty: 10.2 12RF insulin glargine-yfgn [Semglee(insulin glarg-yfgn)Pen] 100 unit/mL (3 mL) insulin pen See Rx Instructions .ROUTE .COMPLEX Qty: 15 11RF Dose Instruction: INJECT 10 UNITS SUBCUTANEOUSLY ONCE DAILY Rx Instructions: INJECT 40 UNITS SUBCUTANEOUSLY twice DAILY aspirin [Adult Aspirin Regimen] 81 mg tablet,delayed release (DR/EC) 81 mg PO DAILY biotin 5,000 mcg PO DAILY clopidogrel 75 mg tablet 75 mg PO DAILY (DME) Comfort EZ Pen [place] 33 gauge x 5/16 needle See Rx Instructions .Route Qty: 100 12RF Rx Instructions: USE TO INJECT INSULIN 4 TIMES DAILY gabapentin 300 mg capsule 300 mg PO BID Qty: 120 5RF Rx Instructions: start with one cap daily and increase by one cap every third day up to 2 caps twice daily maximum zolpidem 5 mg tablet 5 mg PO BEDTIME PRN (Reason: sleep) Qty: 14 5RF nitrofurantoin macrocrystal 100 mg capsule 100 mg PO DAILY nitroglycerin 0.4 mg tablet, sublingual 0.4 mg sublingual DAILY estradiol [Vivelle-Dot] 0.05 mg/24 hr patch semiweekly 1 patch transdermal 2XW Qty: 8 12RF Rx Instructions: Start using when oral estrogen tablets have been completed and apply 1 patch for 3 days alternating with 1 patch for 4 days each week. fesoterodine 4 mg tablet extended release 24 hr 4 mg PO DAILY (DME) pen needle, diabetic [TRUEplus Pen Needle] 31 gauge x 1/4 needle See Rx Instructions .ROUTE .MEDSUPPLY Qty: 100 Patient Comments: [NO ORIGINAL SIG] Rx Instructions: As directed insulin aspart U-100 [Novolog FlexPen U-100 Insulin] 100 unit/mL (3 mL) insulin pen 30 unit SUBCUT BID Victoza 3-Brando 0.6 mg/0.1 mL (18 mg/3 mL) pen injector 1.8 mg SUBCUT DAILY Follow up/Referrals: Ginny Kearns MD [Physician] - 1 Week Moises Hong DO [Primary Care Provider] - Diet/Activity/Treatments Diet: Diet as Tolerated and Carb-consistent/Diabetic Activity: As tolerated Skin/Wound/Dressing Care Dressing: Wet to dry dressing changes daily. Visit Report/Discharge Packet Instructions: Doxycycline, Cefdinir, [facility]: Wound Care Stand Alone Forms: Patient Portal/API, Stroke Signs & Symptoms Discharge Data Primary Care Provider: Moises Hong Quality VTE Deep Vein Thrombosis/Pulmonary Embolism Present on Admission: No
[2023-11-19] MEDS: cefTRIAXone 2,000 MG in SODIUM CHLORIDE 0.9% 100 ML 200 MG IV (14:20)
--- NOTE | 2023-11-19 15:50 | PC.NURSE ---
Patient had her i&d earlier and tolerated well. Given tylenol and patient has now been discharged to home. Out to car with rafael.
--- NOTE | 2023-12-01 11:07 | PM.OP.1 ---
Operative Date/Time/Diagnoses Date of procedure: 12/01/23 Time of procedure: 11:07 Pre-op diagnosis: Left thigh abscess Post-op diagnosis: same Procedure & Clinicians Procedure: I and D of left thigh abscess Same procedure as scheduled: Yes Indications: Left thigh abscess Surgeon: Ginny Kearns Click Yes if Unassisted: Yes Anesthesia Type: MAC +/- Operative Notes Findings: Necrotic upper left thigh abscess with spontaneous drainage Closure Type: not applicable Specimen(s): none sent Estimated Blood Loss (mL): 10 Procedure in detail: Preop diagnosis: Upper left thigh abscess Postop diagnosis: Same Operative procedure: I and D of left thigh abscess Surgeon: Keiko Kearns MD Findings: An abscess that was necrotic in the center. Minimal purulent drainage since it was spontaneously draining. Measures 4.5 cm by 3.5 cm with a depth of 1 cm Procedure: Patient placed in a supine position. Prepped and draped sterile fashion. Left thigh abscess was incised, and drained. Necrotic tissue removed to a fresh base. Dry dressing placed. Patient was awakened, taken to recovery room in stable condition. Sponge count instrument count and needle counts were correct. Blood loss: 10 mL Specimen: None Blood loss: 10 mL Complications: none Post-operative Condition: stable Disposition: PACU
== END 2023-11-19 15:45 | disposition home or self-care (01) | DRG 383 ==
LOC: ED 14:21 → AC 16:19
PROVIDERS: Surgery; Admitting Provider Internal Medicine; Emergency Provider Emergency Medicine; Family Provider Family Medicine; PCP Family Medicine; Referring Provider Emergency Medicine; Visit Provider Internal Medicine
DX: L03.116 Cellulitis of left lower limb (principal); N17.9 Acute kidney failure, unspecified; I12.9 Hypertensive chronic kidney disease with stage 1 through stage 4 chronic kidney disease, or unspecified chronic kidney disease; E11.22 Type 2 diabetes mellitus with diabetic chronic kidney disease; N18.30 Chronic kidney disease, stage 3 unspecified; F41.9 Anxiety disorder, unspecified; F31.9 Bipolar disorder, unspecified; I25.10 Atherosclerotic heart disease of native coronary artery without angina pectoris; L02.416 Cutaneous abscess of left lower limb; E86.0 Dehydration; K21.9 Gastro-esophageal reflux disease without esophagitis; I96 Gangrene, not elsewhere classified; Z79.85 Long-term (current) use of injectable non-insulin antidiabetic drugs; Z87.891 Personal history of nicotine dependence; Z86.69 Personal history of other diseases of the nervous system and sense organs; Z79.4 Long term (current) use of insulin; Z79.84 Long term (current) use of oral hypoglycemic drugs; Z98.890 Other specified postprocedural states
CPT/HCPCS: 36415; 71045; 73700; 80053; 82009; 82805; 82962; 83036; 83605; 83690; 83735; 84145; 85025; 85610; 85730; 87040; 87070; 87075; 87077; 87147; 87186; 87205; 93005; 96365; 96367; 96375; 99285; A9270; J0692; J0696; J1170; J1815; J2250; J2270; J2405; J2704

== ENCOUNTER 2023-11-20 14:14 | Emergency (ER) | payer OTHER, MEDICAID, SELFPAY ==
[2023-11-18 16:28] VITALS: BMI 35.6
[2023-11-20 14:17] VITALS: BP 160/104; PULSE 64; RESP 20; TEMP 36.6; O2SAT 100; BMI 35.6
--- NOTE | 2023-11-20 17:05 | ED.LOWEXIN ---
HPI - Extremity Injury (Lower) <Scott Peterson PA-C - Last Filed: 11/20/23 17:10> General Chief Complaint: Extremity Injury, Lower Stated Complaint: left leg Px, post surgery 11/19 Time Seen by Provider: 11/20/23 14:26 Source: patient Mode of arrival: Ambulatory History of Present Illness HPI Narrative: 53-year-old female presents to the ED 1 day status post a abscess I&D performed yesterday. Patient is here for pain management after her procedure. Patient denies fever, chills, nausea, vomiting. Patient states she was given antibiotics on discharge, however no pain control. Patient states that she has been in severe pain after the anesthetic wore off yesterday. Patient has been taking Tylenol and ibuprofen with no relief. Patient states she was unable to sleep all night. Related Data Home Medications Medication Instructions Recorded Confirmed aspirin 81 mg tablet,delayed 81 mg PO DAILY 05/09/23 11/18/23 release (Adult Aspirin Regimen) biotin 5,000 mcg PO DAILY 07/19/23 11/18/23 clopidogrel 75 mg tablet 75 mg PO DAILY 07/19/23 11/18/23 fesoterodine 4 mg tablet,extended 4 mg PO DAILY 09/06/23 11/18/23 release 24 hr pen needle, diabetic 31 gauge x #100 ea 09/06/23 11/19/2311/28 (TRUEplus Pen Needle) nitrofurantoin macrocrystal 100 mg 100 mg PO DAILY 11/13/23 11/18/23 capsule nitroglycerin 0.4 mg sublingual 0.4 mg sublingual DAILY 11/13/23 11/18/23 tablet insulin aspart U-100 100 unit/mL 30 unit SUBCUT BID 11/18/23 11/18/23 (3 mL) subcutaneous pen (Novolog FlexPen U-100 Insulin aspart) liraglutide 0.6 mg/0.1 mL (18 mg/3 1.8 mg SUBCUT DAILY 11/18/23 11/18/23 mL) subcutaneous pen injector (Victoza 3-Brando) Previous Rx's Medication Instructions Recorded omeprazole 20 mg capsule,delayed 20 mg PO BID #180 caps 02/22/22 release pravastatin 80 mg tablet 80 mg PO BEDTIME #90 tabs 07/26/22 estradiol 0.05 mg/24 hr semiweekly 1 patch transdermal 2XW #8 ea 10/17/22 transdermal patch (Vivelle-Dot) blood sugar diagnostic (ReliOn #100 ea 01/29/23 Prime Test Strips) blood sugar diagnostic (ReliOn #100 ea 02/08/23 Prime Test Strips) lancets 30 gauge (Easy Touch #100 ea 02/08/23 Lancets) canagliflozin 300 mg tablet 300 mg PO DAILY #90 tabs 04/25/23 (Invokana) furosemide 20 mg tablet See Rx Instructions PO .COMPLEX 04/25/23 #270 tabs budesonide-formoterol HFA 160 2 puff inhalation BID #10.2 grams 05/23/23 mcg-4.5 mcg/actuation aerosol inhaler (Symbicort) insulin glargine-yfgn 100 unit/mL See Rx Instructions .Route 05/23/23 (3 mL) subcutaneous pen (Semglee .COMPLEX #15 mL (insulin glargine-yfgn) Pen) levetiracetam 750 mg tablet 750 mg PO BID #60 tabs 07/04/23 albuterol sulfate 90 mcg/actuation 2 puff inhalation Q6H PRN 07/19/23 aerosol inhaler (ProAir HFA) shortness of breath or wheezing #17 grams pen needle, diabetic 33 gauge x #100 ea 07/19/2304/09 (Comfort EZ Pen [place]) glyburide 5 mg tablet 5 mg PO DAILY #90 tabs 08/29/23 mirtazapine 15 mg tablet 15 mg PO BEDTIME #30 tabs 09/16/23 gabapentin 300 mg capsule 300 mg PO BID #120 caps 09/24/23 zolpidem 5 mg tablet 5 mg PO BEDTIME PRN sleep #14 tabs 09/24/23 lisinopril 40 mg tablet 40 mg PO DAILY #90 tabs 10/10/23 quetiapine 25 mg tablet 25 mg PO BEDTIME #30 tabs 11/04/23 divalproex 250 mg tablet,extended 1,000 mg (4 x 250 mg) PO BEDTIME 11/06/23 release 24 hr #120 tabs progesterone micronized 100 mg 100 mg PO ONCE PM #30 caps 11/12/23 capsule alprazolam 0.5 mg tablet 0.5 mg PO BID PRN anxiety #60 tabs 11/13/23 tramadol 50 mg tablet 50 mg PO Q8H PRN pain #7 tabs 11/20/23 Allergies Allergy/AdvReac Type Severity Reaction Status Date / Time hydrocodone Allergy Intermediate ITCHING/VOM Verified 11/13/23 08:19 ITING/RASH suture Allergy Vicryl Verified 11/19/23 11:09 Review of Systems <Scott Peterson PA-C - Last Filed: 11/20/23 17:10> Constitutional Constitutional: Denies chills, Denies fatigue, Denies fever(s), Denies frequent falls, Denies lethargy and Denies weakness Eyes Eyes: Denies change in vision, Denies eye discharge, Denies irritation and Denies loss of vision ENT Ears, Nose, Mouth, and Throat: Denies change in voice, Denies dizziness, Denies neck pain, Denies sore throat and Denies throat swelling Cardiovascular Cardiovascular: Denies chest pain, Denies irregular heart rhythm, Denies lightheadedness, Denies palpitations, Denies dyspnea, Denies dyspnea on exertion and Denies orthopnea Respiratory Respiratory: Denies cough, Denies dyspnea, Denies dyspnea on exertion and Denies wheezing Gastrointestinal Gastrointestinal: Denies abdominal pain, Denies change in bowel habits, Denies diarrhea, Denies nausea and Denies vomiting Musculoskeletal Musculoskeletal: Denies neck pain and Denies numbness Integumentary/Breasts Skin/Breast: Denies pruritus, Denies erythema, Denies rash and Denies wounds Comments: Pain at the site of Left thigh abscess. Neurologic Neurologic: Denies behavioral changes, Denies confusion, Denies dizziness, Denies frequent falls, Denies loss of vision, Denies numbness and Denies weakness Psychiatric Psychiatric: Denies anxiety, Denies behavioral changes, Denies confusion, Denies depression, Denies homicidal ideation and Denies suicidal ideation Endocrine Endocrine: Denies fatigue, Denies flushing and Denies palpitations Hematologic/Lymphatic Hematologic/Lymphatic: Denies easy bruising Allergic/Immunologic Allergic/Immunologic: Denies urticaria, Denies throat swelling and Denies wheezing Patient History <Scott Peterson PA-C - Last Filed: 11/20/23 17:10> Medical History Insomnia secondary to depression with anxiety Trigger finger of left hand At risk for altered mental status STEMI (ST elevation myocardial infarction) Moderate left ankle sprain Uncontrolled type 2 diabetes mellitus Muscle twitching Dizziness Weakness Mixed stress and urge urinary incontinence Dorsal cervical fat pad Trigger finger of both hands Roberta infection Diabetic retinopathy Congenital absence of kidney Postmenopausal Pain of left great toe Urge incontinence Mood swings Hot flashes due to menopause Perimenopausal symptoms Chronic diarrhea Weight loss counseling, encounter for Recurrent UTI Chronic pain of right thumb Trigger finger, left middle finger Asthma Seizure disorder Chronic left shoulder pain Asymptomatic hypertensive urgency Situational anxiety Lower extremity edema Chronic GERD Wheezing Chronic back pain Chronic right shoulder pain Trigger finger, right middle finger DM type 2 causing CKD stage 3 Fatigue Sleep apnea Depression with anxiety Abscess of right external ear Upper extremity somatic dysfunction Pain of right thumb Right elbow pain Diarrhea due to drug Rash and nonspecific skin eruption Cervical somatic dysfunction Acute neck pain Subconjunctival hemorrhage of left eye Left hip pain Obesity Strain of lumbar region Lumbar disc herniation with radiculopathy Diabetic retinopathy associated with type 2 diabetes mellitus Pruritus Urinary tract infection Constipation due to slow transit Hot flashes Left lower quadrant abdominal pain Vaginal dryness Eosinophilic, granuloma bone Seizure (~1990) HLD (hyperlipidemia) HTN (hypertension) Fatty liver Congenital absence of one kidney Tuberculosis (~1993) Osteosarcoma Vision disorder Diabetes mellitus (~2005) Surgical History S/P coronary artery stent placement History of lumbar discectomy S/P laminectomy Anesthesia History of carpal tunnel release Neoplasm of femur Bone tumor (benign) (~1990) Status post laparoscopic cholecystectomy (~2016) Status post laparoscopic supracervical hysterectomy (~2010) Family History Brother Mental health disorder Mother Diabetes mellitus Heart disease Kidney disease Hyperlipidemia Hypertension Sister Mental health disorder Diabetes mellitus Grandfather Hypertension Stroke Grandmother Diabetes mellitus Hypertension Father Heart disease Social History household members: friend(s) Smoking Status: Former smoker Tobacco: How many years used: 29 quit status: considering quitting second hand exposure: Yes (socially) alcohol intake: never substance use type: does not use Smoking Status: Former smoker alcohol intake frequency: other Substance Use Type: does not use Exam <Scott Peterson PA-C - Last Filed: 11/20/23 17:10> Narrative Exam Narrative: Const General:?cooperative, healthy appearing and comfortable [facility] Head:?normal to inspection Ears:?hearing grossly normal bilaterally Nose:?external nose normal Face and sinus:?normal facial exam and sinuses nontender Mouth:?oral mucosae normal Throat:?posterior oropharynx normal Eyes General:?appearance normal, both eyes and all related structures Neck Neck:?normal visual inspection and no lymphadenopathy noted Resp Effort & Inspection:?normal respiratory effort Auscultation:?clear to auscultation bilaterally Cardio Rate:?regular rate Rhythm:?regular rhythm Integumentary Site of the abscess is bandaged with a waterproof dressing, seems intact. No surrounding erythema. Neuro General:?patient alert, patient awake and patient oriented x3 Initial Vital Signs Initial Vital Signs: Vital Signs Temperature 97.9 F 11/20/23 14:17 Pulse Rate 64 11/20/23 14:17 Respiratory Rate 20 11/20/23 14:17 Blood Pressure 160/104 H 11/20/23 14:17 Pulse Oximetry 100 11/20/23 14:17 Oxygen Delivery Method Room Air 11/20/23 14:17 <Yolie Dillard DO - Last Filed: 11/25/23 07:38> Initial Vital Signs Initial Vital Signs: Vital Signs Temperature 97.9 F 11/20/23 14:17 Pulse Rate 64 11/20/23 14:17 Respiratory Rate 20 11/20/23 14:17 Blood Pressure 160/104 H 11/20/23 14:17 Pulse Oximetry 100 11/20/23 14:17 Oxygen Delivery Method Room Air 11/20/23 14:17 Course <PRASHANT Mistry Last Filed: 11/20/23 17:10> Vital Signs Vital signs: Vital Signs - 8 hr 11/20/23 14:17 Temperature 97.9 F Pulse Rate 64 Respiratory Rate 20 Blood Pressure 160/104 H Pulse Oximetry 100 Oxygen Delivery Method Room Air <DO Flaquito Norwood Last Filed: 11/25/23 07:38> Vital Signs Vital signs: Vital Signs - 8 hr 11/20/23 14:17 Temperature 97.9 F Pulse Rate 64 Respiratory Rate 20 Blood Pressure 160/104 H Pulse Oximetry 100 Oxygen Delivery Method Room Air MDM - Extremity Injury (Lower) <PRASHANT Mistry Last Filed: 11/20/23 17:10> MDM Narrative Medical decision making narrative: 53-year-old female presents to the ED 1 day status post a abscess I&D performed yesterday. Patient has no systemic symptoms. Will prescribe tramadol for pain management until she can follow-up with Dr. Kearns. ED return precautions were discussed with patient. Patient verbalized understanding. Medical records reviewed: Yes Discharge Plan Departure Patient Disposition: Home Clinical Impression: Abscess Instructions: DI for Skin Abscess Activity Restrictions/Additional Instructions: You were evaluated in the ED today for pain after an abscess drainage. You are being prescribed tramadol for pain control until you can see Dr. Kearns for further evaluation. Return to the ED if you have worsening symptoms, fever, chills, persistent vomiting. Prescriptions: New tramadol 50 mg tablet 50 mg PO Q8H PRN (Reason: pain) Qty: 7 0RF No Action quetiapine 25 mg tablet 25 mg PO BEDTIME Qty: 30 3RF omeprazole 20 mg capsule,delayed release(DR/EC) 20 mg PO BID Qty: 180 3RF (DME) lancets [Easy Touch Lancets] 30 gauge misc See Rx Instructions .Route Qty: 100 12RF Rx Instructions: Check blood glucose 4 times daily (DME) ReliOn Prime Test Strips Strip See Rx Instructions .Route Qty: 100 12RF Rx Instructions: Test blood glucose 4 times daily levetiracetam 750 mg tablet 750 mg PO BID Qty: 60 11RF albuterol sulfate [ProAir HFA] 90 mcg/actuation HFA aerosol inhaler 2 puff inhalation Q6H PRN (Reason: shortness of breath or wheezing) Qty: 17 1RF Rx Instructions: Please dispense 2 inhalers glyburide 5 mg tablet 5 mg PO DAILY Qty: 90 0RF mirtazapine 15 mg tablet 15 mg PO BEDTIME Qty: 30 2RF lisinopril 40 mg tablet 40 mg PO DAILY Qty: 90 0RF divalproex 250 mg tablet extended release 24 hr 1,000 mg PO BEDTIME Qty: 120 2RF progesterone micronized 100 mg capsule 100 mg PO ONCE PM Qty: 30 3RF alprazolam 0.5 mg tablet 0.5 mg PO BID PRN (Reason: anxiety) Qty: 60 0RF pravastatin 80 mg tablet 80 mg PO BEDTIME Qty: 90 3RF (DME) ReliOn Prime Test Strips Strip See Rx Instructions .Route Qty: 100 5RF Rx Instructions: As directed furosemide 20 mg tablet See Rx Instructions PO .COMPLEX Qty: 270 3RF Rx Instructions: 2tabs am and 1tab at noon, orally; Invokana 300 mg tablet 300 mg PO DAILY Qty: 90 3RF budesonide-formoterol [Symbicort] 160-4.5 mcg/actuation HFA aerosol inhaler 2 puff inhalation BID Qty: 10.2 12RF insulin glargine-yfgn [Semglee(insulin glarg-yfgn)Pen] 100 unit/mL (3 mL) insulin pen See Rx Instructions .ROUTE .COMPLEX Qty: 15 11RF Dose Instruction: INJECT 10 UNITS SUBCUTANEOUSLY ONCE DAILY Rx Instructions: INJECT 40 UNITS SUBCUTANEOUSLY twice DAILY aspirin [Adult Aspirin Regimen] 81 mg tablet,delayed release (DR/EC) 81 mg PO DAILY biotin 5,000 mcg PO DAILY clopidogrel 75 mg tablet 75 mg PO DAILY (DME) Comfort EZ Pen [place] 33 gauge x 5/16 needle See Rx Instructions .Route Qty: 100 12RF Rx Instructions: USE TO INJECT INSULIN 4 TIMES DAILY gabapentin 300 mg capsule 300 mg PO BID Qty: 120 5RF Rx Instructions: start with one cap daily and increase by one cap every third day up to 2 caps twice daily maximum zolpidem 5 mg tablet 5 mg PO BEDTIME PRN (Reason: sleep) Qty: 14 5RF nitrofurantoin macrocrystal 100 mg capsule 100 mg PO DAILY nitroglycerin 0.4 mg tablet, sublingual 0.4 mg sublingual DAILY estradiol [Vivelle-Dot] 0.05 mg/24 hr patch semiweekly 1 patch transdermal 2XW Qty: 8 12RF Rx Instructions: Start using when oral estrogen tablets have been completed and apply 1 patch for 3 days alternating with 1 patch for 4 days each week. fesoterodine 4 mg tablet extended release 24 hr 4 mg PO DAILY (DME) pen needle, diabetic [TRUEplus Pen Needle] 31 gauge x 1/4 needle See Rx Instructions .ROUTE .MEDSUPPLY Qty: 100 Patient Comments: [NO ORIGINAL SIG] Rx Instructions: As directed insulin aspart U-100 [Novolog FlexPen U-100 Insulin] 100 unit/mL (3 mL) insulin pen 30 unit SUBCUT BID Victoza 3-Brando 0.6 mg/0.1 mL (18 mg/3 mL) pen injector 1.8 mg SUBCUT DAILY Referrals: Moises Hong DO [Primary Care Provider] - Stand Alone Forms: Patient Portal/API ED Sign-out <Yolie Dillard DO - Last Filed: 11/25/23 07:38> Cosign ED Attending Cosignature Attestation: I was available for consultation.
[2023-11-20 17:10] VITALS: BP 121/80; PULSE 86; RESP 18; TEMP 37.1; O2SAT 97
== END 2023-11-20 17:10 | disposition home or self-care (01) ==
PROVIDERS: Emergency Provider Student in an Organized Health Care Education/Training Program; Family Provider Family Medicine; PCP Family Medicine
DX: L02.416 Cutaneous abscess of left lower limb (principal)
CPT/HCPCS: 99281

== ENCOUNTER 2023-12-09 20:51 | Emergency (ER) | payer OTHER, MEDICAID, SELFPAY ==
[2023-11-18 16:28] VITALS: BMI 35.6
[2023-12-09 20:54] VITALS: BP 222/105; PULSE 107; RESP 18; TEMP 36.4; O2SAT 96; BMI 35.1
--- NOTE | 2023-12-09 20:58 | DI.RAD.S_ITS ---
PROCEDURE: XR KNEE LT 3V INDICATIONS: fall onto knee TECHNIQUE: 3 views of the knee were acquired. COMPARISON: Located Within [facility], CT, CT LE LT WO CON, 11/18/2023, 15:07. Located Within [facility], CR, KNEE 3V RIGHT, 07/24/2015, 23:37. Located Within [facility], CR, KNEE 3V RIGHT, 06/14/2012, 19:13. FINDINGS: Bones: No fractures or dislocations. Joint space narrowing most pronounced at the medial compartment. Tricompartmental osteophytosis. No suspicious bony lesions. Soft tissues: No significant joint effusion. No suspicious soft tissue calcifications. Arterial vascular calcifications. IMPRESSION: No fracture identified. 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 on 12/09/2023 at 21:40 Approved by: Kevin Hinojosa M.D. on 12/09/2023 at 21:42
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
[2023-12-09] MEDS: KETOROLAC 30 MG/ML VIAL IM (23:06)
[2023-12-09] MEDS: OXYCODONE/APAP 5/325 PREPACK 1 BOTTLE MISC (23:06)
[2023-12-09 23:11] VITALS: BP 138/83; PULSE 98; RESP 18; O2SAT 100
== END 2023-12-09 23:21 | disposition home or self-care (01) ==
PROVIDERS: Emergency Provider Emergency Medicine; Family Provider Family Medicine; PCP Family Medicine
DX: S83.92XA Sprain of unspecified site of left knee, initial encounter (principal); W01.0XXA Fall on same level from slipping, tripping and stumbling without subsequent striking against object, initial encounter; Z79.899 Other long term (current) drug therapy
CPT/HCPCS: 73562; 96372; 99283; J1885

== ENCOUNTER 2023-12-19 09:33 | Emergency (ER) | payer OTHER, MEDICAID, SELFPAY ==
[2023-11-18 16:28] VITALS: BMI 35.6
[2023-12-19] VITALS (12 sets, daily range): BP systolic 161–214; BP diastolic 93–139; PULSE 84–102; RESP 17–29; TEMP 36.5; O2SAT 95–98; BMI 34.0
--- NOTE | 2023-12-19 11:04 | ED.GENADULT ---
HPI - General Adult General Chief complaint: Hypertension Stated complaint: elevated blood pressure Time Seen by Provider: 12/19/23 10:07 Source: patient Mode of arrival: Ambulatory History of Present Illness HPI narrative: Patient 53-year-old female history of insulin-dependent diabetes coronary artery disease, bipolar disorder, depression, anxiety, presenting today with depression. She reports that she has been severely depressed for the last 3 days in fact she has not taken any of her medication for 3 days. She has not had anything to eat or drink. She thought she had an appointment with mental health today unfortunately she did not she mixed up her days however she was noted to be hypertensive blood pressure 160/102 and was told to come to the ED. While in the ED waiting to be seen she got up to go use the restroom when she felt a little dizzy lightheaded and fell. No loss of consciousness no nausea or vomiting she is complaining of right-sided rib pain. Related Data Home Medications Medication Instructions Recorded Confirmed aspirin 81 mg tablet,delayed 81 mg PO DAILY 05/09/23 11/26/23 release (Adult Aspirin Regimen) biotin 5,000 mcg PO DAILY 07/19/23 11/26/23 clopidogrel 75 mg tablet 75 mg PO DAILY 07/19/23 11/26/23 fesoterodine 4 mg tablet,extended 4 mg PO DAILY 09/06/23 11/26/23 release 24 hr pen needle, diabetic 31 gauge x #100 ea 09/06/23 11/26/2311/28 (TRUEplus Pen Needle) nitrofurantoin macrocrystal 100 mg 100 mg PO DAILY 11/13/23 11/26/23 capsule nitroglycerin 0.4 mg sublingual 0.4 mg sublingual DAILY 11/13/23 11/26/23 tablet insulin aspart U-100 100 unit/mL 30 unit SUBCUT BID 11/18/23 11/26/23 (3 mL) subcutaneous pen (Novolog FlexPen U-100 Insulin aspart) liraglutide 0.6 mg/0.1 mL (18 mg/3 1.8 mg SUBCUT DAILY 11/18/23 11/26/23 mL) subcutaneous pen injector (Victoza 3-Brando) Previous Rx's Medication Instructions Recorded omeprazole 20 mg capsule,delayed 20 mg PO BID #180 caps 02/22/22 release pravastatin 80 mg tablet 80 mg PO BEDTIME #90 tabs 07/26/22 estradiol 0.05 mg/24 hr semiweekly 1 patch transdermal 2XW #8 ea 10/17/22 transdermal patch (Vivelle-Dot) blood sugar diagnostic (ReliOn #100 ea 01/29/23 Prime Test Strips) blood sugar diagnostic (ReliOn #100 ea 02/08/23 Prime Test Strips) lancets 30 gauge (Easy Touch #100 ea 02/08/23 Lancets) canagliflozin 300 mg tablet 300 mg PO DAILY #90 tabs 04/25/23 (Invokana) furosemide 20 mg tablet See Rx Instructions PO .COMPLEX 04/25/23 #270 tabs budesonide-formoterol HFA 160 2 puff inhalation BID #10.2 grams 05/23/23 mcg-4.5 mcg/actuation aerosol inhaler (Symbicort) insulin glargine-yfgn 100 unit/mL See Rx Instructions .Route 05/23/23 (3 mL) subcutaneous pen (Semglee .COMPLEX #15 mL (insulin glargine-yfgn) Pen) levetiracetam 750 mg tablet 750 mg PO BID #60 tabs 07/04/23 pen needle, diabetic 33 gauge x #100 ea 07/19/2304/09 (Comfort EZ Pen [place]) mirtazapine 15 mg tablet 15 mg PO BEDTIME #30 tabs 09/16/23 gabapentin 300 mg capsule 300 mg PO BID #120 caps 09/24/23 zolpidem 5 mg tablet 5 mg PO BEDTIME PRN sleep #14 tabs 09/24/23 lisinopril 40 mg tablet 40 mg PO DAILY #90 tabs 10/10/23 quetiapine 25 mg tablet 25 mg PO BEDTIME #30 tabs 11/04/23 divalproex 250 mg tablet,extended 1,000 mg (4 x 250 mg) PO BEDTIME 11/06/23 release 24 hr #120 tabs progesterone micronized 100 mg 100 mg PO ONCE PM #30 caps 11/12/23 capsule tramadol 50 mg tablet 50 mg PO Q8H PRN pain #7 tabs 11/20/23 albuterol sulfate 90 mcg/actuation 2 puff PO Q6H PRN for wheezing #18 11/26/23 aerosol inhaler grams glyburide 5 mg tablet 5 mg PO DAILY #90 tabs 01/09/24 oxycodone-acetaminophen 5 mg-325 1 tab PO Q6H PRN pain #10 tabs 12/09/23 mg tablet (Percocet) alprazolam 0.5 mg tablet See Rx Instructions .Route 12/18/23 .COMPLEX #60 tabs Allergies Allergy/AdvReac Type Severity Reaction Status Date / Time hydrocodone Allergy Intermediate ITCHING/VOM Verified 12/09/23 20:54 ITING/RASH suture Allergy Vicryl Verified 12/09/23 20:54 sulfamethoxazole AdvReac Severe GUSTAVO Verified 12/09/23 20:54 [From Bactrim] trimethoprim [From Bactrim] AdvReac Severe GUSTAVO Verified 12/09/23 20:54 Patient History Medical History Abscess Insomnia secondary to depression with anxiety Trigger finger of left hand At risk for altered mental status STEMI (ST elevation myocardial infarction) Moderate left ankle sprain Uncontrolled type 2 diabetes mellitus Muscle twitching Dizziness Weakness Mixed stress and urge urinary incontinence Dorsal cervical fat pad Trigger finger of both hands Roberta infection Diabetic retinopathy Congenital absence of kidney Postmenopausal Pain of left great toe Urge incontinence Mood swings Hot flashes due to menopause Perimenopausal symptoms Chronic diarrhea Weight loss counseling, encounter for Recurrent UTI Chronic pain of right thumb Trigger finger, left middle finger Asthma Seizure disorder Chronic left shoulder pain Asymptomatic hypertensive urgency Situational anxiety Lower extremity edema Chronic GERD Wheezing Chronic back pain Chronic right shoulder pain Trigger finger, right middle finger DM type 2 causing CKD stage 3 Fatigue Sleep apnea Depression with anxiety Abscess of right external ear Upper extremity somatic dysfunction Pain of right thumb Right elbow pain Diarrhea due to drug Rash and nonspecific skin eruption Cervical somatic dysfunction Acute neck pain Subconjunctival hemorrhage of left eye Left hip pain Obesity Strain of lumbar region Lumbar disc herniation with radiculopathy Diabetic retinopathy associated with type 2 diabetes mellitus Pruritus Urinary tract infection Constipation due to slow transit Hot flashes Left lower quadrant abdominal pain Vaginal dryness Eosinophilic, granuloma bone Seizure (~1990) HLD (hyperlipidemia) HTN (hypertension) Fatty liver Congenital absence of one kidney Tuberculosis (~1993) Osteosarcoma Vision disorder Diabetes mellitus (~2005) Surgical History S/P coronary artery stent placement History of lumbar discectomy S/P laminectomy Anesthesia History of carpal tunnel release Neoplasm of femur Bone tumor (benign) (~1990) Status post laparoscopic cholecystectomy (~2016) Status post laparoscopic supracervical hysterectomy (~2010) Family History Brother Mental health disorder Mother Diabetes mellitus Heart disease Kidney disease Hyperlipidemia Hypertension Sister Mental health disorder Diabetes mellitus Grandfather Hypertension Stroke Grandmother Diabetes mellitus Hypertension Father Heart disease Social History household members: friend(s) Smoking Status: Former smoker Tobacco: How many years used: 29 quit status: considering quitting second hand exposure: Yes (socially) alcohol intake: never substance use type: does not use Smoking Status: Former smoker alcohol intake frequency: other Substance Use Type: does not use Exam Initial Vital Signs Initial Vital Signs: Vital Signs Temperature 97.7 F 12/19/23 09:41 Pulse Rate 94 H 12/19/23 09:41 Respiratory Rate 20 12/19/23 09:41 Blood Pressure 188/99 H 12/19/23 09:41 Pulse Oximetry 98 12/19/23 09:41 Oxygen Delivery Method Room Air 12/19/23 09:41 GENERAL: Alert 53-year-old well-appearing female and in no acute distress. HEENT: Head atraumatic,EOMI, pupils reactive, face symmetric, moist mucous membranes CARDIOVASCULAR: Regular rate and rhythm without murmurs, rubs or gallops. RESPIRATORY: Breath sounds equal bilaterally, no wheezes rales or rhonchi. Right-sided pain no paradoxical movement no bruising erythema or other symptoms ABDOMEN: Soft, nontender. Normoactive bowel sounds all 4 quadrants. No guarding or rebound. EXTREMITIES: Normal range of motion, no clubbing or edema. Neurovascularly intact NEUROLOGICAL: Alert and oriented x4.Normal gait and speech. Cranial nerves II through XII grossly intact. SKIN: Warm, dry, no laceration, no petechiae, no rashes or lesions. 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 - [employer] Stat 12/19/23 12:36 Complete Blood Count AUTO DIFF Stat Comprehensive Metabolic Panel Stat Lipase Stat NT-proBNP (BNP-Adult 18+) Stat Troponin & CK Cardiac Panel Stat 12/19/23 13:28 EKG-12 Lead Stat Discontinued Medications Acetaminophen (Acetaminophen 325 Mg Tablet) 975 mg PO NOW ONE Stop: 12/19/23 12:26 Last Admin: 12/19/23 12:35 Dose: Not Given Documented By: Vital Signs Vital signs: Vital Signs - 8 hr 12/19/23 12:00 12/19/23 12:00 12/19/23 12:30 Pulse Rate 93 H 88 Respiratory Rate 22 25 H Blood Pressure 161/93 H Pulse Oximetry 95 12/19/23 12:30 12/19/23 13:00 12/19/23 13:00 Pulse Rate 87 Respiratory Rate 28 H Blood Pressure 178/100 H 166/104 H Pulse Oximetry 96 12/19/23 13:30 12/19/23 13:30 Pulse Rate 84 Respiratory Rate 22 Blood Pressure 179/98 H Pulse Oximetry 97 Medical Decision Making Lab Data 12/19/23 12:36 12/19/23 12:36 Labs: Lab Results 12/19/23 Range/Units 12:36 WBC 4.5 (4.5-11.0) X10^3/uL RBC 4.30 (4.0-5.2) X10^6/uL Hgb 12.8 (12.0-16.0) g/dL Hct 37.1 (36-46) % MCV 86.3 (80-100) fL MCH 29.8 (26-34) PG MCHC 34.5 (30-36) % RDW 15.4 H (11.6-14.8) % Plt Count 142 L (150-400) X10^3/uL Neut % (Auto) 50.8 (50-75) % Lymph % (Auto) 33.1 (25-40) % Bowie % (Auto) 8.5 (3-14) % Eos % (Auto) 6.9 H (2-4) % Baso % (Auto) 0.7 (0-2) % Neut # (Auto) 2300 (9275-3336) /uL Lymph # (Auto) 1500 (1656-4759) /uL Bowie # (Auto) 400 (0-900) /uL Eos # (Auto) 300 (0-450) /uL Baso # (Auto) 0 (0-100) /uL Total Counted Cancelled Seg Neutrophils % Cancelled Band Neutrophils % Cancelled Lymphocytes % (Manual) Cancelled Atypical Lymphs % Cancelled Monocytes % (Manual) Cancelled Eosinophils % (Manual) Cancelled Basophils % (Manual) Cancelled Metamyelocytes % Cancelled Myelocytes % Cancelled Promyelocytes % Cancelled Blast Cells % Cancelled Neutrophils # (Manual) Cancelled Nucleated RBCs Cancelled Differential Comment Cancelled Hypersegmented Neuts Cancelled Reactive Lymphocytes Cancelled Plasma Cells Cancelled Smudge Cells Cancelled Other Cell Type Cancelled Toxic Granulation Cancelled Toxic Vacuolation Cancelled Dohle Bodies Cancelled Kimberly Rods Cancelled WBC Morphology Comment Cancelled Platelet Estimate Cancelled Clumped Platelets Cancelled Plt Morphology Comment Cancelled RBC Morphology Cancelled Dimorphic RBCs Cancelled Polychromasia Cancelled Hypochromasia Cancelled Poikilocytosis Cancelled Basophilic Stippling Cancelled Anisocytosis Cancelled Microcytosis Cancelled Macrocytosis Cancelled Spherocytes Cancelled Pappenheimer Bodies Cancelled Sickle Cells Cancelled Target Cells Cancelled Tear Drop Cells Cancelled Ovalocytes Cancelled Stomatocytes Cancelled Helmet Cells Cancelled [place] Bodies Cancelled [place] Rings Cancelled Nolan Cells Cancelled Acanthocytes (Spur) Cancelled Rouleaux Cancelled Schistocytes Cancelled Sodium 137 (137-145) mmol/L Potassium 4.9 (3.4-5.1) mmol/L Chloride 108 H (98-107) mmol/L Carbon Dioxide 20 L (22-32) mmol/L BUN 18 H (7-17) mg/dL Creatinine 1.45 H (0.52-1.04) mg/dL Estimated GFR 44 L (>60) mL/min BUN/Creatinine Ratio 12.4 (6-22) Glucose 118 H (70-100) mg/dL Calcium 9.4 (8.4-10.2) mg/dL Total Bilirubin 0.5 (0.2-1.3) mg/dL AST 26 (14-36) IU/L ALT 18 (<35) IU/L Alkaline Phosphatase 64 (38-126) U/L Total Creatine Kinase 51 (30-135) U/L Troponin I < 0.012 (0.01-0.034) ng/mL NT-Pro-B Natriuret Pep 779 H (<125) pg/mL Total Protein 7.6 (6.3-8.2) g/dL Albumin 3.9 (3.5-5.0) g/dL Globulin 3.7 (1.7-4.1) g/dL Albumin/Globulin Ratio 1.1 (1.0-2.8) Lipase 109 (23-300) U/L Point of Care Testing Glucose POC 111 Urine Dip Bedside Urine Glucose 1000 mg/dl Bedside Urine Bilirubin - Negative Bedside Urine Ketone - Negative Urine Specific [place] 1.020 Bedside Urine Occult Blood +/- Bedside Urine pH 6.0 Bedside Urine Protein +++ 300 Bedside Urine Urobilinogen - Negative Bedside Urine Nitrite - Negative Bedside Urine Leukocytes - Negative Esterase Point of care testing: Point of Care Testing Glucose POC 111 Urine Dip Bedside Urine Glucose 1000 mg/dl Bedside Urine Bilirubin - Negative Bedside Urine Ketone - Negative Urine Specific [place] 1.020 Bedside Urine Occult Blood +/- Bedside Urine pH 6.0 Bedside Urine Protein +++ 300 Bedside Urine Urobilinogen - Negative Bedside Urine Nitrite - Negative Bedside Urine Leukocytes - Negative Esterase Imaging Data Chest x-ray: Radiologist's Impression: PROCEDURE: XR RIBS RT MIN 3V W CXR 1V INDICATIONS: fall pain TECHNIQUE: 2 views of the ribs were acquired, along with a single view chest. COMPARISON: None. FINDINGS: Surgical changes and devices: None. Bones and chest wall: No fractures or dislocations. No suspicious bony lesions. Overlying soft tissues appear unremarkable. Lungs and pleura: No pleural effusions or pneumothorax. Lungs appear clear. Mediastinum: Mediastinal contours appear normal. Heart size is normal. IMPRESSION: No displaced rib fracture or acute pulmonary process. Dictated by: Mikey Christy M.D. on 12/19/2023 at 13:25 MDM Narrative Medical decision making narrative: Patient 53-year-old female with multiple medical comorbidities presenting today with severe depression not taking medication for the last 3 days. Had a near syncopal episode in the emergency bathroom. Complaining of some right rib pain. She denies any suicide or homicidal ideations. Blood work reviewed: No evidence of infection or DKA in fact creatinine is improved from previous Imaging reviewed no rib fracture She has not having any nausea vomiting or headache. No focal deficits. No evidence of head trauma. At this time I see no need for head CT. Social work evaluated she is given resources. At this time does not meet involuntary placement and does not want voluntary. Discharge Plan Departure Patient Disposition: Home Clinical Impression: Depression Instructions: Depression Activity Restrictions/Additional Instructions: *You have been diagnosed with depression *What to do: Please take your medication. You got this :) *Continue to take medications as directed *Follow up with your primary care provider in 2-3 days or call [phone] *Return to ER if you should have any new, worsening or concerning symptoms Prescriptions: No Action quetiapine 25 mg tablet 25 mg PO BEDTIME Qty: 30 3RF omeprazole 20 mg capsule,delayed release(DR/EC) 20 mg PO BID Qty: 180 3RF (DME) lancets [Easy Touch Lancets] 30 gauge misc See Rx Instructions .Route Qty: 100 12RF Rx Instructions: Check blood glucose 4 times daily (DME) ReliOn Prime Test Strips Strip See Rx Instructions .Route Qty: 100 12RF Rx Instructions: Test blood glucose 4 times daily levetiracetam 750 mg tablet 750 mg PO BID Qty: 60 11RF mirtazapine 15 mg tablet 15 mg PO BEDTIME Qty: 30 2RF lisinopril 40 mg tablet 40 mg PO DAILY Qty: 90 0RF divalproex 250 mg tablet extended release 24 hr 1,000 mg PO BEDTIME Qty: 120 2RF progesterone micronized 100 mg capsule 100 mg PO ONCE PM Qty: 30 3RF albuterol sulfate 90 mcg/actuation HFA aerosol inhaler 2 puff PO Q6H PRN (Reason: for wheezing) Qty: 18 0RF glyburide 5 mg tablet 5 mg PO DAILY Qty: 90 0RF alprazolam 0.5 mg tablet See Rx Instructions .ROUTE .COMPLEX Qty: 60 5RF Rx Instructions: Take 1 tablet by mouth twice daily as needed for anxiety; pravastatin 80 mg tablet 80 mg PO BEDTIME Qty: 90 3RF (DME) ReliOn Prime Test Strips Strip See Rx Instructions .Route Qty: 100 5RF Rx Instructions: As directed furosemide 20 mg tablet See Rx Instructions PO .COMPLEX Qty: 270 3RF Rx Instructions: 2tabs am and 1tab at noon, orally; Invokana 300 mg tablet 300 mg PO DAILY Qty: 90 3RF budesonide-formoterol [Symbicort] 160-4.5 mcg/actuation HFA aerosol inhaler 2 puff inhalation BID Qty: 10.2 12RF insulin glargine-yfgn [Semglee(insulin glarg-yfgn)Pen] 100 unit/mL (3 mL) insulin pen See Rx Instructions .ROUTE .COMPLEX Qty: 15 11RF Dose Instruction: INJECT 10 UNITS SUBCUTANEOUSLY ONCE DAILY Rx Instructions: INJECT 40 UNITS SUBCUTANEOUSLY twice DAILY aspirin [Adult Aspirin Regimen] 81 mg tablet,delayed release (DR/EC) 81 mg PO DAILY biotin 5,000 mcg PO DAILY clopidogrel 75 mg tablet 75 mg PO DAILY (DME) Comfort EZ Pen [place] 33 gauge x 5/16 needle See Rx Instructions .Route Qty: 100 12RF Rx Instructions: USE TO INJECT INSULIN 4 TIMES DAILY gabapentin 300 mg capsule 300 mg PO BID Qty: 120 5RF Rx Instructions: start with one cap daily and increase by one cap every third day up to 2 caps twice daily maximum zolpidem 5 mg tablet 5 mg PO BEDTIME PRN (Reason: sleep) Qty: 14 5RF nitrofurantoin macrocrystal 100 mg capsule 100 mg PO DAILY nitroglycerin 0.4 mg tablet, sublingual 0.4 mg sublingual DAILY estradiol [Vivelle-Dot] 0.05 mg/24 hr patch semiweekly 1 patch transdermal 2XW Qty: 8 12RF Rx Instructions: Start using when oral estrogen tablets have been completed and apply 1 patch for 3 days alternating with 1 patch for 4 days each week. fesoterodine 4 mg tablet extended release 24 hr 4 mg PO DAILY (DME) pen needle, diabetic [TRUEplus Pen Needle] 31 gauge x 1/4 needle See Rx Instructions .ROUTE .MEDSUPPLY Qty: 100 Patient Comments: [NO ORIGINAL SIG] Rx Instructions: As directed insulin aspart U-100 [Novolog FlexPen U-100 Insulin] 100 unit/mL (3 mL) insulin pen 30 unit SUBCUT BID Victoza 3-Brando 0.6 mg/0.1 mL (18 mg/3 mL) pen injector 1.8 mg SUBCUT DAILY oxycodone-acetaminophen [Percocet] 5-325 mg tablet 1 tab PO Q6H PRN (Reason: pain) Qty: 10 0RF tramadol 50 mg tablet 50 mg PO Q8H PRN (Reason: pain) Qty: 7 0RF Referrals: Moises Hong DO [Primary Care Provider] - Stand Alone Forms: Patient Portal/API
--- NOTE | 2023-12-19 11:24 | PC.NURSE ---
Addendum entered by Paul Perdomo R.N. 12/19/23 11:41: When informing provider no new orders were given to this RN. Original Note: Patient asked to go to the restroom and was unhooked by a caregiver who was at patient bedside. Patient was able to stand and ambulate without assistive device. Caregiver was standby assist with patient to the door and then this RN took over. This RN escorted patient as stand by assist to the restroom. Patient denies feeling lightheaded or dizzy and no apparent gait abnormality noted. Patient educated on how to give a clean urine sample and asked to pull the call light when patient completed her urination. Caregiver present outside the restroom. Patient never pulled the call light and caregiver states that she knocked several times to patient stating that she was okay through the door. Eventually the patient opened the door and informed the caregiver that she had felt off balance and that she fell onto her left side and that she struck the left side of her head on the tile in the shower when she went down. Patient denies loss of consciousness and able to get up and ambulate to the door herself. Patient informed caregiver as they got back to the room. Caregiver found this RN and informed me. This RN immediately informed provider. This RN interviewed patient about this and states I was embarrassed. Patient states I was next to the door trying to get a the cup and then stumbled and when I fell I hit the shower tile on my head. When asked to point to where she hit her head patient points to left parietal lobe area.
--- NOTE | 2023-12-19 12:10 | DI.RAD.S_ITS ---
PROCEDURE: XR RIBS RT MIN 3V W CXR 1V INDICATIONS: fall pain TECHNIQUE: 2 views of the ribs were acquired, along with a single view chest. COMPARISON: None. FINDINGS: Surgical changes and devices: None. Bones and chest wall: No fractures or dislocations. No suspicious bony lesions. Overlying soft tissues appear unremarkable. Lungs and pleura: No pleural effusions or pneumothorax. Lungs appear clear. Mediastinum: Mediastinal contours appear normal. Heart size is normal. IMPRESSION: No displaced rib fracture or acute pulmonary process. Dictated by: Mikey Christy M.D. on 12/19/2023 at 13:25 Approved by: Mikey Christy M.D. on 12/19/2023 at 13:26
[2023-12-19 12:44] LABS: Hematocrit 37.1 % (36-46); Hemoglobin 12.8 g/dL (12.0-16.0); Mean Corpuscular HGB Conc 34.5 % (30-36); Mean Corpuscular Hemoglobin 29.8 PG (26-34); Mean Corpuscular Volume 86.3 fL (80-100); Platelet Count 142 X10^3/uL (150-400); Red Cell Distribution Width 15.4 % (11.6-14.8); White Blood Cell Count 4.5 X10^3/uL (4.5-11.0)
[2023-12-19 13:00] LABS: Alanine Aminotransferase 18 IU/L (<35); Albumin 3.9 g/dL (3.5-5.0); Albumin Globulin Ratio 1.1 (1.0-2.8); Alkaline Phosphatase 64 U/L (38-126); Aspartate Aminotransferase 26 IU/L (14-36); BUN Creatinine Ratio 12.4 (6-22); Bilirubin Total 0.5 mg/dL (0.2-1.3); Blood Urea Nitrogen 18 mg/dL (7-17); Calcium 9.4 mg/dL (8.4-10.2); Carbon Dioxide 20 mmol/L (22-32); Chloride 108 mmol/L (98-107); Creatine Kinase 51 U/L (30-135); Estimated Glomerular Filt Rate 44 mL/min (>60); Globulin 3.7 g/dL (1.7-4.1); Glucose 118 mg/dL (70-100); HEMOLYSIS 24 (0-50); Lipase 109 U/L (23-300); Potassium 4.9 mmol/L (3.4-5.1); Sodium 137 mmol/L (137-145); Total Protein 7.6 g/dL (6.3-8.2)
[2023-12-19 13:12] LABS: NT-proBNP (BNP-Adult 18+) 779 pg/mL (<125)
[2023-12-19 13:14] LABS: Troponin I < 0.012 ng/mL (0.01-0.034)
[2023-12-19 13:22] LABS: Add Manual Diff / Slide Review NO
[2023-12-19 13:24] LABS: Neutrophils Percent Auto 50.8 % (50-75)
[2023-12-19 13:25] LABS: Basophils Absolute Auto 0 /uL (0-100); Basophils Percent Auto 0.7 % (0-2); Eosinophils Absolute Auto 300 /uL (0-450); Eosinophils Percent Auto 6.9 % (2-4); Lymphocytes Absolute Auto 1500 /uL (1100-4500); Lymphocytes Percent Auto 33.1 % (25-40); Monocytes Absolute Auto 400 /uL (0-900); Monocytes Percent Auto 8.5 % (3-14); Neutrophils Absolute Auto 2300 /uL (1500-7000)
--- NOTE | 2023-12-19 13:34 | CM.SWNOTE ---
ED CONSTRUCTION SITE CROSSING GUARD Assessment Note CONSTRUCTION SITE CROSSING GUARD receives consult due to concern for patient's depression. Patient presents to ED due to concern for high blood pressure after going to Psychiatry appt that patient had previously canceled but showed up for. RN at psychiatry office recommenced patient present to ED. Patient endorses she has been in bed the last few days not really eating or sleeping or watching tv and not taking rx. Patient has significant medical history and experienced a fall and passed out recently and passed out in the bathroom today while in the ED. Patient has hx of Diabetes, Insomnia, Depression, PTSD, NSTEMI, Anxiety CKD, and several others. Patient endorses hx of Bipolar. Patient has rx for Depakote ER 1250 mg and Quetiapine 25mg. Patient's PCP is Dr. Crawford, Patient's Psychiatrist is Dr. Kiser, patient has [place] Medicaid insurance. CONSTRUCTION SITE CROSSING GUARD enters room to meet with patient, patient presents as A/Ox4, with flat affect, coherent. Patient endorses the months of April through February are difficult for her as she has experienced the loss of 4 close family members including her mother during those months. Patient denies SI, thoughts of self harm or HI. Patient endorses some visual hallucinations where she sees shadows and believes it could be her mother. Patient endorses she fixates on counting things when looking at them and has concerns she may have OCD. Patient denies any substance use. Patient endorses she resides with roommate in [place] but they do not talk much. Patient endorses she has a small shinnecock of friends but states she keeps her shinnecock small due to reported trust issues. 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 Patient endorses she spends most of her time at home with her cat. Patient endorses she has a PCP f/u appt tomorrow and a Psychiatry f/u on Saturday. CONSTRUCTION SITE CROSSING GUARD encourages patient to talk about what patient discussed today in ED. Patient endorses interest in talking with a therapist and having someone to talk to regularly. CONSTRUCTION SITE CROSSING GUARD provides list of MH providers that accept her insurance and encourages patient to call, CONSTRUCTION SITE CROSSING GUARD encourages patient to talk about this with Psychiatrist as well. Patient endorses she has cop examiner appt that she would like to get to today at 3pm. Plan: patient to d/c to home upon medical clearance. Patient to f/u with PCP and Psychiatrist the next few days. Patient to seek outpatient therapist. GOLDIE ChinoSW
== END 2023-12-19 13:55 | disposition home or self-care (01) ==
PROVIDERS: Emergency Provider Emergency Medicine; Family Provider Family Medicine; PCP Family Medicine
DX: F32.A Depression, unspecified (principal); R07.81 Pleurodynia; I10 Essential (primary) hypertension; W19.XXXA Unspecified fall, initial encounter; Z79.899 Other long term (current) drug therapy; E11.9 Type 2 diabetes mellitus without complications; Z79.4 Long term (current) use of insulin; Z79.84 Long term (current) use of oral hypoglycemic drugs; Z71.3 Dietary counseling and surveillance
CPT/HCPCS: 36415; 71101; 80053; 81003; 82550; 82962; 83690; 83880; 84484; 85025; 93005; 99283; 99284; G0108

== ENCOUNTER → 2023-12-19 14:21 | Outpatient (CLI) | payer OTHER, MEDICAID, SELFPAY ==
[2023-11-18 16:28] VITALS: BMI 35.6
--- NOTE | 2023-12-26 17:04 | DIAB.FU ---
Follow-up Diabetes Education Assessment Name: Candis Billy Date: 12/19/23 Time: 3:30-4:30p Dx: Type II Diabetes Provider: Yvette Chirinos presents for DM visit. Reports a lot of mental health challenges. Followed by psychology. Reports diabetes feels overwhelming to manage given all other health concerns. Interested in CGM. Historically on multiple injections insulin. Stopped taking all meds five days ago. Reports FBG of 118 in ED, however unclear of glycemic state later in the day. Eating once per day. Depression impacting overall self care. One meal per day: frozen pizza or veggie tray or pork rinds. Reports this has been going on for 3-5 days. Reports KS since last visit in 04/2023. Has Nitroglycerine. Unsure how to use. Self-Monitoring Blood Glucose: None Diabetes Medications: Currently not taking. 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 Constipation due to slow transit Depression with anxiety Diabetes mellitus (~2005) Diabetic retinopathy Diabetic retinopathy associated with type 2 diabetes mellitus Diarrhea due to drug Dizziness DM type 2 causing CKD stage 3 Dorsal cervical fat pad Eosinophilic, granuloma bone Fatigue Fatty liver HLD (hyperlipidemia) Labs 07/19/19: Trig 466, TC 166, HDL 36, LDL-test not performed, trig>400 Hot flashes Hot flashes due to menopause HTN (hypertension) Insomnia secondary to depression with anxiety Left hip pain Left lower quadrant abdominal pain Lower extremity edema Lumbar disc herniation with radiculopathy Major depressive disorder, single episode, mild Mixed stress and urge urinary incontinence Moderate left ankle sprain Mood swings Muscle twitching Obesity Osteosarcoma Pain of left great toe Pain of right thumb Perimenopausal symptoms Postmenopausal Pruritus Rash and nonspecific skin eruption Recurrent UTI Right elbow pain Seizure (~1990) Seizure disorder Situational anxiety Sleep apnea STEMI (ST elevation myocardial infarction) Strain of lumbar region Subconjunctival hemorrhage of left eye Trigger finger of both hands Trigger finger of left hand Trigger finger, left middle finger Trigger finger, right middle finger 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 Provided appropriate educational handouts. Discussed the following topics: self care and realistic considerations for diabetes care right now Importance of DM meds and potential for hyperglycemia later in the day despite in range fasting at ED Reducing risk for KS and stroke Enc calling [employer] staff regarding nitroglycerine Self placed trial CGM Created SMART goals for patient self-care and success. Goals: Trial CGM Call cardiology staff Follow-up: CASEY DELA CRUZ follow-up in 2-3 weeks. Candis is struggling with balancing diabetes care and overall self care due to depression. Encouraged her to manage her diabetes with what she feels is possible given current state. She wants CGM, so we placed a trial/starter kit today. Amira Ramos RDN, LANIE Certified Diabetes Care and [employer] P: [phone] Thank you for this referral
== END ==
PROVIDERS: Family Provider Family Medicine; PCP Family Medicine; Referring Provider Family Medicine; Visit Provider Family Medicine
DX: E11.9 Type 2 diabetes mellitus without complications (principal); Z79.4 Long term (current) use of insulin; Z79.84 Long term (current) use of oral hypoglycemic drugs; Z71.3 Dietary counseling and surveillance
CPT/HCPCS: G0108

== ENCOUNTER → 2023-12-23 12:14 | Outpatient (CLI) | payer OTHER, MEDICAID, SELFPAY ==
[2023-11-18 16:28] VITALS: BMI 35.6
[2023-12-24 03:14] LABS: Valproic Acid (Depakene) Total 25 ug/mL (50-100)
== END ==
PROVIDERS: Family Provider Family Medicine; PCP Family Medicine; Referring Provider Psychiatry & Neurology Psychiatry; Visit Provider Psychiatry & Neurology Psychiatry
DX: F33.2 Major depressive disorder, recurrent severe without psychotic features (principal); F43.12 Post-traumatic stress disorder, chronic; Z79.899 Other long term (current) drug therapy
CPT/HCPCS: 36415; 80164; 99215

== ENCOUNTER → 2024-01-09 14:10 | Outpatient (CLI) | payer OTHER, MEDICAID, SELFPAY ==
[2023-12-31 08:25] VITALS: BMI 35.6
--- NOTE | 2024-01-09 14:13 | DI.RAD.S_ITS ---
PROCEDURE: XR LUMBAR SPINE MIN 4V INDICATIONS: Low back pain TECHNIQUE: 5 views of the lumbar spine were acquired, including bilateral oblique views. COMPARISON: [facility], CR, XR LUMBAR SPINE 2-3V, 05/24/2020, 8:15. [facility], CR, XR LUMBAR SPINE 2-3V, 09/26/2019, 1:49. FINDINGS: Bones: 5 nonrib-bearing vertebrae are present. Mild straightening the normal lumbar lordosis. Postsurgical changes from L5-S1 posterior spinal fixation and discectomy. No evidence of hardware complication. Mild degenerative changes of the lumbar spine are redemonstrated. No vertebral body compression fractures. No suspicious bony lesions. Partially visualized right femoral fixation hardware. Soft tissues: Overlying bowel gas pattern is normal. No suspicious soft tissue calcifications. Right upper quadrant surgical clips. Oblique images: No definite pars defects, overlying hardware limits evaluation.. IMPRESSION: Mild degenerative changes of the lumbar spine status post L5-S1 posterior spinal fixation and discectomy. Dictated by: Connor Scott M.D. on 01/09/2024 at 15:37 Approved by: Connor Scott M.D. on 01/09/2024 at 15:39
== END ==
PROVIDERS: Family Provider Family Medicine; PCP Family Medicine; Referring Provider Anesthesiology; Visit Provider Anesthesiology
DX: M47.26 Other spondylosis with radiculopathy, lumbar region (principal); M25.562 Pain in left knee; M17.12 Unilateral primary osteoarthritis, left knee; M54.50 Low back pain, unspecified; G89.29 Other chronic pain; Z98.890 Other specified postprocedural states
CPT/HCPCS: 72110; 99214

== ENCOUNTER → 2024-01-14 13:15 | Outpatient (CLI) | payer OTHER, MEDICAID, SELFPAY ==
[2023-12-31 08:25] VITALS: BMI 35.6
[2024-01-15 03:13] LABS: Valproic Acid (Depakene) Total < 4 ug/mL (50-100)
== END ==
PROVIDERS: Family Provider Family Medicine; PCP Family Medicine; Referring Provider Psychiatry & Neurology Psychiatry; Visit Provider Psychiatry & Neurology Psychiatry
DX: G40.909 Epilepsy, unspecified, not intractable, without status epilepticus (principal); F41.8 Other specified anxiety disorders; Z51.81 Encounter for therapeutic drug level monitoring
CPT/HCPCS: 36415; 80164

== ENCOUNTER → 2024-01-16 14:15 | Outpatient (CLI) | payer OTHER, MEDICAID, SELFPAY ==
[2023-11-18 16:28] VITALS: BMI 35.6
[2023-12-31 08:25] VITALS: BMI 35.6
--- NOTE | 2024-01-24 10:03 | DIAB.FU ---
Follow-up Diabetes Education Assessment Name: Candis Billy Date: 01/16/24 Time: 315-4p Dx: Type II Diabetes Candis presents for f/u after CGM trial. Really enjoys the tech and RD to coordinate with PCP about sending PA to [facility] with supporting documentation. States she is frustrated with weight. Reports she is not using insulin if not on CGM. Worries about lows. Has had a h/o severe lows. Main symptom of lows is sweating. Has had a debilitating low in the past that she had to crawl to get tx. Physical Activity: Walking 30 min 2-3 days per week Self-Monitoring Blood Glucose: Having lows of 50-60mg/dl multiple times per week. Plans to reduce HS insulin. TIR: Very high: 2% High: 10% In range: 77% Low: 9% Very low: 2% Diabetes Medications: 300mg Invokana (not taking yet) 5mg Glyburide 40u Glargine BID (taking 30u BID) 10u Aspart TID (taking 20u with meals) Pertinent Labs: HgA1c: 12/2022 10.3% 01/2022 7.1% 10/2023 10.4% Past Medical History: (Last Updated 01/09/24 @ 14:07 by Anders Renee MD) Abscess Abscess of right external ear Acute neck pain Asthma Asymptomatic hypertensive urgency At risk for altered mental status Roberta infection Cervical somatic dysfunction Chronic back pain Chronic diarrhea Chronic GERD Chronic left shoulder pain Chronic pain of right thumb Chronic right shoulder pain 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 Constipation due to slow transit Depression with anxiety Diabetes mellitus (~2005) Diabetic retinopathy Diabetic retinopathy associated with type 2 diabetes mellitus Diarrhea due to drug Dizziness DM type 2 causing CKD stage 3 Dorsal cervical fat pad Eosinophilic, granuloma bone Fatigue Fatty liver HLD (hyperlipidemia) Labs 07/19/19: Trig 466, TC 166, HDL 36, LDL-test not performed, trig>400 Hot flashes Hot flashes due to menopause HTN (hypertension) Insomnia secondary to depression with anxiety Left hip pain Left knee pain Left lower quadrant abdominal pain Lower extremity edema Lumbar disc herniation with radiculopathy Lumbar radiculopathy Major depressive disorder, single episode, mild Mixed stress and urge urinary incontinence Moderate left ankle sprain Mood swings Muscle twitching Obesity Osteoarthritis of left knee Osteosarcoma Pain of left great toe Pain of right thumb Perimenopausal symptoms Postmenopausal Pruritus Rash and nonspecific skin eruption Recurrent UTI Right elbow pain Seizure (~1990) Seizure disorder Situational anxiety Sleep apnea STEMI (ST elevation myocardial infarction) Strain of lumbar region Subconjunctival hemorrhage of left eye Trigger finger of both hands Trigger finger of left hand Trigger finger, left middle finger Trigger finger, right middle finger 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 Provided appropriate educational handouts. Discussed the following topics: Recent blood sugar results and trends Medication management: reducing HS insulin to prevent lows Treatment of lows Review of general nutrition recommendations and current intake Physical activity plan and impact on blood sugars CGM acquisition: RD to coordinate with PCP about PA to [facility] Factors impacting weight Created SMART goals for patient self-care and success. Goals: Trial CGM- met Call cardiology staff - not discussed Keep hypo tx bedside- new Reduce Lantus Hs to 20-25u- new Call [facility] in one week to check on PA- new Follow-up: CASEY DELA CRUZ follow-up in 2-3 weeks Amira Ramos RDN, LANIE Certified Diabetes Care and Ultrasound Technician P: [phone] Thank you for this referral
== END ==
PROVIDERS: Family Provider Family Medicine; PCP Family Medicine; Referring Provider Family Medicine; Visit Provider Family Medicine
DX: E11.9 Type 2 diabetes mellitus without complications (principal); Z79.84 Long term (current) use of oral hypoglycemic drugs; Z79.4 Long term (current) use of insulin; Z71.3 Dietary counseling and surveillance
CPT/HCPCS: G0108

== ENCOUNTER → 2024-01-30 14:24 | Outpatient (CLI) | payer OTHER, MEDICAID, SELFPAY ==
[2023-12-31 08:25] VITALS: BMI 35.6
--- NOTE | 2024-01-30 14:26 | DI.MG.S_ITS ---
BILATERAL DIGITAL SCREENING MAMMOGRAM 3D/2D WITH CAD: 01/30/2024 Comparison is made to exams dated: 10/05/2020 mammogram and 10/23/2018 mammogram - [facility]. There are scattered areas of fibroglandular density in both breasts (category b / 25%-50% glandular tissue). Current study was also evaluated with a Computer Aided Detection (CAD) system. No significant masses, calcifications, or other findings are seen in either breast. There has been no significant interval change. IMPRESSION: NEGATIVE There is no mammographic evidence of malignancy. A 1 year screening mammogram is recommended. Based on the Tyrer Cuzick model (a risk assessment model) the patient's lifetime risk is 8.0% and her 10 year risk is 1.9%. According to the ACR, ACS, and NCCN guidelines, an annual breast MRI exam along with mammogram is recommended if the patient's lifetime risk is 20% or greater. This exam was interpreted at Station ID: [id number]. NOTE: For mammograms, a report in lay terms will be sent to the patient. Approximately 15% of breast malignancies will not be visualized mammographically. In the management of a palpable breast mass, a negative mammogram must not discourage biopsy of a clinically suspicious lesion. Electronically Signed By: Antonio javed/payton:01/30/2024 16:52:50 letter sent: Normal Exam ACR BI-RADS Category 1: Negative [id number]
== END ==
PROVIDERS: Family Provider Family Medicine; PCP Family Medicine; Referring Provider Family Medicine; Visit Provider Family Medicine
DX: Z12.31 Encounter for screening mammogram for malignant neoplasm of breast (principal); R92.323 Mammographic fibroglandular density, bilateral breasts
CPT/HCPCS: 77063; 77067

== ENCOUNTER → 2024-02-25 10:46 | Outpatient (CLI) | payer OTHER, MEDICAID, SELFPAY ==
[2023-12-31 08:25] VITALS: BMI 35.6
[2024-02-25 12:34] LABS: Hemoglobin A1C% w Est Avg Glu 7.2 % (4.0-6.0)
== END ==
PROVIDERS: Family Provider Family Medicine; PCP Family Medicine; Referring Provider Family Medicine; Visit Provider Family Medicine
DX: E11.22 Type 2 diabetes mellitus with diabetic chronic kidney disease (principal); N18.30 Chronic kidney disease, stage 3 unspecified; Z79.4 Long term (current) use of insulin
CPT/HCPCS: 36415; 83036

== ENCOUNTER 2024-03-12 15:25 | Emergency (ER) | payer OTHER, MEDICAID, SELFPAY ==
[2023-12-31 08:25] VITALS: BMI 35.6
[2024-03-12 15:28] VITALS: BP 106/61; PULSE 98; RESP 20; TEMP 36.4; O2SAT 99; BMI 35.5
--- NOTE | 2024-03-12 15:45 | DI.RAD.S_ITS ---
PROCEDURE: XR CHEST 1V INDICATIONS: chest pain TECHNIQUE: One view of the chest was acquired. COMPARISON: [facility], CR, XR CHEST 1V, 11/18/2023, 14:18. FINDINGS: Surgical changes and devices: None. Lungs and pleura: Lungs are clear. No pleural effusions or pneumothorax. Mediastinum: Mediastinal contours appear normal. Heart size is normal. Bones and chest wall: No suspicious bony lesions. Overlying soft tissues appear unremarkable. IMPRESSION: No acute pulmonary process. Dictated by: Kristan Walter M.D. on 03/12/2024 at 16:39 Approved by: Kristan Walter M.D. on 03/12/2024 at 16:40
[2024-03-12 16:10] LABS: Strep Grp A by PCR Rapid Negative (Negative)
[2024-03-12 16:50] LABS: Influenza A - CEPHEID Flu A NEGATIVE (NEGATIVE); Influenza B - CEPHEID Flu B NEGATIVE (NEGATIVE); Respiratory Syncytial Virus Negative (Negative)
[2024-03-12 16:58] LABS: COVID-19 CEPHEID 4-PLEX PCR Negative (Negative)
--- NOTE | 2024-03-12 17:19 | ED_ITS ---
HPI - URI/Sore Throat <Killian WallHEENA wagner - Last Filed: 03/12/24 17:50> General Chief Complaint: Upper Respiratory Symptoms Stated Complaint: chest pains, sore throat, sob sent by [facility] Time Seen by Provider: 03/12/24 17:19 Source: patient Mode of arrival: Wheelchair History of Present Illness HPI Narrative: 53-year-old female, former smoker and asthma, presents emergency department with sore throat, painful swallowing and mild shortness of breath x1 week. Patient reports that she has been eating, drinking, urinating and defecating normally and without difficulty. Related Data Home Medications Medication Instructions Recorded Confirmed aspirin 81 mg tablet,delayed 81 mg PO DAILY 05/09/23 02/26/24 release (Adult Aspirin Regimen) clopidogrel 75 mg tablet 75 mg PO DAILY 07/19/23 02/26/24 pen needle, diabetic 31 gauge x #100 ea 09/06/23 02/26/24/ (TRUEplus Pen Needle) nitroglycerin 0.4 mg sublingual 0.4 mg sublingual DAILY 11/13/23 02/26/24 tablet insulin aspart U-100 100 unit/mL 30 unit SUBCUT BID 11/18/23 02/26/24 (3 mL) subcutaneous pen (Novolog FlexPen U-100 Insulin aspart) liraglutide 0.6 mg/0.1 mL (18 mg/3 1.8 mg SUBCUT DAILY 11/18/23 02/26/24 mL) subcutaneous pen injector (Victoza 3-Brando) furosemide 20 mg tablet 20 mg PO DAILY 01/22/24 02/26/24 nitrofurantoin macrocrystal 100 mg 100 mg PO BEDTIME 01/22/24 02/26/24 capsule quetiapine 25 mg tablet 25 mg PO ONCE 02/26/24 02/26/24 Previous Rx's Medication Instructions Recorded omeprazole 20 mg capsule,delayed 20 mg PO BID #180 caps 02/22/22 release estradiol 0.05 mg/24 hr semiweekly 1 patch transdermal 2XW #8 ea 10/17/22 transdermal patch (Vivelle-Dot) blood sugar diagnostic (ReliOn #100 ea 01/29/23 Prime Test Strips) blood sugar diagnostic (ReliOn #100 ea 02/08/23 Prime Test Strips) lancets 30 gauge (Easy Touch #100 ea 02/08/23 Lancets) canagliflozin 300 mg tablet 300 mg PO DAILY #90 tabs 04/25/23 (Invokana) budesonide-formoterol HFA 160 2 puff inhalation BID #10.2 grams 05/23/23 mcg-4.5 mcg/actuation aerosol inhaler (Symbicort) insulin glargine-yfgn 100 unit/mL See Rx Instructions .Route 05/23/23 (3 mL) subcutaneous pen (Semglee .COMPLEX #15 mL (insulin glargine-yfgn) Pen) levetiracetam 750 mg tablet 750 mg PO BID #60 tabs 07/04/23 pen needle, diabetic 33 gauge x #100 ea 07/19/23/ (Comfort EZ Pen [place]) gabapentin 300 mg capsule 300 mg PO BID #120 caps 09/24/23 zolpidem 5 mg tablet 5 mg PO BEDTIME PRN sleep #14 tabs 09/24/23 divalproex 250 mg tablet,extended 1,000 mg (4 x 250 mg) PO BEDTIME 11/06/23 release 24 hr #120 tabs progesterone micronized 100 mg 100 mg PO ONCE PM #30 caps 11/12/23 capsule alprazolam 0.5 mg tablet See Rx Instructions .Route 12/18/23 .COMPLEX #60 tabs lisinopril 40 mg tablet 40 mg PO DAILY #90 tabs 12/26/23 amlodipine 2.5 mg tablet (Norvasc) 2.5 mg PO DAILY blood pressure #90 12/31/23 tabs baclofen 5 mg tablet 5 mg PO TID #90 tabs 01/09/24 quetiapine 100 mg tablet 300 mg (3 x 100 mg) PO BEDTIME #90 01/22/24 tabs pravastatin 80 mg tablet 80 mg PO BEDTIME #90 tabs 01/28/24 flash glucose sensor (FreeStyle #1 ea 02/03/24 Yana 2 Sensor kit) albuterol sulfate 90 mcg/actuation 2 puff PO Q6H PRN for wheezing #18 02/14/24 aerosol inhaler grams glyburide 5 mg tablet 5 mg PO DAILY #90 tabs 02/26/24 Allergies Allergy/AdvReac Type Severity Reaction Status Date / Time hydrocodone Allergy Intermediate ITCHING/VOM Verified 02/26/24 13:35 ITING/RASH suture Allergy Vicryl Verified 02/26/24 13:35 sulfamethoxazole AdvReac Severe GUSTAVO Verified 02/26/24 13:35 [From Bactrim] trimethoprim [From Bactrim] AdvReac Severe GUSTAVO Verified 02/26/24 13:35 Review of Systems <HEENA Aguirre - Last Filed: 03/12/24 17:50> Review of Systems Narrative: Narrative: See HPI. GENERAL: Denies chills, fatigue, fever, sweats. HEENT: Denies ear pain, difficulty swallowing, dizziness. Endorses sinus drainage, sore throat and painful swallowing. RESPIRATORY: Denies cough, wheezing, sputum. Endorses intermittent shortness of breath. CARDIOVASCULAR: Denies chest pain, palpitations, edema. GASTROINTESTINAL: Denies nausea, vomiting, abdominal pain, diarrhea, constipation. : Denies dysuria, frequency, incontinence, hematuria, urinary retention, flank pain. MSK: Denies weakness, joint pain, or bony pain. SKIN: Denies rash, skin lesions, or pruritis. NEUROLOGIC: Denies weakness, dizziness, headache, numbness, confusion. PSYCHIATRIC: No concerning psychosocial issues. Patient History <HEENA Aguirre - Last Filed: 03/12/24 17:50> Medical History Benign essential HTN Osteoarthritis of left knee Left knee pain Lumbar radiculopathy Major depressive disorder, single episode, mild Abscess Insomnia secondary to depression with anxiety Trigger finger of left hand At risk for altered mental status STEMI (ST elevation myocardial infarction) Moderate left ankle sprain Uncontrolled type 2 diabetes mellitus Muscle twitching Dizziness Weakness Mixed stress and urge urinary incontinence Dorsal cervical fat pad Trigger finger of both hands Roberta infection Diabetic retinopathy Congenital absence of kidney Postmenopausal Pain of left great toe Urge incontinence Mood swings Hot flashes due to menopause Perimenopausal symptoms Chronic diarrhea Weight loss counseling, encounter for Recurrent UTI Chronic pain of right thumb Trigger finger, left middle finger Asthma Seizure disorder Chronic left shoulder pain Asymptomatic hypertensive urgency Situational anxiety Lower extremity edema Chronic GERD Wheezing Chronic back pain Chronic right shoulder pain Trigger finger, right middle finger DM type 2 causing CKD stage 3 Fatigue Sleep apnea Depression with anxiety Abscess of right external ear Upper extremity somatic dysfunction Pain of right thumb Right elbow pain Diarrhea due to drug Rash and nonspecific skin eruption Cervical somatic dysfunction Acute neck pain Subconjunctival hemorrhage of left eye Left hip pain Obesity Strain of lumbar region Lumbar disc herniation with radiculopathy Diabetic retinopathy associated with type 2 diabetes mellitus Pruritus Urinary tract infection Constipation due to slow transit Hot flashes Left lower quadrant abdominal pain Vaginal dryness Eosinophilic, granuloma bone Seizure (~1990) HLD (hyperlipidemia) HTN (hypertension) Fatty liver Congenital absence of one kidney Tuberculosis (~1993) Osteosarcoma Vision disorder Diabetes mellitus (~2005) Surgical History S/P coronary artery stent placement History of lumbar discectomy S/P laminectomy Anesthesia History of carpal tunnel release Neoplasm of femur Bone tumor (benign) (~1990) Status post laparoscopic cholecystectomy (~2016) Status post laparoscopic supracervical hysterectomy (~2010) Family History Brother Mental health disorder Mother Diabetes mellitus Heart disease Kidney disease Hyperlipidemia Hypertension Sister Mental health disorder Diabetes mellitus Grandfather Hypertension Stroke Grandmother Diabetes mellitus Hypertension Father Heart disease Social History household members: friend(s) Smoking Status: Former smoker Tobacco: How many years used: 29 quit status: considering quitting second hand exposure: Yes (socially) alcohol intake: never substance use type: does not use Smoking Status: Former smoker alcohol intake frequency: other Substance Use Type: does not use Exam <HEENA Aguirre - Last Filed: 03/12/24 17:50> Narrative Exam Narrative: Exam Narrative: GENERAL: This is a well-nourished, well-developed patient, in no acute distress. HEAD: Atraumatic. Normocephalic. EYES: Pupils equal round and reactive. Extraocular motions intact. No scleral icterus, injection or drainage. ENT: Nose without bleeding, purulent drainage. Throat without erythema, tonsillar hypertrophy, positive postnasal exudate. Uvula midline. Airway patent. TMs and canals clear. No sinus tenderness. NECK: Trachea midline. No JVD or lymphadenopathy. Nontender. CARDIOVASCULAR: Regular rate and rhythm without murmurs, peripheral pulses intact, cap refill <2 sec. RESPIRATORY: Breath sounds equal and clear bilaterally. No wheezes, rales, or rhonchi. No cough. No increased respiratory effort. No accessory muscle use. MSK: Moves all extremities. Normal range of motion, no clubbing or edema. Neurovascularly intact. NEURO: A&O x 3. SKIN: Warm, dry, no rashes or lesions noted. Initial Vital Signs Initial Vital Signs: Vital Signs Temperature 97.5 F L 03/12/24 15:28 Pulse Rate 98 H 03/12/24 15:28 Respiratory Rate 20 03/12/24 15:28 Blood Pressure 106/61 03/12/24 15:28 Pulse Oximetry 99 03/12/24 15:28 Oxygen Delivery Method Room Air 03/12/24 15:28 Reviewed <Killian Pace DO - Last Filed: 03/12/24 17:54> Initial Vital Signs Initial Vital Signs: Vital Signs Temperature 97.5 F L 03/12/24 15:28 Pulse Rate 98 H 03/12/24 15:28 Respiratory Rate 20 03/12/24 15:28 Blood Pressure 106/61 03/12/24 15:28 Pulse Oximetry 99 03/12/24 15:28 Oxygen Delivery Method Room Air 03/12/24 15:28 Course <HEENA Aguirre - Last Filed: 03/12/24 17:50> Orders Ordered: ED Orders 03/12/24 15:35 Strep Grp A by PCR Rapid Stat 03/12/24 15:37 EKG-12 Lead Stat 03/12/24 15:45 XR chest 1V Stat 03/12/24 15:55 Covid-19 + FLU A/B + RSV - PCR Stat Discontinued Medications Dexamethasone (Dexamethasone 10 Mg/Ml Vial) 10 mg PO NOW ONE Stop: 03/12/24 17:34 Last Admin: 03/12/24 17:45 Dose: 10 mg Documented By: SEYMOUR Vital Signs Vital signs: Vital Signs - 8 hr 03/12/24 15:28 Temperature 97.5 F L Pulse Rate 98 H Respiratory Rate 20 Blood Pressure 106/61 Pulse Oximetry 99 Oxygen Delivery Method Room Air <DO Flaquito Buckley Last Filed: 03/12/24 17:54> Orders Ordered: ED Orders 03/12/24 15:35 Strep Grp A by PCR Rapid Stat 03/12/24 15:37 EKG-12 Lead Stat 03/12/24 15:45 XR chest 1V Stat 03/12/24 15:55 Covid-19 + FLU A/B + RSV - PCR Stat Discontinued Medications Dexamethasone (Dexamethasone 10 Mg/Ml Vial) 10 mg PO NOW ONE Stop: 03/12/24 17:34 Last Admin: 03/12/24 17:45 Dose: 10 mg Documented By: SEYMOUR Vital Signs Vital signs: Vital Signs - 8 hr 03/12/24 15:28 Temperature 97.5 F L Pulse Rate 98 H Respiratory Rate 20 Blood Pressure 106/61 Pulse Oximetry 99 Oxygen Delivery Method Room Air MDM - URI/Sore Throat <HEENA Aguirre - Last Filed: 03/12/24 17:50> Differential Diagnosis Differential diagnosis: Likely upper respiratory infection, sinusitis, viral infection and pharyngitis Lab Data Labs: Lab Results 03/12/24 03/12/24 Range/Units 15:35 15:55 SARS-CoV-2 (PCR) Negative (Negative) Influenza A (RT-PCR) Flu a negative (NEGATIVE) Influenza B (RT-PCR) Flu b negative (NEGATIVE) RSV (PCR) Negative (Negative) Group A Strep (PCR) Negative (Negative) Imaging Data Chest x-ray: Radiologist's Impression: [place] [address] XRay Report Signed Patient: Candis Billy MR#: [id number] : 1970 Acct:[id number] Age/Sex: 53 / F Date of Service: 03/12/24 Loc: ED Accession Number: [id number] Procedure: XR chest 1V Ordering Provider: Killian Pace D.O. PROCEDURE: XR CHEST 1V INDICATIONS: chest pain TECHNIQUE: One view of the chest was acquired. COMPARISON: [facility], , XR CHEST 1V, 11/18/2023, 14:18. FINDINGS: Surgical changes and devices: None. Lungs and pleura: Lungs are clear. No pleural effusions or pneumothorax. Mediastinum: Mediastinal contours appear normal. Heart size is normal. Bones and chest wall: No suspicious bony lesions. Overlying soft tissues appear unremarkable. IMPRESSION: No acute pulmonary process. Dictated by: Kristan Walter M.D. on 03/12/2024 at 16:39 Approved by: Kristan Walter M.D. on 03/12/2024 at 16:40 ECG Data Interpretation: 91 bpm WI Interval 170 ms QRS 100 ms NSR MDM Narrative Medical decision making narrative: 53-year-old female with sore throat and difficulty swallowing. Assessment was encouraging and no red flag symptoms noted. EKG with normal sinus rhythm. Chest x-ray was normal. Viral panel and rapid strep were both negative. Informed patient that we would send off a sample for culture and contact her with the results. Provided single dose of Decadron for discomfort and swelling. Discussed plan of care and return precautions with patient, who verbalized understanding and was agreeable with course of action. <Killian Pace, DO - Last Filed: 03/12/24 17:54> Lab Data Labs: Lab Results 03/12/24 03/12/24 Range/Units 15:35 15:55 SARS-CoV-2 (PCR) Negative (Negative) Influenza A (RT-PCR) Flu a negative (NEGATIVE) Influenza B (RT-PCR) Flu b negative (NEGATIVE) RSV (PCR) Negative (Negative) Group A Strep (PCR) Negative (Negative) Discharge Plan Departure Patient Disposition: Home Clinical Impression: Pharyngitis Qualifiers: Pharyngitis/tonsillitis etiology: unspecified etiology Qualified Code(s): J02.9 - Acute pharyngitis, unspecified Instructions: DI for Viral Pharyngitis Activity Restrictions/Additional Instructions: *You have been diagnosed with pharyngitis. It was a pleasure meeting you in sore your dealing with this. Your chest x-ray was normal and there is no signs of pneumonia. Your rapid strep and viral panel were both negative as well. We will send out a sample for culture, contact you with results, and treat if indicated. We have given you a steroid medication that should help with your swelling and pain. For any worsening symptoms, please return to the emergency department. Otherwise, please follow-up with your family doctor as needed. *What to do: *Please continue to take your regular medications as directed. [ ] New medication prescriptions sent to your pharmacy: [ ] [ ] New medication written as a paper prescription [ x] No new medications given *Please follow up with your primary care provider in 2-3 days, call for an appointment. Let them know you were seen in the Emergency Department and that we ask that you be seen in follow up. We will electronically transmit a record of today's note if your PCP is in our system *If you do not have a primary care provider please contact the [facility] Resource line at [phone]. They will ask some questions about your medical history and help get you set up with a doctor in the community. ? Return to ER if you should have any new, worsening or concerning symptoms, such as worsening pain, severe headache, confusion, chest pain, difficulty breathing, fever greater than 101 F, shaking chills, persistent vomiting to the point that you cannot drink fluids, or other new or worsening symptoms. Prescriptions: No Action furosemide 20 mg tablet 20 mg PO DAILY nitrofurantoin macrocrystal 100 mg capsule 100 mg PO BEDTIME Rx Instructions: must administer with a meal/food quetiapine 100 mg tablet 300 mg PO BEDTIME Qty: 90 3RF omeprazole 20 mg capsule,delayed release(DR/EC) 20 mg PO BID Qty: 180 3RF (DME) lancets [Easy Touch Lancets] 30 gauge misc See Rx Instructions .Route Qty: 100 12RF Rx Instructions: Check blood glucose 4 times daily (DME) ReliOn Prime Test Strips Strip See Rx Instructions .Route Qty: 100 12RF Rx Instructions: Test blood glucose 4 times daily levetiracetam 750 mg tablet 750 mg PO BID Qty: 60 11RF divalproex 250 mg tablet extended release 24 hr 1,000 mg PO BEDTIME Qty: 120 2RF progesterone micronized 100 mg capsule 100 mg PO ONCE PM Qty: 30 3RF alprazolam 0.5 mg tablet See Rx Instructions .ROUTE .COMPLEX Qty: 60 5RF Rx Instructions: Take 1 tablet by mouth twice daily as needed for anxiety; lisinopril 40 mg tablet 40 mg PO DAILY Qty: 90 3RF pravastatin 80 mg tablet 80 mg PO BEDTIME Qty: 90 3RF (DME) FreeStyle Yana 2 Sensor Kit See Rx Instructions .Route Qty: 1 11RF Rx Instructions: use to check blood sugars 4 times a day albuterol sulfate 90 mcg/actuation HFA aerosol inhaler 2 puff PO Q6H PRN (Reason: for wheezing) Qty: 18 0RF glyburide 5 mg tablet 5 mg PO DAILY Qty: 90 0RF (DME) ReliOn Prime Test Strips Strip See Rx Instructions .Route Qty: 100 5RF Rx Instructions: As directed Invokana 300 mg tablet 300 mg PO DAILY Qty: 90 3RF budesonide-formoterol [Symbicort] 160-4.5 mcg/actuation HFA aerosol inhaler 2 puff inhalation BID Qty: 10.2 12RF insulin glargine-yfgn [Semglee(insulin glarg-yfgn)Pen] 100 unit/mL (3 mL) insulin pen See Rx Instructions .ROUTE .COMPLEX Qty: 15 11RF Dose Instruction: INJECT 10 UNITS SUBCUTANEOUSLY ONCE DAILY Rx Instructions: INJECT 40 UNITS SUBCUTANEOUSLY twice DAILY aspirin [Adult Aspirin Regimen] 81 mg tablet,delayed release (DR/EC) 81 mg PO DAILY clopidogrel 75 mg tablet 75 mg PO DAILY (DME) Comfort EZ Pen Wellington 33 gauge x 5/16 needle See Rx Instructions .Route Qty: 100 12RF Rx Instructions: USE TO INJECT INSULIN 4 TIMES DAILY gabapentin 300 mg capsule 300 mg PO BID Qty: 120 5RF Rx Instructions: start with one cap daily and increase by one cap every third day up to 2 caps twice daily maximum zolpidem 5 mg tablet 5 mg PO BEDTIME PRN (Reason: sleep) Qty: 14 5RF nitroglycerin 0.4 mg tablet, sublingual 0.4 mg sublingual DAILY quetiapine 25 mg tablet 25 mg PO ONCE estradiol [Vivelle-Dot] 0.05 mg/24 hr patch semiweekly 1 patch transdermal 2XW Qty: 8 12RF Rx Instructions: Start using when oral estrogen tablets have been completed and apply 1 patch for 3 days alternating with 1 patch for 4 days each week. (DME) pen needle, diabetic [TRUEplus Pen Needle] 31 gauge x 1/4 needle See Rx Instructions .ROUTE .MEDSUPPLY Qty: 100 Patient Comments: [NO ORIGINAL SIG] Rx Instructions: As directed amlodipine [Norvasc] 2.5 mg tablet 2.5 mg PO DAILY Qty: 90 3RF insulin aspart U-100 [Novolog FlexPen U-100 Insulin] 100 unit/mL (3 mL) insulin pen 30 unit SUBCUT BID Victoza 3-Brando 0.6 mg/0.1 mL (18 mg/3 mL) pen injector 1.8 mg SUBCUT DAILY baclofen 5 mg tablet 5 mg PO TID Qty: 90 2RF Referrals: Martinez Crawford DO [Primary Care Provider] - Stand Alone Forms: Patient Portal/API ED Sign-out <Killian Pace DO - Last Filed: 04/18/24 17:54> Cosign ED Attending Cosignature Attestation: Dr Pace Co-Sign Statement: I was available for consultation during this patient's emergency department visit. This chart is signed by myself for administrative purposes only. I did not have direct contact with this patient during this visit. They were seen independently by the APC.
[2024-03-12] MEDS: DEXAMETHASONE 10 MG/ML VIAL PO (17:45)
[2024-03-12 18:06] VITALS: BP 117/76; PULSE 96; RESP 20; O2SAT 98
== END 2024-03-12 18:06 | disposition home or self-care (01) ==
PROVIDERS: Emergency Medicine; Emergency Provider Registered Nurse; Family Provider Family Medicine; PCP Family Medicine
DX: J02.9 Acute pharyngitis, unspecified (principal); Z87.891 Personal history of nicotine dependence
CPT/HCPCS: 0241U; 71045; 87651; 93005; 99283; 99284; J1100

== ENCOUNTER → 2024-03-24 13:58 | Outpatient (CLI) | payer OTHER, MEDICAID, SELFPAY ==
[2023-12-31 08:25] VITALS: BMI 35.6
== END ==
PROVIDERS: Family Provider Family Medicine; PCP Family Medicine; Visit Provider Family Medicine
DX: R31.9 Hematuria, unspecified (principal); R10.9 Unspecified abdominal pain
CPT/HCPCS: 87086

== ENCOUNTER → 2024-03-24 14:24 | Outpatient (CLI) | payer OTHER, MEDICAID, SELFPAY ==
[2023-12-31 08:25] VITALS: BMI 35.6
[2024-03-24 15:20] LABS: Add Manual Diff / Slide Review NO; Basophils Absolute Auto 0 /uL (0-100); Basophils Percent Auto 0.5 % (0-2); Eosinophils Absolute Auto 300 /uL (0-450); Eosinophils Percent Auto 3.9 % (2-4); Hematocrit 36.2 % (36-46); Hemoglobin 12.5 g/dL (12.0-16.0); Lymphocytes Absolute Auto 1300 /uL (1100-4500); Lymphocytes Percent Auto 15.5 % (25-40); Mean Corpuscular HGB Conc 34.5 % (30-36); Mean Corpuscular Hemoglobin 30.1 PG (26-34); Monocytes Absolute Auto 700 /uL (0-900); Monocytes Percent Auto 8.6 % (3-14); Neutrophils Absolute Auto 5800 /uL (1500-7000); Neutrophils Percent Auto 71.5 % (50-75); Platelet Count 226 X10^3/uL (150-400); Red Blood Cell Count 4.16 X10^6/uL (4.0-5.2); Red Cell Distribution Width 13.5 % (11.6-14.8); White Blood Cell Count 8.1 X10^3/uL (4.5-11.0)
[2024-03-24 16:04] LABS: Alanine Aminotransferase 24 IU/L (<35); Albumin 4.7 g/dL (3.5-5.0); Albumin Globulin Ratio 1.3 (1.0-2.8); Alkaline Phosphatase 67 U/L (38-126); Aspartate Aminotransferase 32 IU/L (14-36); BUN Creatinine Ratio 23.4 (6-22); Bilirubin Total 0.7 mg/dL (0.2-1.3); Blood Urea Nitrogen 55 mg/dL (7-17); Calcium 11.1 mg/dL (8.4-10.2); Carbon Dioxide 20 mmol/L (22-32); Chloride 105 mmol/L (98-107); Estimated Glomerular Filt Rate 24 mL/min (>60); Globulin 3.7 g/dL (1.7-4.1); Glucose 179 mg/dL (70-100); HEMOLYSIS < 15 (0-50); Sodium 135 mmol/L (137-145); Total Protein 8.4 g/dL (6.3-8.2)
[2024-03-24 16:10] LABS: Potassium 5.7 mmol/L (3.4-5.1)
== END ==
PROVIDERS: Family Provider Family Medicine; PCP Family Medicine; Referring Provider Family Medicine; Visit Provider Family Medicine
DX: R31.9 Hematuria, unspecified (principal); R10.9 Unspecified abdominal pain
CPT/HCPCS: 36415; 80053; 85025; 87086

== ENCOUNTER → 2024-03-30 10:01 | Outpatient (CLI) | payer OTHER, MEDICAID, SELFPAY ==
[2024-03-25 11:28] VITALS: BMI 35.6
[2024-03-30 11:47] LABS: BUN Creatinine Ratio 16.8 (6-22); Blood Urea Nitrogen 31 mg/dL (7-17); Calcium 9.1 mg/dL (8.4-10.2); Carbon Dioxide 18 mmol/L (22-32); Chloride 106 mmol/L (98-107); Estimated Glomerular Filt Rate 33 mL/min (>60); Glucose 173 mg/dL (70-100); HEMOLYSIS < 15 (0-50); Sodium 133 mmol/L (137-145)
[2024-03-30 11:48] LABS: Potassium 5.4 mmol/L (3.4-5.1)
[2024-03-30 12:01] LABS: Vitamin D 25 Hydroxy (D3) 33.5 ng/mL (30.0-100.0)
[2024-03-31 10:09] LABS: Ionized Calcium 4.7 mg/dL (4.5-5.6)
== END ==
LOC: LAB 10:02
PROVIDERS: Family Provider Family Medicine; PCP Family Medicine; Referring Provider Family Medicine; Visit Provider Family Medicine
DX: N28.9 Disorder of kidney and ureter, unspecified (principal); E83.52 Hypercalcemia; E87.5 Hyperkalemia; Q60.2 Renal agenesis, unspecified
CPT/HCPCS: 36415; 80048; 82306; 82330; 83883; 83970; 84155; 84165

== ENCOUNTER → 2024-04-06 15:29 | Outpatient (CLI) | payer OTHER, MEDICAID, SELFPAY ==
[2024-03-25 11:28] VITALS: BMI 35.6
[2024-04-06 17:18] LABS: BUN Creatinine Ratio 16.9 (6-22); Blood Urea Nitrogen 35 mg/dL (7-17); Calcium 10.1 mg/dL (8.4-10.2); Carbon Dioxide 23 mmol/L (22-32); Chloride 105 mmol/L (98-107); Estimated Glomerular Filt Rate 28 mL/min (>60); Glucose 78 mg/dL (70-100); HEMOLYSIS < 15 (0-50); Sodium 138 mmol/L (137-145)
[2024-04-06 17:22] LABS: Potassium 5.5 mmol/L (3.4-5.1)
== END ==
PROVIDERS: Family Provider Family Medicine; PCP Family Medicine; Referring Provider Family Medicine; Visit Provider Family Medicine
DX: E87.5 Hyperkalemia (principal); N18.30 Chronic kidney disease, stage 3 unspecified
CPT/HCPCS: 36415; 80048

== ENCOUNTER → 2024-04-07 15:38 | Outpatient (CLI) | payer OTHER, MEDICAID, SELFPAY ==
[2024-03-25 11:28] VITALS: BMI 35.6
--- NOTE | 2024-04-07 15:39 | DI.CT.S_ITS ---
PROCEDURE: CT KIDNEY URETER BLADDER (KUB) INDICATIONS: FLANK PAIN TECHNIQUE: Axial sections were acquired from the lung bases to the pubic symphysis. Coronal and sagittal reformats were performed. For radiation dose reduction, the following was used: automated exposure control, adjustment of mA and/or kV according to patient size. COMPARISON: [facility], US, US RENAL COMPLETE, 05/04/2023, 13:51. [facility], CT, CT ABDOMEN PELVIS W CON, 10/11/2020, 16:18. FINDINGS: Image quality: Diagnostic. Lower Chest: Lung bases are clear. There is a tiny hiatal hernia. URINARY: Right Kidney: No stones or hydronephrosis. Right Ureter: No hydroureter. Left Kidney: Severely decreased in size consistent with chronic atrophy. There is a 2 mm nonobstructive stone in left kidney. Left Ureter: No hydroureter. Bladder: Normal wall thickness. No stones. ABDOMEN: Liver: Normal size. Mild hepatic steatosis. No contour-deforming solid mass. Gallbladder: Surgically absent. Biliary ducts: No biliary dilation. Pancreas: No ductal dilation. Spleen: Size is within normal limits. Adrenal Glands: No adrenal nodules. Stomach and Bowel: Normal colonic caliber, without significant wall thickening. Normal gallbladder. Peritoneum: No abnormal intraperitoneal fluid. No free air. Ventral Wall: No hernia. Abdominal Nodes: No enlarged retroperitoneal or mesenteric lymph nodes. Vessels: Aorta and inferior vena cava are normal in size. PELVIS: Pelvic Organs: Unremarkable. Pelvic Nodes: Unremarkable. Miscellaneous: No inguinal hernias are seen. Bones: Degenerative and spondylitic changes in lumbar spine. ORIF of right femoral neck fracture. IMPRESSION: 1. No obstructing stones or hydronephrosis. 2. Severely chronic left renal atrophy with a 2 mm nonobstructive stone. 3. Normal appendix. 4. Mild hepatic steatosis. Dictated by: Agnes Pearce M.D. on 04/08/2024 at 11:52 Approved by: Agnes Pearce M.D. on 04/08/2024 at 11:59
== END ==
LOC: CT 15:38
PROVIDERS: Family Provider Family Medicine; PCP Family Medicine; Referring Provider Family Medicine; Visit Provider Family Medicine
DX: N18.30 Chronic kidney disease, stage 3 unspecified (principal); R10.9 Unspecified abdominal pain; K76.0 Fatty (change of) liver, not elsewhere classified; N20.0 Calculus of kidney; N26.1 Atrophy of kidney (terminal); Z90.49 Acquired absence of other specified parts of digestive tract
CPT/HCPCS: 74176

== ENCOUNTER → 2024-04-24 08:45 | Outpatient (CLI) | payer OTHER, MEDICAID, SELFPAY ==
[2024-04-15 10:04] VITALS: BMI 35.6
--- NOTE | 2024-04-24 09:33 | DIAB.FU ---
Follow-up Diabetes Education Assessment Name: Candis Billy Date: 04/24/24 Time: [id number] Dx: Type II Diabetes Going one week without FSL sensor. Pharmacy notes some barrier with insurance. We called pharmacy in our visit today to troubleshoot. 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 Wants to upgrade to FSL3, which would be beneficial since she is missing data due to missed swipes or switch to Dexcom G7. Treating lows with freeze dried lemon heads Recently feeling sad regarding passing of her mother and grandparents. Mother had h/o kidney disease and DM Uses patch to make sensor stay on in showers. Plans to move. Does not like her roommate. Hoping for more space for exercise equipment. Stopped Invocana due to kidneys. seeing nephrology. Difficulty eating when waking. Notices BG going up within one hour of waking. Has to eat 300kcals with new bipolar medication. Use to drink ensure and likes it. Wants to try Dexcom and may benefit from this given potential for pump therapy. Physical Activity: 15-30 min walks q other day, depending on back pain. Self-Monitoring Blood Glucose: Overall, BG improved however having more lows. Today: TIR: Very high: 5% High: 29% In range: 61% Low: 4% Very low: 1% Avmg/dl GMI: 7.1% glucose variability: 35.4% Last Visit: TIR: Very high: 14% High: 31% In range: 55% Low: 0% Very low: 0% Avmg/dl GMI: 7.7% glucose variability: 43.7% Diabetes Medications: 5mg Glyburide 40u Glargine BID 40u Aspart TID 1.8mg Victoza Pertinent Labs: HgA1c: 12/2022 10.3% 01/2022 7.1% 10/2023 10.4% 02/2024 7.2% Past Medical History: (Last Updated 04/13/24 @ 15:06 by Rajesh Garduno MD) Abscess Abscess of right external ear Acute neck pain Asthma Asymptomatic hypertensive urgency At risk for altered mental status Benign essential HTN Roberta infection Cervical somatic dysfunction Chronic back pain Chronic diarrhea Chronic GERD Chronic left shoulder pain Chronic pain of right thumb Chronic right shoulder pain 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 Constipation due to slow transit Depression with anxiety Diabetes mellitus (~2005) Diabetic retinopathy Diabetic retinopathy associated with type 2 diabetes mellitus Diarrhea due to drug Dizziness DM type 2 causing CKD stage 3 Dorsal cervical fat pad Eosinophilic, granuloma bone Fatigue Fatty liver HLD (hyperlipidemia) Labs 07/19/19: Trig 466, TC 166, HDL 36, LDL-test not performed, trig>400 Hot flashes Hot flashes due to menopause HTN (hypertension) Insomnia secondary to depression with anxiety Left hip pain Left knee pain Left lower quadrant abdominal pain Lower extremity edema Lumbar disc herniation with radiculopathy Lumbar radiculopathy Major depressive disorder, single episode, mild Mixed stress and urge urinary incontinence Moderate left ankle sprain Mood swings Muscle twitching Obesity Osteoarthritis of left knee Osteosarcoma Pain of left great toe Pain of right thumb Perimenopausal symptoms Postmenopausal Pruritus Rash and nonspecific skin eruption Recurrent urinary tract infection Recurrent UTI Right elbow pain Seizure (~1990) Seizure disorder Situational anxiety Sleep apnea STEMI (ST elevation myocardial infarction) Strain of lumbar region Subconjunctival hemorrhage of left eye Trigger finger of both hands Trigger finger of left hand Trigger finger, left middle finger Trigger finger, right middle finger 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 Provided appropriate educational handouts. Discussed the following topics: Recent blood sugar results and trends Medication management Reviewed meal timing and snack/breakfast options CGM: options, differences between G7 and FSL2 or 3 Troubleshooting CGM rx with pharmacy Created SMART goals for patient self-care and success. Goals: Take mealtime insulin regularly- met Swipe CGM TID- in progress Try ensure for breakfast- new HS snack ensure with low CHO yogurt - new Download G7 apps- new Follow-up: CASEY DELA CRUZ follow-up in 2-3 weeks Amira Ramos RDN, LANIE Certified Diabetes Care and Pulling Unit Floorhand P: [phone] Thank you for this referral
== END ==
LOC: DIET 08:46
PROVIDERS: Family Provider Family Medicine; PCP Family Medicine; Referring Provider Family Medicine
DX: E11.9 Type 2 diabetes mellitus without complications (principal); Z79.4 Long term (current) use of insulin; Z79.84 Long term (current) use of oral hypoglycemic drugs; Z79.85 Long-term (current) use of injectable non-insulin antidiabetic drugs; Z71.3 Dietary counseling and surveillance
CPT/HCPCS: G0108

== ENCOUNTER → 2024-05-06 08:47 | Outpatient (CLI) | payer OTHER, MEDICAID, SELFPAY ==
[2024-04-15 10:04] VITALS: BMI 35.6
--- NOTE | 2024-05-06 09:24 | DIAB.FU ---
Follow-up Diabetes Education Assessment Name: Candis Billy Date: 05/06/24 Time: [id number] Dx: Type II Diabetes Candis presents for follow-up DM visit. Wants to try Dexcom. Currently on FSL2. Forgets to swipe. Would benefit from pump therapy, which would require Dexcom CGM likely. Has scar tissue on stomach. Unaware of other places to inject. States she is waiting on endo referral, but per EMR PCP placed referral. Provided her with endo number. Reports using eye drops due to steroid tx causing increase pressure in eye. States this is to prevent glaucoma. Sees nephrololgy Saturday. Feels she has been having higher BG recently due to not making great choices. Taking 2 ensure per day: breakfast and HS snack Reports reduced appetite but wants to snack. Taken off glyburide. Back on Lasix due to water retention, visible in LE per report. Self d/c'd the Victoza due to feeling as though it does not help with wt loss. Seeing ortho for knee on 05/25. 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 She feels this will give her purpose. Physical Activity: Walking 2x per week for 15-20 min. Self-Monitoring Blood Glucose: Today: TIR: Very high: 5% High: 23% In range: 68% Low: 4% Very low: 0% Avmg/dl GMI: 6.9% glucose variability: 38.3% Last Visit: TIR: Very high: 5% High: 29% In range: 61% Low: 4% Very low: 1% Avmg/dl GMI: 7.1% glucose variability: 35.4% 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 Constipation due to slow transit Depression with anxiety Diabetes mellitus (~2005) Diabetic retinopathy Diabetic retinopathy associated with type 2 diabetes mellitus Diarrhea due to drug Dizziness DM type 2 causing CKD stage 3 Dorsal cervical fat pad Eosinophilic, granuloma bone Fatigue Fatty liver HLD (hyperlipidemia) Labs 07/19/19: Trig 466, TC 166, HDL 36, LDL-test not performed, trig>400 Hot flashes Hot flashes due to menopause HTN (hypertension) Insomnia secondary to depression with anxiety Left hip pain Left knee pain Left lower quadrant abdominal pain Lower extremity edema Lumbar disc herniation with radiculopathy Lumbar radiculopathy Major depressive disorder, single episode, mild Mixed stress and urge urinary incontinence Moderate left ankle sprain Mood swings Muscle twitching Obesity Osteoarthritis of left knee Osteosarcoma Pain of left great toe Pain of right thumb Perimenopausal symptoms Postmenopausal Pruritus Rash and nonspecific skin eruption Recurrent urinary tract infection Recurrent UTI Right elbow pain Seizure (~1990) Seizure disorder Situational anxiety Sleep apnea STEMI (ST elevation myocardial infarction) Strain of lumbar region Subconjunctival hemorrhage of left eye Trigger finger of both hands Trigger finger of left hand Trigger finger, left middle finger Trigger finger, right middle finger 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 Provided appropriate educational handouts. Discussed the following topics: Recent blood sugar results and trends Medication management Review of general nutrition recommendations and current intake Physical activity plan Dexcom education Encouraged endo call/visit Created SMART goals for patient self-care and success. Goals: Try ensure for breakfast- met HS snack ensure with low CHO yogurt - met Download G7 apps- met Call endo for visit- new Try Dexcom G7- new Inject in legs and different spots on abdominal- new Follow-up: CASEY DELA CRUZ follow-up in 4 weeks Amira Ramos RDN, [facility] Certified Diabetes Care and Salvage Cutter P: [phone] Thank you for this referral
== END ==
PROVIDERS: Family Provider Family Medicine; PCP Family Medicine; Referring Provider Family Medicine
DX: E11.9 Type 2 diabetes mellitus without complications (principal); Z79.84 Long term (current) use of oral hypoglycemic drugs; Z79.4 Long term (current) use of insulin; Z79.85 Long-term (current) use of injectable non-insulin antidiabetic drugs; Z71.3 Dietary counseling and surveillance
CPT/HCPCS: G0108

== ENCOUNTER → 2024-05-13 15:33 | Outpatient (CLI) | payer OTHER, MEDICAID, SELFPAY ==
[2024-04-15 10:04] VITALS: BMI 35.6
--- NOTE | 2024-05-13 16:31 | DIAB.FU ---
Follow-up Diabetes Education Assessment Name: Candis Billy Date: 05/13/24 Time: 4-425p Dx: Type II Diabetes Presents for Dm follow-up. Reports sample CGM fell off. Would like to switch to Dexcom. May benefit from this over FSL due to low soon alerts with G7 and her h/o lows. Placed new sensor sample today. Also reports she saw her long term care administrator. Would like to discuss CKD 3 diet next visit. Has one kidney. Has FH of CKD with mother. Made endo visit for June. Wants an insulin pump. 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 Constipation due to slow transit Depression with anxiety Diabetes mellitus (~2005) Diabetic retinopathy Diabetic retinopathy associated with type 2 diabetes mellitus Diarrhea due to drug Dizziness DM type 2 causing CKD stage 3 Dorsal cervical fat pad Eosinophilic, granuloma bone Fatigue Fatty liver HLD (hyperlipidemia) Labs 07/19/19: Trig 466, TC 166, HDL 36, LDL-test not performed, trig>400 Hot flashes Hot flashes due to menopause HTN (hypertension) Insomnia secondary to depression with anxiety Left hip pain Left knee pain Left lower quadrant abdominal pain Lower extremity edema Lumbar disc herniation with radiculopathy Lumbar radiculopathy Major depressive disorder, single episode, mild Mixed stress and urge urinary incontinence Moderate left ankle sprain Mood swings Muscle twitching Obesity Osteoarthritis of left knee Osteosarcoma Pain of left great toe Pain of right thumb Perimenopausal symptoms Postmenopausal Pruritus Rash and nonspecific skin eruption Recurrent urinary tract infection Recurrent UTI Right elbow pain Seizure (~1990) Seizure disorder Situational anxiety Sleep apnea STEMI (ST elevation myocardial infarction) Strain of lumbar region Subconjunctival hemorrhage of left eye Trigger finger of both hands Trigger finger of left hand Trigger finger, left middle finger Trigger finger, right middle finger 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 Provided appropriate educational handouts. Discussed the following topics: CGM differences and compatibility with insulin pumps CKD lab indicators: GFR and Cr Directed her in self placement of new sensor G7 Created SMART goals for patient self-care and success. Goals: Call endo for visit- met Try Dexcom G7- met Inject in legs and different spots on abdominal- not discussed today Bring new lab results next visit- new Download Dexcom Clarity- new Follow-up: CASEY DELA CRUZ follow-up in 2-3 weeks Amira Ramos RDN, CDCES Certified Diabetes Care and Cost Report Clerk P: [phone] Thank you for this referral
== END ==
PROVIDERS: Family Provider Family Medicine; PCP Family Medicine
DX: E11.9 Type 2 diabetes mellitus without complications (principal); Z79.4 Long term (current) use of insulin; Z71.3 Dietary counseling and surveillance
CPT/HCPCS: G0108

== ENCOUNTER → 2024-05-14 15:25 | Outpatient (CLI) | payer OTHER, MEDICAID, SELFPAY ==
[2024-04-15 10:04] VITALS: BMI 35.6
[2024-05-14 17:51] LABS: Follicle Stimulating Hormone 34.1 mIU/mL; Progesterone, Total 4.28 ng/mL
[2024-05-14 18:07] LABS: Estradiol, Total 24.7 pg/mL
== END ==
PROVIDERS: Family Provider Family Medicine; PCP Family Medicine; Referring Provider Obstetrics & Gynecology; Visit Provider Obstetrics & Gynecology
DX: Z79.890 Hormone replacement therapy (principal)
CPT/HCPCS: 36415; 82670; 83001; 84144

== ENCOUNTER 2024-05-27 14:28 | Emergency (ER) | payer OTHER, MEDICAID, SELFPAY ==
[2024-05-19 15:58] VITALS: BMI 35.6
[2024-05-27] VITALS (7 sets, daily range): BP systolic 185–197; BP diastolic 78–99; PULSE 86–92; RESP 16–18; TEMP 36.6; O2SAT 95–98; BMI 38.2
--- NOTE | 2024-05-27 14:46 | PC.NURSE ---
Pt sent over from doctor's office for a low blood sugar. Upon arrival patient is a little slow to respond, off-balance when ambulating to bed. She is alert and oriented. BS checked and found to be 99. She is given orange juice. Reports taking 60 units of short acting insulin this morning at breakfast and ate a grapefruit only. Call light within reach and patient encouraged to use for needs.
--- NOTE | 2024-05-27 14:53 | ED_ITS ---
HPI - Recheck/Abnormal Lab/Rx General Chief Complaint: Recheck/Abnormal Lab/Rx Stated Complaint: low blood sugar, sent by Dr Crawford Time Seen by Provider: 05/27/24 14:48 Source: patient Mode of arrival: Wheelchair History of Present Illness HPI narrative: Patient is a 53-year-old female. Is a insulin-dependent diabetic. Has been having changes to her insulin made by her primary doctor. She was currently taking 60 units of short-acting insulin before every meals. This is not on a sliding scale. She had an appointment with her primary doctor earlier today. Was found to be hypoglycemic. Was given oral insulin. He was evaluated by EMS. Was sent in the emergency department for further evaluation. She was having her chronic back pain. She states she feels somewhat weak. No fevers. Related Data Home Medications Medication Instructions Recorded Confirmed aspirin 81 mg tablet,delayed 81 mg PO DAILY 05/09/23 05/27/24 release (Adult Aspirin Regimen) clopidogrel 75 mg tablet 75 mg PO DAILY 07/19/23 05/27/24 pen needle, diabetic 31 gauge x #100 ea 09/06/23 05/27/2411/28 (TRUEplus Pen Needle) nitroglycerin 0.4 mg sublingual 0.4 mg sublingual DAILY 11/13/23 05/27/24 tablet Previous Rx's Medication Instructions Recorded omeprazole 20 mg capsule,delayed 20 mg PO BID #180 caps 02/22/22 release blood sugar diagnostic (ReliOn #100 ea 01/29/23 Prime Test Strips) lancets 30 gauge (Easy Touch #100 ea 02/08/23 Lancets) budesonide-formoterol HFA 160 2 puff inhalation BID #10.2 grams 05/23/23 mcg-4.5 mcg/actuation aerosol inhaler (Symbicort) levetiracetam 750 mg tablet 750 mg PO BID #60 tabs 07/04/23 pen needle, diabetic 33 gauge x #100 ea 07/19/23 5/ (Comfort EZ Pen [place]) alprazolam 0.5 mg tablet See Rx Instructions .Route 12/18/23 .COMPLEX #60 tabs pravastatin 80 mg tablet 80 mg PO BEDTIME #90 tabs 01/28/24 flash glucose sensor (FreeStyle #1 ea 03/13/24 Yana 2 Sensor kit) baclofen 5 mg tablet 5 mg PO TID #90 tabs 03/30/24 ondansetron 4 mg disintegrating 4 mg PO Q8H PRN nausea and 03/30/24 tablet vomiting 5 days #30 tabs insulin lispro 100 unit/mL 40 unit (0.4 mL) SUBCUT TIDWMEAL 03/31/24 subcutaneous pen #45 mL albuterol sulfate 90 mcg/actuation 2 puff PO Q6H PRN for wheezing #18 04/03/24 aerosol inhaler grams oxycodone 5 mg tablet 5 mg PO Q8H PRN pain #20 tabs 04/06/24 zolpidem 5 mg tablet 5 mg PO BEDTIME PRN sleep #14 tabs 04/08/24 gabapentin 100 mg capsule 300 mg (3 x 100 mg) PO BID #180 04/15/24 caps Basaglar KwikPen U-100 Insulin 100 45 unit (0.45 mL) SUBCUT BID #15 mL 05/05/24 unit/mL (3 mL) subcutaneous (insulin glargine) blood sugar diagnostic (ReliOn #100 ea 05/11/24 Prime Test Strips) blood-glucose meter (Premier MARIA FERNANDA #1 ea 05/11/24 Glucose Meter) amlodipine 5 mg tablet 5 mg PO DAILY #30 tabs 05/14/24 metronidazole 0.75 % topical cream 1 applic topical BID #45 grams 05/14/24 progesterone micronized 200 mg 200 mg PO BEDTIME #30 caps 05/14/24 capsule (Prometrium) estradiol 0.075 mg/24 hr 1 patch transdermal 2XW #8 ea 05/19/24 semiweekly transdermal patch (Aminta) aripiprazole 2 mg tablet 4 mg (2 x 2 mg) PO DAILY #60 tabs 05/20/24 Allergies Allergy/AdvReac Type Severity Reaction Status Date / Time hydrocodone Allergy Intermediate ITCHING/VOM Verified 05/27/24 13:41 ITING/RASH suture Allergy Vicryl Verified 05/27/24 13:41 sulfamethoxazole AdvReac Severe GUSTAVO Verified 05/27/24 13:41 [From Bactrim] trimethoprim [From Bactrim] AdvReac Severe GUSTAVO Verified 05/27/24 13:41 Review of Systems Review of Systems ROS Unobtainable: All systems reviewed & are unremarkable except as noted in HPI and below Patient History Medical History Recurrent urinary tract infection Osteoarthritis of left knee Left knee pain Benign essential HTN Lumbar radiculopathy Major depressive disorder, single episode, mild Abscess Insomnia secondary to depression with anxiety Trigger finger of left hand At risk for altered mental status STEMI (ST elevation myocardial infarction) Moderate left ankle sprain Uncontrolled type 2 diabetes mellitus Muscle twitching Dizziness Weakness Mixed stress and urge urinary incontinence Dorsal cervical fat pad Trigger finger of both hands Roberta infection Diabetic retinopathy Congenital absence of kidney Postmenopausal Pain of left great toe Urge incontinence Mood swings Hot flashes due to menopause Perimenopausal symptoms Chronic diarrhea Weight loss counseling, encounter for Recurrent UTI Chronic pain of right thumb Trigger finger, left middle finger Asthma Seizure disorder Chronic left shoulder pain Asymptomatic hypertensive urgency Situational anxiety Lower extremity edema Chronic GERD Wheezing Chronic back pain Chronic right shoulder pain Trigger finger, right middle finger DM type 2 causing CKD stage 3 Fatigue Sleep apnea Depression with anxiety Abscess of right external ear Upper extremity somatic dysfunction Pain of right thumb Right elbow pain Diarrhea due to drug Rash and nonspecific skin eruption Cervical somatic dysfunction Acute neck pain Subconjunctival hemorrhage of left eye Left hip pain Obesity Strain of lumbar region Lumbar disc herniation with radiculopathy Diabetic retinopathy associated with type 2 diabetes mellitus Pruritus Urinary tract infection Constipation due to slow transit Hot flashes Left lower quadrant abdominal pain Vaginal dryness Eosinophilic, granuloma bone Seizure (~1990) HLD (hyperlipidemia) HTN (hypertension) Fatty liver Congenital absence of one kidney Tuberculosis (~1993) Osteosarcoma Vision disorder Diabetes mellitus (~2005) Surgical History S/P coronary artery stent placement History of lumbar discectomy S/P laminectomy Anesthesia History of carpal tunnel release Neoplasm of femur Bone tumor (benign) (~1990) Status post laparoscopic cholecystectomy (~2016) Status post laparoscopic supracervical hysterectomy (~2010) Family History Brother Mental health disorder Mother Diabetes mellitus Heart disease Kidney disease Hyperlipidemia Hypertension Sister Mental health disorder Diabetes mellitus Grandfather Hypertension Stroke Grandmother Diabetes mellitus Hypertension Father Heart disease Social History household members: friend(s) Smoking Status: Former smoker Tobacco: How many years used: 29 quit status: considering quitting second hand exposure: Yes (socially) alcohol intake: never substance use type: does not use Smoking Status: Former smoker alcohol intake frequency: other Substance Use Type: does not use Exam Initial Vital Signs Initial Vital Signs: Vital Signs Temperature 97.8 F 05/27/24 14:36 Pulse Rate 89 05/27/24 14:36 Respiratory Rate 16 05/27/24 14:36 Blood Pressure 197/99 H 05/27/24 14:36 Pulse Oximetry 98 05/27/24 14:36 Oxygen Delivery Method Room Air 05/27/24 14:36 Const General: cooperative, comfortable and No ill appearing HENMT Head: normal to inspection and normocephalic Resp Effort & Inspection: normal respiratory effort Auscultation: clear to auscultation bilaterally Cardio Rate: regular rate Rhythm: regular rhythm GI Inspection: normal to inspection and non-distended Skin General: no rashes or lesions noted Neuro General: patient alert, patient awake and moves all extremities Extrem General: capillary refill normal Course Orders Ordered: Discontinued Medications Ketorolac Tromethamine (Ketorolac 30 Mg/Ml Vial) 30 mg IV NOW ONE Stop: 05/27/24 15:44 Last Admin: 05/27/24 16:58 Dose: 30 mg Documented By: SPF Vital Signs Vital signs: Vital Signs - 8 hr 05/27/24 14:36 05/27/24 14:39 05/27/24 14:42 Temperature 97.8 F Pulse Rate 89 89 Respiratory Rate 16 Blood Pressure 197/99 H 185/94 H Pulse Oximetry 98 97 Oxygen Delivery Method Room Air 05/27/24 14:42 05/27/24 15:00 05/27/24 15:30 Temperature Pulse Rate 86 89 89 Respiratory Rate Blood Pressure Pulse Oximetry 95 96 96 Oxygen Delivery Method Room Air 05/27/24 18:02 05/27/24 18:02 Temperature Pulse Rate 90 Respiratory Rate Blood Pressure 191/92 H Pulse Oximetry 95 Oxygen Delivery Method MDM - Recheck/Abnormal Lab/Rx Medical Records Attestation: I reviewed the patient's medical records. Lab Data Attestation: I reviewed the patient's lab results. Labs: Point of Care Testing Glucose POC 125 MDM Narrative Medical decision making narrative: After eating here in the emergency department her blood sugars now maintaining greater than 100. I suspect that her blood sugars have been elevated because she has been getting herself 60 units of insulin before each meal without a sliding scale. She states that it was increased to 60 units about 1 week ago. Prior to that she was on 40 units and did not control her blood sugars. Plan will be to have her go back to the 40 units and then increase the insulin by 5 units before each meal. She stated that she was supposed to get a phone call from her primary provider about a follow-up with the beginning of next week. Discharge Plan Departure Patient Disposition: Home Clinical Impression: Hypoglycemia Activity Restrictions/Additional Instructions: Recommend that you continue to take all of your medications as directed and keep all of your scheduled medical appointments. I would recommend that you decrease your insulin that you were taking before your meals from 60 units down to 40 units. Continue to monitor your blood sugar. Contact your primary care doctor's office on Saturday for follow-up. Return to the emergency department for new symptoms. Prescriptions: No Action aripiprazole 2 mg tablet 4 mg PO DAILY Qty: 60 1RF Rx Instructions: Take 2 mg (1 tab) for 7 days, then increase to 4 mg (2 tabs) daily. omeprazole 20 mg capsule,delayed release(DR/EC) 20 mg PO BID Qty: 180 3RF (DME) lancets [Easy Touch Lancets] 30 gauge misc See Rx Instructions .Route Qty: 100 12RF Rx Instructions: Check blood glucose 4 times daily levetiracetam 750 mg tablet 750 mg PO BID Qty: 60 11RF alprazolam 0.5 mg tablet See Rx Instructions .ROUTE .COMPLEX Qty: 60 5RF Rx Instructions: Take 1 tablet by mouth twice daily as needed for anxiety; pravastatin 80 mg tablet 80 mg PO BEDTIME Qty: 90 3RF (DME) FreeStyle Yana 2 Sensor Kit See Rx Instructions .Route Qty: 1 11RF Rx Instructions: use to check blood sugars 4 times a day ondansetron 4 mg tablet,disintegrating 4 mg PO Q8H PRN (Reason: nausea and vomiting) 5 Days Qty: 30 5RF baclofen 5 mg tablet 5 mg PO TID Qty: 90 2RF albuterol sulfate 90 mcg/actuation HFA aerosol inhaler 2 puff PO Q6H PRN (Reason: for wheezing) Qty: 18 11RF zolpidem 5 mg tablet 5 mg PO BEDTIME PRN (Reason: sleep) Qty: 14 5RF (DME) blood-glucose meter [Premier MARIA FERNANDA Glucose Meter] [facility] See Rx Instructions .ROUTE .COMPLEX Qty: 1 6RF Dose Instruction: USE DIRECTED Rx Instructions: USE DIRECTED (DME) ReliOn Prime Test Strips Strip See Rx Instructions .Route Qty: 100 12RF Rx Instructions: Test blood glucose 4 times daily estradiol [Aminta] 0.075 mg/24 hr patch semiweekly 1 patch transdermal 2XW Qty: 8 12RF Rx Instructions: apply 1 patch for 3 days alternating with 1 patch for 4 days each week (DME) ReliOn Prime Test Strips Strip See Rx Instructions .Route Qty: 100 5RF Rx Instructions: As directed budesonide-formoterol [Symbicort] 160-4.5 mcg/actuation HFA aerosol inhaler 2 puff inhalation BID Qty: 10.2 12RF aspirin [Adult Aspirin Regimen] 81 mg tablet,delayed release (DR/EC) 81 mg PO DAILY clopidogrel 75 mg tablet 75 mg PO DAILY (DME) Comfort EZ Pen [place] 33 gauge x 5/16 needle See Rx Instructions .Route Qty: 100 12RF Rx Instructions: USE TO INJECT INSULIN 4 TIMES DAILY nitroglycerin 0.4 mg tablet, sublingual 0.4 mg sublingual DAILY metronidazole 0.75 % cream 1 applic topical BID Qty: 45 3RF Rx Instructions: Apply to affected area twice daily after washing face amlodipine 5 mg tablet 5 mg PO DAILY Qty: 30 1RF (DME) pen needle, diabetic [TRUEplus Pen Needle] 31 gauge x 1/4 needle See Rx Instructions .ROUTE .MEDSUPPLY Qty: 100 Patient Comments: [NO ORIGINAL SIG] Rx Instructions: As directed insulin lispro 100 unit/mL insulin pen 40 unit SUBCUT TIDWMEAL Qty: 45 3RF Rx Instructions: before a meal oxycodone 5 mg tablet 5 mg PO Q8H PRN (Reason: pain) Qty: 20 0RF gabapentin 100 mg capsule 300 mg PO BID Qty: 180 11RF insulin glargine [Basaglar KwikPen U-100 Insulin] 100 unit/mL (3 mL) insulin pen 45 unit SUBCUT BID Qty: 15 3RF progesterone micronized [Prometrium] 200 mg capsule 200 mg PO BEDTIME Qty: 30 12RF Referrals: Martinez Crawford DO [Primary Care Provider] - Stand Alone Forms: Patient Portal/API
[2024-05-27] MEDS: KETOROLAC 30 MG/ML VIAL IV (16:58)
== END 2024-05-27 18:50 | disposition home or self-care (01) ==
PROVIDERS: Emergency Provider Emergency Medicine; Family Provider Family Medicine; PCP Family Medicine
DX: E16.2 Hypoglycemia, unspecified (principal)
CPT/HCPCS: 82962; 96372; 99283; J1885

== ENCOUNTER → 2024-06-05 09:52 | Outpatient (CLI) | payer OTHER, MEDICAID, SELFPAY ==
[2024-05-19 15:58] VITALS: BMI 35.6
--- NOTE | 2024-06-23 09:32 | DIAB.MNT ---
Initial Diabetes Medical Nutrition Therapy Assessment Name: Candis Billy Date: 06/05/24 Time: [id number] Dx: Type II Diabetes Candis presents for Dm visit. Wants to discuss nutrition today. Reports wanting to understand what foods are filling. Also reports needing more education on how to treat lows with food. Carries granola bar with her and keep ONS bedside for lows, which does not bring her out of lows quick enough since it is mixed macronutrient nutrition supplement. BG in the 50s or less hx and recent 50s over the last two nights. Has financial barriers, which impact food access. Reports psychiatrist encouraged her to access a therapist. States this feels overwhelming. Physical Activity: Reports main barrier is pain with herniated discs and h/o sx and knee pain. Plans to get treadmill today. Self-Monitoring Blood Glucose: Though BG over 250% have improved, she is having significant lows. Would benefit from glucagon rx. Likely could lower basal insulin. Today: TIR: Very high: >1% High: 20% In range: 68% Low: 6% Very low: 5% Avmg/dl GMI: Not available glucose variability: 40.6% Last Visit: TIR: Very high: 5% High: 23% In range: 68% Low: 4% Very low: 0% Avmg/dl GMI: 6.9% glucose variability: 38.3% Diabetes Medications: 40u Glargine BID 40u Aspart TID Pertinent Labs: HgA1c: 12/2022 10.3% 01/2022 7.1% 10/2023 10.4% 02/2024 7.2% Past Medical History: (Last Reviewed 05/27/24 @ 14:56 by Killian Pace DO) Abscess Abscess of right external ear Acute neck pain Asthma Asymptomatic hypertensive urgency At risk for altered mental status Benign essential HTN Roberta infection Cervical somatic dysfunction Chronic back pain Chronic diarrhea Chronic GERD Chronic left shoulder pain Chronic pain of right thumb Chronic right shoulder pain 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 Constipation due to slow transit Depression with anxiety Diabetes mellitus (~2005) Diabetic retinopathy Diabetic retinopathy associated with type 2 diabetes mellitus Diarrhea due to drug Dizziness DM type 2 causing CKD stage 3 Dorsal cervical fat pad Eosinophilic, granuloma bone Fatigue Fatty liver HLD (hyperlipidemia) Labs 07/19/19: Trig 466, TC 166, HDL 36, LDL-test not performed, trig>400 Hot flashes Hot flashes due to menopause HTN (hypertension) Insomnia secondary to depression with anxiety Left hip pain Left knee pain Left lower quadrant abdominal pain Lower extremity edema Lumbar disc herniation with radiculopathy Lumbar radiculopathy Major depressive disorder, single episode, mild Mixed stress and urge urinary incontinence Moderate left ankle sprain Mood swings Muscle twitching Obesity Osteoarthritis of left knee Osteosarcoma Pain of left great toe Pain of right thumb Perimenopausal symptoms Postmenopausal Pruritus Rash and nonspecific skin eruption Recurrent urinary tract infection Recurrent UTI Right elbow pain Seizure (~1990) Seizure disorder Situational anxiety Sleep apnea STEMI (ST elevation myocardial infarction) Strain of lumbar region Subconjunctival hemorrhage of left eye Trigger finger of both hands Trigger finger of left hand Trigger finger, left middle finger Trigger finger, right middle finger 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 Intervention: This participant was very receptive. Provided appropriate educational handouts. Discussed the following topics: Completed intake assessment. Discussed barriers to care. Reviewed Ruleof 15 and using quick carbs for treatment Reviewed in brief carb counting and I: C of 1:15 Reviewed role of glucagon tx Reviewed food security resources Role of physical activity and following provider guidelines for safety Resources for therapy and walked her through application Created SMART goals for patient self-care and success. Goals: Inject in legs and different spots on abdominal- met Bring new lab results next visit- not met Download Dexcom Clarity- met Fill out [employer] application for therapist- new Keep quick carb by bedside, purse, car- new Reduce HS insulin- new Check out [employer]- new Follow-up: CASEY DELA CRUZ follow-up in 2 weeks Amira Ramos RDN, [facility] Certified Diabetes Care and Repertoire Manager P: [phone] Thank you for this referral
== END ==
PROVIDERS: Family Provider Family Medicine; PCP Family Medicine; Referring Provider Family Medicine
DX: E11.9 Type 2 diabetes mellitus without complications (principal); Z71.3 Dietary counseling and surveillance; Z79.4 Long term (current) use of insulin
CPT/HCPCS: 97802

== ENCOUNTER → 2024-06-05 11:38 | Outpatient (CLI) | payer OTHER, MEDICAID, SELFPAY ==
[2024-05-19 15:58] VITALS: BMI 35.6
[2024-06-08 11:12] LABS: Candida species Positive (Negative); Gardnerella vaginalis Positive (Negative); Trichomoas vaginalis Negative (Negative)
== END ==
PROVIDERS: Family Provider Family Medicine; PCP Family Medicine; Visit Provider Specialist
DX: N89.8 Other specified noninflammatory disorders of vagina (principal); R30.0 Dysuria; N39.0 Urinary tract infection, site not specified
CPT/HCPCS: 87077; 87086; 87186; 87480; 87510; 87660

== ENCOUNTER → 2024-07-24 17:48 | Outpatient (CLI) | payer OTHER, MEDICAID, SELFPAY ==
[2024-05-19 15:58] VITALS: BMI 35.6
[2024-07-24 18:26] LABS: BUN Creatinine Ratio 13.3 (6-22); Blood Urea Nitrogen 38 mg/dL (7-17); Calcium 8.5 mg/dL (8.4-10.2); Carbon Dioxide 13 mmol/L (22-32); Chloride 111 mmol/L (98-107); Cholesterol 135 mg/dL (140-199); Estimated Glomerular Filt Rate 19 mL/min (>60); Glucose 228 mg/dL (70-100); HDL Cholesterol 30 mg/dL (40-60); Sodium 134 mmol/L (137-145)
[2024-07-24 18:33] LABS: Hemoglobin A1C% w Est Avg Glu 6.5 % (4.0-6.0)
[2024-07-24 18:47] LABS: HEMOLYSIS 17 (0-50)
[2024-07-24 18:48] LABS: Potassium 5.8 mmol/L (3.4-5.1); Triglycerides 622 mg/dL (35-150)
== END ==
LOC: LAB 17:48
PROVIDERS: Family Provider Family Medicine; PCP Family Medicine; Referring Provider Family Medicine; Visit Provider Family Medicine
DX: E11.22 Type 2 diabetes mellitus with diabetic chronic kidney disease (principal); I12.9 Hypertensive chronic kidney disease with stage 1 through stage 4 chronic kidney disease, or unspecified chronic kidney disease; N18.30 Chronic kidney disease, stage 3 unspecified; F31.9 Bipolar disorder, unspecified; R25.1 Tremor, unspecified
CPT/HCPCS: 36415; 80048; 80061; 83036

== ENCOUNTER → 2024-08-11 14:37 | Outpatient (CLI) | payer OTHER, MEDICAID, SELFPAY ==
[2024-05-19 15:58] VITALS: BMI 35.6
--- NOTE | 2024-09-11 15:06 | DIAB.MNTFU ---
Follow-up Diabetes Medical Nutrition Therapy Assessment Name: Candis Billy Date: 08/11/24 Time: 3-4p Dx: Type II Diabetes Candis presents for Dm visit. Per labs, improved hgA1c which is likely r/t hypoglycemia. Also labs indicating worsening CKD. Plans to see kidney specialist in Aug. Reports doing all the cooking for her and her roommate. Plans to move out on her own in August. Has endocrinology appt in August. States she as unable to finish compass therapy application due to waiting on insurance info. 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 No recent lows, has glucagon and gummies. Did previously have a low where she was sweating and could not move. Treated with sugar. Has a sliding scale to correct elevations, but is not using it. Diet recall: B: banana or protein shake D: Grilled cheese and nathaly soup OR pizza x 2 small pieces OR chili dogs Self-Monitoring Blood Glucose: Increased BG over 250mg/dl since last visit. This is especially concerning due to her current state of CKD. Less lows than last visit, but also reduced time in range. Today: TIR: Very high: 13% High: 31% In range: 56% Low: 0% Very low: 0% Avmg/dl GMI: 7.7% glucose variability: 32.1% Last Visit: TIR: Very high: >1% High: 20% In range: 68% Low: 6% Very low: 5% Avmg/dl GMI: Not available glucose variability: 40.6% Diabetes Medications: 40u Glargine BID 40u Aspart TID Pertinent Labs: HgA1c: 10.3% 12/2022 7.1% 01/2022 10.4% 10/2023 7.2% 02/2024 6.5% 07/24/24 07/24/24 K: 5.8 H Cr: 2.85 H GFR: 19 L Past Medical History: (Last Reviewed 05/27/24 @ 14:56 by Killian Pace DO) Abscess Abscess of right external ear Acute neck pain Asthma Asymptomatic hypertensive urgency At risk for altered mental status Benign essential HTN Roberta infection Cervical somatic dysfunction Chronic back pain Chronic diarrhea Chronic GERD Chronic left shoulder pain Chronic pain of right thumb Chronic right shoulder pain 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 Constipation due to slow transit Depression with anxiety Diabetes mellitus (~2005) Diabetic retinopathy Diabetic retinopathy associated with type 2 diabetes mellitus Diarrhea due to drug Dizziness DM type 2 causing CKD stage 3 Dorsal cervical fat pad Eosinophilic, granuloma bone Fatigue Fatty liver HLD (hyperlipidemia) Labs 07/19/19: Trig 466, TC 166, HDL 36, LDL-test not performed, trig>400 Hot flashes Hot flashes due to menopause HTN (hypertension) Insomnia secondary to depression with anxiety Left hip pain Left knee pain Left lower quadrant abdominal pain Lower extremity edema Lumbar disc herniation with radiculopathy Lumbar radiculopathy Major depressive disorder, single episode, mild Mixed stress and urge urinary incontinence Moderate left ankle sprain Mood swings Muscle twitching Obesity Osteoarthritis of left knee Osteosarcoma Pain of left great toe Pain of right thumb Perimenopausal symptoms Postmenopausal Pruritus Rash and nonspecific skin eruption Recurrent urinary tract infection Recurrent UTI Right elbow pain Seizure (~1990) Seizure disorder Situational anxiety Sleep apnea STEMI (ST elevation myocardial infarction) Strain of lumbar region Subconjunctival hemorrhage of left eye Trigger finger of both hands Trigger finger of left hand Trigger finger, left middle finger Trigger finger, right middle finger 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 Provided appropriate educational handouts. Discussed the following topics: MNT for CKD and DM Reducing potassium intake Reducing sodium intake Moderate to low protein Sliding scale review Created SMART goals for patient self-care and success. Goals: Fill out [employer] application for therapist- in progress Keep quick carb by bedside, purse, car- met Reduce HS insulin- not met/d/c Check out [place] [employer]- not met D/c protein shake- new Choose low K fruit- new Call [facility]- new Start using SSI- new Follow-up: CASEY DELA CRUZ follow-up after endo visit in August. Amira Ramos RDN, [facility] Certified Diabetes Care and Workers Compensation Legal Secretary P: [phone] Thank you for this referral
== END ==
PROVIDERS: Family Provider Family Medicine; PCP Family Medicine; Referring Provider Family Medicine
DX: E11.9 Type 2 diabetes mellitus without complications (principal); Z68.35 Body mass index [BMI] 35.0-35.9, adult; Z71.3 Dietary counseling and surveillance; Z79.4 Long term (current) use of insulin
CPT/HCPCS: 97803

== ENCOUNTER → 2024-09-03 18:26 | Outpatient (CLI) | payer OTHER, MEDICAID, SELFPAY ==
[2024-05-19 15:58] VITALS: BMI 35.6
--- NOTE | 2024-09-03 18:29 | DI.RAD.S_ITS ---
PROCEDURE: XR TOE RT MIN 2V INDICATIONS: R great toe injury TECHNIQUE: AP image of the foot, with 2 additional views of the 1st toe(s) acquired. COMPARISON: No prior relevant studies are available from the archive for review at the time of this dictation. FINDINGS: Bones: No fractures or dislocations. No suspicious bony lesions. Soft tissues: 1st toe soft tissue swelling is seen, with overlying bandaging material. IMPRESSION: Soft tissue swelling is seen, without an acute bony abnormality seen by plain film. If there is point tenderness (or other clinical suspicion for a fracture not seen on these images) then a dedicated CT or a short-term followup plain film series could be considered for further evaluation, as clinically appropriate. Dictated by: Cristobal Abdullahi M.D. on 09/03/2024 at 17:59 Approved by: Cristobal Abdullahi M.D. on 09/03/2024 at 18:01
== END ==
PROVIDERS: Family Provider Family Medicine; PCP Family Medicine; Referring Provider Physician Assistant Medical; Visit Provider Physician Assistant Medical
DX: M79.674 Pain in right toe(s) (principal); M79.89 Other specified soft tissue disorders
CPT/HCPCS: 73660

== ENCOUNTER → 2024-09-23 09:56 | Outpatient (CLI) | payer OTHER, MEDICAID, SELFPAY ==
[2024-05-19 15:58] VITALS: BMI 35.6
[2024-09-23 14:55] LABS: Urine N gonorrhoeae NOT DETECTED
[2024-09-23 15:03] LABS: Urine Chlamydia NOT DETECTED
== END ==
PROVIDERS: Family Provider Family Medicine; PCP Family Medicine; Visit Provider Obstetrics & Gynecology
DX: N89.8 Other specified noninflammatory disorders of vagina (principal); Z11.3 Encounter for screening for infections with a predominantly sexual mode of transmission
CPT/HCPCS: 81002; 87077; 87086; 87147; 87186; 87491; 87591

== ENCOUNTER → 2024-11-06 15:34 | Outpatient (CLI) | payer OTHER, MEDICAID, SELFPAY ==
[2024-05-19 15:58] VITALS: BMI 35.6
--- NOTE | 2024-12-22 08:25 | DIAB.MNTFU ---
Follow-up Diabetes Medical Nutrition Therapy Assessment Name: Candis Billy Date: 11/06/24 Time: 405-515p Dx: Type II Diabetes Candis presents for Dm visit. Started Tandem TSlim insulin pump two weeks ago paired with Dexcom G7 and is really enjoyin git. 270u Insulin q 3 days Using SkinTac Needing Carb counting review for insulin pump utilization. Does feel like going on the pump has made her hyper aware of food and paranoid about eating and wt gain and extra insulin. Interested in GLP1 and plans to discuss with endo. Endorses eating 1-2x per day. Self-Monitoring Blood Glucose: Much improved TIR with in range time >70% over the last 2 weeks. Today: TIR: Very high: 1% High: 18% In range: 81% Low: 0% Very low: <1% Avmg/dl GMI: 6.8% Last Visit: TIR: Very high: 13% High: 31% In range: 56% Low: 0% Very low: 0% Avmg/dl GMI: 7.7% glucose variability: 32.1% Diabetes Medications: Aspart via insulin pump Pertinent Labs: HgA1c: 10.3% 12/2022 7.1% 01/2022 10.4% 10/2023 7.2% 02/2024 6.5% 07/24/24 07/24/24 K: 5.8 H Cr: 2.85 H GFR: 19 L Reported recent GFR improved to 30 Past Medical History: (Last Updated 07/23/24 @ 15:04 by Rajesh Garduno MD) Abscess Abscess of right external ear Acute neck pain Asthma Asymptomatic hypertensive urgency At risk for altered mental status Benign essential HTN Roberta infection Cervical somatic dysfunction Chronic back pain Chronic diarrhea Chronic GERD Chronic left shoulder pain Chronic pain of right thumb Chronic right shoulder pain 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 Constipation due to slow transit Depression with anxiety Diabetes mellitus (~2005) Diabetic retinopathy Diabetic retinopathy associated with type 2 diabetes mellitus Diarrhea due to drug Dizziness DM type 2 causing CKD stage 3 Dorsal cervical fat pad Eosinophilic, granuloma bone Fatigue Fatty liver HLD (hyperlipidemia) Labs 07/19/19: Trig 466, TC 166, HDL 36, LDL-test not performed, trig>400 Hot flashes Hot flashes due to menopause HTN (hypertension) Incomplete emptying of bladder Insomnia secondary to depression with anxiety Left hip pain Left knee pain Left lower quadrant abdominal pain Lower extremity edema Lumbar disc herniation with radiculopathy Lumbar radiculopathy Major depressive disorder, single episode, mild Mixed stress and urge urinary incontinence Moderate left ankle sprain Mood swings Muscle twitching Obesity Osteoarthritis of left knee Osteosarcoma Pain of left great toe Pain of right thumb Perimenopausal symptoms Postmenopausal Pruritus Rash and nonspecific skin eruption Recurrent urinary tract infection Recurrent UTI Right elbow pain Seizure (~1990) Seizure disorder Situational anxiety Sleep apnea STEMI (ST elevation myocardial infarction) Strain of lumbar region Subconjunctival hemorrhage of left eye Trigger finger of both hands Trigger finger of left hand Trigger finger, left middle finger Trigger finger, right middle finger 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 Provided appropriate educational handouts. Discussed the following topics: Review of recent BG and pump settings Carb counting review and resources Meal timing Feelings about weight and insulin pump Benefits to insulin pump in the setting of her CKD Created SMART goals for patient self-care and success. Goals: D/c protein shake- met Choose low K fruit- in progress Call [facility]- not discussed Start using SSI- d/c Eat lunch and dinner consistently- new Try [employer] abner for carb counting- new Follow-up: CASEY DELA CRUZ follow-up in 3-4 weeks. Amira Ramos RDN, LANIE Certified Diabetes Care and Health Unit Coordinator P: [phone] Thank you for this referral
== END ==
PROVIDERS: Family Provider Family Medicine; PCP Family Medicine; Referring Provider Family Medicine
DX: E11.22 Type 2 diabetes mellitus with diabetic chronic kidney disease (principal); Z71.3 Dietary counseling and surveillance; Z79.4 Long term (current) use of insulin; Z96.41 Presence of insulin pump (external) (internal); N18.30 Chronic kidney disease, stage 3 unspecified; E11.42 Type 2 diabetes mellitus with diabetic polyneuropathy
CPT/HCPCS: 97803

== ENCOUNTER → 2024-12-08 13:35 | Outpatient (CLI) | payer OTHER, SELFPAY ==
[2024-05-19 15:58] VITALS: BMI 35.6
[2024-12-08 15:36] LABS: Appearance Urine UA CLEAR; Bilirubin Urine UA NEGATIVE (NEGATIVE); Color Urine UA YELLOW; Glucose Urine UA NEGATIVE (Negative); Ketones Urine UA NEGATIVE (NEGATIVE); Leukocyte Esterase Urine UA 1+ (NEGATIVE); Nitrite Urine UA NEGATIVE (Negative); Occult Blood Urine UA 1+ (Negative); Protein Urine UA 3+ (Negative); Specific Gravity Urine UA 1.025 (1.000-1.035); Urobilinogen Urine UA 0.2 E.U./dL (0.2)
[2024-12-08 15:58] LABS: Bacteria Urine Many (>30); Culture Indicated Urine Specimen Cultured; RBC Urine 1-5/HPF (0-5/HPF); Squamous Epithelial Cell Urine 1-5 /HPF (0-5/HPF); Urine Volume 10mL (spun); WBC Urine >100/HPF (0-5/HPF)
== END ==
PROVIDERS: Family Provider Family Medicine; PCP Family Medicine; Referring Provider Obstetrics & Gynecology; Visit Provider Obstetrics & Gynecology
DX: R30.0 Dysuria (principal)
CPT/HCPCS: 81001; 87077; 87086; 87186

== ENCOUNTER → 2024-12-24 14:12 | Outpatient (CLI) | payer OTHER, SELFPAY ==
[2024-05-19 15:58] VITALS: BMI 35.6
[2024-12-24 14:59] LABS: Hematocrit 41.2 % (36-46); Mean Corpuscular HGB Conc 33.9 % (30-36); Mean Corpuscular Hemoglobin 28.6 PG (26-34); Mean Corpuscular Volume 84.4 fL (80-100); Platelet Count 180 X10^3/uL (150-400); Red Blood Cell Count 4.88 X10^6/uL (4.0-5.2); White Blood Cell Count 5.2 X10^3/uL (4.5-11.0)
[2024-12-24 15:10] LABS: BUN Creatinine Ratio 13.1 (6-22); Blood Urea Nitrogen 35 mg/dL (7-17); Carbon Dioxide 19 mmol/L (22-32); Chloride 110 mmol/L (98-107); Cholesterol 171 mg/dL (140-199); Estimated Glomerular Filt Rate 21 mL/min (>60); Glucose 100 mg/dL (70-100); HDL Cholesterol 47 mg/dL (40-60); HEMOLYSIS < 15 (0-50); LDL Cholesterol Calculated 91 mg/dL (<100); Potassium 4.7 mmol/L (3.4-5.1); Sodium 138 mmol/L (137-145); Triglycerides 164 mg/dL (35-150)
== END ==
LOC: LAB 14:14
PROVIDERS: Family Provider Family Medicine; PCP Family Medicine; Referring Provider Internal Medicine Cardiovascular Disease; Visit Provider Internal Medicine Cardiovascular Disease
DX: I25.10 Atherosclerotic heart disease of native coronary artery without angina pectoris (principal)
CPT/HCPCS: 36415; 80048; 80061; 85027

== ENCOUNTER → 2024-12-29 14:58 | Outpatient (CLI) | payer OTHER, SELFPAY ==
[2024-05-19 15:58] VITALS: BMI 35.6
--- NOTE | 2025-02-09 11:26 | DIAB.FU ---
Follow-up Diabetes Education Assessment Name: Candis Billy Date: 12/29/24 Time: 4-5p Dx: Type II Diabetes Candis presents for Dm visit. using Tandem TSlim insulin pump paired with Dexcom G7. TDD 96.9u Using SkinTac Basal 59% 56.98u Bolu 41% 39.92u 9 boluses per day Avg CHO 71g Reports worrying about eating due to needing more insulin. Feeling overwhelmed by carb counting and bolusing. Endorses eating 1-2x per day. Self-Monitoring Blood Glucose: Time in range down and more elevations than last visit. Today: TIR: Very high: 11% High: 19% In range: 70% Low: 0% Very low: % Avmg/dl GMI: 7.4% Last Visit: TIR: Very high: 1% High: 18% In range: 81% Low: 0% Very low: <1% Avmg/dl GMI: 6.8% Diabetes Medications: Aspart via insulin pump Pertinent Labs: HgA1c: 10.3% 12/2022 7.1% 01/2022 10.4% 10/2023 7.2% 02/2024 6.5% 07/24/24 07/24/24 K: 5.8 H Cr: 2.85 H GFR: 19 L Reported recent GFR improved to 30 Past Medical History: Abscess Abscess of right external ear Acute neck pain Asthma Asymptomatic hypertensive urgency At risk for altered mental status Benign essential HTN Roberta infection Cervical somatic dysfunction Chronic back pain Chronic diarrhea Chronic GERD Chronic left shoulder pain Chronic pain of right thumb Chronic right shoulder pain 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 Constipation due to slow transit Depression with anxiety Diabetes mellitus (~2005) Diabetic retinopathy Diabetic retinopathy associated with type 2 diabetes mellitus Diarrhea due to drug Dizziness DM type 2 causing CKD stage 3 Dorsal cervical fat pad Eosinophilic, granuloma bone Fatigue Fatty liver HLD (hyperlipidemia) Labs 07/19/19: Trig 466, TC 166, HDL 36, LDL-test not performed, trig>400 Hot flashes Hot flashes due to menopause HTN (hypertension) Incomplete emptying of bladder Insomnia secondary to depression with anxiety Left hip pain Left knee pain Left lower quadrant abdominal pain Lower extremity edema Lumbar disc herniation with radiculopathy Lumbar radiculopathy Major depressive disorder, single episode, mild Mixed stress and urge urinary incontinence Moderate left ankle sprain Mood swings Muscle twitching Obesity Osteoarthritis of left knee Osteosarcoma Pain of left great toe Pain of right thumb Perimenopausal symptoms Postmenopausal Pruritus Rash and nonspecific skin eruption Recurrent urinary tract infection Recurrent UTI Right elbow pain Seizure (~1990) Seizure disorder Situational anxiety Sleep apnea STEMI (ST elevation myocardial infarction) Strain of lumbar region Subconjunctival hemorrhage of left eye Trigger finger of both hands Trigger finger of left hand Trigger finger, left middle finger Trigger finger, right middle finger 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 Provided appropriate educational handouts. Discussed the following topics: Encouraged consistent energy intake and bolusing Reviewed bolusing for small, medium, meals vs exact CHO counting Discussed her feelings around food and bolusing Created SMART goals for patient self-care and success. Goals: Eat lunch and dinner consistently- in progress Try [employer] abner for carb counting- d/c Eat BID- new bolus for small/med/lg meals- new Follow-up: CASEY DELA CRUZ follow-up in 2-3 weeks Amira Ramos RDN, LANIE Certified Diabetes Care and Email Marketing Specialist P: [phone] Thank you for this referral
== END ==
PROVIDERS: Family Provider Family Medicine; PCP Family Medicine; Referring Provider Family Medicine
DX: E11.9 Type 2 diabetes mellitus without complications (principal); Z79.4 Long term (current) use of insulin; Z96.41 Presence of insulin pump (external) (internal); Z71.3 Dietary counseling and surveillance
CPT/HCPCS: G0108

== ENCOUNTER → 2024-12-31 15:03 | Outpatient (CLI) | payer OTHER, SELFPAY ==
[2024-05-19 15:58] VITALS: BMI 35.6
--- NOTE | 2025-02-09 11:34 | DIAB.MNTFU ---
Follow-up Diabetes Medical Nutrition Therapy Assessment Name: Candis Billy Date: 12/31/24 Time: 405-450p Dx: Type II Diabetes Candis presents for Dm visit. using Tandem TSlim insulin pump paired with Dexcom G7. having quite a bit of reported anxiety about managing Dm and CKD. Has been making pump adjustments with [facility]. Plans to see her for pump and this RD for more MNT. Called to be on therapy list yesterday with [facility]. Endorses a lot of guilt about eating carbs, including healthy carbs ie fruit. Basal was increased to 2.3u/hour with [facility] IC moved to 1:2 from 1:3 at that time as well. Target at 110mg/dl Insulin time 5hr Reports worrying about eating due to needing more insulin. Feeling overwhelmed by carb counting and bolusing. Endorses eating 1-2x per day. Self-Monitoring Blood Glucose: Time in range down and more elevations than last visit. TIR: Very high: 11% High: 19% In range: 70% Low: 0% Very low: % Avmg/dl GMI: 7.4% 11/06 Visit: TIR: Very high: 1% High: 18% In range: 81% Low: 0% Very low: <1% Avmg/dl GMI: 6.8% Diabetes Medications: Aspart via insulin pump Pertinent Labs: HgA1c: 10.3% 12/2022 7.1% 01/2022 10.4% 10/2023 7.2% 02/2024 6.5% 07/24/24 07/24/24 K: 5.8 H Cr: 2.85 H GFR: 19 L Reported recent GFR improved to 30 Past Medical History: Abscess Abscess of right external ear Acute neck pain Asthma Asymptomatic hypertensive urgency At risk for altered mental status Benign essential HTN Roberta infection Cervical somatic dysfunction Chronic back pain Chronic diarrhea Chronic GERD Chronic left shoulder pain Chronic pain of right thumb Chronic right shoulder pain 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 Constipation due to slow transit Depression with anxiety Diabetes mellitus (~2005) Diabetic retinopathy Diabetic retinopathy associated with type 2 diabetes mellitus Diarrhea due to drug Dizziness DM type 2 causing CKD stage 3 Dorsal cervical fat pad Eosinophilic, granuloma bone Fatigue Fatty liver HLD (hyperlipidemia) Labs 07/19/19: Trig 466, TC 166, HDL 36, LDL-test not performed, trig>400 Hot flashes Hot flashes due to menopause HTN (hypertension) Incomplete emptying of bladder Insomnia secondary to depression with anxiety Left hip pain Left knee pain Left lower quadrant abdominal pain Lower extremity edema Lumbar disc herniation with radiculopathy Lumbar radiculopathy Major depressive disorder, single episode, mild Mixed stress and urge urinary incontinence Moderate left ankle sprain Mood swings Muscle twitching Obesity Osteoarthritis of left knee Osteosarcoma Pain of left great toe Pain of right thumb Perimenopausal symptoms Postmenopausal Pruritus Rash and nonspecific skin eruption Recurrent urinary tract infection Recurrent UTI Right elbow pain Seizure (~1990) Seizure disorder Situational anxiety Sleep apnea STEMI (ST elevation myocardial infarction) Strain of lumbar region Subconjunctival hemorrhage of left eye Trigger finger of both hands Trigger finger of left hand Trigger finger, left middle finger Trigger finger, right middle finger 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 Provided appropriate educational handouts. Discussed the following topics: Reviewed relationship with CHO Discussed benefits of healthy CHO Encouraged lili with bolusing and CHO intake Discussed overall stressors and food relationship Created SMART goals for patient self-care and success. Goals: Eat BID- in progress bolus for small/med/lg meals- in progress Have fruit and bolus- new Practice some lili with self- new Follow-up: CASEY DELA CRUZ follow-up in 2-3 weeks Amira Ramos RDN, LANIE Certified Diabetes Care and Photo Lab Technician P: [phone] Thank you for this referral
== END ==
PROVIDERS: Family Provider Family Medicine; PCP Family Medicine; Referring Provider Family Medicine
DX: E11.22 Type 2 diabetes mellitus with diabetic chronic kidney disease (principal); F31.9 Bipolar disorder, unspecified; G25.71 Drug induced akathisia; T50.905A Adverse effect of unspecified drugs, medicaments and biological substances, initial encounter; F41.9 Anxiety disorder, unspecified; F43.12 Post-traumatic stress disorder, chronic; Z79.4 Long term (current) use of insulin; Z96.41 Presence of insulin pump (external) (internal); Z71.3 Dietary counseling and surveillance; N18.9 Chronic kidney disease, unspecified
CPT/HCPCS: 97803; 99214

== ENCOUNTER → 2025-01-20 12:58 | Outpatient (CLI) | payer OTHER, SELFPAY ==
[2024-05-19 15:58] VITALS: BMI 35.6
--- NOTE | 2025-02-09 11:50 | DIAB.MNTFU ---
Follow-up Diabetes Medical Nutrition Therapy Assessment Name: Candis Billy Date: 01/20/25 Time: 105-2p Dx: Type II Diabetes w/CKD Candis presents for Dm visit. using Tandem TSlim insulin pump paired with Dexcom G7. Reports concerns for her kidney disease. Wanting to review more MNT for kidney health and diabetes. States she is having difficulty with getting insurance to approve higher insulin rx. Otherwise, she would have to pay out of pocket reported $150/9 days of insulin. No feasible. Waiting on GLP1 approval (Andrew--worries if this will be covered per report), which this RD thinks will be helpful in her DM and wt management efforts. Still interested in health and social care teacher or therapist. TDD: 100.65u basal: 51% bolus; 49% avg CHO: 110g Eating out 2x per week on average. Due for HgA1c from what this RD can see. Plans to get new hgA1c from borough coordinator per report in March. Self-Monitoring Blood Glucose: Time in range improved. Less time of hyperglycemia. Some elevations due to late bolusing. TIR: Very high: 3.4% High: 14% In range: 83% Low: 0% Very low: 0% Avmg/dl GMI: 6.7% variation: 34% std dev; 48mg/dl 11/06 Visit: TIR: Very high: 11% High: 19% In range: 70% Low: 0% Very low: % Avmg/dl GMI: 7.4% Diabetes Medications: Aspart via insulin pump Pertinent Labs: HgA1c: 10.3% 12/2022 7.1% 01/2022 10.4% 10/2023 7.2% 02/2024 6.5% 07/24/24 07/24/24 K: 5.8 H Cr: 2.85 H GFR: 19 L 11/2024 GFR: 21 L K: 4.7 Cr: 2.68 H Past Medical History: Abscess Abscess of right external ear Acute neck pain Asthma Asymptomatic hypertensive urgency At risk for altered mental status Benign essential HTN Roberta infection Cervical somatic dysfunction Chronic back pain Chronic diarrhea Chronic GERD Chronic left shoulder pain Chronic pain of right thumb Chronic right shoulder pain 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 Constipation due to slow transit Depression with anxiety Diabetes mellitus (~2005) Diabetic retinopathy Diabetic retinopathy associated with type 2 diabetes mellitus Diarrhea due to drug Dizziness DM type 2 causing CKD stage 3 Dorsal cervical fat pad Eosinophilic, granuloma bone Fatigue Fatty liver HLD (hyperlipidemia) Labs 07/19/19: Trig 466, TC 166, HDL 36, LDL-test not performed, trig>400 Hot flashes Hot flashes due to menopause HTN (hypertension) Incomplete emptying of bladder Insomnia secondary to depression with anxiety Left hip pain Left knee pain Left lower quadrant abdominal pain Lower extremity edema Lumbar disc herniation with radiculopathy Lumbar radiculopathy Major depressive disorder, single episode, mild Mixed stress and urge urinary incontinence Moderate left ankle sprain Mood swings Muscle twitching Obesity Osteoarthritis of left knee Osteosarcoma Pain of left great toe Pain of right thumb Perimenopausal symptoms Postmenopausal Pruritus Rash and nonspecific skin eruption Recurrent urinary tract infection Recurrent UTI Right elbow pain Seizure (~1990) Seizure disorder Situational anxiety Sleep apnea STEMI (ST elevation myocardial infarction) Strain of lumbar region Subconjunctival hemorrhage of left eye Trigger finger of both hands Trigger finger of left hand Trigger finger, left middle finger Trigger finger, right middle finger 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 Provided appropriate educational handouts. Discussed the following topics: CKD and DM MNT review Eating out and sodium intake benefits fo GLP1 Bolusing recs Eating frequency Created SMART goals for patient self-care and success. Goals: Eat BID- in progress Have fruit and bolus- met Practice some lili with self- in progress Call endo about GLP1 insurance preference prn- new Limit eating out to 1x per week- new Bolus pre meal- new Follow-up: CASEY DELA CRUZ follow-up in 3-4 weeks. Pt requests that RD note sent to borough coordinator. Amira Ramos RDN, [facility] [place] Certified Diabetes Care and Development Trainer P: [phone] Thank you for this referral
== END ==
PROVIDERS: PCP Family Medicine; Referring Provider Family Medicine
DX: F31.9 Bipolar disorder, unspecified (principal); G25.71 Drug induced akathisia; T50.905A Adverse effect of unspecified drugs, medicaments and biological substances, initial encounter; F41.9 Anxiety disorder, unspecified; F43.12 Post-traumatic stress disorder, chronic
CPT/HCPCS: 97803; 99214

== ENCOUNTER 2025-02-19 06:38 | Day surgery (SDC) | payer OTHER, SELFPAY ==
[2024-05-19 15:58] VITALS: BMI 35.6
[2025-01-08 08:07] VITALS: BMI 34.0
[2025-02-19] VITALS (10 sets, daily range): BP systolic 121–171; BP diastolic 72–93; PULSE 86–93; RESP 14–26; TEMP 36.1–36.6; O2SAT 92–100; BMI 34.0
--- NOTE | 2025-02-19 | PATH_ITS ---
[facility] Accession Number: [id number] No. of containers..01 Tissue . 01 Material submitted: . cervix - CERVIX . 01 Diagnosis: CERVIX, LEEP: Cervical transformation zone mucosa with focal atypia consistent with low-grade squamous intraepithelial lesion (MALINDA-1/ mild dysplasia). No high-grade dysplasia or malignancy. MRV 02/24/2025 1732 Local . 01 Electronically signed: . Felicia Meyer MD, Pathologist NPI- [id number] . 01 Gross description: . Received in formalin with two identifiers and cervix, is an unoriented intact cervix 3.0 x 2.7 x 1.5 cm with pink-posada wrinkled ectocervix and a slit-like os 0.7 cm in diameter. The os is not probed patent due to the previous surgical scar at the deep aspect. The deep aspect is inked orange while the remaining stromal margins are inked blue. The specimen is serially sectioned and submitted entirely and sequentially in cassettes A1-A8. ([id number]) /RODNEY 02/20/2025 2321 Local . 01 Pathologist provided ICD-10: N87.0 . 01 CPT . 350111 Specimen Comment: A courtesy copy of this report has been sent to [phone] Performed at: [address] [facility] [address], [place], [place] [id number] MD Robert Ricardo MD Phone: [phone]
[2025-02-19] MEDS: ACETAMINOPHEN IV 1,000 MG/100 ML VIAL 400 MG IV (07:13)
[2025-02-19] MEDS: SCOPOLAMINE 1 PATCH TOP (07:13)
[2025-02-19] MEDS: ALBUTEROL/IPRATROPIUM 3 ML AMPUL INH (07:13)
[2025-02-19] MEDS: LACTATED RINGERS 1,000 ML 42 ML IV (07:14)
--- NOTE | 2025-02-19 07:43 | PM.PREOP ---
Pre-operative Note COVID-19 COVID-19 status: Not tested Interval Note History & Physical reviewed/Exam performed by Physician: Yes Changes to H&P: No
--- NOTE | 2025-02-19 07:45 | P.HPOB_ITS ---
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 Patient has had prior supracervical hysterectomy and has questions about possible trachelectomy. Ectocervical colposcopy was negative and ECC performed which was nondiagnostic. 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) Congenital absence of left kidney (07/10/11) Femur fracture CAD (coronary artery disease) Abscess (07/28/19) Incomplete emptying of bladder Recurrent urinary tract infection Benign essential HTN Osteoarthritis of left knee Left knee pain Lumbar radiculopathy Major depressive disorder, single episode, mild Abscess Insomnia secondary to depression with anxiety Trigger finger of left hand At risk for altered mental status STEMI (ST elevation myocardial infarction) Moderate left ankle sprain Uncontrolled type 2 diabetes mellitus Muscle twitching Dizziness Weakness Mixed stress and urge urinary incontinence Dorsal cervical fat pad Trigger finger of both hands Roberta infection Diabetic retinopathy Congenital absence of kidney Postmenopausal Pain of left great toe Urge incontinence Mood swings Hot flashes due to menopause Perimenopausal symptoms Chronic diarrhea Weight loss counseling, encounter for Recurrent UTI Chronic pain of right thumb Trigger finger, left middle finger Asthma Seizure disorder Chronic left shoulder pain Asymptomatic hypertensive urgency Situational anxiety Lower extremity edema Chronic GERD Wheezing Chronic back pain Chronic right shoulder pain Trigger finger, right middle finger DM type 2 causing CKD stage 3 Fatigue Sleep apnea Depression with anxiety Abscess of right external ear Upper extremity somatic dysfunction Pain of right thumb Right elbow pain Diarrhea due to drug Rash and nonspecific skin eruption Cervical somatic dysfunction Acute neck pain Subconjunctival hemorrhage of left eye Left hip pain Obesity Strain of lumbar region Lumbar disc herniation with radiculopathy Diabetic retinopathy associated with type 2 diabetes mellitus Pruritus Urinary tract infection Constipation due to slow transit Hot flashes Left lower quadrant abdominal pain Vaginal dryness Eosinophilic, granuloma bone Seizure (~1990) HLD (hyperlipidemia) HTN (hypertension) Fatty liver Congenital absence of one kidney Tuberculosis (~1993) Osteosarcoma Vision disorder Diabetes mellitus (~2005) Surgical History (Updated 01/08/25 @ 08:05 by Sarah Lou RN) Hx of cholecystectomy History of abdominal supracervical subtotal hysterectomy S/P coronary artery stent placement History of lumbar discectomy (05/24/20) S/P laminectomy Anesthesia History of carpal tunnel release Neoplasm of femur Bone tumor (benign) (~1990) Status post laparoscopic cholecystectomy (~2016) Status post laparoscopic supracervical hysterectomy (~2010) Family History Brother Mental health disorder Mother Diabetes mellitus Heart disease Kidney disease Hyperlipidemia Hypertension Sister Mental health disorder Diabetes mellitus Grandfather Hypertension Stroke Grandmother Diabetes mellitus Hypertension Father Heart disease Social History household members: friend(s) Smoking Status: Former smoker Tobacco: How many years used: 29 quit status: considering quitting second hand exposure: Yes (socially) alcohol intake: never substance use type: does not use Meds Home Medications and Allergies Home Medications Medication Instructions Recorded Confirmed Type omeprazole 20 mg capsule,delayed 20 mg PO BID #180 caps 02/22/22 02/19/25 Rx release aspirin 81 mg tablet,delayed 81 mg PO DAILY 05/09/23 02/19/25 History release (Adult Aspirin Regimen) nitroglycerin 0.4 mg sublingual 0.4 mg sublingual DAILY 11/13/23 02/19/25 History tablet flash glucose sensor (FreeStyle #1 ea 03/13/24 01/13/25 Rx Yana 2 Sensor kit) ondansetron 4 mg disintegrating 4 mg PO Q8H PRN nausea and 03/30/24 02/19/25 Rx tablet vomiting 5 days #30 tabs albuterol sulfate 90 mcg/actuation 2 puff PO Q6H PRN for wheezing #18 04/03/24 02/19/25 Rx aerosol inhaler grams metronidazole 0.75 % topical cream 1 applic topical BID #45 grams 05/14/24 02/19/25 Rx progesterone micronized 200 mg 200 mg PO BEDTIME #30 caps 05/14/24 02/19/25 Rx capsule (Prometrium) Dexcom G7 Part Time (blood-glucose #1 ea 07/09/24 02/19/25 Rx meter,continuous) budesonide-formoterol HFA 160 2 puff inhalation BID #10.2 grams 06/11/24 02/19/25 Rx mcg-4.5 mcg/actuation aerosol inhaler (Symbicort) empagliflozin 10 mg tablet 10 mg PO DAILY #30 tabs 07/15/24 02/19/25 Rx (Jardiance) lisinopril 10 mg tablet 10 mg PO DAILY 07/15/24 02/19/25 History glucagon 1 mg solution for 1 mg SUBCUT Q20M PRN hypoglycemia 07/20/24 02/19/25 Rx injection (Glucagon Emergency Kit) #2 ea levetiracetam 750 mg tablet 750 mg PO BID #180 tabs 07/21/24 02/19/25 Rx methylphenidate HCl 18 mg 18 mg PO DAILY #30 tabs 07/30/24 02/19/25 Rx tablet,extended release 24 hr sodium bicarbonate 650 mg tablet 650 mg PO BID #180 tabs 08/04/24 02/19/25 Rx naloxone 4 mg/actuation nasal spray intranasal 09/03/24 01/13/25 History estradiol 0.01% (0.1 mg/gram) 1 g vaginal 3XW #42.5 grams 09/23/24 01/13/25 Rx vaginal cream estradiol 0.1 mg/24 hr semiweekly 1 patch transdermal 2XW #8 ea 09/23/24 02/19/25 Rx transdermal patch (Aminta) lorazepam 1 mg tablet 1 mg PO BID #60 tabs 12/14/24 02/19/25 Rx amlodipine 10 mg tablet (Norvasc) 10 mg PO DAILY #90 tabs 12/23/24 02/19/25 Rx gabapentin 300 mg capsule 900 mg (3 x 300 mg) PO BID #180 12/23/24 02/19/25 Rx caps cariprazine 1.5 mg capsule 1.5 mg PO DAILY #30 caps 12/31/24 02/19/25 Rx atorvastatin 80 mg tablet 80 mg PO QPM 01/08/25 01/13/25 History ezetimibe 10 mg tablet 10 mg PO DAILY 01/08/25 02/19/25 History clotrimazole 1 % topical cream 1 applic topical BID 4 weeks #30 01/13/25 0 02/19/25 Rx grams insulin lispro 100 unit/mL continuous subcutaneous infusion 01/13/25 01/13/25 History subcutaneous solution zolpidem 10 mg tablet 10 mg PO BEDTIME insomnia #30 tabs 01/20/25 02/19/25 Rx blood sugar diagnostic (Relion #100 ea 01/22/25 Rx Ultima strips) Dexcom G7 Sensor (blood-glucose #3 ea 02/10/25 Rx sensor) diphenhydramine HCl 25 mg capsule 25 mg PO BEDTIME PRN Insomnia 02/19/25 02/19/25 History (Benadryl) tirzepatide 2.5 mg/0.5 mL 2.5 mg SUBCUT WEEKLY 02/19/25 02/19/25 History subcutaneous pen injector (Mounjaro) Allergies Allergy/AdvReac Type Severity Reaction Status Date / Time hydrocodone Allergy Intermediate ITCHING/VOM Verified 02/19/25 07:11 ITING/RASH suture Allergy Vicryl Verified 02/19/25 07:11 sulfamethoxazole AdvReac Severe GUSTAVO Verified 02/19/25 07:11 [From Bactrim] trimethoprim [From Bactrim] AdvReac Severe GUSTAVO Verified 02/19/25 07:11 Review of Systems Review of Systems Narrative: Problem-specific ROS positives included in HPI Exam Const General: cooperative and comfortable Nutritional Appearance: average body habitus Orientation: alert and oriented x3 HENMT Head: normal to inspection, atraumatic and abrasion Ears: hearing grossly normal bilaterally Face and sinus: face symmetric Eyes General: appearance normal, both eyes and all related structures Conjunctivae: conjunctivae normal Sclera: sclerae normal EOM: EOM intact bilaterally Neck Neck: normal visual inspection Resp Effort & Inspection: normal respiratory effort and able to speak in complete sentences Auscultation: clear to auscultation bilaterally Cardio Rate: regular rate Rhythm: regular rhythm Heart Sounds: S1 normal, S2 normal and no murmurs GI Inspection: normal to inspection Palpation: soft and no hepatosplenomegaly General: other (See below) Other: External Female Exam: normal external appearance (Normal for age and parity), normal appearance of the urethra and no lesions Urethra: normal appearance of the urethra and other (UVJ hypermobility noted) Speculum Exam - Vagina: normal appearance of the vagina, normal vaginal discharge and vagina atrophic (Mild atrophic change) Speculum Exam - Cervix: normal appearance of the cervix and other (See colposcopy procedure note and diagram) Bimanual Exam- Vagina & Uterus: normal bimanual exam, normal palpation and uterus absent Bimanual Exam- Adnexa, other: normal adnexae, no masses, non-tender and cystocele (Stage I) Pelvic Support: cystocele (Stage I) Extrem General: no calf tenderness Psych Appearance: grossly normal Mental Status: mental status grossly normal Speech and Movement: speech and movement normal Mood: congruent mood Affect: normal affect Attitude: cooperative Thought Process: normal Thought Content: normal Judgment: judgment good Assessment & Plan Assessment and plan (1) Dyspareunia due to medical condition in female patient: Status: Acute (2) History of abdominal supracervical subtotal hysterectomy: Status: Acute Plan Patient counseled regarding alternatives, risks, benefits, and potential complications associated with trachelectomy, possible anterior colporrhaphy and mid urethral sling placement with cystoscopy. Patient also understands that if removal of the cervix can not be accomplished safely transvaginally, laparoscopy may be necessary to complete the procedure in a safe manner. With full understanding of the above, a written consent was re-executed, signed, and w itnessed this date. Time-Based Coding :: [TOTAL MINUTES] spent with patient and on the chart (including review of chart, obtaining history, exam, reviewing outside data, placing orders, documenting exam and treatment plan, and counseling patient) on [DATE].
[2025-02-19] MEDS: CEFAZOLIN 2 GM/100 ML PREMIX 100 ML IV (08:25)
--- NOTE | 2025-02-19 08:34 | SUR.OPER ---
Lithotomy on padded OR bed. Carman Pad Positioner under torso. Head on pillow, arms padded and tucked at sides. Legs secured in padded yellow fins stirrups.
[2025-02-19] MEDS: BUPIVACAINE 0.25% W/ EPI 30 ML VIAL INJ (08:58)
[2025-02-19] MEDS: TRANEXAMIC ACID 1,000 MG in SODIUM CHLORIDE 0.9% 100 ML 200 MG IV (09:29)
--- NOTE | 2025-02-19 09:57 | P.OP_ITS ---
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 Patient has had prior supracervical hysterectomy and has questions about possible trachelectomy. Ectocervical colposcopy was negative and ECC performed which was nondiagnostic. She also has progressively severe stress urinary incontinence and marked urethrovesical hypermobility. 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 She presents today for her scheduled surgery Surgeon: Westley Giraldo Spray Booth Operator: Sangeeta Moody Anesthesia Type: General Operative Notes Findings: Unremarkable cervix removed. Cul-de-sac free of adhesions. Cystoscopy shows normal bladder mucosa with no evidence injury from TVT placement. Vigorous jets of clear urine from each ureteral orifice. Closure Type: primary Specimen(s): other (Cervix) Estimated blood loss (mL): 75 Blood products transfused: none Procedure in detail: With the patient under satisfactory general anesthesia in the modified dorsal lithotomy position, the vagina, perineum, and lower abdomen prepped and draped in the usual manner for trachelectomy, and mid urethral sling placement with cystoscopy. A pre-surgical safety time-out was then taken in accordance with [facility] Main OR protocols. A weighted speculum was inserted in the vagina and the cervix was grasped with a single-tooth tenaculum. The portio was injected circumferentially with 0.5% Marcaine with epinephrine and an arcuate incision was made on the anterior aspect of the cervix using monopolar cutting current. The bladder was advanced off of the cervix anteriorly and the anterior cul-de-sac easily entered. A Hope retractor was placed in the anterior cul-de-sac and a handheld LigaSure device was then used to coagulate and divide circumferentially around the cervix itself. Once the cervix had been completely excised, the vaginal cuff was then closed with a series of 0 Monocryl [id number] stitches. Hemostasis was assured and attention was turned to placement of the mid urethral sling. The anterior vaginal wall inspected. A Thompson catheter was inserted in the bladder and the mid urethra was identified by palpation of the Thompson bulb. Once the mid urethra had been identified, 2 Allis clamps were placed and the area of incision infiltrated with 0.25% Marcaine with epinephrine. A 2 cm longitudinal incision of the vaginal mucosa overlying the mid urethra was then made and using Metzenbaum scissors the dissection was carried lateral on both sides so as to be able to safely introduce the retropubic tension-free vaginal tape. The TVT needle was placed 1st on the right side followed by placement of a left up through the suprapubic skin. The needle tips were brought out through the skin and remained in place while the Thompson catheter was removed and cystoscopy performed with findings as noted above. The TVT needles were then brought up through the suprapubic incisions and removed with suture scissors. The mid urethral sling was then appropriately positioned under the mid urethra and the plastic sleeves removed from the TVT once it was in correct position. The redundant portion TVT material was then excised at the skin line of the suprapubic incisions. Correct positioning of the TVT was then confirmed and the vaginal incision closed with 3-0 chromic in a running locking stitch. Pressure was maintained on the retropubic tissues for 5 minutes so as to reduce the risk subsequent bleeding or bruising and the patient received a single dose of tranexamic acid 1000 mg IV.. The suprapubic incisions were then closed with skin glue and an appropriate dressing was applied. Patient was then awakened from anesthesia and transferred to the PACU for a period of observation and recovery after having tolerated procedure well. Complications: none Post-operative Condition: stable Disposition: PACU Plan for aftercare: Routine postoperative care with follow-up planned for 2 weeks postop Post-Operative Instructions Surgical Site: Blood spotting from the vagina is expected and not cause for alarm. All stitches will dissolve on their own. You may apply ice packs to the vaginal/pubic area as needed for comfort for the first two days. You can shower approximately 48 hours after your surgery but avoid scrubbing the surgical site. Do not submerge underwater for 6 weeks (no bathtub or swimming pool). Diet and Activity: You may return to your normal diet and light activity, as tolerated, after espana rgery. Avoid driving while on narcotic pain medications. Please avoid any heavy lifting more than 10 lbs or strenuous physical activities altogether for 4 weeks and then ease back into your regular activity. Avoid vaginal intercourse or penetration for 6 weeks. Medications: You received a prescription for a narcotic pain pill to use in addition to extra strength Tylenol (acetaminophen). Narcotics can cause constipation so use [id number] stool softeners as needed. Please avoid any Aspirin, Advil, Motrin, Aleve, ibuprofen, or any other blood thinners after the procedure for at least two days. Problems you should report: Fevers > 101. Any pain not controlled by pain medication provided. Uncontrolled bleeding from the incision. Inability to urinate. Any concerns or problems, please contact us at anytime. Follow-up: You should be scheduled for a post-operative appointment about 2 weeks after your surgery. Please call to confirm time if necessary.
[2025-02-19] MEDS: HYDROMORPHONE 1 MG INJ 0.5 MG IV (10:29)
[2025-02-19] MEDS: ONDANSETRON 4 MG/2 ML INJ IV (10:33)
--- NOTE | 2025-02-19 10:58 | SUR.PHASEI ---
See verified verbal order from Chantal ARSHAD for pain medication who was at bedside.
[2025-02-19] MEDS: TRAMADOL 50 MG TABLET PO (11:02)
--- NOTE | 2025-02-19 11:40 | SUR.PHASEII ---
Dr Giraldo to bedside. Updated on no void and post void residual via bladder scan of 200-500ml. Pt with minimal desire to void. See order for Ibuprofen.
[2025-02-19 12:22] LABS: Hepatitis B Surface Antigen NEGATIVE s/c (NEGATIVE)
[2025-02-19 12:32] LABS: HIV 1 & 2 Ab/Ag 4th Gen Combo NEGATIVE (NEGATIVE)
[2025-02-19 12:39] LABS: Hep C Virus Ab w/Reflex Quant NEGATIVE s/c (NEGATIVE)
[2025-02-20 03:08] LABS: RPR Screen Non Reactive (Non Reactive)
== END 2025-02-19 13:30 | disposition home or self-care (01) ==
LOC: OR 06:38 → AC 06:39
PROVIDERS: PCP Family Medicine; Referring Provider Obstetrics & Gynecology; Visit Provider Obstetrics & Gynecology
PROC: (CPT 57530; principal; 2025-02-19 07:45)
PROC: 0TSD0ZZ Reposition Urethra, Open Approach (ICD-10-PCS; 2025-02-19 07:45)
DX: N39.3 Stress incontinence (female) (male) (principal); N87.9 Dysplasia of cervix uteri, unspecified; B97.7 Papillomavirus as the cause of diseases classified elsewhere; N94.19 Other specified dyspareunia; Z98.890 Other specified postprocedural states
CPT/HCPCS: 51992; 57530; 36415; 82962; 86592; 86803; 87077; 87086; 87340; 87389; C1771; J0131; J0330; J0690; J1100; J1171; J2250; J2405; J2704; J3010

== ENCOUNTER → 2025-03-03 09:29 | Outpatient (CLI) | payer OTHER, SELFPAY ==
[2024-05-19 15:58] VITALS: BMI 35.6
[2025-03-03 11:04] LABS: Appearance Urine UA CLEAR; Bilirubin Urine UA NEGATIVE (NEGATIVE); Color Urine UA YELLOW; Glucose Urine UA 3+ g/dL (Negative); Ketones Urine UA NEGATIVE (NEGATIVE); Leukocyte Esterase Urine UA NEGATIVE (NEGATIVE); Nitrite Urine UA NEGATIVE (Negative); Occult Blood Urine UA TRACE-INTACT (Negative); Protein Urine UA 3+ (Negative); Specific Gravity Urine UA 1.015 (1.000-1.035); Urine Volume 10mL (spun); Urobilinogen Urine UA 0.2 E.U./dL (0.2)
[2025-03-03 11:06] LABS: Bacteria Urine None Seen; Culture Indicated Urine Cult Not Indicated; RBC Urine None Seen (0-5/HPF); Squamous Epithelial Cell Urine None Seen (0-5/HPF); WBC Urine None Seen (0-5/HPF)
== END ==
PROVIDERS: PCP Family Medicine; Visit Provider Obstetrics & Gynecology
DX: R33.9 Retention of urine, unspecified (principal)
CPT/HCPCS: 81001

== ENCOUNTER → 2025-04-02 14:11 | Outpatient (CLI) | payer OTHER, SELFPAY ==
[2024-05-19 15:58] VITALS: BMI 35.6
--- NOTE | 2025-04-02 14:11 | DI.RAD.S_ITS ---
PROCEDURE: XR SHOULDER RT MIN 2V INDICATIONS: pain TECHNIQUE: 3 views of the shoulder were acquired. COMPARISON: [facility], CR, XR SHOULDER RT MIN 2V, 06/15/2022, 13:33. FINDINGS: Bones: No fractures or dislocations. Mild to moderate glenohumeral joint space narrowing and marginal osteophytosis and mild to moderate hypertrophic acromioclavicular arthropathy. No suspicious bony lesions. Visualized ribs appear intact. Soft tissues: No suspicious soft tissue calcifications. IMPRESSION: Degenerative change of the glenohumeral and acromioclavicular joints without evidence of acute bony abnormality. Dictated by: Yared Michelle M.D. on 04/03/2025 at 0:23 Approved by: Yared Michelle M.D. on 04/03/2025 at 0:24
== END ==
PROVIDERS: PCP Family Medicine; Referring Provider Family Medicine; Visit Provider Family Medicine
DX: M25.511 Pain in right shoulder (principal)
CPT/HCPCS: 73030

== ENCOUNTER → 2025-04-30 11:57 | Outpatient (CLI) | payer OTHER, SELFPAY ==
[2024-05-19 15:58] VITALS: BMI 35.6
[2025-04-30 12:38] LABS: Add Manual Diff / Slide Review NO; Basophils Absolute Auto 100 /uL (0-100); Basophils Percent Auto 0.5 % (0-2); Eosinophils Absolute Auto 300 /uL (0-450); Eosinophils Percent Auto 2.7 % (2-4); Hematocrit 40.8 % (36-46); Hemoglobin 14.1 g/dL (12.0-16.0); Lymphocytes Absolute Auto 1400 /uL (1100-4500); Lymphocytes Percent Auto 13.4 % (25-40); Mean Corpuscular HGB Conc 34.5 % (30-36); Mean Corpuscular Hemoglobin 29.6 PG (26-34); Mean Corpuscular Volume 85.9 fL (80-100); Monocytes Absolute Auto 400 /uL (0-900); Monocytes Percent Auto 4.3 % (3-14); Neutrophils Absolute Auto 8100 /uL (1500-7000); Neutrophils Percent Auto 79.1 % (50-75); Platelet Count 257 X10^3/uL (150-400); Red Blood Cell Count 4.74 X10^6/uL (4.0-5.2); Red Cell Distribution Width 13.8 % (11.6-14.8); White Blood Cell Count 10.2 X10^3/uL (4.5-11.0)
[2025-04-30 12:57] LABS: BUN Creatinine Ratio 13.3 (6-22); Blood Urea Nitrogen 34 mg/dL (7-17); Calcium 9.3 mg/dL (8.4-10.2); Carbon Dioxide 19 mmol/L (22-32); Chloride 105 mmol/L (98-107); Estimated Glomerular Filt Rate 22 mL/min (>60); Glucose 111 mg/dL (70-99); HEMOLYSIS < 15 (0-50); Potassium 5.3 mmol/L (3.4-5.1); Sodium 135 mmol/L (137-145)
== END ==
PROVIDERS: PCP Family Medicine; Referring Provider Obstetrics & Gynecology; Visit Provider Obstetrics & Gynecology
DX: E11.22 Type 2 diabetes mellitus with diabetic chronic kidney disease (principal); N18.30 Chronic kidney disease, stage 3 unspecified; E87.20 Acidosis, unspecified; E87.5 Hyperkalemia; R10.2 Pelvic and perineal pain; N93.9 Abnormal uterine and vaginal bleeding, unspecified
CPT/HCPCS: 36415; 80048; 85025

== ENCOUNTER → 2025-05-03 07:14 | Outpatient (CLI) | payer OTHER, SELFPAY ==
[2024-05-19 15:58] VITALS: BMI 35.6
--- NOTE | 2025-05-03 07:15 | DI.US.S_ITS ---
PROCEDURE: US PELVIC COMPLETE INDICATIONS: pelvic pain, vaginal bleeding TECHNIQUE: Real-time scanning was performed of the pelvic organs, with image documentation. Additional endovaginal scanning was necessary due to incomplete visualization of the adnexal and endometrial structures by transabdominal scanning. COMPARISON: [facility], US, US PELVIC COMPLETE, 11/07/2018, 12:16. FINDINGS: Uterus: Uterus is surgically absent. No abnormality is seen in vaginal cuff region. Ovaries: The right ovary measures 2.9 x 2.2 x 2.0 cm. The right ovary is surgically absent. Less than 12 follicles can be seen in right ovary. No adnexal masses are seen. Other: No pathologic free abdominal or pelvic fluid. IMPRESSION: 1. Patient is status post hysterectomy and left oophorectomy. No abnormality is seen in vaginal cuff region. No adnexal mass. Normal appearing right ovary. We strive to produce accurate, complete, and clear reports of imaging services. To assist us in improving patient care, this report was composed using standard report templates and voice recognition software. Therefore, it may contain abnormal punctuation, insertions and/or omissions. Occasional wrong-word or sound-alike substitutions may occur. Though we review the report and make efforts to correct it, we do recommend that the report be read carefully in proper context to recognize any text inaccuracies. Dictated by: Donaldo Andujar M.D. on 05/03/2025 at 9:03 Approved by: Donaldo Andujar M.D. on 05/03/2025 at 9:05
== END ==
PROVIDERS: PCP Family Medicine; Referring Provider Obstetrics & Gynecology; Visit Provider Obstetrics & Gynecology
DX: N93.9 Abnormal uterine and vaginal bleeding, unspecified (principal); R10.2 Pelvic and perineal pain; Z90.710 Acquired absence of both cervix and uterus; Z90.721 Acquired absence of ovaries, unilateral
CPT/HCPCS: 76830; 76856

== ENCOUNTER → 2025-05-19 14:22 | Outpatient (CLI) | payer OTHER, SELFPAY ==
[2024-05-19 15:58] VITALS: BMI 35.6
[2025-05-19 15:44] LABS: Appearance Urine UA TURBID; Bilirubin Urine UA NEGATIVE (NEGATIVE); Color Urine UA YELLOW; Glucose Urine UA 1+ g/dL (Negative); Ketones Urine UA NEGATIVE (NEGATIVE); Leukocyte Esterase Urine UA 1+ (NEGATIVE); Nitrite Urine UA NEGATIVE (Negative); Occult Blood Urine UA 2+ (Negative); Protein Urine UA 3+ (Negative); Urobilinogen Urine UA 0.2 E.U./dL (0.2)
[2025-05-19 16:01] LABS: Bacteria Urine Few (2-10); Culture Indicated Urine Specimen Cultured; RBC Urine 0-1/HPF (0-5/HPF); Squamous Epithelial Cell Urine 0-1 /HPF (0-5/HPF); Urine Volume Low Vol <10mL (spun); WBC Urine >100/HPF (0-5/HPF)
== END ==
PROVIDERS: PCP Family Medicine; Referring Provider Obstetrics & Gynecology; Visit Provider Obstetrics & Gynecology
DX: R30.0 Dysuria (principal); R35.0 Frequency of micturition; R39.15 Urgency of urination
CPT/HCPCS: 81001; 87077; 87086; 87186

== ENCOUNTER → 2025-06-19 14:42 | Outpatient (CLI) | payer OTHER, SELFPAY ==
[2024-05-19 15:58] VITALS: BMI 35.6
--- NOTE | 2025-06-19 14:43 | DI.MRI.S_ITS ---
PROCEDURE: MR SHOULDER RT WO CON INDICATIONS: confirm the diagnosis with an MRI TECHNIQUE: Noncontrast oblique coronal T2 fast spin echo with fat saturation, oblique sagittal T1 spin echo and T2 fast spin echo with fat saturation, axial T1 spin echo and T2 fast spin echo with fat saturation through the shoulder. COMPARISON: [facility], MR, MR SHOULDER RIGHT WITHOUT CONTRAST, 03/05/2023, 14:36. [facility], CR, XR SHOULDER RT 2+ VIEWS, 04/02/2025, 14:15. FINDINGS: Image quality: Excellent. Rotator cuff: Moderate T2 signal elevation diffusely throughout the supraspinatus and infraspinatus tendons at the humeral insertion sites extending the musculotendinous junction. Superimposed full-thickness tearing of the mid supraspinatus tendon at the humeral insertion site extending to the musculotendinous junction measuring 13 mm anteroposterior. Low-grade bursal surface tearing of the anterior supraspinatus tendon at the humeral insertion site. Low-grade articular surface tearing of the posterior supraspinatus tendon at the humeral insertion site. Moderate grade intrasubstance and bursal surface tearing of the anterior and mid infraspinatus tendon at the humeral insertion site extending to the musculotendinous junction. Small region of moderate grade intrasubstance and articular surface tearing of the mid subscapularis tendon at the humeral insertion site extending the musculotendinous junction. Teres minor appears severely atrophic. Moderate infraspinatus atrophy is present. Bones and bursae: No bone marrow contusions or fractures. Moderate glenohumeral and acromioclavicular joint degeneration. The acromion demonstrates conventional anatomy, without an os acromiale. No pathologic subacromial-subdeltoid or subcoracoid bursal fluid is present. Capsule and soft tissues: Diffuse degenerative fraying of the glenoid labrum. Linear high T2 signal intensity traverses the posteroinferior and anterosuperior labrum. The long head of the biceps tendon demonstrates normal location and morphology. The rotator interval appears normal, without fibrosis. The coracohumeral ligament is normal in thickness. IMPRESSION: 1. Supraspinatus and infraspinatus tendinopathy. Superimposed full and partial- thickness tearing of the supraspinatus tendon. Partial-thickness tearing of the subscapularis and infraspinatus tendons. There is associated infraspinatus atrophy. 2. Acromioclavicular and glenohumeral joint osteoarthritis. Findings are increased. 3. Glenoid labral tearing. 4. No change in teres minor atrophy. Dictated by: Lauren Jenkins M.D. on 06/21/2025 at 11:57 Approved by: Lauren Jenkins M.D. on 06/21/2025 at 12:02
== END ==
PROVIDERS: PCP Family Medicine; Referring Provider Orthopaedic Surgery; Visit Provider Orthopaedic Surgery
DX: M75.111 Incomplete rotator cuff tear or rupture of right shoulder, not specified as traumatic (principal); S43.431A Superior glenoid labrum lesion of right shoulder, initial encounter; M19.011 Primary osteoarthritis, right shoulder; M25.811 Other specified joint disorders, right shoulder; M67.921 Unspecified disorder of synovium and tendon, right upper arm
CPT/HCPCS: 73221

== ENCOUNTER 2025-08-27 13:00 | Emergency (ER) | payer OTHER, SELFPAY ==
[2025-07-19 13:56] VITALS: BMI 33.0
[2025-08-27] VITALS (12 sets, daily range): BP systolic 167–215; BP diastolic 83–112; PULSE 104–117; RESP 16–24; TEMP 37; O2SAT 95–99; BMI 32.9
[2025-08-27 14:10] LABS: Add Manual Diff / Slide Review NO; Hematocrit 32.1 % (36-46); Hemoglobin 11.0 g/dL (12.0-16.0); Lymphocytes Absolute Auto 300 /uL (1100-4500); Mean Corpuscular HGB Conc 34.2 % (30-36); Mean Corpuscular Hemoglobin 29.0 PG (26-34); Mean Corpuscular Volume 84.8 fL (80-100); Platelet Count 126 X10^3/uL (150-400)
[2025-08-27 14:19] LABS: Alanine Aminotransferase 16 IU/L (<35); Albumin 3.1 g/dL (3.5-5.0); Albumin Globulin Ratio 0.9 (1.0-2.8); Alkaline Phosphatase 59 U/L (38-126); Blood Urea Nitrogen 30 mg/dL (7-17); Calcium 9.3 mg/dL (8.4-10.2); Carbon Dioxide 15 mmol/L (22-32); Chloride 110 mmol/L (98-107); Estimated Glomerular Filt Rate 23 mL/min (>60); Globulin 3.6 g/dL (1.7-4.1); Glucose 69 mg/dL (70-99); HEMOLYSIS < 15 (0-50); Potassium 3.5 mmol/L (3.4-5.1); Sodium 135 mmol/L (137-145); Total Protein 6.7 g/dL (6.3-8.2)
--- NOTE | 2025-08-27 14:27 | ED.NEUROSD ---
HPI - Neuro Symptoms/Deficit <Alexia Henson MD - Last Filed: 08/28/25 19:38> General Chief Complaint: Neuro Symptoms/Deficit Stated Complaint: dizzy, shaking temp, changes, SOB, today Time Seen by Provider: 08/27/25 13:34 Source: patient Mode of arrival: Wheelchair History of Present Illness HPI Narrative: 54-year-old female history of diabetes, heart attack, hyperlipidemia, seizure disorder and prescribed Keppra, NAVA, CKD, ?liver failure,? hypertension, depression, diabetic retinopathy, here for evaluation after had episode at home where she felt very shaky. She had just woken up. Had been awake for about 15 minutes when she was in her kitchen and suddenly felt that her whole body was shaking. She was awake, went to get some water and rest. At the time she felt that it was very hard to breathe. She noted that her speech was very slowed. Her blood sugar was normal at the time. She was not sure if she was having a seizure or about to have one. She did not take her Keppra this morning. She went to therapy and her therapist advised that she come to the emergency room. No prior history of stroke. Currently patient feels much improved. She feels that her speech has returned to normal On Anticoagulants: No Related Data Home Medications ?Medication ?Instructions ?Recorded ?Confirmed nitroglycerin 0.4 mg sublingual 0.4 mg sublingual DAILY 11/13/23 08/04/25 tablet lisinopril 10 mg tablet 10 mg PO DAILY 07/15/24 08/04/25 naloxone 4 mg/actuation nasal spray 1 spray intranasal Q3M PRN opioid 09/03/24 08/04/25 overdose atorvastatin 80 mg tablet 80 mg PO QPM 01/08/25 08/04/25 ezetimibe 10 mg tablet 10 mg PO DAILY 01/08/25 08/04/25 insulin lispro 100 unit/mL 4 unit continuous subcutaneous 01/13/25 08/04/25 subcutaneous solution infusion Q1H diphenhydramine HCl 25 mg capsule 25 mg PO BEDTIME PRN Insomnia 02/19/25 08/04/25 (Benadryl) tirzepatide 10 mg/0.5 mL 12.5 mg SUBCUT WEEKLY 06/15/25 08/04/25 subcutaneous pen injector (Devenunjaro) lorazepam 1 mg tablet 1 mg PO BID PRN anxiety 07/19/25 08/04/25 Previous Rx's ?Medication ?Instructions ?Recorded omeprazole 20 mg capsule,delayed 20 mg PO BID #180 caps 02/22/22 release flash glucose sensor (FreeStyle #1 ea 03/13/24 Yana 2 Sensor kit) albuterol sulfate 90 mcg/actuation 2 puff PO Q6H PRN for wheezing #18 04/03/24 aerosol inhaler grams metronidazole 0.75 % topical cream 1 applic topical BID #45 grams 05/14/24 Dexcom G7 Machine Shop Instructor #1 ea 06/02/24 (blood-glucose,software support engineer,cont) budesonide-formoterol HFA 160 2 puff inhalation BID #10.2 grams 06/11/24 mcg-4.5 mcg/actuation aerosol inhaler (Symbicort) empagliflozin 10 mg tablet 10 mg PO DAILY #30 tabs 07/15/24 (Jardiance) glucagon 1 mg solution for 1 mg SUBCUT Q20M PRN hypoglycemia 07/20/24 injection (Glucagon Emergency Kit) #2 ea amlodipine 10 mg tablet (Norvasc) 10 mg PO DAILY #90 tabs 12/23/24 gabapentin 300 mg capsule 900 mg (3 x 300 mg) PO BID #180 12/23/24 caps blood sugar diagnostic (Relion #100 ea 01/22/25 Ultima strips) estradiol 0.01% (0.1 mg/gram) 1 g vaginal 3XW #42.5 grams 04/28/25 vaginal cream estradiol 0.1 mg/24 hr weekly 1 patch transdermal QWEEK #4 ea 04/28/25 transdermal patch (Climara) cetirizine 10 mg tablet (Zyrtec) 10 mg PO DAILY #30 tabs 05/04/25 progesterone micronized 200 mg 200 mg PO ONCE PM #30 caps 05/17/25 capsule Disabled Parking Permit #1 ea 05/25/25 cyclobenzaprine 5 mg tablet 2.5 - 5 mg (0.5 - 1 x 5 mg) PO TID 06/15/25 PRN muscle spasm #30 tabs Dexcom G7 Sensor (blood-glucose #3 ea 06/21/25 sensor) zolpidem 10 mg tablet 10 mg PO BEDTIME insomnia #30 tabs 06/21/25 acetaminophen 500 mg tablet 1,000 mg (2 x 500 mg) PO Q8H PRN 06/29/25 pain #120 tabs docusate sodium 100 mg capsule 100 mg PO BID #20 caps 06/29/25 (Colace) ondansetron 4 mg disintegrating 4 mg PO Q8H PRN nausea and 06/29/25 tablet vomiting #14 tabs oxycodone 5 mg capsule 5 mg PO Q4H PRN pain #40 caps 06/29/25 aspirin 81 mg tablet,delayed 81 mg PO BID 6 weeks #84 tabs 07/20/25 release (Adult Aspirin Regimen) ciprofloxacin HCl 250 mg tablet 500 mg (2 x 250 mg) PO DAILY #10 07/20/25 tabs lamotrigine 100 mg tablet 100 mg PO DAILY #30 tabs 08/10/25 lamotrigine 25 mg tablet 50 mg (2 x 25 mg) PO DAILY #30 tabs 08/10/25 levetiracetam 750 mg tablet 750 mg PO BID #180 tabs 08/11/25 methylphenidate HCl 36 mg 36 mg PO DAILY #30 tabs 08/11/25 tablet,extended release 24 hr oxycodone 5 mg capsule 5 mg PO Q4H PRN pain #10 caps 08/11/25 sodium bicarbonate 650 mg tablet 650 mg PO BID #180 tabs 08/11/25 Allergies Allergy/AdvReac Type Severity Reaction Status Date / Time amoxicillin Allergy Intermediate rash Verified 08/04/25 11:34 hydrocodone Allergy Intermediate ITCHING/VOM Verified 08/04/25 11:34 ITING/RASH suture Allergy Vicryl Verified 08/04/25 11:34 sulfamethoxazole (From AdvReac Severe GUSTAVO Verified 08/04/25 11:34 Bactrim) trimethoprim (From Bactrim) AdvReac Severe GUSTAVO Verified 08/04/25 11:34 Review of Systems <Alexia Henson MD - Last Filed: 08/28/25 19:38> Review of Systems Narrative: Pertinent ROS obtained and negative except as stated in HPI Hematologic/Lymphatic On Anticoagulants: No Patient History <Alexia Henson MD - Last Filed: 08/28/25 19:38> Medical History Obesity (BMI 30.0-34.9) CKD (chronic kidney disease) stage 3, GFR 30-59 ml/min Urinary tract infection Fatty liver (07/10/11) GERD (gastroesophageal reflux disease) (07/10/11) 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) Congenital absence of left kidney (07/10/11) Femur fracture CAD (coronary artery disease) Abscess (07/28/19) Incomplete emptying of bladder Recurrent urinary tract infection Benign essential HTN Osteoarthritis of left knee Left knee pain Lumbar radiculopathy Major depressive disorder, single episode, mild Abscess Insomnia secondary to depression with anxiety Trigger finger of left hand At risk for altered mental status STEMI (ST elevation myocardial infarction) Moderate left ankle sprain Uncontrolled type 2 diabetes mellitus Muscle twitching Dizziness Weakness Mixed stress and urge urinary incontinence Dorsal cervical fat pad Trigger finger of both hands Roberta infection Diabetic retinopathy Congenital absence of kidney Postmenopausal Pain of left great toe Urge incontinence Mood swings Hot flashes due to menopause Perimenopausal symptoms Chronic diarrhea Weight loss counseling, encounter for Recurrent UTI Chronic pain of right thumb Trigger finger, left middle finger Asthma Seizure disorder Chronic left shoulder pain Asymptomatic hypertensive urgency Situational anxiety Lower extremity edema Chronic GERD Wheezing Chronic back pain Chronic right shoulder pain Trigger finger, right middle finger DM type 2 causing CKD stage 3 Fatigue Sleep apnea Depression with anxiety Abscess of right external ear Upper extremity somatic dysfunction Pain of right thumb Right elbow pain Diarrhea due to drug Rash and nonspecific skin eruption Cervical somatic dysfunction Acute neck pain Subconjunctival hemorrhage of left eye Left hip pain Obesity Strain of lumbar region Lumbar disc herniation with radiculopathy Diabetic retinopathy associated with type 2 diabetes mellitus Pruritus Constipation due to slow transit Hot flashes Left lower quadrant abdominal pain Vaginal dryness Eosinophilic, granuloma bone Seizure (~1990) HLD (hyperlipidemia) HTN (hypertension) Fatty liver Congenital absence of one kidney Tuberculosis (~1993) Osteosarcoma Vision disorder Diabetes mellitus (~2005) Surgical History Hx of cholecystectomy History of abdominal supracervical subtotal hysterectomy S/P coronary artery stent placement History of lumbar discectomy (05/24/20) S/P laminectomy Anesthesia History of carpal tunnel release Neoplasm of femur Bone tumor (benign) (~1990) Status post laparoscopic cholecystectomy (~2016) Status post laparoscopic supracervical hysterectomy (~2010) Family History Brother Mental health disorder Mother Diabetes mellitus Heart disease Kidney disease Hyperlipidemia Hypertension Sister Mental health disorder Diabetes mellitus Grandfather Hypertension Stroke Grandmother Diabetes mellitus Hypertension Father Heart disease Social History household members: friend(s) Smoking Status: Current every day smoker Tobacco: How many years used: 29 quit status: considering quitting second hand exposure: Yes (socially) alcohol intake: never substance use type: does not use Smoking Status: Current every day smoker tobacco type: vaping alcohol intake frequency: other Exam <Alexia Henson MD - Last Filed: 08/28/25 19:38> Initial Vital Signs Initial Vital Signs: Vital Signs Temperature 98.6 F 08/27/25 13:05 Pulse Rate 117 H 08/27/25 13:05 Respiratory Rate 20 08/27/25 13:05 Blood Pressure 185/95 H 08/27/25 13:05 Pulse Oximetry 97 08/27/25 13:05 Oxygen Delivery Method Room Air 08/27/25 13:05 Constitutional: 54-year-old female resting in bed, obese body habitus, slightly anxious, no acute distress nontoxic Head: NCAT Cardiovascular: RRR, no murmur or rub Pulmonary: CTA bilaterally, no respiratory distress Abdominal: soft, non-tender Extremities: No LE edema. Right arm is in a sling. Skin: warm and dry, no diaphoresis Neurological: Alert and oriented x3. Right pupil is sluggish as compared to left. Patient reports blurriness and right eye which is chronic due to diabetic retinopathy. Extraocular movements intact. No diplopia, visual whitman intact. Speech is normal. No facial droop. 4/5 strength left upper and bilateral lower extremities. Normal coordination. No truncal ataxia <Batsheva Donald DO - Last Filed: 08/27/25 23:35> Initial Vital Signs Initial Vital Signs: Vital Signs Temperature 98.6 F 08/27/25 13:05 Pulse Rate 117 H 08/27/25 13:05 Respiratory Rate 20 08/27/25 13:05 Blood Pressure 185/95 H 08/27/25 13:05 Pulse Oximetry 97 08/27/25 13:05 Oxygen Delivery Method Room Air 08/27/25 13:05 Course <Alexia Henson MD - Last Filed: 08/28/25 19:38> Orders Ordered: Discontinued Medications Gabapentin (Gabapentin 300 Mg Capsule) 900 mg PO NOW ONE Stop: 08/27/25 14:13 Last Admin: 08/27/25 14:46 Dose: 900 mg Documented By: HAFSA Sodium Chloride (Normal Saline 0.9%) 1,000 mls @ 1,000 mls/hr IV BOLUS ONE Stop: 08/27/25 15:12 Last Infusion: 08/27/25 17:15 Dose: Infused Documented By: Admin: 08/27/25 14:46 Dose: 1,000 mls/hr Documented By: HAFSA Sodium Chloride (Normal Saline 0.9%) 1,000 mls @ 1,000 mls/hr IV BOLUS PRN PRN Reason: Fluid replacement Nicardipine HCl 25 mg/ Sodium (Chloride) 250 mls @ 50 mls/hr IV TITRATE NERI; Protocol Last Admin: 08/27/25 15:56 Dose: 5 mg/hr, 50 mls/hr Documented By: HAFSA Levetiracetam (Levetiracetam 250 Mg Tablet) 750 mg PO NOW ONE Stop: 08/27/25 14:13 Last Admin: 08/27/25 14:47 Dose: 750 mg Documented By: HAFSA Morphine Sulfate (Morphine 4 Mg/Ml Inj) 4 mg IV NOW ONE Stop: 08/27/25 15:24 Last Admin: 08/27/25 15:48 Dose: 4 mg Documented By: HAFSA Ondansetron HCl (Ondansetron 4 Mg/2 Ml Inj) 4 mg IV NOW ONE Stop: 08/27/25 17:09 Last Admin: 08/27/25 17:14 Dose: 4 mg Documented By: HAFSA Vital Signs Vital signs: Vital Signs - 8 hr 08/27/25 15:36 08/27/25 15:36 08/27/25 16:00 Pulse Rate 111 H 107 H Respiratory Rate 24 Blood Pressure 206/112 H Pulse Oximetry 99 98 08/27/25 16:03 08/27/25 16:03 08/27/25 16:16 Pulse Rate 106 H 104 H Respiratory Rate 20 Blood Pressure 205/103 H Pulse Oximetry 98 97 08/27/25 16:16 08/27/25 16:30 08/27/25 16:30 Pulse Rate 105 H Respiratory Rate 16 Blood Pressure 186/88 H 177/83 H Pulse Oximetry 95 08/27/25 16:45 08/27/25 16:45 Pulse Rate 109 H Respiratory Rate Blood Pressure 189/91 H Pulse Oximetry 97 <Batsheva Donald, - Last Filed: 08/27/25 23:35> Orders Ordered: Discontinued Medications Gabapentin (Gabapentin 300 Mg Capsule) 900 mg PO NOW ONE Stop: 08/27/25 14:13 Last Admin: 08/27/25 14:46 Dose: 900 mg Documented By: HAFSA Sodium Chloride (Normal Saline 0.9%) 1,000 mls @ 1,000 mls/hr IV BOLUS ONE Stop: 08/27/25 15:12 Last Infusion: 08/27/25 17:15 Dose: Infused Documented By: Admin: 08/27/25 14:46 Dose: 1,000 mls/hr Documented By: HAFSA Sodium Chloride (Normal Saline 0.9%) 1,000 mls @ 1,000 mls/hr IV BOLUS PRN PRN Reason: Fluid replacement Nicardipine HCl 25 mg/ Sodium (Chloride) 250 mls @ 50 mls/hr IV TITRATE NERI; Protocol Last Admin: 08/27/25 15:56 Dose: 5 mg/hr, 50 mls/hr Documented By: HAFSA Levetiracetam (Levetiracetam 250 Mg Tablet) 750 mg PO NOW ONE Stop: 08/27/25 14:13 Last Admin: 08/27/25 14:47 Dose: 750 mg Documented By: HAFSA Morphine Sulfate (Morphine 4 Mg/Ml Inj) 4 mg IV NOW ONE Stop: 08/27/25 15:24 Last Admin: 08/27/25 15:48 Dose: 4 mg Documented By: HAFSA Ondansetron HCl (Ondansetron 4 Mg/2 Ml Inj) 4 mg IV NOW ONE Stop: 08/27/25 17:09 Last Admin: 08/27/25 17:14 Dose: 4 mg Documented By: HAFSA Vital Signs Vital signs: Vital Signs - 8 hr 08/27/25 15:36 08/27/25 15:36 08/27/25 16:00 Pulse Rate 111 H 107 H Respiratory Rate 24 Blood Pressure 206/112 H Pulse Oximetry 99 98 08/27/25 16:03 08/27/25 16:03 08/27/25 16:16 Pulse Rate 106 H 104 H Respiratory Rate 20 Blood Pressure 205/103 H Pulse Oximetry 98 97 08/27/25 16:16 08/27/25 16:30 08/27/25 16:30 Pulse Rate 105 H Respiratory Rate 16 Blood Pressure 186/88 H 177/83 H Pulse Oximetry 95 08/27/25 16:45 08/27/25 16:45 Pulse Rate 109 H Respiratory Rate Blood Pressure 189/91 H Pulse Oximetry 97 MDM - Neuro Symptoms/Deficit <Alexia Henson MD - Last Filed: 08/28/25 19:38> Lab Data 08/27/25 13:45 08/27/25 13:45 Labs: Lab Results 08/27/25 08/27/25 08/27/25 Range/Units 13:45 15:50 17:02 WBC 6.4 (4.5-11.0) X10^3/uL RBC 3.79 L (4.0-5.2) X10^6/uL Hgb 11.0 L (12.0-16.0) g/dL Hct 32.1 L (36-46) % MCV 84.8 (80-100) fL MCH 29.0 (26-34) PG MCHC 34.2 (30-36) % RDW 14.8 (11.6-14.8) % Plt Count 126 L (150-400) X10^3/uL Neut % (Auto) 90.9 H (50-75) % Lymph % (Auto) 5.3 L (25-40) % [place] % (Auto) 2.7 L (3-14) % Eos % (Auto) 0.8 L (2-4) % Baso % (Auto) 0.3 (0-2) % Neut # (Auto) 5800 (8351-4858) /uL Lymph # (Auto) 300 L (7169-8761) /uL [place] # (Auto) 200 (0-900) /uL Eos # (Auto) 100 (0-450) /uL Baso # (Auto) 0 (0-100) /uL Sodium 135 L (137-145) mmol/L Potassium 3.5 (3.4-5.1) mmol/L Chloride 110 H (98-107) mmol/L Carbon Dioxide 15 L (22-32) mmol/L BUN 30 H (7-17) mg/dL Creatinine 2.50 H (0.52-1.04) mg/dL Estimated GFR 23 L (>60) mL/min BUN/Creatinine Ratio 12.0 (6-22) Glucose 69 L (70-99) mg/dL POC Whole Bld Glucose 64 L (70-99) mg/dL Calcium 9.3 (8.4-10.2) mg/dL Total Bilirubin 0.3 (0.2-1.3) mg/dL AST 25 (14-36) IU/L ALT 16 (<35) IU/L Alkaline Phosphatase 59 (38-126) U/L Total Protein 6.7 (6.3-8.2) g/dL Albumin 3.1 L (3.5-5.0) g/dL Globulin 3.6 (1.7-4.1) g/dL Albumin/Globulin Ratio 0.9 L (1.0-2.8) Urine Color Yellow Urine Appearance Clear Urine pH 6.0 (4.5-8.0) Ur Specific [place] 1.010 (1.000-1.035) Urine Protein 3+ H (Negative) Urine Glucose (UA) Trace H (Negative) g/dL Urine Ketones Negative (NEGATIVE) Urine Occult Blood 1+ H (Negative) Urine Nitrate Negative (Negative) Urine Bilirubin Negative (NEGATIVE) Urine Urobilinogen 0.2 (0.2) E.U./dL Ur Leukocyte Esterase 1+ H (NEGATIVE) Urine RBC 0-1/hpf (0-5/HPF) Urine WBC 30-100/hpf H (0-5/HPF) Ur Squamous Epith Cells 0-1 /hpf (0-5/HPF) Urine Bacteria Many (>30) H (None) Ur Culture Indicated? Specimen cultured Vol Urine Centrifuged 10ml (spun) MDM Narrative Medical decision making narrative: This is a 54-year-old female who presents from home after had a 15 minute episode of shaking, had difficulty breathing, had slowed speech, felt very tremulous and was worried that she was about to have a seizure. Symptoms did improve and shaking resolved, went to therapy and was referred to ED for evaluation. Patient has many comorbidities as stated above Here in ED patient has a benign neurologic exam. She is noted to have some sluggish reaction with the right pupil as compared to the left and blurry vision there she states is chronic due to retinopathy. Differential diagnoses considered include partial seizure, hypoglycemia, migraine with aura, functional neurologic disorder, metabolic derangement, MS, less likely drug intoxication, toxic encephalopathy, brain tumor. Clinical exam is not consistent with LV0. We will obtain noncontrast CT, some basic laboratories, uA Spoke with Dr. Walter -- CT shows R external capsule hemorrhage and smaller caden hemorrhage. Will initiate nicardipine drip with target SBP 140 mmHg, elevate HOB, push images. Care transferred to Dr. Donald. Pt reporting development of SHERIDAN. IV morphine ordered. <Batsheva Donald, DO - Last Filed: 08/27/25 23:35> Lab Data Labs: Lab Results 08/27/25 08/27/25 08/27/25 Range/Units 13:45 15:50 17:02 WBC 6.4 (4.5-11.0) X10^3/uL RBC 3.79 L (4.0-5.2) X10^6/uL Hgb 11.0 L (12.0-16.0) g/dL Hct 32.1 L (36-46) % MCV 84.8 (80-100) fL MCH 29.0 (26-34) PG MCHC 34.2 (30-36) % RDW 14.8 (11.6-14.8) % Plt Count 126 L (150-400) X10^3/uL Neut % (Auto) 90.9 H (50-75) % Lymph % (Auto) 5.3 L (25-40) % [place] % (Auto) 2.7 L (3-14) % Eos % (Auto) 0.8 L (2-4) % Baso % (Auto) 0.3 (0-2) % Neut # (Auto) 5800 (9876-8446) /uL Lymph # (Auto) 300 L (1952-7094) /uL [place] # (Auto) 200 (0-900) /uL Eos # (Auto) 100 (0-450) /uL Baso # (Auto) 0 (0-100) /uL Sodium 135 L (137-145) mmol/L Potassium 3.5 (3.4-5.1) mmol/L Chloride 110 H (98-107) mmol/L Carbon Dioxide 15 L (22-32) mmol/L BUN 30 H (7-17) mg/dL Creatinine 2.50 H (0.52-1.04) mg/dL Estimated GFR 23 L (>60) mL/min BUN/Creatinine Ratio 12.0 (6-22) Glucose 69 L (70-99) mg/dL POC Whole Bld Glucose 64 L (70-99) mg/dL Calcium 9.3 (8.4-10.2) mg/dL Total Bilirubin 0.3 (0.2-1.3) mg/dL AST 25 (14-36) IU/L ALT 16 (<35) IU/L Alkaline Phosphatase 59 (38-126) U/L Total Protein 6.7 (6.3-8.2) g/dL Albumin 3.1 L (3.5-5.0) g/dL Globulin 3.6 (1.7-4.1) g/dL Albumin/Globulin Ratio 0.9 L (1.0-2.8) Urine Color Yellow Urine Appearance Clear Urine pH 6.0 (4.5-8.0) Ur Specific [place] 1.010 (1.000-1.035) Urine Protein 3+ H (Negative) Urine Glucose (UA) Trace H (Negative) g/dL Urine Ketones Negative (NEGATIVE) Urine Occult Blood 1+ H (Negative) Urine Nitrate Negative (Negative) Urine Bilirubin Negative (NEGATIVE) Urine Urobilinogen 0.2 (0.2) E.U./dL Ur Leukocyte Esterase 1+ H (NEGATIVE) Urine RBC 0-1/hpf (0-5/HPF) Urine WBC 30-100/hpf H (0-5/HPF) Ur Squamous Epith Cells 0-1 /hpf (0-5/HPF) Urine Bacteria Many (>30) H (None) Ur Culture Indicated? Specimen cultured Vol Urine Centrifuged 10ml (spun) MDM Narrative Medical decision making narrative: This is a 54-year-old female who presents from home after had a 15 minute episode of shaking, had difficulty breathing, had slowed speech, felt very tremulous and was worried that she was about to have a seizure. Symptoms did improve and shaking resolved, went to therapy and was referred to ED for evaluation. Patient has many comorbidities as stated above Here in ED patient has a benign neurologic exam. She is noted to have some sluggish reaction with the right pupil as compared to the left and blurry vision there she states is chronic due to retinopathy. Differential diagnoses considered include partial seizure, hypoglycemia, migraine with aura, functional neurologic disorder, metabolic derangement, MS, less likely drug intoxication, toxic encephalopathy, brain tumor. Clinical exam is not consistent with LV0. We will obtain noncontrast CT, some basic laboratories, uA Spoke with Dr. Walter -- CT shows R external capsule hemorrhage and smaller caden hemorrhage. Will initiate nicardipine drip with target SBP 140 mmHg, elevate HOB, push images. Care transferred to Dr. Donald. Pt reporting development of SHERIDAN. IV morphine ordered. 08/27/25 Dr. Donald:? Patient signed out to myself.? Patient seen and evaluated by myself.?? Patient is alert, appropriate, patient states developed a headache earlier today had a period where her speech was very slowed almost unable to speak.? She denies any numbness tingling or weakness otherwise, no nausea or vomiting.? She notes some mild visual blurriness.? Denies chest pain or shortness of breath.? No other GI or urinary symptoms.? Patient is not on any anticoagulation.? Does take medication for hypertension, dyslipidemia, has chronic kidney disease on insulin.? Had a right shoulder surgery proximally 6 weeks ago.? Patient notes her grandmother and grandfather both had aneurysms.? Mother from renal disease from diabetes.?? GEN: well nourished, well appearing female, alert and oriented x 3, patient appears to be in moderate distress.? Patient is tearful she is aware of her head CT imaging findings.?? HEENT: Atraumatic, pupils are equal round reactive to light, extraocular movements are intact, nares are clear, TMs are clear with no fluid, there is no conjunctival pallor.? Throat is clear without any exudates, erythema, tonsillar enlargement or uvular deviation, no facial droop. HEART: Regular rate and rhythm without murmur, clicks, rubs.? Pulses equal bilateral upper and lower extremities. LUNGS:Lungs clear to auscultation, no wheezes, rales, crackles, chest moves symmetrically ABD:bowel sounds normal, soft, non-tender, no guarding, rebound, rigidity, no masses noted, no hepatosplenomegaly :No CVA tenderness MSCL: Non-tender, no muscle atrophy, muscles strength 5/5 upper and lower extremities, full range of motion accept for right arm which has a in a sling. NEURO:CN 2-12 intact, sensation normal, reflexes 2/4 upper and lower extremities. finger nose finger test normal bilaterally, heel torres test normal bilaterally, patient unable to perform drift with right upper extremity but no drift with the left upper extremity.? No drift of the bilateral lower extremities.? Patient has a possible mild dysarthria but no aphasia.?? CT imaging were call to Dr. Henson.? Related to myself, patient has nicardipine drip started blood pressure was 1 60s but during her evaluation came back in the 200 range, also received Keppra, gabapentin and dose of morphine.? Right external capsule hemorrhage, hyperdensity measures 1.2 x 0.9 cm, no midline shift 4 mm focus of hyperdensity with the left caden.? James-white matter interface is normal. Labs show white count of 6.4 hemoglobin of 11, platelets of 126, 90% neutrophils.? Creatinine is 2.5 is actually appears fairly close to baseline last in May of 2025 was 3.04 and 2.56 in April of 2025 sodium is 135 potassium is 3.5 chloride 110 CO2 is 15 with a BUN of 30.? Glucose is 69.? Albumin 3.1. Discussed patient's code status she is full code she is agreeable to transfer.? ? Spoke with [facility] coordinator at [phone].? They will call back for more information.? Spoke with Dr. Worley, stroke/Neurology at [phone].? They accept for transfer asked for goal systolic pressure less than 160.?? Critical Care Time <Alexia Henson MD - Last Filed: 08/28/25 19:38> Critical Care Time Attestation: Upon my evaluation, this patient had a high probability of imminent or life-threatening deterioration due to ICH, which required my direct attention, intervention, and personal management. I have personally provided 35 minutes of critical care time exclusive of time spent on separately billable procedures. Time includes review of laboratory data, radiology results, discussion with consultants, and monitoring for potential decompensation. Interventions were performed as documented above. Ady Henson MD <Batsheva Donald DO - Last Filed: 08/27/25 23:35> Critical Care Time Attestation: Upon my evaluation, this patient had a high probability of imminent or life-threatening deterioration due to ICH, which required my direct attention, intervention, and personal management. I have personally provided 35 minutes of critical care time exclusive of time spent on separately billable procedures. Time includes review of laboratory data, radiology results, discussion with consultants, and monitoring for potential decompensation. Interventions were performed as documented above. Ady Henson MD Discharge Plan Departure Patient Disposition: [facility] Clinical Impression: Brain bleed Prescriptions: No Action naloxone 4 mg/actuation spray,non-aerosol 1 spray intranasal Q3M PRN (Reason: opioid overdose) zolpidem 10 mg tablet 10 mg PO BEDTIME Qty: 30 2RF lamotrigine 25 mg tablet 50 mg PO DAILY Qty: 30 0RF Rx Instructions: After finishing this Rx, take 100 mg tabs lamotrigine 100 mg tablet 100 mg PO DAILY Qty: 30 1RF omeprazole 20 mg capsule,delayed release(DR/EC) 20 mg PO BID Qty: 180 3RF (DME) FreeStyle Yana 2 Sensor Kit See Rx Instructions .Route Qty: 1 11RF Rx Instructions: use to check blood sugars 4 times a day albuterol sulfate 90 mcg/actuation HFA aerosol inhaler 2 puff PO Q6H PRN (Reason: for wheezing) Qty: 18 11RF (DME) 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 replace every 365 days or if broken budesonide-formoterol [Symbicort] 160-4.5 mcg/actuation HFA aerosol inhaler 2 puff inhalation BID Qty: 10.2 12RF Glucagon Emergency Kit (human) 1 mg recon soln 1 mg SUBCUT Q20M PRN (Reason: hypoglycemia) Qty: 2 11RF Rx Instructions: until target blood sugar attained (DME) Relion Ultima Strip See Rx Instructions .Route Qty: 100 3RF Rx Instructions: As directed to test blood glucose once daily against CGM progesterone micronized 200 mg capsule 200 mg PO ONCE PM Qty: 30 6RF (DME) Dexcom G7 Sensor Device See Rx Instructions .ROUTE .COMPLEX Qty: 3 11RF Dose Instruction: USE TO CONTINUOUSLY MONITOR GLUCOSE. CHANGE SENSOR OUT EVERY 10 DAYS. Rx Instructions: USE TO CONTINUOUSLY MONITOR GLUCOSE. CHANGE SENSOR OUT EVERY 10 DAYS. sodium bicarbonate 650 mg tablet 650 mg PO BID Qty: 180 3RF levetiracetam 750 mg tablet 750 mg PO BID Qty: 180 3RF methylphenidate HCl 36 mg tablet extended release 24hr 36 mg PO DAILY Qty: 30 0RF oxycodone 5 mg capsule 5 mg PO Q4H PRN (Reason: pain) Qty: 10 0RF nitroglycerin 0.4 mg tablet, sublingual 0.4 mg sublingual DAILY Patient Comments: never had to use metronidazole 0.75 % cream 1 applic topical BID Qty: 45 3RF Rx Instructions: Apply to affected area twice daily after washing face lisinopril 10 mg tablet 10 mg PO DAILY Jardiance 10 mg tablet 10 mg PO DAILY Qty: 30 11RF amlodipine [Norvasc] 10 mg tablet 10 mg PO DAILY Qty: 90 3RF gabapentin 300 mg capsule 900 mg PO BID Qty: 180 11RF Mounjaro 10 mg/0.5 mL pen injector 12.5 mg SUBCUT WEEKLY Patient Comments: INJECT 10MG (0.5ML) UNDER THE SKIN ONCE WEEKLY cyclobenzaprine 5 mg tablet 2.5 - 5 mg PO TID PRN (Reason: muscle spasm) Qty: 30 3RF (DME) Disabled Parking Permit See Rx Instructions .ROUTE .MEDSUPPLY Qty: 1 0RF Rx Instructions: I find this patient to be medically disabled and qualified for Disabled Parking as indicated on the accompanying Disabled Parking Application for Individuals. insulin lispro 100 unit/mL solution 4 unit continuous subcutaneous infusion Q1H Patient Comments: insulin pump estradiol [Climara] 0.1 mg/24 hr patch weekly 1 patch transdermal QWEEK Qty: 4 12RF estradiol 0.01 % (0.1 mg/gram) cream 1 g vaginal 3XW Qty: 42.5 12RF Rx Instructions: Apply 1 g PV hs x7 days, then PV hs 3 nights weekly cetirizine [Zyrtec] 10 mg tablet 10 mg PO DAILY Qty: 30 5RF Rx Instructions: until rash on face resolves atorvastatin 80 mg Tablet 80 mg PO QPM ezetimibe 10 mg Tablet 10 mg PO DAILY diphenhydramine HCl [Benadryl] 25 mg Capsule 25 mg PO BEDTIME PRN (Reason: Insomnia) lorazepam 1 mg tablet 1 mg PO BID PRN (Reason: anxiety) ciprofloxacin HCl 250 mg Tablet 500 mg PO DAILY Qty: 10 0RF aspirin [Adult Aspirin Regimen] 81 mg tablet,delayed release (DR/EC) 81 mg PO BID 42 Days Qty: 84 0RF acetaminophen 500 mg tablet 1,000 mg PO Q8H PRN (Reason: pain) Qty: 120 0RF oxycodone 5 mg capsule 5 mg PO Q4H PRN (Reason: pain) Qty: 40 0RF docusate sodium [Colace] 100 mg capsule 100 mg PO BID Qty: 20 0RF ondansetron 4 mg tablet,disintegrating 4 mg PO Q8H PRN (Reason: nausea and vomiting) Qty: 14 0RF Referrals: Martinez Crawford DO [Primary Care Provider, Family Practice]
[2025-08-27] MEDS: GABAPENTIN 300 MG CAPSULE 900 MG PO (14:46)
[2025-08-27] MEDS: SODIUM CHLORIDE 0.9% 1,000 ML 1000 ML IV (14:46)
--- NOTE | 2025-08-27 14:48 | DI.CT.S_ITS ---
PROCEDURE: CT HEAD/BRAIN WO CON INDICATIONS: ?TIA TECHNIQUE: Noncontrast 4.5 mm thick angled axial sections acquired from the foramen magnum to the vertex, with coronal and sagittal reformats. For radiation dose reduction, the following was used: automated exposure control, adjustment of mA and/or kV according to patient size. COMPARISON: [facility], CT, CT HEAD WITHOUT CONTRAST, 05/03/2023, 22:11. FINDINGS: Image quality: Diagnostic. CSF spaces: Basal cisterns are patent. No extra-axial fluid collections. Ventricles are normal in size and shape. Brain: No midline shift. Hyperdensity within the right external capsule measuring 1.2 x 0.9 cm is present. No midline shift. 4 mm focus of hyperdensity within the left caden. James-white matter interface is normal. Skull and face: Left frontal calvarial changes. Sinuses: Visualized sinuses and mastoids are clear. IMPRESSION: Right external capsule hemorrhage. Recommend interval follow-up with MRI to exclude presence of underlying mass lesion after resorption of hemorrhage. 4 mm nonspecific focus of hyperdensity within the caden. While this could represent a small focus of hemorrhage, other etiology such as vascularity cannot be excluded. The above findings were discussed with Dr. Alexia Henson on 08/27/2025 at 3:15 p.m. Dictated by: Kristan Walter M.D. on 08/27/2025 at 15:13 Approved by: Kristan Walter M.D. on 08/27/2025 at 15:28
[2025-08-27] MEDS: MORPHINE 4 MG/ML INJ IV (15:48)
[2025-08-27 16:13] LABS: Appearance Urine UA CLEAR; Bilirubin Urine UA NEGATIVE (NEGATIVE); Color Urine UA YELLOW; Glucose Urine UA TRACE g/dL (Negative); Ketones Urine UA NEGATIVE (NEGATIVE); Leukocyte Esterase Urine UA 1+ (NEGATIVE); Nitrite Urine UA NEGATIVE (Negative); Occult Blood Urine UA 1+ (Negative); Protein Urine UA 3+ (Negative); Specific Gravity Urine UA 1.010 (1.000-1.035); Urobilinogen Urine UA 0.2 E.U./dL (0.2); pH Urine UA 6.0 (4.5-8.0)
[2025-08-27 16:29] LABS: Culture Indicated Urine Specimen Cultured
--- NOTE | 2025-08-27 16:37 | PC.NURSE ---
APPLICATION PENETRATION TESTER Note: Transfer started with [facility]. Consult completed. Dr. Worley accepts ED to ED. [facility] called for transport.
[2025-08-27] MEDS: ONDANSETRON 4 MG/2 ML INJ IV (17:14)
== END 2025-08-27 17:18 | disposition short-term general hospital (02) ==
PROVIDERS: Student in an Organized Health Care Education/Training Program; Emergency Provider Emergency Medicine; Family Provider Family Medicine; PCP Family Medicine
DX: I61.9 Nontraumatic intracerebral hemorrhage, unspecified (principal); I10 Essential (primary) hypertension; R42 Dizziness and giddiness; R06.02 Shortness of breath; G40.909 Epilepsy, unspecified, not intractable, without status epilepticus; I25.2 Old myocardial infarction; E11.9 Type 2 diabetes mellitus without complications
CPT/HCPCS: 36415; 70450; 80053; 81001; 82962; 85025; 87077; 87086; 87186; 96361; 96374; 96375; 99284; 99291; J2270; J2405

== ENCOUNTER 2025-09-02 11:29 | Emergency (ER) | payer OTHER, SELFPAY ==
[2025-07-19 13:56] VITALS: BMI 33.0
[2025-09-02] VITALS (10 sets, daily range): BP systolic 168–193; BP diastolic 84–101; PULSE 82–89; RESP 14–21; TEMP 36.6–36.7; O2SAT 94–100; BMI 32.9
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
--- NOTE | 2025-09-02 12:24 | EKG_ITS ---
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
--- NOTE | 2025-09-02 12:55 | PC.NURSE ---
Recent R shoulder rotator surgery. Arm in sling and to remain immobilized per MD order.Not able to assess for drift.
[2025-09-02 12:56] LABS: Add Manual Diff / Slide Review NO; Hematocrit 29.7 % (36-46); Hemoglobin 10.1 g/dL (12.0-16.0); Lymphocytes Absolute Auto 900 /uL (1100-4500); Mean Corpuscular HGB Conc 34.0 % (30-36); Mean Corpuscular Hemoglobin 28.9 PG (26-34); Mean Corpuscular Volume 84.8 fL (80-100); Platelet Count 242 X10^3/uL (150-400)
[2025-09-02 13:05] LABS: INR 1.0 (0.9-1.3); Prothrombin Time 11.6 SECONDS (9.4-12.5)
[2025-09-02 13:07] LABS: PTT Partial Thromboplastin Tim 40 SECONDS (25.1-36.5)
[2025-09-02 13:11] LABS: Alanine Aminotransferase 13 IU/L (<35); Albumin 3.3 g/dL (3.5-5.0); Albumin Globulin Ratio 0.8 (1.0-2.8); Alkaline Phosphatase 71 U/L (38-126); Blood Urea Nitrogen 43 mg/dL (7-17); Calcium 8.5 mg/dL (8.4-10.2); Chloride 111 mmol/L (98-107); Creatine Kinase 128 U/L (30-135); Estimated Glomerular Filt Rate 14 mL/min (>60); Ethanol (ETOH) < 10 mg/dL (<10); Globulin 3.9 g/dL (1.7-4.1); Glucose 76 mg/dL (70-99); HEMOLYSIS < 15 (0-50); Potassium 4.3 mmol/L (3.4-5.1); Sodium 136 mmol/L (137-145); Total Protein 7.2 g/dL (6.3-8.2)
[2025-09-02 13:21] LABS: Carbon Dioxide 9 mmol/L (22-32)
[2025-09-02 13:22] LABS: Troponin I < 0.012 ng/mL (0.01-0.034)
== END 2025-09-02 15:00 | disposition home or self-care (01) ==
PROVIDERS: Emergency Provider Emergency Medicine; Family Provider Family Medicine; PCP Family Medicine
DX: R51.9 Headache, unspecified (principal); I10 Essential (primary) hypertension
CPT/HCPCS: 36415; 70450; 80053; 80320; 82550; 82962; 84484; 85025; 85610; 85730; 93005; 99284